=== PATIENT | male | born 1965 | race African-American/Black ===

== ENCOUNTER 2019-09-23 10:24 | Inpatient (IN) | payer OTHER, SELFPAY ==
--- NOTE | ~2019-09-23 | XR_ITS ---
XR chest 2V 09/28/2019 09:52 Indication: Multifocal pneumonia. Diabetes. Procedure: AP and lateral views of the chest Comparison: Comparison to multiple prior studies sequentially, with oldest reviewed study dated 02/24. Findings: There is multifocal airspace disease, consistent with pneumonia. Heart size normal. PICC li ne tip in the SVC. No pneumothorax. No pleural effusion. Impression: 1: Multifocal airspace disease, compatible with pneumonia. Reviewed, dictated and finalized at location A. Impression: 1: Multifocal airspace disease, compatible with pneumonia.
--- NOTE | ~2019-09-23 | US_ITS ---
US renal BI 09/30/2019 13:51 Procedure: Realtime transabdominal ultrasound of the kidneys and bladder. Indication: Acute renal insufficiency Comparison: No prior studies for comparison. Findings: Renal echotexture is normal bilaterally without hydronephrosis, contour deforming mass or r enal calculus. The right kidney measures 12.2 cm and left kidney measures 12.2 cm. There is mild blad mercedes wall thickening measuring 5 mm. Impression: 1: Mild bladder wall thickening which may be due to underdistention or cystitis. Consider correlation with urinalysis. Reviewed, dictated and finalized at location A. Impression: 1: Mild bladder wall thickening which may be due to underdistention or cystitis . Consider correlation with urinalysis.
--- NOTE | ~2019-09-23 | XR_ITS ---
EXAMINATION: XR foot RT min 3V DATE: 09/23/2019 11:08 INDICATION: Right great toe diabetic ulcer. TECHNIQUE: 4 views of right foot were obtained. COMPARISON: Right ankle radiographs 01/20/2006 FINDINGS: There is moderate hallux valgus. No visible fracture. There is periosteal reaction at the n nancy of first proximal phalanx. There is mild osteoarthritis of first metatarsophalangeal joint and so me of the interphalangeal joints. There is an ulcer at plantar and medial aspect of the great toe IMPRESSION: 1. Periosteal reaction at the neck of first proximal phalanx, consistent with osteomyelitis and/or a healing occult fracture. Reviewed, dictated and finalized at location A. IMPRESSION: 1. Periosteal reaction at the neck of first proximal phalanx, consistent with o steomyelitis and/or a healing occult fracture.
--- NOTE | ~2019-09-23 | CT_ITS ---
EXAMINATION: CT abdomen pelvis wo con DATE: 09/27/2019 13:25 INDICATION: Nausea, vomiting and acute renal insufficiency. Loss of appetite. TECHNIQUE: Computed tomography (CT) of the abdomen and pelvis was performed without intravenous contr ast. The dose-length product was 1412.14 mGy-cm. Automated exposure control and iterative reconstruct ion technique were employed. COMPARISON: CT dated 05/28/2019 FINDINGS: There is patchy bibasilar airspace disease, consistent with multifocal pneumonia. Heart siz e normal. No significant pleural or pericardial effusion. There is moderate right perinephric edema. No significant hydronephrosis. Small fat-containing umbilical hernia. Calcified granulomas of the liver and spleen. Gallbladder is present. The pancreas, adrenal glands an d left kidney are unremarkable. Nonobstructive bowel gas pattern. Bladder wall is mildly thickened. N o abnormal pelvic masses or fluid collections. No lymphadenopathy. No significant vascular abnormalit ies. IMPRESSION: 1. Multifocal pneumonia of the lung bases. 2: Moderate right perinephric edema, suspicious for pyelonephritis. Correlate clinically. 3: Mild bladder wall thickening which may be due to underdistention, hypertrophy or cystitis. Correl ate with urinalysis. Reviewed, dictated and finalized at location A. IMPRESSION: 1. Multifocal pneumonia of the lung bases. 2: Moderate right perinephric edema, suspicious for pyelonephritis. Correlate clinically. 3: Mild bladder wall thickening which may be due to underdistention, hypertrop hy or cystitis. Correlate with urinalysis.
--- NOTE | ~2019-09-23 | NM_ITS ---
EXAMINATION: NM renal flow and function DATE: 09/30/2019 13:53 INDICATION: Acute renal insufficiency TECHNIQUE: Following the intravenous administration of 7.61 mCi Tc-99m MAG3, posterior abdominal radi onuclide angiogram and subsequent time course of static images of the kidneys, ureters, and bladder w ere obtained. COMPARISON: CT dated 09/27/2019 FINDINGS: The posterior abdominal radionuclide angiogram obtained demonstrates prompt, symmetrical pe rfusion of the kidneys. Sequential static images show normal renal size, position, morphology and tr acer accumulation in both kidneys. Renogram shows prompt uptake (normal peak 3-5 minutes) but with d elayed excretion bilaterally. The relative early renal uptake is 66% on the right and 34% on the lef t (<40% is abnormal). No abnormalities of the ureters or bladder are seen. T1/2 max for both kidneys is unable to be determined with continually rising renal activity curves ex tending throughout the 30 minutes of imaging. There is however some renal excretion with small amount of activity seen along portions of both the left and right ureters with gradual accumulation in the bladder. No significant central however accumulation of activity at either kidney to suggest hydronep hrosis. IMPRESSION: 1. Bilateral nonspecific nephropathy and likely severe with continually increasing activity at both kidneys throughout the 30 minutes of observation. No evident hydronephrosis. 2. Asymmetric renal function with right kidney contributing 66% and left kidney 34% of early total re nal function. Reviewed, dictated and finalized at location A. IMPRESSION: 1. Bilateral nonspecific nephropathy and likely severe with continually increa sing activity at both kidneys throughout the 30 minutes of observation. No evid ent hydronephrosis. 2. Asymmetric renal function with right kidney contributing 66% and left kidney 34% of early total renal function.
--- NOTE | ~2019-09-23 | XR_ITS ---
EXAMINATION: XR chest 1V portable EXAM DATE: 09/30/2019 17:09 INDICATION: Worsening respiratory status, shortness of breath, new oxygen demand. TECHNIQUE: Portable AP frontal chest x-ray was obtained. Comparison is made to prior examination from 09/28/2019. Correlation was made with abdomen CT 09/27/2019. FINDINGS: There is interval progression in the bilateral acute airspace disease, moderate involvement on the right and mild on the left. Probably acute infectious process. Differential diagnosis does in clude acute lung injury from COVID 19. No pneumothorax or pleural effusion. Cardiomediastinal silhoue tte is normal. IMPRESSION: Worsening multifocal airspace disease. Reviewed, dictated and finalized at location A.
--- NOTE | ~2019-09-23 | XR_ITS ---
EXAMINATION: XR chest PICC line EXAM DATE: 09/23/2019 19:30 INDICATION: PICC line placement. TECHNIQUE: Portable AP frontal chest x-ray was obtained. Comparison is made to prior examination from 05/28/2019. FINDINGS: There is a right-sided PICC line with tip projecting over the mid SVC level, pointing infer iorly. The lungs are clear. There are no pleural effusions. The cardiomediastinal silhouette is wit hin normal limits. There is no pneumothorax suspected. The bones and soft tissues are unremarkable. IMPRESSION: 1. PICC line tip at mid SVC level. 2. No acute cardiopulmonary findings. Reviewed, dictated and finalized at location A.
[2019-09-23 10:27] VITALS: BP 127/91; PULSE 111; RESP 16; TEMP 37.2; O2SAT 98
[2019-09-23 11:58] LABS: Basophils Percent Auto 0.1 % (0.2-1.2); Eosinophils Absolute Auto 0.1 K/mm3 (0-0.3); Hematocrit 30.4 % (42.0-52.0); Immature Granulocyte Absolute 0.09 K/mm3 (0.00-0.031); Lymphocytes Absolute Auto 1.41 K/mm3 (0.9-3.2); Lymphocytes Percent Auto 14.9 % (18.3-44.2); Mean Corpuscular HGB Conc 32.9 g/dl (32-36); Mean Corpuscular Hemoglobin 27.5 pg (26-34); Mean Corpuscular Volume 83.7 fl (80-100); Mean Platelet Volume 8.7 fl (7.4-10.4); Monocytes Absolute Auto 1.1 K/mm3 (0.1-0.6); Monocytes Percent Auto 11.6 % (2.6-8.5); Neutrophils Absolute Auto 6.8 K/mm3 (1.3-6.7); Neutrophils Percent Auto 71.4 % (45.5-73.1); Platelet Count Result 413 k/mm3 (150-375); Red Blood Count 3.63 M/mm3 (4.6-6.20); White Blood Count 9.5 K/mm3 (4.5-10.0)
[2019-09-23 12:06] LABS: Lactic Acid Reflex 0.6 mmol/L (0.7-2.1)
[2019-09-23 12:19] LABS: Blood Urea Nitrogen 11 mg/dL (9-20); Calcium 8.9 mg/dL (8.4-10.2); Carbon Dioxide 26 mmol/L (22-30); Chloride 96 mmol/L (98-107); Estimated CRCL calculation 152 ml/min; Estimated Glomerular Filt Rate > 60; Glucose 239 mg/dL (75-110); Potassium 3.4 mmol/L (3.4-5.0); Sodium 131 mmol/L (137-145)
--- NOTE | 2019-09-23 12:23 | PM.CNGS ---
Assessment and Plan Assessment and plan (1) Type 2 diabetes mellitus with right diabetic foot infection: Code(s): E11.628 - Type 2 diabetes mellitus with other skin complications; L08.9 - Local infection of the skin and subcutaneous tissue, unspecified Status: Acute Assessment and Plan: IV abx, local wound care, xray suggestive of underlying osteo, d/w pt may need toe amputation (2) Diabetes: Code(s): E11.9 - Type 2 diabetes mellitus without complications Status: Acute Assessment and Plan: control as per primary team History of Present Illness Consult details Consult date: 09/23/19 Reason for consult: wound care (right great toe) Narrative: Pt is a 54 y/o M c multiple med issues including poorly controlled DM presenting c infection of R great toe. Pt reports he picked at a callous on his R great toe about a week ago. Pt reports over last week area has become progressively more inflamed and swollen. Pt reports darkening of the overlying skin as well as purulent drainage. Pt denies any f/c, although does reports some mild discomfort in the toe. Pt denies previous episodes. Review of Systems Constitutional: Constitutional: Denies anorexia, Denies chills, Reports fatigue, Denies headache(s), Denies malaise, Denies poor appetite, Reports weakness, Denies weight gain and Denies weight loss Eyes: Eyes: Denies loss of vision ENT: Denies dysphagia, Denies headache(s), Denies hearing loss and Denies sore throat Cardiovascular: Cardiovascular: Denies chest pain, Denies syncope, Denies irregular heart rhythm, Denies leg edema and Denies dyspnea Respiratory: Respiratory: Denies cough and Denies dyspnea Gastrointestinal: Gastrointestinal: Denies abdominal pain, Denies bloating, Denies change in bowel habits, Denies change in stool character, Denies constipation, Denies dysphagia, Denies heartburn, Denies diarrhea, Denies nausea and Denies vomiting Genitourinary: Genitourinary: Denies dysuria, Denies urinary frequency and Denies urinary urgency Musculoskeletal: Musculoskeletal: Denies myalgias, Denies arthralgias and Denies muscle cramps Integumentary/Breasts: Skin/Breast: Denies non-healing lesions, Denies rash and Reports wounds Neurologic: Denies syncope, Denies headache(s) and Denies loss of vision Endocrine: Endocrine: Denies change in body appearance and Denies fatigue Hematologic/Lymphatic: Hematologic/Lymphatic: Denies easy bleeding, Denies easy bruising and Denies lymphadenopathy [facility] Past Medical History Medical History Anemia Diabetes type 2, controlled GI bleed Hyperlipidemia Hypertension Surgical History Surgical History H/O arthroscopy of shoulder Left Hx of appendectomy Social History Social History Smoking status: Current every day smoker Gender identity (if verbalized by the patient): Male Meds Home Medications and Allergies Home Medications Medication Instructions Recorded Confirmed Type metformin 850 mg 09/23/19 History Allergies Allergy/AdvReac Type Severity Reaction Status Date / Time No Known Allergies Allergy Verified 09/23/19 10:34 Vital Signs Vital Signs - 24 hr 09/23/19 10:27 Temperature 37.2 C Pulse Rate 111 H Respiratory Rate 16 Blood Pressure 127/91 H Pulse Oximetry 98 Exam Const: General: cooperative, no acute distress and well developed Orientation/consciousness: patient oriented x3 HENMT: Head: normocephalic and atraumatic Mouth: Yes moist mucous membranes Teeth and gingiva: dentition normal Eyes: Pupils: Equal, round and reactive pupils present EOM: EOMs intact bilaterally Neck: Neck: full ROM, no lymphadenopathy, trachea midline, supple and no JVD Resp: Effort & Inspection: normal respiratory effort Auscultation: clear to auscultation bilatera
[2019-09-23 12:32] LABS: CRP 11.8 mg/dL (<1.0)
--- NOTE | 2019-09-23 12:32 | ED.GENADULT ---
HPI - General Adult General Chief complaint: Wound/Laceration Stated complaint: swollen toe Time Seen by Provider: 09/23/19 10:27 History of Present Illness HPI narrative: Patient is a 54-year-old male who presents the ER with a wound to his right great toe. He has history of diabetes. He had a scab on the plantar aspect of the foot that he has been picking. He then noticed that his foot and great toe began to discolor and swell approximately 2-1/2 weeks ago. Now he has an open sore to the plantar aspect of the affected foot with a swollen toe that is turning black. No erythema or tenderness extending up the foot. Denies fever/chills/sweats. Drainage from the ulcer has decreased recently. Related Data Home Medications Medication Instructions Recorded Confirmed metformin 850 mg PO BID 09/23/19 09/23/19 Allergies Allergy/AdvReac Type Severity Reaction Status Date / Time No Known Allergies Allergy Verified 09/23/19 10:34 Review of Systems Review of Systems: All systems reviewed & are unremarkable except as noted in HPI and below Constitutional: Constitutional: Denies chills, Denies fever(s) and Denies weakness ENT: Denies nasal congestion and Denies sore throat Respiratory: Respiratory: Denies cough, Denies dyspnea and Denies wheezing Gastrointestinal: Gastrointestinal: Denies abdominal pain, Denies nausea and Denies vomiting Musculoskeletal: Comments: Swollen right great toe Integumentary/Breasts: Comments: right plantar foot ulcer. [facility] Past Medical History Medical History (Updated 09/23/19 @ 16:53 by Alexandre Ornelas MD) Anemia Diabetes type 2, controlled GI bleed Hyperlipidemia Patient stated he no longer takes the medication Hypertension Surgical History Surgical History H/O arthroscopy of shoulder Left Hx of appendectomy Family History Family History (Updated 09/23/19 @ 15:48 by Sheridan Williamson NP) Father Medical history unknown Mother Healthy adult Sibling Healthy adult Social History Social History (Updated 09/23/19 @ 15:49 by Sheridan Williamson NP) Social History: Social drinker. Smokes a pack a cigarettes in 3 days. No marijuana or other drugs Years smoked: 1 Smoking status: Current every day smoker Tobacco type: cigarettes Second hand tobacco smoke exposure: Yes Alcohol intake: never Substance use: never Living arrangements: with family Additional living arrangements comments: With mother and brother Gender identity (if verbalized by the patient): Male Spiritual care concerns: No Agree to blood products: Yes Exam Narrative: Exam Narrative: GENERAL: Well-appearing, well-nourished, and in no acute distress. HEAD: Normocephalic, atraumatic. ENT: Mucous membranes moist. CHEST: Clear to auscultation. No respiratory distress. HEART: Tachycardic and regular. Normal peripheral pulses. ABDOMEN: Soft, nontender, nondistended EXTREMITIES: Normal range of motion. Swelling to the right great toe with an open sores plantar aspect without overt cellulitis or fluctuance. No tenderness into the calf or midfoot. Malodorous in nature. SKIN: Warm, dry, no rash. NEURO: Alert and oriented x3. PSYCH: Normal mood and affect. Course Reevaluation(s) Reevaluation #1: Dr. Wang with general surgery has been down to the patient. We will start on vancomycin and Zosyn. Admit to hospitalist service. Date: 09/23/19 Time: 12:35 Vital Signs Vital signs: Vital Signs Temperature 98.9 F 09/23/19 10:27 Pulse Rate 111 H 09/23/19 10:27 Respiratory Rate 16 09/23/19 10:27 Blood Pressure 127/91 H 09/23/19 10:27 Pulse Oximetry 98 09/23/19 10:27 Temperature 97.8 F 09/23/19 14:29 Pulse Rate 101 H 09/23/19 14:29 Respiratory Rate 18 09/23/19 14:29 Blood Pressure 133/71 09/23/19 14:29 Pulse Oximetry 95 09/23/19 14:29 Medical Decision Making Vital Signs Vital Signs: V
[2019-09-23 12:48] LABS: Erythrocyte Sedimentation Rate > 140 mm/hr (0-20)
[2019-09-23 13:57] VITALS: BP 141/91; PULSE 99; RESP 15; O2SAT 99
[2019-09-23 14:29] VITALS: BP 133/71; PULSE 101; RESP 18; TEMP 36.6; O2SAT 95
[2019-09-23 14:47] VITALS: BMI 38.3
--- NOTE | 2019-09-23 14:57 | ADMGEN ---
This patient, Michael Bai, was admitted to Medical Room 246-. Patient/family oriented to hospital policies and general routines including ID bracelet, bed and alarms, visiting hours, pain management, procedures, bathroom and other care routines, personal items, smoking policy, room service/diet, and visiting hours. Valuables list has been completed. Information on how to activate the Rapid Response Team has been discussed. Patient/Family are encouraged to report perceived risks to care and to ask questions if they do not understand what they are told or what they should do.
--- NOTE | 2019-09-23 15:38 | PM.IMHP ---
H&P: HPI History of Present Illness Chief complaint: osteomyelitis/diabetic foot wound Narrative: Michael Bai is a 54 year old male who has a history of diabetes type 2. And hypertension. The patient stated that he had a scale of 1 plantar aspect of her right great toe in he started picking on it. He noticed that his foot and right great toe PN to become discolored about 2 and half weeks ago. He did not seek medical advice at that time. Patient tells me that he has been using peroxide to cleanse it and using triple antibiotic over the counter. Patient is having some drainage from the ulcerated area on the right great toe. Patient's white count is noted to be normal but his H&H is 10.0 and 30.4. Potassium is 3.4. The x-ray of the foot as read as moderate hallux valgus no visible fracture. Periosteal reaction at the neck of the 1st proximal phalanx, consistent with osteomyelitis and are healing occult fracture. Patient was started on vancomycin and Primaxin. His blood sugars are in the 200s. Review of Systems Review of Systems: Narrative: Patient denies any fever but has chills. He denies any foul smell. He stated there is white drainage coming from his foot. He also was nauseated for couple days. His appetite is decreased. All systems reviewed & are unremarkable except as noted in HPI and below Constitutional: Constitutional: Reports as per HPI and Reports no additional constitutional complaints Eyes: Eyes: Reports as per HPI and Reports no additional eye complaints ENT: Reports system reviewed and no additional complaints, except as documented and Reports Normal hearing present Cardiovascular: Cardiovascular: Reports no additional cardiovascular complaints Respiratory: Respiratory: Reports no additional respiratory complaints and Reports no additional respiratory complaints Gastrointestinal: Gastrointestinal: Reports as per HPI and Reports no additional gastrointestinal complaints Musculoskeletal: Musculoskeletal: Reports no additional musculoskeletal complaints Integumentary/Breasts: Skin/Breast: Reports system reviewed and no additional complaints, except as docu and Reports as per HPI Neurologic: Reports system reviewed and no additional complaints, except as documented, Reports as per HPI and Reports Normal hearing present Psychiatric: Psychiatric: Reports no additional psychiatric complaints and Reports as per HPI Endocrine: Endocrine: Reports no additional endocrine complaints Hematologic/Lymphatic: Hematologic/Lymphatic: Reports no additional hematologic/lymphatic complaints Allergic/Immunologic: Allergic/Immunologic: Reports no additional allergic/immunologic complaints [facility] Past Medical History Medical History (Updated 09/23/19 @ 15:56 by Sheridan Williamson NP) Anemia Diabetes type 2, controlled GI bleed Hyperlipidemia Patient stated he no longer takes the medication Hypertension Surgical History Surgical History H/O arthroscopy of shoulder Left Hx of appendectomy Family History Family History (Updated 09/23/19 @ 15:48 by Sheridan Williamson NP) Father Medical history unknown Mother Healthy adult Sibling Healthy adult Social History Social History (Updated 09/23/19 @ 15:49 by Sheridan Williamson NP) Social History: Social drinker. Smokes a pack a cigarettes in 3 days. No marijuana or other drugs Years smoked: 1 Smoking status: Current every day smoker Tobacco type: cigarettes Second hand tobacco smoke exposure: Yes Alcohol intake: never Substance use: never Living arrangements: with family Additional living arrangements comments: With mother and brother Gender identity (if verbalized by the patient): Male Spiritual care concerns: No Agree to blood products: Yes Meds Home Medications and Allergies Home Medications Medication Instructions Recorded Confirmed Type metformin 850 mg 09/23/19
[2019-09-23 16:34] LABS: Glucose Point of Care 207 (65-105)
[2019-09-23] MEDS: ONDANSETRON INJ 4 MG/2 ML VIAL IV PUSH (17:43)
[2019-09-23 22:00] VITALS: BP 97/54; PULSE 87; RESP 20; TEMP 36.5; O2SAT 97
[2019-09-23] MEDS: CENTRAL LINE FLUSH 10 ML IV PUSH (22:00)
[2019-09-23 23:43] LABS: Glucose Point of Care 168 (65-105)
[2019-09-24] VITALS (14 sets, daily range): BP systolic 83–135; BP diastolic 46–86; PULSE 72–94; RESP 12–20; TEMP 36.1–37.3; O2SAT 92–100
[2019-09-24 06:50] LABS: Basophils Percent Auto 0.1 % (0.2-1.2); Eosinophils Absolute Auto 0.1 K/mm3 (0-0.3); Eosinophils Percent Auto 0.8 % (0-4.4); Hematocrit 27.6 % (42.0-52.0); Hemoglobin 8.8 g/dL (14.0-18.0); Immature Granulocyte Absolute 0.07 K/mm3 (0.00-0.031); Lymphocytes Absolute Auto 1.45 K/mm3 (0.9-3.2); Mean Corpuscular HGB Conc 31.9 g/dl (32-36); Mean Corpuscular Hemoglobin 27.2 pg (26-34); Mean Corpuscular Volume 85.2 fl (80-100); Mean Platelet Volume 9.1 fl (7.4-10.4); Monocytes Absolute Auto 0.9 K/mm3 (0.1-0.6); Monocytes Percent Auto 12.8 % (2.6-8.5); Neutrophils Absolute Auto 4.7 K/mm3 (1.3-6.7); Neutrophils Percent Auto 65.3 % (45.5-73.1); Platelet Count Result 364 k/mm3 (150-375); Red Blood Count 3.24 M/mm3 (4.6-6.20); Red Cell Distribution Width 12.3 % (11.5-14.5); White Blood Count 7.3 K/mm3 (4.5-10.0)
[2019-09-24 06:59] LABS: Hemoglobin A1C 10.3 % (<5.7)
[2019-09-24 07:01] LABS: Alanine Aminotransferase 12 U/L (4-50); Albumin Level 3.2 g/dL (3.5-5.1); Alkaline Phosphatase 94 U/L (38-126); Aspartate Amino Transferase 21 U/L (17-59); Bilirubin,Total 1.2 mg/dL (0.2-1.3); Blood Urea Nitrogen 10 mg/dL (9-20); Calcium 8.6 mg/dL (8.4-10.2); Carbon Dioxide 28 mmol/L (22-30); Chloride 96 mmol/L (98-107); Estimated CRCL calculation 118 ml/min; Estimated Glomerular Filt Rate > 60; Glucose 227 mg/dL (75-110); Lactic Acid 0.7 mmol/L (0.7-2.1); Magnesium 1.8 mg/dL (1.6-2.3); Potassium 3.2 mmol/L (3.4-5.0); Sodium 135 mmol/L (137-145)
[2019-09-24] MEDS: CENTRAL LINE FLUSH 10 ML IV PUSH ×3 (08:16→20:43)
[2019-09-24] MEDS: INSULIN ASPART (*BKC) 100 UNITS/ML SUB-Q (08:24)
--- NOTE | 2019-09-24 08:36 | PC.NURSE ---
PICC dressing not changed 09/23 as it was placed 8h prior and does not have gauze present. Dressing dry and intact with antimicrobial ring present.
[2019-09-24] MEDS: MAGNESIUM SULF 1 GM/D5W 100 ML 1 GM/100 ML BAG IVPB (09:22)
--- NOTE | 2019-09-24 09:50 | PM.PNGS ---
Progress Note: A&P Assessment and Plan (1) Type 2 diabetes mellitus with right diabetic foot infection: Code(s): E11.628 - Type 2 diabetes mellitus with other skin complications; L08.9 - Local infection of the skin and subcutaneous tissue, unspecified Status: Acute Assessment and Plan: will ask diabetic it technical specialist to evaluate, pt anxious about amputation, appreciate wound care input (2) Osteomyelitis: Code(s): M86.9 - Osteomyelitis, unspecified Status: Acute Assessment and Plan: cont IV abx (3) Diabetes: Code(s): E11.9 - Type 2 diabetes mellitus without complications Status: Acute Assessment and Plan: mgmt per primary Subjective Subjective Date/Time Seen: 09/24/19 09:50 feels ok, no c/o, anxious about poss amputation Review of Systems Constitutional: Constitutional: Denies body ache(s), Denies fatigue, Denies night sweats and Denies weakness Cardiovascular: Cardiovascular: Denies chest pain and Denies palpitations Respiratory: Respiratory: Denies dyspnea Gastrointestinal: Gastrointestinal: Denies abdominal pain, Denies nausea and Denies vomiting Musculoskeletal: Musculoskeletal: Reports arthralgias and Reports joint swelling Exam Const: General: no acute distress Resp: Auscultation: clear to auscultation bilaterally Cardio: Rate: regular rate Rhythm: regular rhythm GI: Other: SNTND Extrem: Other: great toe cont to drain foul purulent material c pressure Objective Data Vital Signs Vital Signs: Vital Signs - 24 hr 09/23/19 10:27 09/23/19 13:57 09/23/19 14:29 Temperature 37.2 C 36.6 C Pulse Rate 111 H 99 101 H Respiratory Rate 16 15 18 Blood Pressure 127/91 H 141/91 H 133/71 Pulse Oximetry 98 99 95 09/23/19 22:00 09/24/19 05:48 Temperature 36.5 C 37.3 C Pulse Rate 87 90 Respiratory Rate 20 20 Blood Pressure 97/54 L 115/62 Pulse Oximetry 97 96 Intake/Output Intake/Output: Intake & Output 09/21/19 09/22/19 09/23/19 09/24/19 23:59 23:59 23:59 23:59 Intake Total 850 900 Output Total 500 400 Balance 350 500 Meds/Results Medications: Active Medications Generic Name Dose Route Start Last Admin Trade Name Freq PRN Reason Stop Dose Admin Acetaminophen 650 mg 09/23/19 13:18 Tylenol Tablet PO Q4H PRN Mild Pain (1-3) or Fever Hydrocodone Bitart/Acetaminophen 1 tab 09/23/19 13:18 09/23/19 17:43 [place] 5-325 Mg PO 1 tab Q4H PRN Administration Pain Rated 4-6 Dextrose 12.5 gm 09/23/19 15:12 Dextrose 50% Syringe IV PUSH PRN PRN Hypoglycemia Protocol Glucagon 1 mg 09/23/19 15:12 Glucagon For Inj IM PRN PRN Hypoglycemia Protocol Glucose 15 gm 09/23/19 15:12 Glutose 15 PO PRN PRN Hypoglycemia Protocol Hydralazine HCl 10 mg 09/23/19 16:00 Apresoline Hcl Inj IV PUSH Q8H PRN Blood Pressure - High Piperacillin/Tazobactam/Dextrose 3.375 gm in 50 mls @ 100 mls/hr 09/23/19 18:00 09/24/19 07:03 Zosyn 3.375 Gm/D5w 50ml Pm IVPB Infused Q6HR ARRON Infusion Dextrose 1,000 mls @ 100 mls/hr 09/23/19 15:12 Dextrose 5% 1,000 Ml IVPB PRN PRN Hypoglycemia Protocol Vancomycin HCl 2,000 mg in 500 mls @ 250 mls/hr 09/24/19 03:00 09/24/19 05:51 Vancomycin 2,000 Mg/D5w 500 Ml IVPB Infused Q12H ARRON Infusion Magnesium Sulfate/Dextrose 1 gm in 100 mls @ 100 mls/hr 09/24/19 09:00 09/24/19 09:22 Magnesium Sulf 1 Gm/D5w 100 Ml IVPB 09/24/19 09:59 100 mls/hr ONCE ONE Administration Ibuprofen 800 mg in 200 mls @ 400 mls/hr 09/24/19 09:28 Caldolor 800 Mg/200 Ml IVPB 09/24/19 09:57 ONCE ONE Insulin Aspart 2 - 5 units 09/23/19 17:00 09/24/19 08:24 Novolog SUB-Q 2 units TIDWM ARRON Administration Protocol Insulin Glargine 10 units 09/24/19 21:00 Lantus SUB-Q HS ARRON Morphine Sulfate 4 mg 09/23/19 13:18 Morphine Sulfate Inj IV PUSH Q2H
--- NOTE | 2019-09-24 09:57 | PM.CNOR ---
Assessment and Plan Assessment and plan (1) Osteomyelitis: Qualifiers: Laterality: right Osteomyelitis location: foot Osteomyelitis type: other acute Qualified Code(s): M86.171 - Other acute osteomyelitis, right ankle and foot Code(s): M86.9 - Osteomyelitis, unspecified Status: Acute (2) Type 2 diabetes mellitus with right diabetic foot infection: Code(s): E11.628 - Type 2 diabetes mellitus with other skin complications; L08.9 - Local infection of the skin and subcutaneous tissue, unspecified Status: Acute Assessment and Plan: right hallux diabetic foot ulcer with extension to the interphalangeal joint and proximal phalanx with suspected osteomyelitis. [place] purulent drainage. New patient evaluation for chief complaint Right hallux diabetic ulcer. History, physical exam and radiographs reviewed with the patient. Discussed the condition, nature, etiology and course of natural history with the patient. Treatment options including surgical and nonoperative treatment were reviewed. Risks and benefits of each as well as alternatives reviewed. The patient's questions were answered. Conservative treatment ice and elevation. patient started on intravenous antibiotics. Discussed concern with osteomyelitis and possible spread of infection. Chance of treatment success surgery and without surgery reviewed. Patient like to proceed with operative treatment. Discussed likely need for amputation due to bone involvement. Discussed nonoperative and operative treatment options with the patient. Risks and benefits of each as well as alternatives were reviewed. All of the patient's questions were answered. The risks of surgery reviewed including but not limited to: Neurovascular damage, wound complication, infection, blood clot, pulmonary embolus, stroke, myocardial infarction, and anesthetic risks up to and including . Continued pain and possible dysfunction were explained. Specific risks of the procedure including later recurrence of deformity. No guarantees were offered. If hardware used, discussed risk of failure/ breakage and possible need for removal. If complications occur, the patient understands the need for further treatment, possible further surgery. Patient verbalizes understanding and wishes to proceed. PLAN: Right hallux amputation (3) Diabetes mellitus with diabetic neuropathy: Qualifiers: Diabetes mellitus intermediate insulin use: without intermediate use Diabetes mellitus type: type 2 Qualified Code(s): E11.40 - Type 2 diabetes mellitus with diabetic neuropathy, unspecified Code(s): E11.40 - Type 2 diabetes mellitus with diabetic neuropathy, unspecified Status: Acute (4) Neuropathy due to type 2 diabetes mellitus: Code(s): E11.40 - Type 2 diabetes mellitus with diabetic neuropathy, unspecified Status: Acute History of Present Illness HPI Consult date: 09/24/19 Requesting physician: Meghann Wang MD Chief complaint: osteomyelitis/diabetic foot wound Narrative: 54-year-old pleasant gentleman noticed a callus on the right plantar hallux month ago. Was picking at it to remove it and developed swelling 2 to 3 weeks ago. Now has open ulceration with purulent drainage which increased over the past several days. Presented to the emergency room yesterday. Complains of pain on the plantar aspect of the hallux. Denies pain at the foot ankle or leg. Denies fever or chills. Has had decreased appetite but no nausea or vomiting. No respiratory problems. No prior history of foot ulceration. He does have diabetes and decreased sensation in both feet. He has had diabetes for the past 15 years, treated with oral medication. Current symptoms: Reports drainage, ulceration, odor and numbness Location: toe ( right hallux) Duration: 3-4 weeks Trigger: other ( callus) Review of Systems Constitutional: Constitutional: Reports poor appetite Eyes: Eyes: Ayo
--- NOTE | 2019-09-24 10:13 | PM.IMPN ---
Progress Note: A&P Assessment and Plan (1) Osteomyelitis: Qualifiers: Laterality: right Osteomyelitis location: foot Osteomyelitis type: other acute Qualified Code(s): M86.171 - Other acute osteomyelitis, right ankle and foot Code(s): M86.9 - Osteomyelitis, unspecified Status: Acute Assessment and Plan: Patient on vancomycin and Primaxin due to his diabetes. Surgery, Dr. Wang, was consulted and evaluated the patient and felt that consult needed to be placed to Dr. Mejia orthopedic who does most of the diabetic foot wounds and amputations. Dr. Mejia evaluated the patient this morning and is taking him to surgery for a right hallux amputation 09/24/2019. Patient denies much pain at this time. Wound culture Gram stain show moderate white blood cells and many mixed bacterial corinne, pending official culture. Blood cultures pending. Continue monitoring patient's symptoms, and appreciate orthopedic consultation and recommendation. (2) Diabetes: Code(s): E11.9 - Type 2 diabetes mellitus without complications Status: Acute Assessment and Plan: Patient's hemoglobin A1c was 10.3%. He has been on metformin for years and states was recently increased to 850 twice a day. I explained to the patient the importance of checking his sugars, monitoring his diet, weight loss and exercise. Patient states he has been eating better and losing weight recently. I will start him on Lantus 10 U tonight for better glucose control Also placed a consult to the religious educator and dietitian. Accu-Cheks AC and HS. Hypoglycemia protocol initiated. (3) Anemia: Code(s): D64.9 - Anemia, unspecified Status: Chronic Assessment and Plan: Patient has some anemia since arrival. He denies any history of anemia. H&H 10.0 and 30.4. Continue to monitor. He does report having some dark stools recently Will order anemia panel, vitamin B12, folic acid, stool Hemoccult Continue monitoring H&H. Transfuse as needed. (4) History of elevated blood pressure while in hospital: Code(s): Z86.79 - Personal history of other diseases of the circulatory system Status: Acute Assessment and Plan: Patient denies any history of high blood pressure and is not on any medications at this time. Blood pressure this morning was 115/62. Stable. Continue P.r.n. hydralazine. Continue monitoring. (5) Nausea: Code(s): R11.0 - Nausea Status: Acute Assessment and Plan: Could be secondary to acute infection verses possible ulcer. Patient states he has been losing weight, eating less, having nausea prior to arrival. Will start IV Protonix twice daily and p.r.n. Zofran and for breakthrough p.r.n. Phenergan. Monitor his symptoms after his surgery today and if continuing to have GI issues may consult GI specialist. Time Spent With Patient Time with patient: 25 - 35 minutes Subjective Date/time seen: 09/24/19 10:13 Interval history: Date of service 09/24/2019: Patient reports feeling nauseous and not being able to eat too much over the last few days since his foot has become worse. He states the episode of vomiting after receiving Zofran. He denies any abdominal pain, heartburn, chest pain, shortness of breath, cough, fever or chills. Does report being slightly constipated but he has been able to pass gas. Denies any leg swelling, calf pain or any other symptoms at this time. Review of Systems Review of Systems: All systems reviewed & are unremarkable except as noted in HPI and below Exam Narrative: Exam Narrative: General: 54-year-old man laying flat in bed watching TV and talking on his phone. Appears comfortable. In no acute distress. Ski
--- NOTE | 2019-09-24 10:45 | PC.NURSE ---
Patient to OR at 1045.
[2019-09-24 11:22] LABS: Glucose Point of Care 205 (65-105)
[2019-09-24] MEDS: IBUPROFEN IV 800 MG/200 ML 800 MG/200 ML BAG 400 MG IVPB (11:35)
[2019-09-24] MEDS: LACTATED RINGERS 1,000 ML 30 ML IV CONT (11:35)
--- NOTE | 2019-09-24 11:56 | WPDANESEPPF ---
Anes - Initial Pre Proc Eval Procedure: Operation Date: 09/24/19 12:30 Proposed Procedures p Right Hallux Amputation - Khalif Mejia MD Date/Time: 09/24/19 11:56 Surgeon: Ann Rodney PA-C Pre Op Diagnosis: osteomyelitis/diabetic foot wound Patient Data Age: 54 Gender: M Height: 5 ft 9 in Weight: 117.8 kg Last Vital Signs Temp 36.9 C 09/24/19 11:15 Pulse 94 09/24/19 11:15 Resp 14 09/24/19 11:15 BP 120/67 09/24/19 11:15 Pulse Ox 97 09/24/19 11:15 Allergies Allergy/AdvReac Type Severity Reaction Status Date / Time No Known Allergies Allergy Verified 09/23/19 10:34 Home Medications Medication Instructions Recorded Confirmed Type metformin 850 mg PO BID 09/23/19 09/23/19 History Laboratory Tests 09/23/19 09/23/19 09/23/19 11:45 11:45 11:45 WBC 9.5 K/mm3 K/mm3 (4.5-10.0) RBC 3.63 M/mm3 L M/mm3 (4.6-6.20) Hgb 10.0 g/dL L D g/dL (14.0-18.0) Hct 30.4 % L % (42.0-52.0) MCV 83.7 fl fl (80-100) MCH 27.5 pg pg (26-34) MCHC 32.9 g/dl g/dl (32-36) RDW 12.0 % % (11.5-14.5) Plt Count 413 k/mm3 H k/mm3 (150-375) MPV 8.7 fl fl (7.4-10.4) Immature Gran % (Auto) 1.0 % H % (0-0.5) Neut % (Auto) 71.4 % % (45.5-73.1) Lymph % (Auto) 14.9 % L % (18.3-44.2) Hancock % (Auto) 11.6 % H % (2.6-8.5) Eos % (Auto) 1.0 % % (0-4.4) Baso % (Auto) 0.1 % L % (0.2-1.2) Lymph # (Auto) 1.41 K/mm3 K/mm3 (0.9-3.2) [place] # (Auto) 1.1 K/mm3 H K/mm3 (0.1-0.6) Eos # (Auto) 0.1 K/mm3 K/mm3 (0-0.3) Baso # (Auto) 0.0 K/mm3 K/mm3 (0.0-0.1) Abs Immat Gran (auto) 0.09 K/mm3 H K/mm3 (0.00-0.031) Absolute Neuts (auto) 6.8 K/mm3 H K/mm3 (1.3-6.7) Absolute Nucleated RBC 0.0 K/mm3 K/mm3 (0.0-0.012) Nucleated RBC % 0.0 % % (0.0-0.2) ESR > 140 mm/hr H mm/hr (0-20) Sodium 131 mmol/L L mmol/L (137-145) Potassium 3.4 mmol/L mmol/L (3.4-5.0) Chloride 96 mmol/L L mmol/L (98-107) Carbon Dioxide 26 mmol/L mmol/L (22-30) BUN 11 mg/dL mg/dL (9-20) Creatinine 0.60 mg/dL L mg/dL (0.7-1.3) Estim Creat Clear Calc 152 ml/min ml/min Estimated GFR > 60 (59 - ) Glucose 239 mg/dL H mg/dL (75-110) POC Capillary Glucose Hemoglobin A1c Lactic Acid 0.6 mmol/L L mmol/L (0.7-2.1) Calcium 8.9 mg/dL mg/dL (8.4-10.2) Magnesium Total Bilirubin AST ALT Alkaline Phosphatase C-Reactive Protein 11.8 mg/dL H mg/dL (<1.0) Total Protein Albumin TSH (Reflex) 09/23/19 09/23/19 09/24/19 16:25 23:32 06:43 WBC 7.3 K/mm3 K/mm3 (4.5-10.0) RBC 3.24 M/mm3 L M/mm3 (4.6-6.20) Hgb 8.8 g/dL L g/dL (14.0-18.0) Hct 27.6 % L % (42.0-52.0) MCV 85.2 fl fl (80-100) MCH 27.2 pg pg (26-34) MCHC 31.9 g/dl L g/dl (32-36) RDW 12.3 % % (11.5-14.5) Plt Count 364 k/mm3 k/mm3 (150-375) MPV 9.1 fl fl (7.4-10.4) Immature Gran % (Auto) 1.0 % H % (0-0.5) Neut % (Auto) 65.3 % % (45.5-73.1) Lymph % (Auto) 20.0 % % (18.3-44.2) Hancock % (Auto) 12.8 % H % (2.6-8.5) Eos % (Auto) 0.8 % % (0-4.4) Baso % (Auto) 0.1 % L % (0.2-1.2) Lymph # (Auto) 1.45 K/mm3 K/mm3 (0.9-3.2) Hancock # (Auto) 0.9 K/mm3 H K/mm3 (0.1-0.6) Eos # (Auto) 0.1 K/mm3 K/mm3 (0-0.3) Baso # (Auto) 0.0 K/mm3 K/mm3 (0.0-0.1) Abs Immat Gran (auto) 0.07 K/mm3 H K/mm3 (0.00-0.031) Absolute Neuts (auto) 4.7 K/mm3 K/mm3 (1.3-
--- NOTE | 2019-09-24 14:03 | SUR.OPER ---
ebl:[id number]
[2019-09-24 14:11] LABS: Glucose Point of Care 166 (65-105)
[2019-09-24 14:16] LABS: Glucose Point of Care 203 (65-105)
--- NOTE | 2019-09-24 14:38 | PM.PROC ---
Procedure Note - Detailed Date of procedure: 09/24/19 Pre-op diagnosis: osteomyelitis/diabetic foot wound Post-op diagnosis: same Procedure performed: right foot 1st ray amputation Description of procedure: indications: 54-year-old gentleman with uncontrolled diabetes and peripheral neuropathy with several week history of right hallux infection. Radiographs now show involvement of the bone as well as involvement of the majority of the hallux and purulence drainage. Patient desires operative treatment. Description of procedure: Patient identified in the preoperative holding. Informed consent given. Operative extremity marked. Patient received intravenous antibiotics. Patient brought to the operating room where underwent general anesthetic by anesthesia team. Positioned supine on operating room table. Time-out performed confirming the patient, site of the surgery and the plan. Right foot prepped and draped in usual sterile surgical fashion using Betadine prep solution. There was an ulcer over the plantar medial aspect of the hallux which revealed full-thickness necrosis with exposed bone of the proximal phalanx. No ability to heal the wound and no soft tissue coverage of the bone, amputation of the hallux was indicated. Fifteen blade knife used to make fishmouth shaped incision at the base of the hallux. Hemostasis controlled with electrocautery. Joint incised circumferentially with a 15 blade knife and hallux removed and passed off the table. Thorough irrigation done. Articular surface of the metatarsal head removed with a rongeur. Sagittal saw used to perform osteotomy through the midportion of the 1st metatarsal. Distal aspect removed. Sesamoid bones removed. Exposed tendon sharply removed. Good viable wound margins noted with surgical wound proximal to the extent of infection. Wound thoroughly irrigated again. 500 cc of vancomycin powder placed into the soft tissue. Local anesthetic with 0.5% Marcaine plain. Wound closed with 2 0 prolene interrupted suture for the skin. Sterile dressings applied. Patient awoke from anesthesia, extubated and taken to the recovery room in stable condition. All sponge needle and instrument counts correct at the end the case. Implants: None Anesthesia: GLMA Surgeon: Khalif Mejia MD Skidder Driver: 1st dental ceramist assistant Estimated blood loss (mL): 5 Tourniquet time (min): 45 Drains: No Packing: No Pathology: yes ( 1st ray gross specimen) Complications: None Condition: stable Disposition: PACU
--- NOTE | 2019-09-24 15:29 | SUR.PHASEI ---
1415 sbar faxed floor notified
--- NOTE | 2019-09-24 15:48 | PC.NURSE ---
Return from OR per bed.
[2019-09-24] MEDS: PANTOPRAZOLE SODIUM IV 40 MG VIAL IV PUSH (15:51)
[2019-09-24] MEDS: POTASSIUM CHLORIDE 20 MEQ TABLET 40 MEQ PO (15:52)
--- NOTE | 2019-09-24 16:03 | ECG_ITS ---
Measurements Intervals [place] Rate: 86 P: 60 DC: 159 QRS: -12 QRSD: 90 T: 57 QT: 358 QTc: 430 Interpretive Statements SINUS RHYTHM VOLTAGE CRITERIA FOR LVH POOR R WAVE PROGRESSION, ANTERIOR LEADS BORDERLINE ECG Electronically Signed On 09-24-2019 17:40:18 CDT by Allan Gale D.O.
[2019-09-24 16:04] LABS: Glucose Point of Care 184 (65-105)
[2019-09-24] MEDS: INSULIN GLARGINE (*BKC) 100 UNITS/ML 10 UNITS SUB-Q (20:42)
[2019-09-24 20:51] LABS: Glucose Point of Care 233 (65-105)
[2019-09-25] VITALS: BP 110/64; PULSE 91; RESP 16; TEMP 36.2; O2SAT 96
[2019-09-25] MEDS: MORPHINE SULFATE 4 MG/ML INJ IV PUSH (00:51)
[2019-09-25 02:24] LABS: Basophils Percent Auto 0.1 % (0.2-1.2); Eosinophils Percent Auto 0.3 % (0-4.4); Immature Granulocyte Absolute 0.05 K/mm3 (0.00-0.031); Immature Granulocyte Percent A 0.7 % (0-0.5); Lymphocytes Absolute Auto 1.14 K/mm3 (0.9-3.2); Lymphocytes Percent Auto 15.9 % (18.3-44.2); Mean Corpuscular HGB Conc 32.1 g/dl (32-36); Mean Corpuscular Hemoglobin 27.5 pg (26-34); Mean Corpuscular Volume 85.6 fl (80-100); Mean Platelet Volume 9.2 fl (7.4-10.4); Monocytes Absolute Auto 0.7 K/mm3 (0.1-0.6); Neutrophils Absolute Auto 5.3 K/mm3 (1.3-6.7); Platelet Count Result 364 k/mm3 (150-375); Red Blood Count 3.27 M/mm3 (4.6-6.20); Red Cell Distribution Width 12.1 % (11.5-14.5); White Blood Count 7.2 K/mm3 (4.5-10.0)
[2019-09-25 02:38] LABS: Blood Urea Nitrogen 10 mg/dL (9-20); Calcium 8.4 mg/dL (8.4-10.2); Carbon Dioxide 27 mmol/L (22-30); Chloride 100 mmol/L (98-107); Estimated CRCL calculation 106 ml/min; Estimated Glomerular Filt Rate > 60; Glucose 211 mg/dL (75-110); Magnesium 2.1 mg/dL (1.6-2.3); Potassium 3.8 mmol/L (3.4-5.0); Sodium 134 mmol/L (137-145)
[2019-09-25 02:45] LABS: Transferrin 179 mg/dL (206-381)
[2019-09-25 03:35] LABS: Iron 31 ug/dL (49-181)
[2019-09-25 03:40] LABS: Vancomycin Trough 12.9 ug/mL (10.0-20.0)
[2019-09-25 03:44] LABS: Percent Iron Saturation 12 % (20-50)
[2019-09-25 03:59] LABS: Vitamin B12 > 1000.0 pg/mL (239-931)
[2019-09-25 04:00] VITALS: BP 118/71; PULSE 89; RESP 16; TEMP 36.3; O2SAT 94
[2019-09-25] MEDS: CENTRAL LINE FLUSH 10 ML IV PUSH ×3 (06:09→21:01)
[2019-09-25 08:46] LABS: Glucose Point of Care 212 (65-105)
[2019-09-25] MEDS: PANTOPRAZOLE SODIUM IV 40 MG VIAL IV PUSH ×2 (08:48→21:01)
[2019-09-25 10:00] VITALS: BP 115/72; PULSE 99; RESP 17; TEMP 36.9; O2SAT 96
--- NOTE | 2019-09-25 10:46 | PCDIET ---
Dietitian Consult for uncontrolled DM with food wounds and amputation. Spoke with patient over the telephone today due to COVID 19 precautions. Patient states he does not have an home office claims examiner but does have a primary MD. He has not been eating much for the past 4 days prior to admit. He states he has been trying to eat fruit ,drink Gaterade and low Sodium based foods at home. He is eating limited amounts of pasta, rice or potatoes. HbA1c 10.3%. He had not diet questions regarding Diabetic diet. Post opt Right great toe 09/23. He is currently on a diabetic diet, eating 1/2 of his goldman for breakfast in which he ordered mixed fruit, eggs, peaches, goldman and milk. MD orders to Shital Rao BID for additional 220 kcals and 10 gms protein which will heat and frost insulator helper with wound healing. Patient instruction is attached. Thank you for the consult.
--- NOTE | 2019-09-25 10:56 | PM.IMPN ---
Progress Note: A&P Assessment and Plan (1) Osteomyelitis: Qualifiers: Laterality: right Osteomyelitis location: foot Osteomyelitis type: other acute Qualified Code(s): M86.171 - Other acute osteomyelitis, right ankle and foot Code(s): M86.9 - Osteomyelitis, unspecified Status: Acute Assessment and Plan: Patient on vancomycin and Primaxin due to his diabetes. Surgery, Dr. Wang, was consulted and evaluated the patient and felt that consult needed to be placed to Dr. Mejia orthopedic who does most of the diabetic foot wounds and amputations. Dr. Mejia evaluated the patient and took him to surgery on 09/24/2019 for 1st ray amputation. Postop day #1. Patient reports pain rated 5/10 at this time. Wound culture shows growth of Staph aureus, still pending official results and sensitivities. Blood cultures shows no growth at this time. Continue monitoring patient's symptoms, and appreciate orthopedic consultation and recommendation. (2) Diabetes: Code(s): E11.9 - Type 2 diabetes mellitus without complications Status: Acute Assessment and Plan: Patient's hemoglobin A1c was 10.3%. He has been on metformin for years and states was recently increased to 850 twice a day. I explained to the patient the importance of checking his sugars, monitoring his diet, weight loss and exercise. Patient states he has been eating better and losing weight recently. I will start him on Lantus 10 U for better glucose control. Also placed a consult to the diabetic educator and dietitian. Accu-Cheks ACHS. Hypoglycemia protocol initiated. (3) Anemia: Code(s): D64.9 - Anemia, unspecified Status: Chronic Assessment and Plan: Patient has some anemia since arrival. He denies any history of anemia. H&H /28% Continue to monitor. He does report having some dark stools recently. Still pending hemoccult stool. Anemia panel shows signs of anemia of chronic disease. Normal folic acid and vitamin B12. Continue monitoring H&H. Transfuse as needed. No acute signs of bleeding. (4) History of elevated blood pressure while in hospital: Code(s): Z86.79 - Personal history of other diseases of the circulatory system Status: Acute Assessment and Plan: Patient denies any history of high blood pressure and is not on any medications at this time. Blood pressure this morning was 118/71. Stable. Continue P.r.n. hydralazine. Continue monitoring. (5) Nausea: Code(s): R11.0 - Nausea Status: Acute Assessment and Plan: Could be secondary to acute infection verses possible ulcer. Patient states he has been losing weight, eating less, having nausea prior to arrival. He is feeling much better today after his surgery eating and drinking without any issues. Continue IV Protonix twice daily and p.r.n. Zofran and for breakthrough p.r.n. Phenergan. Monitor his symptoms after his surgery today and if continuing to have GI issues may consult GI specialist. Time Spent With Patient Time with patient: 25 - 35 minutes Subjective Date/time seen: 09/25/19 10:56 Interval history: Date of service 09/25/2019: The patient reports feeling much better today after his surgery yesterday. He is only complaining of pain to his foot rated a 5/10 at this time. He has otherwise been eating and drinking without any issues. Denies any more nausea, abdominal pain, vomiting since surgery. He denies any chest pain, shortness of breath, cough, fever or chills. Does report being slightly constipated but he has been able to pass gas. Denies any leg swelling, calf pain or any other symptoms at this time. Review of Systems Review of Systems: All systems reviewe
--- NOTE | 2019-09-25 11:21 | PM.PNORT ---
Progress Note: A&P Assessment and Plan (1) Osteomyelitis: Qualifiers: Laterality: right Osteomyelitis location: foot Osteomyelitis type: other acute Qualified Code(s): M86.171 - Other acute osteomyelitis, right ankle and foot Code(s): M86.9 - Osteomyelitis, unspecified Status: Acute Assessment and Plan: Postoperative day 1. Right 1st ray amputation. Dressing changed today. Orders for daily dressings. Postoperative shoe with protective weight-bearing. PT/ OT today. Continue with IV antibiotics As planned. Reviewed pain control. May use ibuprofen as ordered with [place] for breakthrough. Plan suture removal in 3 weeks. Subjective Subjective Date/Time Seen: 09/25/19 11:21 Patient awake complains of pain right foot 5/10. No problems eating. Exam Const: General: healthy appearing; No in distress or confusion Orientation/consciousness: patient oriented x3 and No confusion HENMT: Head: normal to inspection, normocephalic and atraumatic Eyes: Conjunctivae: conjunctivae normal Sclera: sclerae normal Resp: Effort & Inspection: normal respiratory effort and no audible wheezes Neuro: General: patient oriented x3 and No confusion Extrem: Other: Dressing changed right foot. Incision clean and intact. Mild sanguinous drainage. Minimal swelling. No proximal redness or streaking. New sterile dressing applied. Psych: Affect: normal affect Objective Data Vital Signs Vital Signs: Vital Signs - 24 hr 09/24/19 14:00 09/24/19 14:10 09/24/19 14:25 Temperature 97.8 F Pulse Rate 72 75 87 Respiratory Rate 14 14 16 Blood Pressure 83/46 L 110/57 L 105/64 Pulse Oximetry 99 93 98 09/24/19 14:40 09/24/19 14:55 09/24/19 15:10 Temperature Pulse Rate 86 86 87 Respiratory Rate 12 14 14 Blood Pressure 98/61 L 106/58 L 106/63 Pulse Oximetry 92 98 92 09/24/19 15:25 09/24/19 16:00 09/24/19 16:15 Temperature 97 F L 96.9 F L Pulse Rate 86 91 93 Respiratory Rate 12 18 20 Blood Pressure 107/71 104/70 116/86 Pulse Oximetry 93 95 98 09/24/19 17:00 09/24/19 18:03 09/24/19 20:00 Temperature 96.9 F L 97.6 F 97.8 F Pulse Rate 89 90 79 Respiratory Rate 19 19 16 Blood Pressure 135/81 124/66 113/59 L Pulse Oximetry 97 100 97 09/25/19 00:00 09/25/19 04:00 Temperature 97.2 F L 97.3 F L Pulse Rate 91 89 Respiratory Rate 16 16 Blood Pressure 110/64 118/71 Pulse Oximetry 96 94 Intake/Output Intake/Output: Intake & Output 09/22/19 09/23/19 09/24/19 09/25/19 23:59 23:59 23:59 23:59 Intake Total 850 2600 550 Output Total 500 1700 400 Balance 350 900 150 Meds/Results Medications: Active Medications Generic Name Dose Route Start Last Admin Trade Name Freq PRN Reason Stop Dose Admin Acetaminophen 650 mg 09/23/19 13:18 Tylenol Tablet PO Q4H PRN Mild Pain (1-3) or Fever Hydrocodone Bitart/Acetaminophen 1 tab 09/23/19 13:18 09/25/19 08:46 [place] 5-325 Mg PO 1 tab Q4H PRN Administration Pain Rated 4-6 Dextrose 12.5 gm 09/23/19 15:12 Dextrose 50% Syringe IV PUSH PRN PRN Hypoglycemia Protocol Glucagon 1 mg 09/23/19 15:12 Glucagon For Inj IM PRN PRN Hypoglycemia Protocol Glucose 15 gm 09/23/19 15:12 Glutose 15 PO PRN PRN Hypoglycemia Protocol Hydralazine HCl 10 mg 09/23/19 16:00 Apresoline Hcl Inj IV PUSH Q8H PRN Blood Pressure - High Piperacillin/Tazobactam/Dextrose 3.375 gm in 50 mls @ 100 mls/hr 09/23/19 18:00 09/25/19 06:39 Zosyn 3.375 Gm/D5w 50ml Pm IVPB Infused Q6HR ARRON Infusion Dextrose 1,000 mls @ 100 mls/hr 09/23/19 15:12 Dextrose 5% 1,000 Ml IVPB PRN PRN Hypoglycemia Protocol Vancomycin HCl 1,500 mg in 500 mls @ 333.333 mls/hr 09/25/19 14:00 Vancomycin 1,500 Mg/D5w 500 Ml IVPB Q8H [facility] Insulin Aspart 2 - 5 units 09/23/19 17:00 09/25/19 08:48 Novolog SUB-Q Not [facility]
[2019-09-25] MEDS: IBUPROFEN IV 400 MG in SODIUM CHLORIDE 0.9% IV 100 ML 200 MG IVPB ×2 (12:58→22:21)
[2019-09-25] MEDS: INSULIN ASPART (*BKC) 100 UNITS/ML SUB-Q ×2 (13:05→17:30)
[2019-09-25 13:06] LABS: Glucose Point of Care 260 (65-105)
--- NOTE | 2019-09-25 13:40 | PCCDE ---
Consult received 09/24/19; attempted to see but pt was irritated and c/o you people keep coming in at the wrong times . Offered to come back another time and pt agreed. Left Diabetes Management book at bedside with educator contact info. Report given to RN.
--- NOTE | 2019-09-25 13:54 | PCPTNOTE ---
Attempted therapy session. Pt declined treatment. He stats I know I should get up and work with you . But I am so tired and I just got my pain pill. I haven't slept in a while and just need some rest. I will work with you either later on or tomorrow but right now I just want to sleep. Therapist acknowledged Pt's concerns and reassured Pt we are here to help him heal and recover. Will attempt therapy again.
[2019-09-25 14:00] VITALS: BP 105/58; PULSE 90; RESP 18; TEMP 36.9; O2SAT 96
[2019-09-25 16:31] LABS: Glucose Point of Care 253 (65-105)
--- NOTE | 2019-09-25 16:59 | WPDANESPN ---
Anes - Prog Note Post-Op Date/Time: 09/25/19 16:59 Cardiovascular status: normal Respiratory status: normal Airway patency: baseline Mental status: baseline Post-Op hydration status: normal Vital Signs: Last Vital Signs Temp 98.4 F 09/25/19 14:00 Pulse 90 09/25/19 14:00 Resp 18 09/25/19 14:00 BP 105/58 L 09/25/19 14:00 Pulse Ox 96 09/25/19 14:00 I/O: Intake & Output 09/25/19 09/25/19 09/25/19 07:59 15:59 23:59 Intake Total 550 1127 Output Total 400 Balance 150 1127 Laboratory Tests 09/25/19 02:19 09/25/19 02:19 09/24/19 09/25/19 09/25/19 20:40 02:19 02:19 WBC 7.2 RBC 3.27 L Hgb 9.0 L Hct 28.0 L MCV 85.6 MCH 27.5 MCHC 32.1 RDW 12.1 Plt Count 364 MPV 9.2 Immature Gran % (Auto) 0.7 H Neut % (Auto) 73.0 Lymph % (Auto) 15.9 L [place] % (Auto) 10.0 H Eos % (Auto) 0.3 Baso % (Auto) 0.1 L Lymph # (Auto) 1.14 [place] # (Auto) 0.7 H Eos # (Auto) 0.0 Baso # (Auto) 0.0 Abs Immat Gran (auto) 0.05 H Absolute Neuts (auto) 5.3 Absolute Nucleated RBC 0.0 Nucleated RBC % 0.0 Sodium Potassium Chloride Carbon Dioxide BUN Creatinine Estim Creat Clear Calc Estimated GFR Glucose POC Capillary Glucose 233 H Calcium Magnesium Iron TIBC % Saturation Transferrin Ferritin Vitamin B12 Folate Vancomycin Trough 12.9 09/25/19 09/25/19 09/25/19 02:19 02:19 08:42 WBC RBC Hgb Hct MCV MCH MCHC RDW Plt Count MPV Immature Gran % (Auto) Neut % (Auto) Lymph % (Auto) [place] % (Auto) Eos % (Auto) Baso % (Auto) Lymph # (Auto) [place] # (Auto) Eos # (Auto) Baso # (Auto) Abs Immat Gran (auto) Absolute Neuts (auto) Absolute Nucleated RBC Nucleated RBC % Sodium 134 L Potassium 3.8 Chloride 100 Carbon Dioxide 27 BUN 10 Creatinine 0.90 Estim Creat Clear Calc 106 Estimated GFR > 60 Glucose 211 H POC Capillary Glucose 212 H Calcium 8.4 Magnesium 2.1 Iron 31 L TIBC 261 L % Saturation 12 L Transferrin 179 L Ferritin 1190.00 H Vitamin B12 > 1000.0 H Folate 15.0 Vancomycin Trough 09/25/19 09/25/19 13:04 16:27 WBC RBC Hgb Hct MCV MCH MCHC RDW Plt Count MPV Immature Gran % (Auto) Neut % (Auto) Lymph % (Auto) [place] % (Auto) Eos % (Auto) Baso % (Auto) Lymph # (Auto) [place] # (Auto) Eos # (Auto) Baso # (Auto) Abs Immat Gran (auto) Absolute Neuts (auto) Absolute Nucleated RBC Nucleated RBC % Sodium Potassium Chloride Carbon Dioxide BUN Creatinine Estim Creat Clear Calc Estimated GFR Glucose POC Capillary Glucose 260 H 253 H Calcium Magnesium Iron TIBC % Saturation Transferrin Ferritin Vitamin B12 Folate Vancomycin Trough Microbiology 09/23/19 17:06 Foot Right Wound Culture - Preliminary Staphylococcus aureus 09/23/19 17:37 Blood Blood Culture - Preliminary 09/23/19 17:37 Blood Blood Culture - Preliminary Post-procedural complaints: none Patient Feedback: Patient satisfied with anesthetic care.
[2019-09-25 18:00] VITALS: BP 104/58; PULSE 94; RESP 17; TEMP 36.8; O2SAT 89
[2019-09-25 20:00] VITALS: BP 115/66; PULSE 99; RESP 16; TEMP 36.9; O2SAT 95
[2019-09-25] MEDS: INSULIN GLARGINE (*BKC) 100 UNITS/ML 10 UNITS SUB-Q (20:54)
[2019-09-25] MEDS: ONDANSETRON INJ 4 MG/2 ML VIAL IV PUSH (21:14)
[2019-09-25 22:38] LABS: Glucose Point of Care 154 (65-105)
[2019-09-26] MEDS: ONDANSETRON INJ 4 MG/2 ML VIAL IV PUSH ×2 (03:41→13:37)
[2019-09-26 04:00] VITALS: BP 121/61; PULSE 93; RESP 16; TEMP 36.8; O2SAT 93
[2019-09-26] MEDS: IBUPROFEN IV 400 MG in SODIUM CHLORIDE 0.9% IV 100 ML 200 MG IVPB (06:03)
[2019-09-26] MEDS: CENTRAL LINE FLUSH 10 ML IV PUSH ×3 (06:19→20:53)
[2019-09-26] MEDS: PROMETHAZINE HCL 25 MG/ML AMPUL 12.5 MG IV PUSH ×2 (06:36→14:57)
[2019-09-26] MEDS: PANTOPRAZOLE SODIUM IV 40 MG VIAL IV PUSH ×2 (09:08→20:52)
--- NOTE | 2019-09-26 09:16 | PCPTNOTE ---
Attempted to see patient for PT, however unable to see patient. Per RN: Patient had a rough night with nausea and may not want to work with therapy, RN asked patient if he wanted to do therapy at this time and patient declined, RN asked if PT could try back later.
[2019-09-26 09:20] LABS: Glucose Point of Care 215 (65-105)
[2019-09-26] MEDS: INSULIN ASPART (*BKC) 100 UNITS/ML SUB-Q (09:21)
[2019-09-26 09:24] LABS: Mean Corpuscular HGB Conc 31.3 g/dl (32-36); Mean Corpuscular Hemoglobin 27.3 pg (26-34); Mean Platelet Volume 9.6 fl (7.4-10.4); Platelet Count Result 240 k/mm3 (150-375); Red Blood Count 2.31 M/mm3 (4.6-6.20); Red Cell Distribution Width 12.5 % (11.5-14.5)
[2019-09-26 09:32] LABS: Hematocrit 20.1 % (42.0-52.0); Hemoglobin 6.3 g/dL (14.0-18.0)
[2019-09-26 09:38] LABS: Blood Urea Nitrogen 11 mg/dL (9-20); Calcium 7.9 mg/dL (8.4-10.2); Carbon Dioxide 27 mmol/L (22-30); Chloride 99 mmol/L (98-107); Estimated CRCL calculation 52 ml/min; Estimated Glomerular Filt Rate 45; Glucose 216 mg/dL (75-110); Potassium 4.2 mmol/L (3.4-5.0); Sodium 130 mmol/L (137-145)
[2019-09-26] MEDS: SODIUM CHLORIDE 0.9% IV 1,000 ML 100 ML IV CONT (10:07)
[2019-09-26 10:29] LABS: Hematocrit 25.9 % (42.0-52.0); Hemoglobin 8.4 g/dL (14.0-18.0)
--- NOTE | 2019-09-26 10:50 | PM.PNORT ---
Progress Note: A&P Assessment and Plan (1) Osteomyelitis: Qualifiers: Laterality: right Osteomyelitis location: foot Osteomyelitis type: other acute Qualified Code(s): M86.171 - Other acute osteomyelitis, right ankle and foot Code(s): M86.9 - Osteomyelitis, unspecified Status: Acute Assessment and Plan: postoperative day 2. Right 1st ray amputation. Surgical site and foot appears stable. Continue with PT /OT with partial weight-bearing. Discharge when medically stable. (2) Anemia: Code(s): D64.9 - Anemia, unspecified Status: Chronic Assessment and Plan: Postoperative acute blood-loss as well as chronic anemia. Agree with transfusion. Subjective Subjective Date/Time Seen: 09/26/19 10:50 Patient resting comfortably. No new complaints. Exam Const: General: healthy appearing; No in distress or confusion Orientation/consciousness: patient oriented x3 and No confusion HENMT: Head: normal to inspection, normocephalic and atraumatic Eyes: Conjunctivae: conjunctivae normal Sclera: sclerae normal Resp: Effort & Inspection: normal respiratory effort and no audible wheezes Neuro: General: patient oriented x3 and No confusion Extrem: Other: Dressing right foot In place. Incision clean and intact. Mild sanguinous drainage. Minimal swelling. No proximal redness or streaking. Psych: Affect: normal affect Objective Data Vital Signs Vital Signs: Vital Signs - 24 hr 09/25/19 14:00 09/25/19 18:00 09/25/19 20:00 Temperature 98.4 F 98.2 F 98.4 F Pulse Rate 90 94 99 Respiratory Rate 18 17 16 Blood Pressure 105/58 L 104/58 L 115/66 Pulse Oximetry 96 89 L 95 09/26/19 04:00 Temperature 98.2 F Pulse Rate 93 Respiratory Rate 16 Blood Pressure 121/61 Pulse Oximetry 93 Intake/Output Intake/Output: Intake & Output 09/23/19 09/24/19 09/25/19 09/26/19 23:59 23:59 23:59 23:59 Intake Total 850 2600 3451 250 Output Total 500 1700 1025 450 Balance 219 025 2478 -200 Meds/Results Medications: Active Medications Generic Name Dose Route Start Last Admin Trade Name Freq PRN Reason Stop Dose Admin Acetaminophen 650 mg 09/23/19 13:18 Tylenol Tablet PO Q4H PRN Mild Pain (1-3) or Fever Hydrocodone Bitart/Acetaminophen 1 tab 09/23/19 13:18 09/25/19 15:16 [place] 5-325 Mg PO 1 tab Q4H PRN Administration Pain Rated 4-6 Dextrose 12.5 gm 09/23/19 15:12 Dextrose 50% Syringe IV PUSH PRN PRN Hypoglycemia Protocol Glucagon 1 mg 09/23/19 15:12 Glucagon For Inj IM PRN PRN Hypoglycemia Protocol Glucose 15 gm 09/23/19 15:12 Glutose 15 PO PRN PRN Hypoglycemia Protocol Hydralazine HCl 10 mg 09/23/19 16:00 Apresoline Hcl Inj IV PUSH Q8H PRN Blood Pressure - High Piperacillin/Tazobactam/Dextrose 3.375 gm in 50 mls @ 100 mls/hr 09/23/19 18:00 09/26/19 05:03 Zosyn 3.375 Gm/D5w 50ml Pm IVPB 100 mls/hr Q6HR ARRON Administration Dextrose 1,000 mls @ 100 mls/hr 09/23/19 15:12 Dextrose 5% 1,000 Ml IVPB PRN PRN Hypoglycemia Protocol Vancomycin HCl 1,500 mg in 500 mls @ 333.333 mls/hr 09/25/19 14:00 09/26/19 06:13 Vancomycin 1,500 Mg/D5w 500 Ml IVPB 333 mls/hr Q8H ARRON Administration Ibuprofen 400 mg/ Sodium 104 mls @ 200 mls/hr 09/25/19 12:12 09/26/19 06:45 Chloride IVPB 200 mls/hr Q6H PRN Infusion Pain Rated 4-6 Sodium Chloride 1,000 mls @ 100 mls/hr 09/26/19 09:55 09/26/19 10:07 Normal Saline Iv IV CONT 100 mls/hr .Q10H ARRON Administration Insulin Aspart 2 - 5 units 09/23/19 17:00 09/26/19 09:21 Novolog SUB-Q 2 units TIDWM ARRON Administration Protocol Insulin Glargine 10 units 09/24/19 21:00 09/25/19 20:54 Lantus SUB-Q 10 units HS ARRON Administration Morphine Sulfate 4 mg 09/23/19 13:18 09/25/19 00:51 Morphine Sulfate Inj IV PUSH 4 mg Q2H PRN Administrati
[2019-09-26 11:17] VITALS: BP 124/73; PULSE 89; RESP 17; TEMP 36.5; O2SAT 98
[2019-09-26 11:22] LABS: Glucose Point of Care 171 (65-105)
--- NOTE | 2019-09-26 12:08 | PM.IMPN ---
Progress Note: A&P Assessment and Plan (1) Nausea and vomiting: Code(s): R11.2 - Nausea with vomiting, unspecified Status: Acute Assessment and Plan: Patient began having more nausea and vomiting last night. Based on his labs today he appears to be dehydrated with the raise in his creatinine to 1.9, hyponatremia at 130, slight elevation to his potassium and overall appears slightly dehydrated. I started normal saline IV fluids at 100 mLs an hour. He has Zofran IV and Phenergan PRN for breakthrough. Will continue monitoring his symptoms overnight and see how he is feeling in the morning. Continue PPI. (2) Osteomyelitis: Qualifiers: Laterality: right Osteomyelitis location: foot Osteomyelitis type: other acute Qualified Code(s): M86.171 - Other acute osteomyelitis, right ankle and foot Code(s): M86.9 - Osteomyelitis, unspecified Status: Acute Assessment and Plan: Patient on vancomycin and Primaxin due to his diabetes. Surgery, Dr. Wang, was consulted and evaluated the patient and felt that consult needed to be placed to Dr. Mejia orthopedic who does most of the diabetic foot wounds and amputations. Dr. Mejia evaluated the patient and took him to surgery on 09/24/2019 for 1st ray amputation. Postop day #2. Patient reports pain is improved today. Wound culture shows growth of Staph aureus, with sensitivities showing resistance to clindamycin, erythromycin and gentamicin. Blood cultures shows no growth at this time. I placed a consult to Dr. Grider infectious disease for further recommendation on IV antibiotics versus p.o. antibiotics upon discharge. Continue monitoring patient's symptoms, and appreciate orthopedic consultation and recommendation. (3) Diabetes: Code(s): E11.9 - Type 2 diabetes mellitus without complications Status: Acute Assessment and Plan: Patient's hemoglobin A1c was 10.3%. He has been on metformin for years and states was recently increased to 850 mg twice a day. I explained to the patient the importance of checking his sugars, monitoring his diet, weight loss and exercise. Patient states he has been eating better and losing weight recently. I will start him on Lantus 10 U for better glucose control. Also placed a consult to the ict educator and dietitian. Accu-Cheks ACHS. Hypoglycemia protocol initiated. (4) Anemia: Code(s): D64.9 - Anemia, unspecified Status: Chronic Assessment and Plan: Patient has some anemia since arrival. He denies any history of anemia. H&H 8.4/25.9% Continue to monitor. He does report having some dark stools recently. Still pending hemoccult stool. Anemia panel shows signs of anemia of chronic disease. Normal folic acid and vitamin B12. Continue monitoring H&H. Transfuse as needed. No acute signs of bleeding. (5) History of elevated blood pressure while in hospital: Code(s): Z86.79 - Personal history of other diseases of the circulatory system Status: Acute Assessment and Plan: Patient denies any history of high blood pressure and is not on any medications at this time. Blood pressure this morning was 124/73. Stable. Continue P.r.n. hydralazine. Continue monitoring. Time Spent With Patient Time with patient: 25 - 35 minutes Subjective Date/time seen: 09/26/19 12:08 Interval history: Date of service 09/26/2019: The patient states last night he began having some nausea and vomiting again. He states that the same symptoms he has been having for the last 2 weeks while he has been at home and he believed it was associated with his foot infection. He has not had much of an appetite for a few weeks as well and reports weight loss
[2019-09-26] MEDS: polyethylene glycoL 3350 17 GM POWD.PACK PO (13:25)
[2019-09-26 14:00] VITALS: BP 116/78; PULSE 94; RESP 16; TEMP 36.4; O2SAT 97
[2019-09-26 14:38] LABS: Vancomycin Trough 29.6 ug/mL (10.0-20.0)
--- NOTE | 2019-09-26 14:47 | WPDINFPN2 ---
Progress Note: A&P Assessment and Plan (1) Osteomyelitis: Qualifiers: Laterality: right Osteomyelitis location: foot Osteomyelitis type: other acute Qualified Code(s): M86.171 - Other acute osteomyelitis, right ankle and foot Code(s): M86.9 - Osteomyelitis, unspecified Status: Acute Assessment and Plan: 1. Acute OM R 1st toe, POD 2 2. DM, poor control REC Oral cephalexin x 12 days more for presumed soft tissue infection at operative bed. I disc with patient that glycemic control will be mandatory for eradication of this infection and for prevention of future infections. Call if Qs Subjective Date/time seen: 09/26/19 14:47 Objective Data Vital Signs Vital Signs: Vital Signs - 24 hr 09/25/19 18:00 09/25/19 20:00 09/26/19 04:00 Temperature 36.8 C 36.9 C 36.8 C Pulse Rate 94 99 93 Respiratory Rate 17 16 16 Blood Pressure 104/58 L 115/66 121/61 Pulse Oximetry 89 L 95 93 09/26/19 11:17 Temperature 36.5 C Pulse Rate 89 Respiratory Rate 17 Blood Pressure 124/73 Pulse Oximetry 98 Intake/Output Intake/Output: Intake & Output 09/23/19 09/24/19 09/25/19 09/26/19 23:59 23:59 23:59 23:59 Intake Total 850 2600 3451 800 Output Total 500 1700 1025 450 Balance 024 714 8173 350 Meds/Results Medications: Active Medications Generic Name Dose Route Start Last Admin Trade Name Freq PRN Reason Stop Dose Admin Acetaminophen 650 mg 09/23/19 13:18 Tylenol Tablet PO Q4H PRN Mild Pain (1-3) or Fever Hydrocodone Bitart/Acetaminophen 1 tab 09/23/19 13:18 09/25/19 15:16 [place] 5-325 Mg PO 1 tab Q4H PRN Administration Pain Rated 4-6 Cephalexin HCl 500 mg 09/26/19 18:00 Keflex Capsule PO 10/08/19 18:01 Q6HR ARRON Dextrose 12.5 gm 09/23/19 15:12 Dextrose 50% Syringe IV PUSH PRN PRN Hypoglycemia Protocol Docusate Sodium 100 mg 09/26/19 11:49 Colace Capsule PO Q12H PRN Constipation Glucagon 1 mg 09/23/19 15:12 Glucagon For Inj IM PRN PRN Hypoglycemia Protocol Glucose 15 gm 09/23/19 15:12 Glutose 15 PO PRN PRN Hypoglycemia Protocol Hydralazine HCl 10 mg 09/23/19 16:00 Apresoline Hcl Inj IV PUSH Q8H PRN Blood Pressure - High Dextrose 1,000 mls @ 100 mls/hr 09/23/19 15:12 Dextrose 5% 1,000 Ml IVPB PRN PRN Hypoglycemia Protocol Ibuprofen 400 mg/ Sodium 104 mls @ 200 mls/hr 09/25/19 12:12 09/26/19 06:45 Chloride IVPB 200 mls/hr Q6H PRN Infusion Pain Rated 4-6 Sodium Chloride 1,000 mls @ 100 mls/hr 09/26/19 09:55 09/26/19 10:07 Normal Saline Iv IV CONT 100 mls/hr .Q10H ARRON Administration Insulin Aspart 2 - 5 units 09/23/19 17:00 09/26/19 11:19 Novolog SUB-Q Not Given TIDWM ARRON Protocol Insulin Glargine 10 units 09/24/19 21:00 09/25/19 20:54 Lantus SUB-Q 10 units HS ARRON Administration Morphine Sulfate 4 mg 09/23/19 13:18 09/25/19 00:51 Morphine Sulfate Inj IV PUSH 4 mg Q2H PRN Administration Pain Rated 7-10 Ondansetron HCl 4 mg 09/23/19 13:18 09/26/19 13:37 Zofran Inj IV PUSH 4 mg Q4H PRN Administration Nausea Pantoprazole Sodium 40 mg 09/24/19 10:10 09/26/19 09:08 Protonix Iv IV PUSH 40 mg Q12HR ARRON Administration Polyethylene Glycol 17 gm 09/26/19 11:50 09/26/19 13:25 Miralax PO 17 gm QAM ARRON Administration Promethazine HCl 12.5 mg 09/24/19 10:09 09/26/19 06:36 Phenergan Inj IV PUSH 12.5 mg Q4H PRN Administration Nausea And Vomiting Sodium Chloride 10 ml 09/23/19 22:00 09/26/19 14:03 Central Line Flush IV PUSH 10 ml Q8HR ARRON Administration Sodium Chloride 10 ml 09/23/19 19:57 Central Line Flush IV PUSH PRN PRN with TPN bag changes Sodium Chloride 20 ml 09/23/19 19:57 Central Line Flush IV PUSH PRN PRN after blood draws Radiology Results: ITS Impress
--- NOTE | 2019-09-26 15:45 | CONS_ITS ---
DATE OF CONSULTATION: 09/26/2019 REASON FOR CONSULTATION: Acute osteomyelitis, right first toe. HISTORY OF PRESENT ILLNESS: The patient is a 54-year-old male with diabetes mellitus. He was in his usual state of health until about 2 weeks prior to admission when a pre-existing callus plantar aspect of the right first toe opened into an ulcer. There was some drainage, which subsequently developed. This was without any preceding trauma. He has had no previous vascular compromise and no previous operations. He was on no antibiotics prior to admission for this or any purpose. He had applied some [id number] antibiotic ointment. He presented to the emergency room on the and was admitted. He was started on imipenem and vancomycin now just the latter. He was taken to the operating room on hospital day 2 and he underwent amputation of the right first toe as well as the distal most aspect of the metatarsal is now postop. He has no pain and no fever, chills, or sweats. No previous such episodes. ALLERGIES: NONE KNOWN. MEDICATIONS: At home on metformin, no current immunosuppressants. HABITS: He reports to me he has quit smoking. Reports to others, he smokes 3rd of a pack per day. Social drinker. No marijuana. PAST MEDICAL HISTORY: GERD, previous GI hemorrhage, hyperlipidemia, hypertension, peripheral neuropathy, arthroscopic knee surgery and appendectomy. REVIEW OF SYSTEMS: Nausea and vomiting today. Otherwise are constitutional, GI, skin, musculoskeletal, respiratory negative. He does have hyperglycemia at home. SOCIAL HISTORY: Single. Works. Lives locally. FAMILY HISTORY: No pertinent to present illness. PHYSICAL EXAMINATION: GENERAL: This is a middle-aged male who appears actual age. He appears in distress from vomiting. No respiratory distress. VITAL SIGNS: Afebrile since arrival, 124/73, 89, 17, 98% on room air. SKIN: Warm and dry. No generalized rashes. EENT: Pupils equal, round, and reactive to light. Oropharynx, oral mucosa normal. Teeth in excellent repair. NECK: No masses. LUNGS: Clear to auscultation and percussion. CARDIAC: Regular rate and rhythm. No murmur, gallop, or rub. ABDOMEN: Obese, nontender. No mass. No organomegaly. EXTREMITIES: His foot is dressed and I did not remove. He has no proximal erythema, warmth, crepitus. LABORATORY DATA: Histopathology revealed acute osteomyelitis and ulcer at the margin. Wound culture obtained preop and shows DEEP and blood cultures no growth after 3 days incubation. His white blood cell count 6.0, hemoglobin 6.3 this morning, now up to 8.4 and was 10.0 on admission. Platelets are 240. His hyponatremia, creatinine 1.0. Estimated GFR 45. Accu-Cheks variable. His hemoglobin A1c 10.3% and was 9.1%, December 2018. His C-reactive protein 11.8. Preop vancomycin trough supratherapeutic at 30. RADIOLOGY: Foot x-ray, periosteal reaction at the neck of the 1st proximal phalanx. ASSESSMENT: 1. Acute osteomyelitis of the right first toe, now postop day 2 excision with no clinically evident infection proximally nor systemically. Staph aureus isolated. This is likely sole pathogen. 2. Nausea and vomiting, possibly a medication related including vancomycin. 3. Diabetes mellitus, poorly controlled acutely and chronically. 4. History of peripheral neuropathy. 5. Anemia. RECOMMENDATIONS: 1. Cephalexin in place of the vancomycin. Despite his elevated creatinine, and considering his suspected mild renal insufficiency, I will use a dose of 500 mg every 6 hours. 2. Twelve more days of therapy anticipated. 3. I discussed with the patient that glycemic control is mandatory for cure of this current infection as well as prevention of future infections. Thank zuhair
--- NOTE | 2019-09-26 15:50 | PCPTNOTE ---
Patient declined to ambulate with PT this date 09/26/2019 due to nausea and vomiting when doing his exercises with therapy in the afternoon. Therapy went back to check on patient a second time to see if patient wanted to ambulate and patient declined due to still not feeling well.
[2019-09-26] MEDS: ALTEPLASE 2 MG VIAL (CATHFLO) IV PUSH (17:21)
[2019-09-26] MEDS: CEPHALEXIN 500 MG CAPSULE PO ×2 (17:29→23:23)
[2019-09-26 17:47] LABS: Glucose Point of Care 161 (65-105)
[2019-09-26 18:00] VITALS: BP 143/69; PULSE 102; RESP 14; TEMP 37; O2SAT 98
[2019-09-26 20:00] VITALS: PULSE 103; RESP 16; O2SAT 99
[2019-09-26] MEDS: INSULIN GLARGINE (*BKC) 100 UNITS/ML 10 UNITS SUB-Q (20:58)
[2019-09-26 21:01] LABS: Glucose Point of Care 136 (65-105)
[2019-09-26 21:29] VITALS: BP 147/74; PULSE 103; RESP 16; TEMP 36.7; O2SAT 99
[2019-09-27] MEDS: SODIUM CHLORIDE 0.9% IV 1,000 ML 100 ML IV CONT (01:36)
[2019-09-27 01:38] LABS: Glucose Point of Care 122 (65-105)
[2019-09-27 02:00] VITALS: BP 133/66; PULSE 99; RESP 16; TEMP 36.7; O2SAT 97
[2019-09-27] MEDS: CEPHALEXIN 500 MG CAPSULE PO ×3 (05:26→20:47)
[2019-09-27 06:00] VITALS: BP 117/59; PULSE 91; RESP 16; TEMP 36.7; O2SAT 94
[2019-09-27 07:55] LABS: Glucose Point of Care 108 (65-105)
[2019-09-27] MEDS: CENTRAL LINE FLUSH 10 ML IV PUSH ×3 (09:09→20:47)
[2019-09-27] MEDS: PANTOPRAZOLE SODIUM IV 40 MG VIAL IV PUSH (09:09)
[2019-09-27] MEDS: polyethylene glycoL 3350 17 GM POWD.PACK PO (09:22)
--- NOTE | 2019-09-27 09:29 | PM.PNORT ---
Progress Note: A&P Assessment and Plan (1) Osteomyelitis: Qualifiers: Laterality: right Osteomyelitis location: foot Osteomyelitis type: other acute Qualified Code(s): M86.171 - Other acute osteomyelitis, right ankle and foot Code(s): M86.9 - Osteomyelitis, unspecified Status: Acute Assessment and Plan: postoperative day 3. Right 1st ray amputation. Surgical site and foot appears stable. Dressing changed today, foot cleaned with antiseptic soap and new dressing applied. Continue with PT /OT with partial weight-bearing. Discharge when medically stable. Follow-up orthopedic office 2 weeks (2) Anemia: Qualifiers: Other causes of anemia: acute posthemorrhagic Anemia type: other cause Qualified Code(s): D62 - Acute posthemorrhagic anemia Code(s): D64.9 - Anemia, unspecified Status: Chronic Assessment and Plan: Postoperative acute blood-loss as well as chronic anemia. Agree with transfusion. Subjective Subjective Date/Time Seen: 09/27/19 09:29 In bed resting comfortably. No complaints. Exam Const: General: healthy appearing; No in distress or confusion Orientation/consciousness: patient oriented x3 and No confusion HENMT: Head: normal to inspection, normocephalic and atraumatic Eyes: Conjunctivae: conjunctivae normal Sclera: sclerae normal Resp: Effort & Inspection: normal respiratory effort and no audible wheezes Neuro: General: patient oriented x3 and No confusion Extrem: Other: Dressing right foot In place. Incision clean and intact. Minimal sanguinous drainage. Minimal swelling. No proximal redness or streaking. Sterile dressing applied with Adaptic. Psych: Affect: normal affect Objective Data Vital Signs Vital Signs: Vital Signs - 24 hr 09/26/19 11:17 09/26/19 14:00 09/26/19 18:00 Temperature 97.7 F 97.5 F L 98.6 F Pulse Rate 89 94 102 H Respiratory Rate 17 16 14 Blood Pressure 124/73 116/78 143/69 H Pulse Oximetry 98 97 98 09/26/19 20:00 09/26/19 21:29 09/27/19 02:00 Temperature 98.1 F 98.0 F Pulse Rate 103 H 103 H 99 Respiratory Rate 16 16 16 Blood Pressure 147/74 H 133/66 Pulse Oximetry 99 99 97 09/27/19 06:00 Temperature 98.0 F Pulse Rate 91 Respiratory Rate 16 Blood Pressure 117/59 L Pulse Oximetry 94 Intake/Output Intake/Output: Intake & Output 09/24/19 09/25/19 09/26/19 09/27/19 23:59 23:59 23:59 23:59 Intake Total 2600 3451 1950 1999 Output Total 1700 1025 2225 1000 Balance 900 2426 -275 1000 Meds/Results Medications: Active Medications Generic Name Dose Route Start Last Admin Trade Name Freq PRN Reason Stop Dose Admin Acetaminophen 650 mg 09/23/19 13:18 Tylenol Tablet PO Q4H PRN Mild Pain (1-3) or Fever Hydrocodone Bitart/Acetaminophen 1 tab 09/23/19 13:18 09/25/19 15:16 [place] 5-325 Mg PO 1 tab Q4H PRN Administration Pain Rated 4-6 Cephalexin HCl 500 mg 09/26/19 18:00 09/27/19 05:26 Keflex Capsule PO 10/08/19 18:01 500 mg Q6HR ARRON Administration Dextrose 12.5 gm 09/23/19 15:12 Dextrose 50% Syringe IV PUSH PRN PRN Hypoglycemia Protocol Docusate Sodium 100 mg 09/26/19 11:49 Colace Capsule PO Q12H PRN Constipation Glucagon 1 mg 09/23/19 15:12 Glucagon For Inj IM PRN PRN Hypoglycemia Protocol Glucose 15 gm 09/23/19 15:12 Glutose 15 PO PRN PRN Hypoglycemia Protocol Hydralazine HCl 10 mg 09/23/19 16:00 Apresoline Hcl Inj IV PUSH Q8H PRN Blood Pressure - High Dextrose 1,000 mls @ 100 mls/hr 09/23/19 15:12 Dextrose 5% 1,000 Ml IVPB PRN PRN Hypoglycemia Protocol Ibuprofen 400 mg/ Sodium 104 mls @ 200 mls/hr 09/25/19 12:12 09/26/19 06:45 Chloride IVPB 200 mls/hr Q6H PRN Infusion Pain Rated 4-6 Sodium Chloride 1,000 mls @ 100 mls/hr 09/26/19 09:55 09/27/19 01:36 Normal Saline Iv IV CONT 100 mls
[2019-09-27 10:00] VITALS: BP 131/63; PULSE 95; RESP 16; TEMP 36.9; O2SAT 98
[2019-09-27 10:34] LABS: Hematocrit 26.6 % (42.0-52.0); Hemoglobin 8.5 g/dL (14.0-18.0); Mean Corpuscular Hemoglobin 27.6 pg (26-34); Mean Corpuscular Volume 86.4 fl (80-100); Mean Platelet Volume 9.4 fl (7.4-10.4); Platelet Count Result 338 k/mm3 (150-375); Red Blood Count 3.08 M/mm3 (4.6-6.20); Red Cell Distribution Width 12.3 % (11.5-14.5); White Blood Count 7.4 K/mm3 (4.5-10.0)
[2019-09-27 10:48] LABS: Blood Urea Nitrogen 14 mg/dL (9-20); Calcium 8.2 mg/dL (8.4-10.2); Carbon Dioxide 25 mmol/L (22-30); Chloride 102 mmol/L (98-107); Estimated CRCL calculation 37 ml/min; Estimated Glomerular Filt Rate 30; Glucose 122 mg/dL (75-110); Potassium 3.4 mmol/L (3.4-5.0); Sodium 133 mmol/L (137-145)
[2019-09-27 11:15] VITALS: BMI 38.3
--- NOTE | 2019-09-27 12:18 | PM.IMPN ---
Progress Note: A&P Assessment and Plan (1) KAYLA (acute kidney injury): Code(s): N17.9 - Acute kidney failure, unspecified Status: Acute Assessment and Plan: Patient's creatinine on arrival was within normal range. 09/26/2019: Labs showed showed creatinine to 1.9, hyponatremia at 130, slight elevation to his potassium and overall appears slightly dehydrated. He was given IV fluids at 100 cc an hour. 09/27/2019: Labs today show increased creatinine to 2.7, sodium 133, potassium normal at 3.4. Patient continues to have nausea and vomiting and has not been eating much at all. Patient is also been getting p.r.n. IV ibuprofen which could be causing some KAYLA. Will discontinue ibuprofen and other medications that are nephrotoxic. Continue IV fluids and increased to 150 mils an hour. Continue monitoring patient's renal function. (2) Nausea and vomiting: Code(s): R11.2 - Nausea with vomiting, unspecified Status: Acute Assessment and Plan: Patient continues to have nausea and vomiting. He states that is because of his anxiety and then begins to hyperventilate which leads to nausea and vomiting episodes. He states if he was to return home he thinks he would be completely back to normal and eating and drinking without any issues. Continue normal saline IV fluids and increased to 150 mLs an hour. He has Phenergan PRN for nausea. Will continue monitoring his symptoms overnight and see how he is feeling in the morning. Continue PPI. (3) Osteomyelitis: Qualifiers: Laterality: right Osteomyelitis location: foot Osteomyelitis type: other acute Qualified Code(s): M86.171 - Other acute osteomyelitis, right ankle and foot Code(s): M86.9 - Osteomyelitis, unspecified Status: Acute Assessment and Plan: Patient on vancomycin and Primaxin due to his diabetes. Surgery, Dr. Wang, was consulted and evaluated the patient and felt that consult needed to be placed to Dr. Mejia orthopedic who does most of the diabetic foot wounds and amputations. Dr. Mejia evaluated the patient and took him to surgery on 09/24/2019 for 1st ray amputation. Postop day #3. Patient reports pain is improved today. Wound culture shows growth of Staph aureus, with sensitivities showing resistance to clindamycin, erythromycin and gentamicin. Blood cultures shows no growth at this time. Dr. Grider infectious disease recommended oral cephalexin 500 mg q.6 for 12 days. Due to patient's KAYLA decreased cephalexin to Q 8hrs. Continue monitoring patient's symptoms, and appreciate orthopedic consultation and recommendation. (4) Diabetes: Code(s): E11.9 - Type 2 diabetes mellitus without complications Status: Acute Assessment and Plan: Patient's hemoglobin A1c was 10.3%. He has been on metformin for years and states was recently increased to 850 mg twice a day. I explained to the patient the importance of checking his sugars, monitoring his diet, weight loss and exercise. Patient states he has been eating better and losing weight recently. I will start him on Lantus 10 U for better glucose control. Also placed a consult to the community health nurse and dietitian. Accu-Cheks ACHS. Hypoglycemia protocol initiated. (5) Anemia: Qualifiers: Anemia type: other cause Other causes of anemia: acute posthemorrhagic Qualified Code(s): D62 - Acute posthemorrhagic anemia Code(s): D64.9 - Anemia, unspecified Status: Chronic Assessment and Plan: Patient has some anemia since arrival. He denies any history of anemia. H&H 8.5/26.6% Continue to monitor. He does report having some dark stools recently. Still pending hemoccult stool since arrival. Anemia panel shows signs of anemia of chronic dis
[2019-09-27] MEDS: SODIUM CHLORIDE 0.9% IV 1,000 ML 150 ML IV CONT ×2 (13:40→19:47)
[2019-09-27] MEDS: ACETAMINOPHEN 325 MG TABLET 650 MG PO (13:41)
[2019-09-27 14:00] VITALS: BP 112/57; PULSE 88; RESP 12; TEMP 36.5; O2SAT 98
--- NOTE | 2019-09-27 14:27 | PCPTNOTE ---
Patient refused A.M. and P.M. treatment sessions.
--- NOTE | 2019-09-27 15:09 | PCOTNOTE ---
Attempted to see patient this pm, however patient refused physical therapy twice this date. Pt sleeping upon entering at this time, and did not disturb for this reason.
[2019-09-27 16:36] LABS: Glucose Point of Care 100 (65-105)
[2019-09-27 18:00] VITALS: BP 124/68; PULSE 89; RESP 16; TEMP 36.7; O2SAT 100
[2019-09-27 21:15] LABS: Glucose Point of Care 97 (65-105)
[2019-09-27 21:18] LABS: Glucose Point of Care 103 (65-105)
[2019-09-27 21:23] VITALS: BP 102/62; PULSE 70; RESP 18; TEMP 36.5; O2SAT 98
[2019-09-28 02:00] VITALS: BP 106/69; PULSE 74; RESP 16; TEMP 36.3; O2SAT 97
[2019-09-28] MEDS: SODIUM CHLORIDE 0.9% IV 1,000 ML 150 ML IV CONT ×3 (05:33→21:58)
[2019-09-28] MEDS: CEPHALEXIN 500 MG CAPSULE PO (05:33)
[2019-09-28] MEDS: CENTRAL LINE FLUSH 10 ML IV PUSH ×3 (05:34→21:25)
[2019-09-28 05:42] LABS: Hematocrit 23.8 % (42.0-52.0); Hemoglobin 7.5 g/dL (14.0-18.0)
--- NOTE | 2019-09-28 05:43 | PC.NURSE ---
pt requesting a pain pill stating pain is a 5 out of 10. Pulled [place] 5/325, scanned pt and went to administer. Pt is complaining of nausea and states he cannot take pill at this time. Pt refusing nausea medication, states that it makes the nausea worse. Educated pt on the medication and he still declines.
[2019-09-28 05:55] LABS: Albumin Level 2.7 g/dL (3.5-5.1); Blood Urea Nitrogen 17 mg/dL (9-20); Calcium 7.7 mg/dL (8.4-10.2); Carbon Dioxide 24 mmol/L (22-30); Chloride 105 mmol/L (98-107); Estimated CRCL calculation 43 ml/min; Estimated Glomerular Filt Rate 36; Glucose 91 mg/dL (75-110); Phosphorus 3.4 mg/dL (2.5-4.5); Potassium 3.7 mmol/L (3.4-5.0); Sodium 135 mmol/L (137-145)
[2019-09-28 06:00] VITALS: BP 147/74; PULSE 87; RESP 20; TEMP 36.4; O2SAT 97
[2019-09-28 07:41] LABS: Glucose Point of Care 93 (65-105)
[2019-09-28] MEDS: PANTOPRAZOLE SODIUM IV 40 MG VIAL IV PUSH ×2 (09:27→21:25)
[2019-09-28 10:00] VITALS: BP 145/70; PULSE 97; RESP 16; TEMP 36.9; O2SAT 96
--- NOTE | 2019-09-28 10:32 | PM.IMPN ---
Progress Note: A&P Assessment and Plan (1) KAYLA (acute kidney injury): Code(s): N17.9 - Acute kidney failure, unspecified Status: Acute Assessment and Plan: Patient's creatinine on arrival was within normal range. 09/26/2019: Labs showed showed creatinine to 1.9, hyponatremia at 130, slight elevation to his potassium and overall appears slightly dehydrated. He was given IV fluids at 100 cc an hour. 09/27/2019: Labs today show increased creatinine to 2.7, sodium 133, potassium normal at 3.4. Patient continues to have nausea and vomiting and has not been eating much at all. Patient is also been getting p.r.n. IV ibuprofen which could be causing some KAYLA. Will discontinue ibuprofen and other medications that are nephrotoxic. 09/28/2019: Labs today show improved creatinine to 2.3, sodium improved to 135, and potassium is stable at 3.7. Patient is still having intermittent nausea and few episodes of vomiting. He again attributes this to anxiety. Continue IV fluids and increased to 150 mils an hour. Continue monitoring patient's renal function. Avoid nephrotoxic medications. (2) Multifocal pneumonia: Code(s): J18.9 - Pneumonia, unspecified organism Status: Acute Assessment and Plan: Patient had an abdominal CT which showed bilateral multifocal pneumonia. The patient is not having any acute signs or symptoms of pneumonia. He is afebrile, non tachycardic normal respirations, normal oxygenation at 96% on room air, and he had been having a normal leukocytosis. He denies any cough, shortness of breath, chest congestion or any other symptoms at this time. I called Dr. mo infectious disease about the multifocal pneumonia findings and he suggested changing the patient's oral antibiotics from cephalexin to cefdinir 300 mg twice a day until 10/08/2019. Will continue monitoring patient's symptoms and vitals at this time. (3) Abnormal CT of the abdomen: Code(s): R93.5 - Abnormal findings on diagnostic imaging of other abdominal regions, including retroperitoneum Status: Acute Assessment and Plan: Due to patient's nausea and vomiting I ordered CT scan which showed Moderate right perinephric edema, suspicious for pyelonephritis. Correlate clinically. Mild bladder wall thickening which may be due to underdistention, hypertrophy or cystitis. Correlate with urinalysis. Patient denies any abdominal pain, dysuria, frequent urination but did report having dark urine upon arrival. Urinalysis was ordered which was completely normal. I will order a reflux culture due to his CT findings suggesting cystitis and pyelonephritis. Continue monitoring patient's symptoms. (4) Osteomyelitis: Qualifiers: Laterality: right Osteomyelitis location: foot Osteomyelitis type: other acute Qualified Code(s): M86.171 - Other acute osteomyelitis, right ankle and foot Code(s): M86.9 - Osteomyelitis, unspecified Status: Acute Assessment and Plan: Patient on vancomycin and Primaxin due to his diabetes. Surgery, Dr. Wang, was consulted and evaluated the patient and felt that consult needed to be placed to Dr. Mejia orthopedic who does most of the diabetic foot wounds and amputations. Dr. Mejia evaluated the patient and took him to surgery on 09/24/2019 for 1st ray amputation. Postop day #4. Patient reports pain is improved today. Wound culture shows growth of Staph aureus, with sensitivities showing resistance to clindamycin, erythromycin and gentamicin. Blood cultures shows no growth at this time. Dr. Mo infectious disease recommended oral cephalexin 500 mg q.6 for 12 days. 09/28/2019: Due to patient's multifocal pneumonia I talked to Dr. mo and he recommended switching antibiotics to cefdinir 300 mg b.i.d. until 10/08/2019. Continue monitor
[2019-09-28] MEDS: SACCHAROMYCES BOULARDII 250 MG CAPSULE PO (11:38)
[2019-09-28] MEDS: CEFDINIR 300 MG CAPSULE PO ×2 (11:38→21:25)
[2019-09-28 11:43] LABS: Glucose Point of Care 119 (65-105)
[2019-09-28 11:48] LABS: Add Urine Microscopic? NO; Appearance Urine Clear (Clear); Bilirubin Urine Negative (Negative); Blood Urine Negative (Negative); Color Urine Straw (Yellow); Glucose Urine UA Negative (Negative); Ketones Urine Negative (Negative); Leukocyte Esterase Ur Negative LEU/UL (Negative); Nitrate Urine Negative (Negative); Protein Urine Negative (Negative); Specific Grav Ur 1.006 (1.001-1.035); Urobilinogen Urine Negative mg/dL (<2.0)
--- NOTE | 2019-09-28 12:59 | PCPTNOTE ---
Patient refused treatment this AM and PM. This morning reported wasn't feeling good give him time to rest. This afternoon stated arrived to late this afternoon to get out of bed. Stated come again tomorrow morning and I will be willing to try depending on how I feel.
--- NOTE | 2019-09-28 13:47 | PCOTNOTE ---
Patient refused treatment today. He stated I feel like crap and I don't want to do anything today. He stated he would try harder tomorrow.
[2019-09-28 14:00] VITALS: BP 137/81; PULSE 94; RESP 16; TEMP 37.5; O2SAT 98
[2019-09-28 14:45] LABS: Hematocrit 24.3 % (42.0-52.0); Hemoglobin 7.7 g/dL (14.0-18.0)
[2019-09-28] MEDS: LORAZEPAM 0.5 MG TABLET PO ×2 (16:10→21:58)
[2019-09-28 16:52] LABS: Glucose Point of Care 138 (65-105)
[2019-09-28 18:00] VITALS: BP 121/61; PULSE 83; RESP 18; TEMP 37.5; O2SAT 95
[2019-09-28] MEDS: INSULIN GLARGINE (*BKC) 100 UNITS/ML 10 UNITS SUB-Q (21:25)
[2019-09-28 21:34] LABS: Glucose Point of Care 115 (65-105)
[2019-09-28 22:00] VITALS: BP 129/67; PULSE 87; RESP 20; TEMP 37.1; O2SAT 97
[2019-09-29] VITALS (10 sets, daily range): BP systolic 119–139; BP diastolic 54–74; PULSE 83–97; RESP 15–18; TEMP 36.8–37.4; O2SAT 93–98
[2019-09-29 05:52] LABS: Mean Corpuscular HGB Conc 31.7 g/dl (32-36); Mean Corpuscular Hemoglobin 27.1 pg (26-34); Mean Corpuscular Volume 85.6 fl (80-100); Mean Platelet Volume 9.3 fl (7.4-10.4); Platelet Count Result 419 k/mm3 (150-375); Red Blood Count 2.36 M/mm3 (4.6-6.20); Red Cell Distribution Width 12.7 % (11.5-14.5); White Blood Count 7.3 K/mm3 (4.5-10.0)
[2019-09-29 06:16] LABS: Blood Urea Nitrogen 14 mg/dL (9-20); Calcium 7.3 mg/dL (8.4-10.2); Carbon Dioxide 23 mmol/L (22-30); Chloride 109 mmol/L (98-107); Estimated CRCL calculation 45 ml/min; Estimated Glomerular Filt Rate 38; Glucose 92 mg/dL (75-110); Potassium 3.3 mmol/L (3.4-5.0); Sodium 136 mmol/L (137-145)
[2019-09-29] MEDS: CENTRAL LINE FLUSH 10 ML IV PUSH ×2 (06:27→13:01)
[2019-09-29 06:32] LABS: Hematocrit 20.2 % (42.0-52.0); Hemoglobin 6.4 g/dL (14.0-18.0)
[2019-09-29 08:02] LABS: Glucose Point of Care 103 (65-105)
[2019-09-29] MEDS: POTASSIUM CHLORIDE 20 MEQ TABLET 40 MEQ PO (08:03)
[2019-09-29] MEDS: SACCHAROMYCES BOULARDII 250 MG CAPSULE PO ×2 (08:03→18:11)
[2019-09-29] MEDS: CEFDINIR 300 MG CAPSULE PO ×2 (08:03→20:36)
[2019-09-29] MEDS: PANTOPRAZOLE SODIUM IV 40 MG VIAL IV PUSH ×2 (08:04→20:36)
[2019-09-29] MEDS: LORAZEPAM 0.5 MG TABLET PO ×2 (08:04→15:05)
[2019-09-29 08:22] LABS: Hematocrit 21.9 % (42.0-52.0)
--- NOTE | 2019-09-29 08:31 | PCOTNOTE ---
nursing reported very low hemoglobin for pt. and increased vomiting. stated he took 2 showers yesterday and has been getting up to go to the bathroom but to skip today (5-3-20) due to low hemoglobin, and vomiting.
--- NOTE | 2019-09-29 08:56 | PCPTNOTE ---
Treatment held this date per nursing, stated patient hemoglobin is very low and patient unstable to move today.
[2019-09-29 09:08] LABS: Hemoglobin 6.9 g/dL (14.0-18.0)
--- NOTE | 2019-09-29 10:27 | PM.IMPN ---
Progress Note: A&P Assessment and Plan (1) KAYLA (acute kidney injury): Code(s): N17.9 - Acute kidney failure, unspecified Status: Acute Assessment and Plan: Patient's creatinine on arrival was within normal range. KAYLA up most likely secondary to dehydration, IV ibuprofen, IV vancomycin on arrival. 09/26/2019: Labs showed showed creatinine to 1.9, hyponatremia at 130, slight elevation to his potassium and overall appears slightly dehydrated. He was given IV fluids at 100 cc an hour. 09/27/2019: Labs today show increased creatinine to 2.7, sodium 133, potassium normal at 3.4. Patient continues to have nausea and vomiting and has not been eating much at all. Patient is also been getting p.r.n. IV ibuprofen which could be causing some KAYLA. Will discontinue ibuprofen and other medications that are nephrotoxic. 09/28/2019: Labs today show improved creatinine to 2.3, sodium improved to 135, and potassium is stable at 3.7. Patient is still having intermittent nausea and few episodes of vomiting. He again attributes this to anxiety. Continue IV fluids and increased to 150 mils an hour. 09/28/2019: Labs today show improved creatinine to 2.2, sodium improved to 136, and potassium low at 3.3 and was replaced. Patient no longer having vomiting episodes. Continue IV fluids at 150 mils an hour. Continue monitoring patient's renal function. Avoid nephrotoxic medications. (2) Anemia: Qualifiers: Anemia type: other cause Other causes of anemia: acute posthemorrhagic Qualified Code(s): D62 - Acute posthemorrhagic anemia Code(s): D64.9 - Anemia, unspecified Status: Chronic Assessment and Plan: Patient has some anemia since arrival. He denies any history of anemia. H&H 6.9/21.9%. Decreased but this could be delusional. The insurance and benefits clerk ordered 1 unit of PRBCs to be given. Will recheck H&H after blood transfusion. He does report having some dark stools prior to arrival. Still pending hemoccult stool since arrival. Anemia panel shows signs of anemia of chronic disease. Normal folic acid and vitamin B12. Patient's % saturation was slightly low at 12 so I will give IV Venofer 300mg 2/3 to see if it improves his H&H. Continue monitoring H&H. Transfuse as needed. No acute signs of bleeding. (3) Multifocal pneumonia: Code(s): J18.9 - Pneumonia, unspecified organism Status: Acute Assessment and Plan: Patient had an abdominal CT which showed bilateral multifocal pneumonia. The patient is not having any acute signs or symptoms of pneumonia. He is afebrile, non tachycardic normal respirations, normal oxygenation at 96% on room air, and he had been having a normal leukocytosis. He denies any cough, shortness of breath, chest congestion or any other symptoms at this time. I called Dr. Grider infectious disease about the multifocal pneumonia findings and he suggested changing the patient's oral antibiotics from cephalexin to cefdinir 300 mg twice a day until 10/08/2019. Patient still is asymptomatic, normal vital signs, no leukocytosis. Will continue monitoring patient's symptoms and vitals at this time. (4) Abnormal CT of the abdomen: Code(s): R93.5 - Abnormal findings on diagnostic imaging of other abdominal regions, including retroperitoneum Status: Acute Assessment and Plan: Due to patient's nausea and vomiting I ordered CT scan which showed Moderate right perinephric edema, suspicious for pyelonephritis. Correlate clinically. Mild bladder wall thickening which may be due to underdistention, hypertrophy or cystitis. Correlate with urinalysis. Patient denies any abdominal pain, dysuria, frequent urination but did report having dark urine upon arrival. Urinalysis was ordered which was completely normal. I will order a reflux culture
[2019-09-29] MEDS: SODIUM CHLORIDE 0.9% IV 250 ML 30 ML IV CONT (10:34)
[2019-09-29] MEDS: SODIUM CHLORIDE 0.9% IV 1,000 ML 150 ML IV CONT ×2 (10:35→20:36)
[2019-09-29 11:55] LABS: Glucose Point of Care 84 (65-105)
[2019-09-29 15:05] LABS: Hematocrit 25.1 % (42.0-52.0)
[2019-09-29 18:14] LABS: Glucose Point of Care 87 (65-105)
[2019-09-29 19:04] LABS: Add Urine Microscopic? NO; Appearance Urine Clear (Clear); Bilirubin Urine Negative (Negative); Blood Urine Negative (Negative); Color Urine Straw (Yellow); Creatinine Urine 53.1 mg/dL; Glucose Urine UA Negative (Negative); Ketones Urine Negative (Negative); Leukocyte Esterase Ur Negative LEU/UL (Negative); Nitrate Urine Negative (Negative); Protein Urine Negative (Negative); Specific Grav Ur 1.008 (1.001-1.035); Total Protein Urine Random 33 mg/dL; Urobilinogen Urine Negative mg/dL (<2.0)
[2019-09-29 19:06] LABS: Sodium Urine Random 55 meq/L
[2019-09-29 20:44] LABS: Glucose Point of Care 99 (65-105)
[2019-09-30] VITALS (11 sets, daily range): BP systolic 115–164; BP diastolic 59–94; PULSE 84–105; RESP 16–20; TEMP 36.2–38.1; O2SAT 85–99
[2019-09-30] MEDS: LORAZEPAM 0.5 MG TABLET PO ×2 (00:37→09:07)
[2019-09-30] MEDS: CENTRAL LINE FLUSH 10 ML IV PUSH ×4 (05:08→20:46)
[2019-09-30] MEDS: SODIUM CHLORIDE 0.9% IV 1,000 ML 150 ML IV CONT (06:09)
[2019-09-30 06:31] LABS: Blood Urea Nitrogen 14 mg/dL (9-20); Calcium 7.9 mg/dL (8.4-10.2); Carbon Dioxide 25 mmol/L (22-30); Chloride 106 mmol/L (98-107); Estimated CRCL calculation 43 ml/min; Estimated Glomerular Filt Rate 36; Glucose 86 mg/dL (75-110); Potassium 3.7 mmol/L (3.4-5.0); Sodium 134 mmol/L (137-145)
[2019-09-30 07:00] LABS: Hematocrit 22.2 % (42.0-52.0); Mean Corpuscular HGB Conc 31.5 g/dl (32-36); Mean Corpuscular Hemoglobin 26.9 pg (26-34); Mean Corpuscular Volume 85.4 fl (80-100); Mean Platelet Volume 9.9 fl (7.4-10.4); Platelet Count Result 528 k/mm3 (150-375); Red Cell Distribution Width 14.2 % (11.5-14.5); White Blood Count 9.8 K/mm3 (4.5-10.0)
[2019-09-30 08:04] LABS: Glucose Point of Care 96 (65-105)
--- NOTE | 2019-09-30 08:13 | PM.CNNEP ---
Assessment and Plan Assessment and plan (1) KAYLA (acute kidney injury): Code(s): N17.9 - Acute kidney failure, unspecified Status: Acute Assessment and Plan: Michael has acute kidney injury. His kidney function was normal when he got here in the midst of the infection. Three days after admission his creatinine started rising. He has not had contrast, aminoglycosides, vancomycin, nonsteroidal anti-inflammatory agents, or other offending medications. He does have hypertension and his blood pressure was high when he got here. He does not take any medications at home for this. But his blood pressure lately has been better but not so low as to implicate dysautoregulation, I do not think. He does not look dehydrated. His recent chest x-ray Does show pneumonia and he is on antibiotics. He could have acute tubular necrosis due to foot infection followed by pneumonia. Electrolytes do show a non pre renal picture. He could have interstitial nephritis from the antibiotics, however he does not have any rash. I will check urine eosinophils as well as a peripheral smear He has some right perinephric edema. He does not have any flank pain or hematuria. His urinalysis does not show infection nor heme positivity. Considerations would be infection, or some vascular issue. I will check a renal scan. I will also check liver enzymes. Other less common issues include glomerulonephritis or infiltrative diseases. We will check screening test for these but I doubt if this is the issue. (2) Multifocal pneumonia: Code(s): J18.9 - Pneumonia, unspecified organism Status: Acute Assessment and Plan: He does not have a cough. He is getting antibiotics. 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 He is on antibiotics. (4) Neuropathy due to type 2 diabetes mellitus: Code(s): E11.40 - Type 2 diabetes mellitus with diabetic neuropathy, unspecified Status: Acute Assessment and Plan: The patient is on sliding scale insulin. History of Present Illness Reason for Consult Consult date: 09/30/19 Chief Complaint Chief complaint: osteomyelitis/diabetic foot wound History of Present Illness Narrative: Michael is a very pleasant 54-year-old gentleman who has multiple medical problems including hypertension, diabetes, history of a GI bleed, anemia, and now a toe infection. The patient came in because he had a small spot on his toe which he kept picking and turned into an infection. He received IV antibiotics and orthopedics was consulted. Eventually he required a right 1st ray amputation. The patient's creatinine was relatively stable on the and . But on the it jonathan to 1.9 and then 2.7 on the . Then a fell to 2.3 and has been stable there. He has been getting IV fluids. He has been on cefdinir. He has not been on vancomycin or gentamicin. He has not been on antibiotics. He denies any prior history of kidney disease. He has no proteinuria that he has been told of in the past. He has not had any bloody urine, foamy urine, kidney stones, or bladder infections. He has had diabetes for more than 10 years. He does have retinopathy but is not needed laser therapy. His sugars have not been under pretty good control. His A1c on admission was 10.3. He has had hypertension for many years. It has been under better control recently. Had to take blood pressure medicines lately. He has never had a stroke or heart attack her other vascular disease. Review of Systems Constitutional: Constitutional: Reports no additional constitutional complaints Eyes: Eyes: Reports no additional eye complaints ENT:
--- NOTE | 2019-09-30 08:28 | PM.PNORT ---
Progress Note: A&P Assessment and Plan (1) Osteomyelitis: Qualifiers: Laterality: right Osteomyelitis location: foot Osteomyelitis type: other acute Qualified Code(s): M86.171 - Other acute osteomyelitis, right ankle and foot Code(s): M86.9 - Osteomyelitis, unspecified Status: Acute Assessment and Plan: POD #6: Right 1st ray amputation. Dressing removed. Incision well-approximated. Foot appears stable. Incision cleaned with NS and new dressing applied. Continue PT/OT. PWB with post-op shoe RIGHT foot. Discharge when medically stable. Follow up in 2 weeks. (2) Anemia: Qualifiers: Anemia type: other cause Other causes of anemia: acute posthemorrhagic Qualified Code(s): D62 - Acute posthemorrhagic anemia Code(s): D64.9 - Anemia, unspecified Status: Chronic Subjective Subjective Date/Time Seen: 09/30/19 08:28 In bed resting comfortable. Complaints of nausea during dressing change. Reports anxiety with seeing wound. Review of Systems Review of Systems: All systems reviewed & are unremarkable except as noted in HPI and below Cardiovascular: Cardiovascular: Denies chest pain and Denies lightheadedness Respiratory: Respiratory: Denies cough and Denies dyspnea Gastrointestinal: Gastrointestinal: Denies abdominal pain, Denies diarrhea, Reports nausea and Denies vomiting Genitourinary: Genitourinary: Denies dysuria Musculoskeletal: Musculoskeletal: Denies numbness and Denies tingling Exam Const: General: comfortable and no acute distress Resp: Effort & Inspection: normal respiratory effort Skin: Other: Dressing on right foot c/d/i. Dressing removed, incision well-approximated. Scant sanguinous drainage. Surrounding tissue without redness/warmth/swelling. No proximal redness/streaking. New dressing applied. Neuro: Cognition (Neuro): normal cognition Sensory Exam: normal sensation Extrem: Other: See above Psych: Mental Status: mental status grossly normal Affect: normal affect Objective Data Vital Signs Vital Signs: Vital Signs - 24 hr 09/29/19 10:00 09/29/19 10:40 09/29/19 10:55 Temperature 37.0 C 37.0 C 37.1 C Pulse Rate 83 83 85 Respiratory Rate 15 15 18 Blood Pressure 119/58 L 119/58 L 137/62 Pulse Oximetry 95 95 95 09/29/19 11:55 09/29/19 12:55 09/29/19 14:00 Temperature 36.8 C 36.8 C 36.9 C Pulse Rate 88 92 97 Respiratory Rate 17 16 16 Blood Pressure 133/73 139/73 136/74 Pulse Oximetry 96 93 95 09/29/19 20:00 09/29/19 21:43 09/30/19 06:00 Temperature 37.2 C 37.2 C Pulse Rate 97 90 97 Respiratory Rate 16 16 20 Blood Pressure 121/60 151/72 H Pulse Oximetry 95 94 95 Intake/Output Intake/Output: Intake & Output 09/27/19 09/28/19 09/29/19 09/30/19 23:59 23:59 23:59 23:59 Intake Total 4425 4800 3513 2050 Output Total 2375 3800 2350 1850 Balance 2049 1000 1163 200 Meds/Results Medications: Active Medications Generic Name Dose Route Start Last Admin Trade Name Freq PRN Reason Stop Dose Admin Acetaminophen 650 mg 09/23/19 13:18 09/27/19 13:41 Tylenol Tablet PO 650 mg Q4H PRN Administration Mild Pain (1-3) or Fever Hydrocodone Bitart/Acetaminophen 1 tab 09/23/19 13:18 09/29/19 15:05 [place] 5-325 Mg PO 1 tab Q4H PRN Administration Pain Rated 4-6 Cefdinir 300 mg 09/28/19 10:45 09/29/19 20:36 Omnicef PO 300 mg Q12HR ARRON Administration Dextrose 12.5 gm 09/23/19 15:12 Dextrose 50% Syringe IV PUSH PRN PRN Hypoglycemia Protocol Docusate Sodium 100 mg 09/26/19 11:49 Colace Capsule PO Q12H PRN Constipation Glucagon 1 mg 09/23/19 15:12 Glucagon For Inj IM PRN PRN Hypoglycemia Protocol Glucose 15 gm 09/23/19 15:12 Glutose 15 PO PRN PRN Hypoglycemia Protocol Hydralazine HCl 10 mg 09/23/19 16:00 Apresoline Hcl Inj IV PUSH Q8H PRN Blood Pressure - High Dextrose 1,00
[2019-09-30] MEDS: ALTEPLASE 2 MG VIAL (CATHFLO) IV PUSH ×2 (09:44→09:46)
--- NOTE | 2019-09-30 09:50 | PCPTNOTE ---
The PT treatment was unable to be completed this AM due to patient refusal. Will continue per Plan of Care frequency and duration.
[2019-09-30 11:15] LABS: Basophils Percent Auto 0.1 % (0.2-1.2); Eosinophils Absolute Auto 0.1 K/mm3 (0-0.3); Hematocrit 22.3 % (42.0-52.0); Hemoglobin 7.1 g/dL (14.0-18.0); Immature Granulocyte Absolute 0.24 K/mm3 (0.00-0.031); Immature Granulocyte Percent A 2.4 % (0-0.5); Lymphocytes Absolute Auto 1.19 K/mm3 (0.9-3.2); Lymphocytes Percent Auto 11.8 % (18.3-44.2); Mean Corpuscular HGB Conc 31.8 g/dl (32-36); Mean Corpuscular Hemoglobin 26.9 pg (26-34); Mean Corpuscular Volume 84.5 fl (80-100); Monocytes Absolute Auto 0.8 K/mm3 (0.1-0.6); Monocytes Percent Auto 7.9 % (2.6-8.5); Neutrophils Absolute Auto 7.8 K/mm3 (1.3-6.7); Neutrophils Percent Auto 76.8 % (45.5-73.1); Nucleated Red Blood Cells Absolute Auto 0.1 K/mm3 (0.0-0.012); Nucleated Red Blood Cells Perc 0.8 % (0.0-0.2); Platelet Count Result 528 k/mm3 (150-375); Red Blood Count 2.64 M/mm3 (4.6-6.20); Red Cell Distribution Width 14.2 % (11.5-14.5); White Blood Count 10.1 K/mm3 (4.5-10.0)
[2019-09-30 11:32] LABS: Alanine Aminotransferase 14 U/L (4-50); Alkaline Phosphatase 77 U/L (38-126); Aspartate Amino Transferase 44 U/L (17-59)
[2019-09-30 11:33] LABS: Creatine Kinase 45 U/L (55-170)
[2019-09-30 11:39] LABS: Complement C3 126 mg/dL (88-165)
[2019-09-30] MEDS: PANTOPRAZOLE SODIUM IV 40 MG VIAL IV PUSH ×2 (12:27→20:46)
[2019-09-30 12:30] LABS: Glucose Point of Care 85 (65-105)
[2019-09-30 12:39] LABS: Erythrocyte Sedimentation Rate > 140 mm/hr (0-20)
[2019-09-30 12:50] LABS: Hematocrit 21.8 % (42.0-52.0)
[2019-09-30 12:54] LABS: Hemoglobin 6.9 g/dL (14.0-18.0)
--- NOTE | 2019-09-30 13:24 | PM.IMPN ---
Progress Note: A&P Assessment and Plan (1) KAYLA (acute kidney injury): Code(s): N17.9 - Acute kidney failure, unspecified Status: Acute Assessment and Plan: Patient's creatinine on arrival was within normal range. KAYLA up most likely secondary to dehydration, IV ibuprofen, IV vancomycin on arrival. 09/26/2019: Labs showed showed creatinine to 1.9, hyponatremia at 130, slight elevation to his potassium and overall appears slightly dehydrated. He was given IV fluids at 100 cc an hour. 09/27/2019: Labs today show increased creatinine to 2.7, sodium 133, potassium normal at 3.4. Patient continues to have nausea and vomiting and has not been eating much at all. Patient is also been getting p.r.n. IV ibuprofen which could be causing some KAYLA. Will discontinue ibuprofen and other medications that are nephrotoxic. 09/28/2019: Labs today show improved creatinine to 2.3, sodium improved to 135, and potassium is stable at 3.7. Patient is still having intermittent nausea and few episodes of vomiting. He again attributes this to anxiety. Continue IV fluids and increased to 150 mils an hour. 09/29/2019: Labs today show improved creatinine to 2.2, sodium improved to 136, and potassium low at 3.3 and was replaced. Patient no longer having vomiting episodes. 09/30/2019: Labs today show improved creatinine to 2.3, sodium decreased to 134, and potassium improved to 3.7. Patient no longer having vomiting episodes and appears euvolemic. Dr. Ash Nephrology evaluated the patient today and ordered a renal ultrasound, urine eosinophils, hepatic panel and will continue monitoring the patient. Decreased IV fluids to 100 mL an hour. Continue monitoring patient's renal function. Avoid nephrotoxic medications. (2) Anemia: Qualifiers: Anemia type: other cause Other causes of anemia: acute posthemorrhagic Qualified Code(s): D62 - Acute posthemorrhagic anemia Code(s): D64.9 - Anemia, unspecified Status: Chronic Assessment and Plan: Patient has some anemia since arrival. He denies any history of anemia. 09/29/2019: H&H 6.9/21.9%. Decreased but this could be delusional. The operations research engineer ordered 1 unit of PRBCs to be given. Repeat H&H after transfusion was 8.0/25.1% 09/30/2019: H&H 7.0/22.2. Repeat labs at noon showed 6.9/21.8%. I will give 1 unit of PRBCs. He does report having some dark stools prior to arrival. Still pending hemoccult stool since arrival. Anemia panel shows signs of anemia of chronic disease. Normal folic acid and vitamin B12. Patient's % saturation was slightly low at 12 so I will give IV Venofer 300mg 07/29 to see if it improves his H&H. Continue monitoring H&H. Transfuse as needed. No acute signs of bleeding. (3) Multifocal pneumonia: Code(s): J18.9 - Pneumonia, unspecified organism Status: Acute Assessment and Plan: Patient had an abdominal CT which showed bilateral multifocal pneumonia. The patient is not having any acute signs or symptoms of pneumonia. He is afebrile, non tachycardic normal respirations, normal oxygenation at 96% on room air, and he had been having a normal leukocytosis. He denies any cough, shortness of breath, chest congestion or any other symptoms at this time. I called Dr. Grider infectious disease about the multifocal pneumonia findings and he suggested changing the patient's oral antibiotics from cephalexin to cefdinir 300 mg twice a day until 10/08/2019. Patient reports some productive brown sputum after taking a shower, denies any other symptoms. Will continue monitoring patient's symptoms and vitals at this time. (4) Abnormal CT of the abdomen: Code(s): R93.5 - Abnormal findings on diagnostic imaging of other abdominal regions, including retroperitoneum Status: Acute Assessment and Plan: Due
[2019-09-30] MEDS: MORPHINE SULFATE 4 MG/ML INJ IV PUSH (14:14)
[2019-09-30] MEDS: CEFDINIR 300 MG CAPSULE PO (14:15)
[2019-09-30] MEDS: SACCHAROMYCES BOULARDII 250 MG CAPSULE PO ×2 (14:15→18:40)
--- NOTE | 2019-09-30 15:43 | PCPTNOTE ---
Ximenaethel is being discharged from PT at this time. He has refused all attempts with PT since initial evaluation. Dr. Mejia's office was called in regards to this information. He has been observed ambulating with nursing in his room.
[2019-09-30] MEDS: SODIUM CHLORIDE 0.9% IV 250 ML 30 ML IV CONT (16:13)
[2019-09-30 17:10] LABS: Glucose Point of Care 77 (65-105)
[2019-09-30] MEDS: ACETAMINOPHEN 325 MG TABLET 650 MG PO (18:39)
[2019-09-30] MEDS: PROMETHAZINE HCL 25 MG/ML AMPUL 12.5 MG IV PUSH (18:49)
[2019-09-30 20:50] LABS: Glucose Point of Care 113 (65-105)
[2019-10-01] VITALS (8 sets, daily range): BP systolic 142–160; BP diastolic 67–89; PULSE 87–100; RESP 16–22; TEMP 36.5–37.4; O2SAT 90–96; BMI 38.3
[2019-10-01] MEDS: ALTEPLASE 2 MG VIAL (CATHFLO) IV PUSH ×2 (02:11→04:28)
--- NOTE | 2019-10-01 08:39 | PM.IMPN ---
Progress Note: A&P Assessment and Plan (1) KAYLA (acute kidney injury): Code(s): N17.9 - Acute kidney failure, unspecified Status: Acute Assessment and Plan: Patient's creatinine on arrival was within normal range. This elevated to peak 2.70, and down to 2.30 yesterday. No labs have been drawn today as of yet. Possibly due to dehydration from N/V vs medication induced from vanc and/or ibuprofen. He still is on 100 mL/hr IVF for now. Nephrology is following and appreciate recommendations. Continue monitoring patient's renal function. Avoid nephrotoxic medications and renally dose medications if possible IVF 100 mL/hr for now. Await further rec from Nephrology Monitor closely (2) Anemia: Qualifiers: Anemia type: other cause Other causes of anemia: acute posthemorrhagic Qualified Code(s): D62 - Acute posthemorrhagic anemia Code(s): D64.9 - Anemia, unspecified Status: Chronic Assessment and Plan: Patient has some anemia since arrival. He denies any history of anemia. Hgb 6.9 yesterday and 1 u pRBCs given (2u pRBCs total during this stay). Possibly due to Anemia of chronic disease. He denies any dark stools/BRBPR for me today; stool occult yet to be collected. IV venofer given the past several days. Hgb yet to be drawn today. No acute signs of bleeding. Continue monitoring H&H. Venofer to be d/c today Transfuse as needed. Monitor closely (3) Multifocal pneumonia: Code(s): J18.9 - Pneumonia, unspecified organism Status: Acute Assessment and Plan: Patient had an abdominal CT which showed bilateral multifocal pneumonia and CXR yesterday showed worsening findings. Patient is now on 4L O2 NC. He did spike a fever last night as well. COVID a possibility and was tested last night; now on isolation. Patient is asymptomatic at this time. This was discussed with ID and cefdinir 200 mg twice a day was recommended through 10/08/2019. Will continue monitoring patient's symptoms and vitals at this time. Continue with cefdinir 300 mg BID until COVID testing returns Wean O2 as tolerated Will hold on home CPAP due to possibly aerosolizing Ur Antigens pending Will obtain acute phase reactants Trend WBC (4) Abnormal CT of the abdomen: Code(s): R93.5 - Abnormal findings on diagnostic imaging of other abdominal regions, including retroperitoneum Status: Acute Assessment and Plan: Due to patient's nausea and vomiting, CT scan ordered which showed Moderate right perinephric edema, suspicious for pyelonephritis. Correlate clinically. Mild bladder wall thickening which may be due to underdistention, hypertrophy or cystitis. Correlate with urinalysis. Patient denies any abdominal pain, dysuria, frequent urination but did report having dark urine upon arrival. Urinalysis was ordered which was completely normal. Urine Culture showed no growth. Symptoms of N/V seem to be related to blood work per patient. He is feeling well today. Continue monitoring patient's symptoms. (5) Osteomyelitis: Qualifiers: Laterality: right Osteomyelitis location: foot Osteomyelitis type: other acute Qualified Code(s): M86.171 - Other acute osteomyelitis, right ankle and foot Code(s): M86.9 - Osteomyelitis, unspecified Status: Acute Assessment and Plan: Dr. Mejia, orthopedic surgery, following and appreciate recommendations. POD#7 right 1st ray amputation. Patient feeling okay today. Wound culture shows growth of Staph aureus, with sensitivities showing resistance to clindamycin, erythromycin and gentamicin. Blood cultures negative x2. Patient was on cephalexan 500 mg Q6 but was switched to cefdinir 300 mg through 10/08/2019 given his multifocal pneumon
--- NOTE | 2019-10-01 09:34 | PM.PNNEP ---
Progress Note: A&P Assessment and Plan (1) KAYLA (acute kidney injury): Code(s): N17.9 - Acute kidney failure, unspecified Status: Acute Assessment and Plan: Michael has acute kidney injury. His kidney function was normal when he got here in the midst of the infection. Most likely he does have some underlying disease from diabetes and hypertension but not bad enough to make his creatinine high at baseline. He does have some proteinuria which could be either acute or chronic. His creatinine is pending for today. Phlebotomists are having trouble getting his blood. Renal ultrasound was unremarkable. Kidney size is symmetric. CT showed perinephric edema around the right kidney. Urinalysis is negative. He has no pain. Liver enzymes are normal. The significance of the perinephric edema is unknown. His renal scan showed uptake without excretion. This suggests acute tubular necrosis. The function of the right kidney is greater than the function of the left interestingly. C3 and C4 are normal. Sed rate greater than 140 (probably from infection ). Otherwise serology is pending. Peripheral eosinophils are normal. CPK is normal. I suspect that this is ATN from his infection. He did receive vancomycin and Zosyn the 1st couple of days of his admission which may have played a role as well. If this is the case then this should reverse. (2) Multifocal pneumonia: Code(s): J18.9 - Pneumonia, unspecified organism Status: Acute Assessment and Plan: He developed a fever last night and desaturated some. COVID-19 test is pending. Because of the infiltrates and the desaturation, will hold off on IV fluids for now. 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 He is on antibiotics. (4) Neuropathy due to type 2 diabetes mellitus: Code(s): E11.40 - Type 2 diabetes mellitus with diabetic neuropathy, unspecified Status: Acute Assessment and Plan: The patient is on sliding scale insulin. Subjective Date/time seen: 10/01/19 09:34 Interval history: Patient is somewhat down today. He ran a fever last night and so now is getting tested for COVID. He was also a bit short of breath. Chest x-ray did show diffuse infiltrates. Review of Systems Cardiovascular: Cardiovascular: Reports no additional cardiovascular complaints Respiratory: Respiratory: Reports no additional respiratory complaints Gastrointestinal: Gastrointestinal: Reports no additional gastrointestinal complaints Genitourinary: Genitourinary: Reports no additional male genitourinary complaints Exam Narrative: Exam Narrative: WDWN in NAD skin no rash head ncat lungs clear cor reg no rub abd BS+ nontender and soft ext no edema. Objective Data Vital Signs Vital Signs: Vital Signs - 24 hr 09/30/19 14:00 09/30/19 16:30 09/30/19 16:39 Temperature 37.7 C H 37.2 C Pulse Rate 99 105 H 93 Respiratory Rate 19 18 Blood Pressure 127/59 L 154/59 H Pulse Oximetry 93 85 L 09/30/19 16:45 09/30/19 17:45 09/30/19 18:39 Temperature 37.2 C 38.1 C H 38.1 C H Pulse Rate 100 95 Respiratory Rate 18 18 Blood Pressure 160/88 H 164/77 H Pulse Oximetry 93 95 09/30/19 18:45 09/30/19 19:30 09/30/19 19:39 Temperature 37.1 C 37.0 C 36.4 C Pulse Rate 86 85 Respiratory Rate 16 16 Blood Pressure 147/81 H 129/65 Pulse Oximetry 94 99 09/30/19 22:00 10/01/19 06:00 Temperature 36.4 C 36.6 C Pulse Rate 84 93 Respiratory Rate 18 22 H Blood Pressure 115/72 142/67 H Pulse Oximetry 96 91 Intake/Output Intake/Output: Intake & Output 09/28/19 09/29/19 09/30/19 10/01/19 23:59 23:
[2019-10-01 09:40] LABS: Glucose Point of Care 109 (65-105)
[2019-10-01 10:48] LABS: Basophils Percent Auto 0.2 % (0.2-1.2); Eosinophils Absolute Auto 0.2 K/mm3 (0-0.3); Eosinophils Percent Auto 1.3 % (0-4.4); Hematocrit 24.8 % (42.0-52.0); Hemoglobin 7.7 g/dL (14.0-18.0); Immature Granulocyte Absolute 0.24 K/mm3 (0.00-0.031); Immature Granulocyte Percent A 1.9 % (0-0.5); Lymphocytes Percent Auto 9.6 % (18.3-44.2); Mean Corpuscular Hemoglobin 26.6 pg (26-34); Mean Corpuscular Volume 85.5 fl (80-100); Mean Platelet Volume 9.2 fl (7.4-10.4); Monocytes Absolute Auto 1.2 K/mm3 (0.1-0.6); Monocytes Percent Auto 9.2 % (2.6-8.5); Neutrophils Absolute Auto 9.8 K/mm3 (1.3-6.7); Neutrophils Percent Auto 77.8 % (45.5-73.1); Nucleated Red Blood Cells Absolute Auto 0.3 K/mm3 (0.0-0.012); Nucleated Red Blood Cells Perc 2.5 % (0.0-0.2); Platelet Count Result 574 k/mm3 (150-375); Red Cell Distribution Width 14.5 % (11.5-14.5); White Blood Count 12.6 K/mm3 (4.5-10.0)
[2019-10-01 11:08] LABS: Alanine Aminotransferase 15 U/L (4-50); Albumin Level 3.2 g/dL (3.5-5.1); Alkaline Phosphatase 71 U/L (38-126); Aspartate Amino Transferase 53 U/L (17-59); Bilirubin,Total 1.3 mg/dL (0.2-1.3); Blood Urea Nitrogen 16 mg/dL (9-20); Carbon Dioxide 25 mmol/L (22-30); Chloride 106 mmol/L (98-107); Estimated CRCL calculation 45 ml/min; Estimated Glomerular Filt Rate 38; Glucose 92 mg/dL (75-110); Lactate Dehydrogenase 1438 U/L (313-618); Magnesium 1.9 mg/dL (1.6-2.3); Phosphorus 2.7 mg/dL (2.5-4.5); Potassium 5.4 mmol/L (3.4-5.0); Sodium 137 mmol/L (137-145)
[2019-10-01 11:15] LABS: CRP 17.3 mg/dL (<1.0)
[2019-10-01] MEDS: PANTOPRAZOLE 40 MG TABLET PO ×2 (11:55→21:07)
[2019-10-01] MEDS: CEFDINIR 300 MG CAPSULE PO (11:55)
[2019-10-01] MEDS: SACCHAROMYCES BOULARDII 250 MG CAPSULE PO ×2 (11:55→16:16)
[2019-10-01] MEDS: CENTRAL LINE FLUSH 10 ML IV PUSH ×3 (11:56→21:06)
[2019-10-01] MEDS: LORAZEPAM 0.5 MG TABLET PO ×2 (12:07→21:06)
[2019-10-01 12:10] LABS: Glucose Point of Care 86 (65-105)
[2019-10-01 13:11] LABS: Ferritin > 2000.00 ng/mL (11.1-264)
[2019-10-01 14:25] LABS: SARS-CoV-2 RNA PCR Positive
--- NOTE | 2019-10-01 15:52 | PCDIET ---
Nutrition Follow-Up Complete: Goal: Pt current nutrition is . Nutrition recommendation: Last recorded weight is 117.8 kg. Bowel Motility: Labs Reviewed: Meds Noted: Additional Notes:
--- NOTE | 2019-10-01 17:22 | PC.NURSE ---
This patient, Michael Bai, was transferred to [facility] on 10/01/19 at 1722. Personal belongings sent with patient. Belongings list checked and signed with receiving unit. Report given to BRYANT Zepeda. Appropriate documentation and medications sent with patient.
[2019-10-01] MEDS: ALBUTEROL SULFATE (*SP) AEROSOL 1 PUFF 2 PUFF INHALATION ×2 (17:52→21:24)
[2019-10-01] MEDS: ACETAMINOPHEN 325 MG TABLET 650 MG PO (18:16)
[2019-10-01] MEDS: ENOXAPARIN 40 MG/0.4 ML SYRINGE SUB-Q (18:16)
[2019-10-01 19:23] LABS: Glucose Point of Care 141 (65-105)
[2019-10-01] MEDS: CEPHALEXIN 500 MG CAPSULE PO (21:05)
[2019-10-01 22:07] LABS: Glucose Point of Care 113 (65-105)
[2019-10-02] VITALS (11 sets, daily range): BP systolic 120–155; BP diastolic 69–91; PULSE 91–103; RESP 18–92; TEMP 36.8–37.4; O2SAT 92–97
[2019-10-02] MEDS: ALTEPLASE 2 MG VIAL (CATHFLO) IV PUSH (04:16)
[2019-10-02] MEDS: CEPHALEXIN 500 MG CAPSULE PO ×3 (05:22→21:14)
[2019-10-02] MEDS: CENTRAL LINE FLUSH 10 ML IV PUSH ×3 (05:23→21:14)
[2019-10-02 05:51] LABS: Basophils Percent Auto 0.1 % (0.2-1.2); Eosinophils Absolute Auto 0.3 K/mm3 (0-0.3); Eosinophils Percent Auto 1.8 % (0-4.4); Hematocrit 22.7 % (42.0-52.0); Hemoglobin 7.1 g/dL (14.0-18.0); Immature Granulocyte Absolute 0.24 K/mm3 (0.00-0.031); Immature Granulocyte Percent A 1.8 % (0-0.5); Lymphocytes Absolute Auto 1.34 K/mm3 (0.9-3.2); Lymphocytes Percent Auto 9.8 % (18.3-44.2); Mean Corpuscular HGB Conc 31.3 g/dl (32-36); Mean Corpuscular Hemoglobin 26.7 pg (26-34); Mean Corpuscular Volume 85.3 fl (80-100); Mean Platelet Volume 9.3 fl (7.4-10.4); Monocytes Absolute Auto 1.3 K/mm3 (0.1-0.6); Monocytes Percent Auto 9.6 % (2.6-8.5); Neutrophils Absolute Auto 10.5 K/mm3 (1.3-6.7); Neutrophils Percent Auto 76.9 % (45.5-73.1); Nucleated Red Blood Cells Absolute Auto 0.2 K/mm3 (0.0-0.012); Nucleated Red Blood Cells Perc 1.5 % (0.0-0.2); Platelet Count Result 576 k/mm3 (150-375); Red Blood Count 2.66 M/mm3 (4.6-6.20); Red Cell Distribution Width 14.6 % (11.5-14.5); White Blood Count 13.7 K/mm3 (4.5-10.0)
[2019-10-02 05:52] LABS: Potassium 3.7 mmol/L (3.4-5.0)
[2019-10-02 06:06] LABS: Alanine Aminotransferase 15 U/L (4-50); Albumin Level 3.1 g/dL (3.5-5.1); Alkaline Phosphatase 77 U/L (38-126); Aspartate Amino Transferase 33 U/L (17-59); Bilirubin,Total 1.2 mg/dL (0.2-1.3); Blood Urea Nitrogen 15 mg/dL (9-20); CRP 17.6 mg/dL (<1.0); Calcium 8.3 mg/dL (8.4-10.2); Carbon Dioxide 26 mmol/L (22-30); Chloride 104 mmol/L (98-107); Creatine Kinase 42 U/L (55-170); Estimated CRCL calculation 45 ml/min; Estimated Glomerular Filt Rate 38; Glucose 118 mg/dL (75-110); Lactate Dehydrogenase 1064 U/L (313-618); Magnesium 1.9 mg/dL (1.6-2.3); Phosphorus 2.8 mg/dL (2.5-4.5); Sodium 136 mmol/L (137-145)
[2019-10-02 06:10] LABS: INR 1.3; Prothrombin Time 15.6 Seconds (11.1-14.7)
[2019-10-02 06:11] LABS: Partial Thromboplastin Time 33.1 SECONDS (22.3-36.8)
[2019-10-02 08:31] LABS: Glucose Point of Care 133 (65-105)
[2019-10-02] MEDS: SACCHAROMYCES BOULARDII 250 MG CAPSULE PO ×2 (08:37→17:42)
[2019-10-02] MEDS: PANTOPRAZOLE 40 MG TABLET PO ×2 (08:37→21:14)
[2019-10-02 09:04] LABS: Ferritin > 2000.00 ng/mL (11.1-264)
[2019-10-02] MEDS: ALBUTEROL SULFATE (*SP) AEROSOL 1 PUFF 2 PUFF INHALATION ×4 (10:00→20:38)
[2019-10-02] MEDS: ACETAMINOPHEN 325 MG TABLET 650 MG PO (12:26)
[2019-10-02 12:54] LABS: Glucose Point of Care 154 (65-105)
--- NOTE | 2019-10-02 13:04 | PM.IMPN ---
Progress Note: A&P Assessment and Plan (1) KAYLA (acute kidney injury): Code(s): N17.9 - Acute kidney failure, unspecified Status: Acute Assessment and Plan: Patient's creatinine on arrival was within normal range. This elevated to peak 2.70, and down to 2.20 today; stable. Possibly due to dehydration from N/V vs medication induced from vanc and/or ibuprofen. Nephrology is following and appreciate recommendations. Continue monitoring patient's renal function. Avoid nephrotoxic medications and renally dose medications if possible Patient tolerating PO okay; no IVF at this moment Await further rec from Nephrology Monitor closely (2) Anemia: Qualifiers: Anemia type: other cause Other causes of anemia: acute posthemorrhagic Qualified Code(s): D62 - Acute posthemorrhagic anemia Code(s): D64.9 - Anemia, unspecified Status: Chronic Assessment and Plan: Patient has had anemia since arrival. Stable, but still low with Hgb 7.1 today. He denies any history of anemia; denies any signs of blood loss. Stool occult still waiting to be collected; instructed to let nursing know when he has another BM to collect this. Possibly due to Anemia of chronic disease with worsened anemia from surgery. IV venofer during stay as well as 2u pRBCs during stay. Continue monitoring H&H. Transfuse as needed. Monitor closely (3) COVID-19 virus infection: Code(s): U07.1 - COVID-19 Status: Acute Assessment and Plan: COVID testing is positive. Patient is now on 4L O2 NC; stable from yesterday . Last fever on evening of 09/29. Patient reports being asymptomatic at this time. Will continue monitoring patient's symptoms and vitals at this time. Dr. Grider has been consulted for further input and appreciate recommendations Cefdinir 300 mg BID switched back to cephalexin Q8hrs given less likely COVID bacterial coinfection; will await further recommendations from ID Wean O2 as tolerated Continue symptomatic treatment with tylenol as needed for fever, mucinex Q12, IS, albuterol QID, and encouraged out of bed as tolerated Will hold on home CPAP Ur Antigens pending Will trend acute phase reactants and CBC tomorrow (4) Multifocal pneumonia: Code(s): J18.9 - Pneumonia, unspecified organism Status: Acute Assessment and Plan: Likely secondary to above; see above a/p (5) Abnormal CT of the abdomen: Code(s): R93.5 - Abnormal findings on diagnostic imaging of other abdominal regions, including retroperitoneum Status: Acute Assessment and Plan: Due to patient's nausea and vomiting, CT scan ordered which showed Moderate right perinephric edema, suspicious for pyelonephritis. Correlate clinically. Mild bladder wall thickening which may be due to underdistention, hypertrophy or cystitis. Correlate with urinalysis. Patient denies any abdominal pain, dysuria, frequent urination but did report having dark urine upon arrival. Urinalysis was ordered which was completely normal. Urine Culture showed no growth. Symptoms of N/V seem to be related to blood work per patient. He is feeling well today. Continue monitoring patient's symptoms. (6) Osteomyelitis: Qualifiers: Laterality: right Osteomyelitis location: foot Osteomyelitis type: other acute Qualified Code(s): M86.171 - Other acute osteomyelitis, right ankle and foot Code(s): M86.9 - Osteomyelitis, unspecified Status: Acute Assessment and Plan: Dr. Mejia, orthopedic surgery, following and appreciate recommendations. POD#8 right 1st ray amputation. Patient feeling okay today. Wound culture shows growth of Staph aureus, with sensitivities showing resistance to
--- NOTE | 2019-10-02 13:12 | PC.NURSE ---
Pt's wound dressing was completed this shift at 1245. Pt's wound looks well approximated, and stitches are intact. Pt had an adaptic dressing applied to wound, covered by 4x4, kerlix, and coban. Pt verbalized no complaints of pain or discomfort.
--- NOTE | 2019-10-02 14:39 | WPDINFPN2 ---
Progress Note: A&P Assessment and Plan (1) COVID-19 virus infection: Code(s): U07.1 - COVID-19 Status: Acute Assessment and Plan: IMP 1. Leukocytosis due to acute CoVid infection, suspect viral pneumonia 2. Recent OM L toe, excised 3. Renal insufficiency 4. DM REC Continue cephalexin as planned 14 days post op. Supportive care for the viral pneumonia. WBC expected to be elevated for a number of days. Call if Qs Subjective Date/time seen: 10/02/19 14:39 Interval history: asked to see again re leukocytosis. He denies foot pain, cough, sputum. Appetite fair. No foot drainage. I personally reviewed his CXR: new infiltrates bilateral, worse on right, compared to prior CXR Exam Narrative: Exam Narrative: t max evening 09/29 = 38.1. Otherwise afebrile Const: Other: mild resp distress at rest Eyes: General: appearance normal, both eyes and all related structures Neck: Neck: supple Other: no cervical adenopathy Resp: Auscultation: clear to auscultation bilaterally Cardio: Rate: regular rate Rhythm: regular rhythm Heart sounds: no gallops and no murmurs GI: Inspection: non-distended GI Palp: Yes Soft to palpation and No Tenderness to palpation present (GI) Skin: General skin exam: normal color and no rashes or lesions noted Extrem: Other: left foot dressed about 1 1/2 hours ago, disc appearance with staff. Proximally: no erythema tenderness warmth abn contour Objective Data Vital Signs Vital Signs: Vital Signs - 24 hr 10/01/19 16:19 10/01/19 18:00 10/01/19 18:48 Temperature 37.0 C 37.4 C 37.1 C Pulse Rate 93 90 Respiratory Rate 20 20 Blood Pressure 155/85 H 149/78 H Pulse Oximetry 96 94 10/01/19 20:30 10/01/19 22:00 10/02/19 02:00 Temperature 37.1 C 37.3 C Pulse Rate 87 87 91 Respiratory Rate 20 20 Blood Pressure 150/79 H 154/86 H Pulse Oximetry 94 95 94 10/02/19 05:00 10/02/19 06:00 10/02/19 09:47 Temperature 37.3 C Pulse Rate 94 Respiratory Rate 20 92 H Blood Pressure 151/69 H Pulse Oximetry 93 92 10/02/19 09:59 10/02/19 10:00 10/02/19 14:00 Temperature 37.4 C 36.9 C Pulse Rate 103 H 98 Respiratory Rate 18 18 Blood Pressure 143/91 H 120/72 Pulse Oximetry 97 96 97 Intake/Output Intake/Output: Intake & Output 09/29/19 09/30/19 10/01/19 10/02/19 23:59 23:59 23:59 23:59 Intake Total 3513 3740 1195 1250 Output Total 2350 3850 1650 600 Balance 1163 -110 -455 650 Meds/Results Medications: Active Medications Generic Name Dose Route Start Last Admin Trade Name Freq PRN Reason Stop Dose Admin Acetaminophen 650 mg 09/23/19 13:18 10/02/19 12:26 Tylenol Tablet PO 650 mg Q4H PRN Administration Mild Pain (1-3) or Fever Hydrocodone Bitart/Acetaminophen 1 tab 09/23/19 13:18 10/02/19 04:08 [place] 5-325 Mg PO 1 tab Q4H PRN Administration Pain Rated 4-6 Albuterol 2 puff 10/01/19 16:00 10/02/19 12:15 Proventil Hfa INHALATION 2 puff QIDRT ARRON Administration Alteplase, Recombinant 2 mg 10/01/19 01:56 10/02/19 04:16 Cathflo Activase IV PUSH 2 mg ONCE PRN Administration Line Occlusion Cephalexin HCl 500 mg 10/01/19 22:00 10/02/19 14:18 Keflex Capsule PO 500 mg Q8HR ARRON Administration Dextrose 12.5 gm 09/23/19 15:12 Dextrose 50% Syringe IV PUSH PRN PRN Hypoglycemia Protocol Docusate Sodium 100 mg 09/26/19 11:49 Colace Capsule PO Q12H PRN Constipation Enoxaparin Sodium 40 mg 10/01/19 18:00 10/01/19 18:16 Lovenox SUB-Q 40 mg Q24H ARRON Administration Glucagon 1 mg 09/23/19 15:12 Glucagon For Inj IM PRN PRN Hypoglycemia Protocol Glucose 15 gm 09/23/19 15:12 Glutose 15 PO PRN PRN Hypoglycemia Protocol Guaifenesin 1,200 mg 10/01/19 21:00 10/02/19 08:37 Mucinex 12 Hr Tab PO 1,200 mg Q12HR ARRON Administration Hydralazine HCl 10 mg 09/23/19 16:00 Apresoline Hcl Inj IV PUSH
[2019-10-02 17:58] LABS: Glucose Point of Care 139 (65-105)
--- NOTE | 2019-10-02 18:28 | PM.PNNEP ---
Progress Note: A&P Assessment and Plan (1) KAYLA (acute kidney injury): Code(s): N17.9 - Acute kidney failure, unspecified Status: Acute Assessment and Plan: Michael has acute kidney injury. His kidney function was normal when he got here in the midst of the infection. Most likely he does have some underlying disease from diabetes and hypertension but not bad enough to make his creatinine high at baseline. He does have some proteinuria which could be either acute or chronic. Etiology of the acute process is unclear. His creatinine is stable at 2.2. C3 and C4 are normal. Sed rate greater than 140 (probably from infection ). Otherwise serology is still pending. Peripheral eosinophils are normal. CPK is normal. Urinalysis is bland. Urine electrolytes are non pre renal. Renal ultrasound was unremarkable. Kidney size is symmetric. CT showed perinephric edema around the right kidney. Urinalysis is negative. He has no pain. Liver enzymes are normal. The significance of the perinephric edema is unknown. His renal scan showed uptake without excretion. This suggests acute tubular necrosis. The function of the right kidney is greater than the function of the left interestingly. I suspect that this is ATN from his infection. He did receive vancomycin and Zosyn the 1st couple of days of his admission which may have played a role as well. If this is the case then this should reverse. Discussed at length with DAMION Ferris. (2) Multifocal pneumonia: Code(s): J18.9 - Pneumonia, unspecified organism Status: Acute Assessment and Plan: He developed a fever last night and desaturated some. COVID-19 test is positive. Because of the infiltrates and the desaturation, will hold off on IV fluids for now. I do not think IV fluids will help his kidneys. 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 He is on antibiotics. (4) Neuropathy due to type 2 diabetes mellitus: Code(s): E11.40 - Type 2 diabetes mellitus with diabetic neuropathy, unspecified Status: Acute Assessment and Plan: The patient is on sliding scale insulin. Subjective Date/time seen: 10/02/19 18:29 Interval history: Patient is COVID positive. He is still in isolation. Had a fever earlier but this is better now. He denies cough or shortness of breath. Review of Systems Cardiovascular: Cardiovascular: Reports no additional cardiovascular complaints Respiratory: Respiratory: Reports no additional respiratory complaints Gastrointestinal: Gastrointestinal: Reports no additional gastrointestinal complaints Genitourinary: Genitourinary: Reports no additional male genitourinary complaints Exam Narrative: Exam Narrative: WDWN in NAD skin no rash or subcu nodules head ncat lungs clear cor reg no rub abd BS+ nontender and soft ext no edema. Or cyanosis Objective Data Vital Signs Vital Signs: Vital Signs - 24 hr 10/01/19 18:48 10/01/19 20:30 10/01/19 22:00 Temperature 37.1 C 37.1 C Pulse Rate 87 87 Respiratory Rate 20 Blood Pressure 150/79 H Pulse Oximetry 94 95 10/02/19 02:00 10/02/19 05:00 10/02/19 06:00 Temperature 37.3 C 37.3 C Pulse Rate 91 94 Respiratory Rate 20 20 Blood Pressure 154/86 H 151/69 H Pulse Oximetry 94 93 92 10/02/19 09:47 10/02/19 09:59 10/02/19 10:00 Temperature 37.4 C Pulse Rate 103 H Respiratory Rate 92 H 18 Blood Pressure 143/91 H Pulse Oximetry 97 96 10/02/19 14:00 10/02/19 15:47 Temperature 36.9 C Pulse Rate 98 Respiratory Rate 18 Blood Pressure 120/72 Pulse Oximetry 97 93 Intake/Output Intake/O
[2019-10-02 19:31] LABS: Complement Total CH50 >60 U/mL (31-60)
[2019-10-02] MEDS: ENOXAPARIN 40 MG/0.4 ML SYRINGE SUB-Q (21:13)
[2019-10-02] MEDS: LORAZEPAM 0.5 MG TABLET PO (21:13)
[2019-10-02] MEDS: MELATONIN 3 MG TABLET PO (21:14)
[2019-10-02 23:24] LABS: Glucose Point of Care 153 (65-105)
[2019-10-03] VITALS (13 sets, daily range): BP systolic 126–171; BP diastolic 77–90; PULSE 90–95; RESP 16–20; TEMP 36.4–37.7; O2SAT 93–98
[2019-10-03 03:53] LABS: Lambda Light Chain 92.8 mg/L (5.7-26.3)
[2019-10-03] MEDS: CENTRAL LINE FLUSH 10 ML IV PUSH ×3 (05:51→21:59)
[2019-10-03] MEDS: CEPHALEXIN 500 MG CAPSULE PO ×3 (05:51→21:59)
[2019-10-03 05:59] LABS: Basophils Percent Auto 0.2 % (0.2-1.2); Eosinophils Absolute Auto 0.3 K/mm3 (0-0.3); Immature Granulocyte Absolute 0.25 K/mm3 (0.00-0.031); Lymphocytes Absolute Auto 1.26 K/mm3 (0.9-3.2); Mean Corpuscular HGB Conc 30.6 g/dl (32-36); Mean Corpuscular Hemoglobin 26.7 pg (26-34); Mean Corpuscular Volume 87.3 fl (80-100); Mean Platelet Volume 9.3 fl (7.4-10.4); Monocytes Absolute Auto 1.4 K/mm3 (0.1-0.6); Monocytes Percent Auto 10.8 % (2.6-8.5); Neutrophils Absolute Auto 9.4 K/mm3 (1.3-6.7); Nucleated Red Blood Cells Absolute Auto 0.1 K/mm3 (0.0-0.012); Nucleated Red Blood Cells Perc 0.5 % (0.0-0.2); Platelet Count Result 531 k/mm3 (150-375); Red Blood Count 2.36 M/mm3 (4.6-6.20); Red Cell Distribution Width 15.4 % (11.5-14.5); White Blood Count 12.6 K/mm3 (4.5-10.0)
[2019-10-03 06:06] LABS: Hematocrit 20.6 % (42.0-52.0); Hemoglobin 6.3 g/dL (14.0-18.0)
[2019-10-03 06:36] LABS: Alanine Aminotransferase 13 U/L (4-50); Albumin Level 2.9 g/dL (3.5-5.1); Alkaline Phosphatase 71 U/L (38-126); Aspartate Amino Transferase 32 U/L (17-59); Bilirubin,Total 0.9 mg/dL (0.2-1.3); Blood Urea Nitrogen 13 mg/dL (9-20); CRP 19.3 mg/dL (<1.0); Calcium 8.2 mg/dL (8.4-10.2); Carbon Dioxide 28 mmol/L (22-30); Chloride 103 mmol/L (98-107); Estimated CRCL calculation 49 ml/min; Estimated Glomerular Filt Rate 43; Glucose 120 mg/dL (75-110); Lactate Dehydrogenase 918 U/L (313-618); Magnesium 1.8 mg/dL (1.6-2.3); Phosphorus 3.2 mg/dL (2.5-4.5); Potassium 4.2 mmol/L (3.4-5.0); Sodium 135 mmol/L (137-145)
[2019-10-03 07:59] LABS: Immature Reticulocyte Fraction 26.7 % (3.0-15.9); Reticulocyte Percent 3.89 % (0.7-4.3); Reticulocytes Absolute 0.09 B/L (32.2-175.7)
[2019-10-03] MEDS: SACCHAROMYCES BOULARDII 250 MG CAPSULE PO ×2 (08:22→17:15)
[2019-10-03] MEDS: PANTOPRAZOLE 40 MG TABLET PO ×2 (08:22→20:52)
--- NOTE | 2019-10-03 08:29 | PM.PNNEP ---
Progress Note: A&P Assessment and Plan (1) KAYLA (acute kidney injury): Code(s): N17.9 - Acute kidney failure, unspecified Status: Acute Assessment and Plan: Michael has acute kidney injury. His kidney function was normal when he got here in the midst of the infection. Most likely he does have some underlying disease from diabetes and hypertension but not bad enough to make his creatinine high at baseline. He does have some proteinuria which could be either acute or chronic. Etiology of the acute process is unclear. His creatinine is a little better at 2.0. C3 and C4 are normal. Sed rate greater than 140 (probably from infection ). Urine immunofixation is negative. Serum immunofixation still pending. Otherwise serology is still pending. Peripheral eosinophils are normal. CPK is normal. Urinalysis is bland. Urine electrolytes are non pre renal. Renal ultrasound was unremarkable. Kidney size is symmetric. CT showed perinephric edema around the right kidney. Urinalysis is negative. He has no pain. Liver enzymes are normal. The significance of the perinephric edema is unknown. His renal scan showed uptake without excretion. This suggests acute tubular necrosis. The function of the right kidney is greater than the function of the left interestingly. I suspect that this is ATN from his infection. He did receive vancomycin and Zosyn the 1st couple of days of his admission which may have played a role as well. If this is the case then this should reverse. Discussed at length with DAMION Ferris. (2) Multifocal pneumonia: Code(s): J18.9 - Pneumonia, unspecified organism Status: Acute Assessment and Plan: He developed a fever last night and desaturated some. COVID-19 test is positive. Chest x-ray yesterday was a little bit worse. He is still not very symptomatic. 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 He is on antibiotics. (4) Neuropathy due to type 2 diabetes mellitus: Code(s): E11.40 - Type 2 diabetes mellitus with diabetic neuropathy, unspecified Status: Acute Assessment and Plan: The patient is on sliding scale insulin. (5) Anemia: Qualifiers: Anemia type: other cause Other causes of anemia: acute posthemorrhagic Qualified Code(s): D62 - Acute posthemorrhagic anemia Code(s): D64.9 - Anemia, unspecified Status: Chronic Assessment and Plan: He had to receive more blood transfusions today. Etiology is unclear. Reticulocyte count is high. Await stool guaiacs. Nursing about getting these today. Patient does deny any bloody or black stools. Iron saturation is only 12. Ferritin is pending. Check haptoglobin and LDH to rule out hemolysis however total bilirubin is normal. Subjective Date/time seen: 10/03/19 08:29 Interval history: Patient is COVID positive. He is still in isolation. No more fevers He denies cough or shortness of breath. he denies blood in his stool. Review of Systems Cardiovascular: Cardiovascular: Reports no additional cardiovascular complaints Respiratory: Respiratory: Reports no additional respiratory complaints Gastrointestinal: Gastrointestinal: Reports no additional gastrointestinal complaints Genitourinary: Genitourinary: Reports no additional male genitourinary complaints Exam Narrative: Exam Narrative: WDWN in NAD skin no rash or subcu nodules head ncat lungs clearto ausc cor reg no rub abd BS+ nontender and soft ext no edema. Or cyanosis Objective Data Vital Signs Vital Signs: Vital Signs - 24 hr 10/02/19 09:47 10/02/19 09:59
[2019-10-03 08:44] LABS: Glucose Point of Care 114 (65-105)
[2019-10-03] MEDS: ALBUTEROL SULFATE (*SP) AEROSOL 1 PUFF 2 PUFF INHALATION ×4 (08:52→21:13)
[2019-10-03 09:22] LABS: Ferritin > 2000.00 ng/mL (11.1-264)
[2019-10-03] MEDS: SODIUM CHLORIDE 0.9% IV 250 ML 30 ML IV CONT (11:35)
[2019-10-03 12:07] LABS: Lactate Dehydrogenase 872 U/L (313-618)
--- NOTE | 2019-10-03 13:34 | PCNFU ---
Nutrition Follow-Up Complete: Inadequate oral intake R/T n/v and reducec appetite as evidence by meal refusal PO intake of meals and supplements at 50% to help meet increased needs Progressing towards goal. Will continue current goal. Pt current nutrition is [facility]. Nutrition recommendation:Agree Last recorded weight is 117.8 kg.No new weight. Bowel Motility:+BM reported 09/27. Labs Reviewed:Cr 2.0,GFR 43,Na 135,Alb 2.9 Meds Noted:Keflex,Mucinex,Protonix,NS 250 ml at 30 ml/hr,Florastor. Additional Notes: Spoke with nursing today over telephone due to COVID 19 precautions, Patient is COVID positive. Oral intake remains fair about 50% of meals. Today he just drank his Glucerna shake for lunch. We will continue Glucerna shakes BID providing an additional 220 kcals and 9 gms protein. PO intake encouraged. Patient has been educated on diabetic diet, patient instruction is attached. Monitoring: PO intake, wt, labs every 5 days
[2019-10-03 14:01] LABS: Glucose Point of Care 128 (65-105)
--- NOTE | 2019-10-03 15:25 | PM.IMPN ---
Progress Note: A&P Assessment and Plan (1) KAYLA (acute kidney injury): Code(s): N17.9 - Acute kidney failure, unspecified Status: Acute Assessment and Plan: Patient's creatinine on arrival was within normal range. This elevated to peak 2.70, and down to 2.00 today; slightly improved. Possibly due to dehydration from N/V vs medication induced from vanc and/or ibuprofen. Nephrology is following and appreciate recommendations. Continue monitoring patient's renal function. Avoid nephrotoxic medications and renally dose medications if possible Patient tolerating PO okay; no IVF at this moment Await further rec from Nephrology Monitor closely (2) Anemia: Qualifiers: Anemia type: other cause Other causes of anemia: acute posthemorrhagic Qualified Code(s): D62 - Acute posthemorrhagic anemia Code(s): D64.9 - Anemia, unspecified Status: Chronic Assessment and Plan: Patient has had anemia since arrival. Hgb 6.3 this morning; transfused 1 u pRBC today; repeat Hgb 7.3. He denies any history of anemia; denies any signs of blood loss; he is asymptomatic. Stool occult still waiting to be collected; instructed patient to let nursing know when he has another BM to collect this. Possibly due to Anemia of chronic disease with worsened anemia from surgery and infection. IV venofer during stay as well as 3u pRBCs during stay. Absolute retic 0.09, percent retic 3.89, immature retic fraction 26.7. Haptoglobin pending. LDH elevated but possibly due to COVID infection. Bili is WNL. Continue monitoring H&H. Consider Heme-onc consult Transfuse as needed. Monitor closely (3) COVID-19 virus infection: Code(s): U07.1 - COVID-19 Status: Acute Assessment and Plan: COVID testing is positive. Patient is now on 4L O2 NC; stable from yesterday . Mild fever this morning. Patient reports being asymptomatic at this time. Will continue monitoring patient's symptoms and vitals at this time. Dr. Grider has been consulted for further input and appreciate recommendations Wean O2 as tolerated Continue symptomatic treatment with tylenol as needed for fever, mucinex Q12, IS, albuterol QID, and encouraged out of bed as tolerated Will hold on home CPAP Ur Antigens pending Will trend acute phase reactants and CBC tomorrow (4) Multifocal pneumonia: Code(s): J18.9 - Pneumonia, unspecified organism Status: Acute Assessment and Plan: Likely secondary to above; see above a/p (5) Osteomyelitis: Qualifiers: Laterality: right Osteomyelitis location: foot Osteomyelitis type: other acute Qualified Code(s): M86.171 - Other acute osteomyelitis, right ankle and foot Code(s): M86.9 - Osteomyelitis, unspecified Status: Acute Assessment and Plan: Dr. Mejia, orthopedic surgery, following and appreciate recommendations. POD#9 right 1st ray amputation. Patient feeling okay today. Wound culture shows growth of Staph aureus, with sensitivities showing resistance to clindamycin, erythromycin and gentamicin. Blood cultures negative x2. Patient currently on cephalexin Q8hr. Ortho states wound is healing well. Continue cephalexin 500 mg Q8hr through 10/07 (decreased freq given KAYLA) Continue monitoring patient's symptoms Appreciate orthopedic consultation and recommendations (6) Nausea and vomiting: Code(s): R11.2 - Nausea with vomiting, unspecified Status: Acute Assessment and Plan: Patient continues to have some occasional spitting up associated with his anxiety. No n/v. Otherwise tolerating diet okay Continue p.r.n. Ativan He has Phenergan PRN for nausea. Will continue monitoring his symptoms Continue PP
[2019-10-03] MEDS: ENOXAPARIN 40 MG/0.4 ML SYRINGE SUB-Q (17:15)
[2019-10-03 17:42] LABS: Hematocrit 23.4 % (42.0-52.0); Hemoglobin 7.3 g/dL (14.0-18.0)
[2019-10-03 18:13] LABS: Glucose Point of Care 153 (65-105)
[2019-10-03 20:31] LABS: Kappa\\Lambda Light Chains 1.41 (0.26-1.65); Lambda Light Chain 96.5 mg/L (5.7-26.3)
[2019-10-03 20:47] LABS: Glucose Point of Care 158 (65-105)
--- NOTE | 2019-10-03 20:48 | PC.NURSE ---
This nurse upon first assessment of the patient discussed this patient having a shower at some point during the day. This nurse replied with, Yes of course, that will not be a problem. At 1145 this nurse walked into the patients room to answer a call light. With this nurse was a unit of blood and lab tubes to be drawn and filled. The patient requested to take a shower during this time. This nurse explained to the patient that due to low hemoglobin it is best to receive the unit of blood first. The risks of walking and showering with low hemoglobin was explained to the patient. The patient put his hand up while this nurse was explaining the reason of not taking a shower during that time and stopped this nurse from continuing saying, Do what you think is best man. Whatever you want. with a agitated tone. From that moment on the patient did not make eye contact with staff, responded to yes or no questions by shaking his head yes or no, and had a very flat affect.
[2019-10-03] MEDS: MELATONIN 3 MG TABLET PO (20:52)
[2019-10-03] MEDS: ACETAMINOPHEN 325 MG TABLET 650 MG PO (22:41)
[2019-10-04] VITALS (13 sets, daily range): BP systolic 121–167; BP diastolic 69–103; PULSE 77–96; RESP 18–24; TEMP 36.3–37; O2SAT 94–99
[2019-10-04] MEDS: CEPHALEXIN 500 MG CAPSULE PO ×3 (06:22→21:22)
[2019-10-04] MEDS: CENTRAL LINE FLUSH 10 ML IV PUSH ×3 (06:22→21:20)
[2019-10-04 06:38] LABS: Basophils Percent Auto 0.2 % (0.2-1.2); Eosinophils Absolute Auto 0.3 K/mm3 (0-0.3); Eosinophils Percent Auto 2.5 % (0-4.4); Hematocrit 22.7 % (42.0-52.0); Immature Granulocyte Percent A 1.7 % (0-0.5); Lymphocytes Absolute Auto 1.45 K/mm3 (0.9-3.2); Lymphocytes Percent Auto 12.4 % (18.3-44.2); Mean Corpuscular HGB Conc 30.8 g/dl (32-36); Mean Corpuscular Hemoglobin 26.6 pg (26-34); Mean Corpuscular Volume 86.3 fl (80-100); Mean Platelet Volume 9.2 fl (7.4-10.4); Monocytes Absolute Auto 1.4 K/mm3 (0.1-0.6); Monocytes Percent Auto 12.2 % (2.6-8.5); Neutrophils Absolute Auto 8.3 K/mm3 (1.3-6.7); Nucleated Red Blood Cells Perc 0.2 % (0.0-0.2); Platelet Count Result 544 k/mm3 (150-375); Red Blood Count 2.63 M/mm3 (4.6-6.20); Red Cell Distribution Width 15.9 % (11.5-14.5); White Blood Count 11.7 K/mm3 (4.5-10.0)
[2019-10-04 06:54] LABS: Blood Urea Nitrogen 13 mg/dL (9-20); Calcium 8.2 mg/dL (8.4-10.2); Carbon Dioxide 29 mmol/L (22-30); Chloride 102 mmol/L (98-107); Estimated CRCL calculation 43 ml/min; Estimated Glomerular Filt Rate 36; Glucose 126 mg/dL (75-110); Lactate Dehydrogenase 779 U/L (313-618); Magnesium 1.9 mg/dL (1.6-2.3); Phosphorus 3.2 mg/dL (2.5-4.5); Potassium 3.7 mmol/L (3.4-5.0); Sodium 135 mmol/L (137-145)
[2019-10-04 07:04] LABS: CRP 19.1 mg/dL (<1.0)
[2019-10-04 08:12] LABS: Glucose Point of Care 131 (65-105)
[2019-10-04] MEDS: ALBUTEROL SULFATE (*SP) AEROSOL 1 PUFF 2 PUFF INHALATION ×4 (09:16→19:36)
--- NOTE | 2019-10-04 09:34 | PC.NURSE ---
PT IS FULL WT BEARING ON HIS FOOT, DOESN'T USE THE CRUTCHES CORRECTLY WILL INSTRUCT.
--- NOTE | 2019-10-04 11:27 | PM.IMPN ---
Progress Note: A&P Assessment and Plan (1) KAYLA (acute kidney injury): Code(s): N17.9 - Acute kidney failure, unspecified Status: Acute Assessment and Plan: Patient's creatinine on arrival was within normal range. This elevated to peak 2.70; showed improvement to 2.00 yesterday, now up to 2.30 today; slightly improved. Possibly due to dehydration from N/V vs medication induced from vanc and/or ibuprofen. Nephrology is following and appreciate recommendations. Continue monitoring patient's renal function. Avoid nephrotoxic medications and renally dose medications if possible Patient tolerating PO okay; no IVF at this moment, although patient will be getting another unit of blood today Await further rec from Nephrology Monitor closely (2) Anemia: Qualifiers: Anemia type: other cause Other causes of anemia: acute posthemorrhagic Qualified Code(s): D62 - Acute posthemorrhagic anemia Code(s): D64.9 - Anemia, unspecified Status: Chronic Assessment and Plan: Patient has had anemia since arrival. Hgb 7.0 this morning; transfusion of 1 u pRBC ordered by machine operator slitter technician after contacted for a critical result. He denies any history of anemia; denies any signs of blood loss; he is asymptomatic. Stool occult still waiting to be collected; instructed patient to let nursing know when he has another BM to collect this. Possibly due to Anemia of chronic disease with worsened anemia from surgery and infection. IV venofer during stay as well as 3u pRBCs during stay; one unit pRBC infusion ordered. Absolute retic 0.09, percent retic 3.89, immature retic fraction 26.7. Haptoglobin pending. LDH elevated but possibly due to COVID infection. Bili is WNL. Continue monitoring H&H this afternoon Consider Heme-onc consult, although it is felt hemolysis less likely given normal bili. Transfuse as needed. Monitor closely (3) COVID-19 virus infection: Code(s): U07.1 - COVID-19 Status: Acute Assessment and Plan: COVID testing is positive. Patient is now on 4L O2 NC; stable from yesterday . Mild fever this morning. Patient reports being asymptomatic at this time. Will continue monitoring patient's symptoms and vitals at this time. Dr. Grider has been consulted for further input and appreciate recommendations Wean O2 as tolerated Continue symptomatic treatment with tylenol as needed for fever, mucinex Q12, IS, albuterol QID, and encouraged out of bed as tolerated Will hold on home CPAP Ur Antigens pending Will trend acute phase reactants and CBC tomorrow (4) Multifocal pneumonia: Code(s): J18.9 - Pneumonia, unspecified organism Status: Acute Assessment and Plan: Likely secondary to above; see above a/p (5) Osteomyelitis: Qualifiers: Laterality: right Osteomyelitis location: foot Osteomyelitis type: other acute Qualified Code(s): M86.171 - Other acute osteomyelitis, right ankle and foot Code(s): M86.9 - Osteomyelitis, unspecified Status: Acute Assessment and Plan: Dr. Mejia, orthopedic surgery, following and appreciate recommendations. POD#10 right 1st ray amputation. Patient feeling okay today. Wound culture shows growth of Staph aureus, with sensitivities showing resistance to clindamycin, erythromycin and gentamicin. Blood cultures negative x2. Patient currently on cephalexin Q8hr. Ortho states wound is healing well. Continue cephalexin 500 mg Q8hr through 10/07 (decreased freq given KAYLA) Continue monitoring patient's symptoms Appreciate orthopedic consultation and recommendations (6) Nausea and vomiting: Code(s): R11.2 - Nausea with vomiting, unspecified Status: Acute Assessment and
[2019-10-04] MEDS: SODIUM CHLORIDE 0.9% IV 250 ML 150 ML (11:54)
[2019-10-04 12:43] LABS: Glucose Point of Care 153 (65-105)
[2019-10-04] MEDS: TUBING, BLOOD PLUM PUMP TUBING 1 EACH XX (13:34)
[2019-10-04] MEDS: PANTOPRAZOLE 40 MG TABLET PO ×2 (13:34→21:22)
[2019-10-04] MEDS: SACCHAROMYCES BOULARDII 250 MG CAPSULE PO ×2 (13:34→17:30)
[2019-10-04] MEDS: ACETAMINOPHEN 325 MG TABLET 650 MG PO ×2 (13:46→14:46)
[2019-10-04 15:51] LABS: Hematocrit 25.5 % (42.0-52.0)
--- NOTE | 2019-10-04 16:10 | PM.PNNEP ---
Progress Note: A&P Assessment and Plan (1) KAYLA (acute kidney injury): Code(s): N17.9 - Acute kidney failure, unspecified Status: Acute Assessment and Plan: Michael has acute kidney injury. His kidney function was normal when he got here in the midst of the infection. C3 and C4 are normal. Sed rate greater than 140 (probably from infection ). Urine immunofixation is negative. Serum immunofixation still pending. Otherwise serology is still pending. Peripheral eosinophils are normal. CPK is normal. Urinalysis is bland. Urine electrolytes are non pre renal. Renal ultrasound was unremarkable. Kidney size is symmetric. CT showed perinephric edema around the right kidney. Urinalysis is negative. He has no pain. Liver enzymes are normal. The significance of the perinephric edema is unknown. His renal scan showed uptake without excretion. This suggests acute tubular necrosis. The function of the right kidney is greater than the function of the left interestingly. I suspect that this is ATN from his infection. He did receive vancomycin and Zosyn the 1st couple of days of his admission which may have played a role as well. If this is the case then this should reverse. His creatinine is stable. At this point will continue observation. (2) Multifocal pneumonia: Code(s): J18.9 - Pneumonia, unspecified organism Status: Acute Assessment and Plan: COVID-19 test is positive. He is still not very symptomatic. 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 He is on antibiotics. (4) Neuropathy due to type 2 diabetes mellitus: Code(s): E11.40 - Type 2 diabetes mellitus with diabetic neuropathy, unspecified Status: Acute Assessment and Plan: The patient is on sliding scale insulin. (5) Anemia: Qualifiers: Anemia type: other cause Other causes of anemia: acute posthemorrhagic Qualified Code(s): D62 - Acute posthemorrhagic anemia Code(s): D64.9 - Anemia, unspecified Status: Chronic Assessment and Plan: Reticulocyte count is high. Await stool guaiacs. He has not had a bowel movement lately. Iron saturation is only 12. Ferritin is pending. haptoglobin is pending and LDH is only slightly high. Nature of the anemia is unclear. Subjective Date/time seen: 10/04/19 16:10 Interval history: Patient is COVID positive. He is still in isolation. No more fevers He has pain in his foot. Nurses calling hospitalist. Review of Systems Cardiovascular: Cardiovascular: Reports no additional cardiovascular complaints Respiratory: Respiratory: Reports no additional respiratory complaints Gastrointestinal: Gastrointestinal: Reports no additional gastrointestinal complaints Genitourinary: Genitourinary: Reports no additional male genitourinary complaints Exam Narrative: Exam Narrative: WDWN in NAD skin no rash or subcu nodules head ncat lungs clear bilaterally cor reg no rub or gallop abd BS+ nontender and soft ext no edema. Or cyanosis Objective Data Vital Signs Vital Signs: Vital Signs - 24 hr 10/03/19 17:36 10/03/19 18:00 10/03/19 20:00 Temperature 37.0 C 37.0 C Pulse Rate 94 94 Respiratory Rate 18 18 Blood Pressure 126/83 126/83 Pulse Oximetry 96 96 95 10/03/19 21:14 10/03/19 22:00 10/04/19 02:00 Temperature 37.3 C 37.0 C Pulse Rate 90 93 81 Respiratory Rate 16 20 20 Blood Pressure 132/77 128/69 Pulse Oximetry 95 94 97 10/04/19 06:00 10/04/19 08:00 10/04/19 09:17 Temperature 36.9 C Pulse Rate 77 77 Respiratory Rate 20 20 Blood Pressure 121/70 Pulse Oximetry 96 99 99
[2019-10-04 17:08] LABS: Pneumococcal Antigen Urine Not Detected (Not Detected)
[2019-10-04] MEDS: INSULIN ASPART (*BKC) 100 UNITS/ML SUB-Q (17:28)
[2019-10-04] MEDS: ENOXAPARIN 40 MG/0.4 ML SYRINGE SUB-Q (17:29)
[2019-10-04 17:55] LABS: Glucose Point of Care 207 (65-105)
[2019-10-04 20:10] LABS: Chloride Rand Ur 59 mmol/L (32-290); Chloride/Creatinine Rand Ur 105 (23-275); Creatinine Random Urine 56 mg/dL (20-320)
[2019-10-04 20:27] LABS: Glucose Point of Care 170 (65-105)
[2019-10-04] MEDS: MELATONIN 3 MG TABLET PO (21:22)
[2019-10-05] VITALS (7 sets, daily range): BP systolic 127–159; BP diastolic 77–98; PULSE 72–102; RESP 20; TEMP 36.6–36.8; O2SAT 84–97
[2019-10-05 05:34] LABS: Basophils Percent Auto 0.3 % (0.2-1.2); Eosinophils Absolute Auto 0.3 K/mm3 (0-0.3); Eosinophils Percent Auto 2.9 % (0-4.4); Hematocrit 24.6 % (42.0-52.0); Hemoglobin 7.6 g/dL (14.0-18.0); Immature Granulocyte Absolute 0.18 K/mm3 (0.00-0.031); Immature Granulocyte Percent A 1.7 % (0-0.5); Lymphocytes Absolute Auto 1.66 K/mm3 (0.9-3.2); Lymphocytes Percent Auto 15.3 % (18.3-44.2); Mean Corpuscular HGB Conc 30.9 g/dl (32-36); Mean Corpuscular Volume 87.2 fl (80-100); Mean Platelet Volume 9.2 fl (7.4-10.4); Monocytes Absolute Auto 1.2 K/mm3 (0.1-0.6); Monocytes Percent Auto 10.9 % (2.6-8.5); Neutrophils Absolute Auto 7.5 K/mm3 (1.3-6.7); Neutrophils Percent Auto 68.9 % (45.5-73.1); Platelet Count Result 545 k/mm3 (150-375); Red Blood Count 2.82 M/mm3 (4.6-6.20); Red Cell Distribution Width 15.6 % (11.5-14.5); White Blood Count 10.9 K/mm3 (4.5-10.0)
[2019-10-05 05:36] LABS: D Dimer 2.07 ug/mL (<0.48)
[2019-10-05 05:39] LABS: Alanine Aminotransferase 22 U/L (4-50); Alkaline Phosphatase 91 U/L (38-126); Aspartate Amino Transferase 32 U/L (17-59); Bilirubin,Total 0.4 mg/dL (0.2-1.3); Blood Urea Nitrogen 12 mg/dL (9-20); CRP 8.8 mg/dL (<1.0); Calcium 8.2 mg/dL (8.4-10.2); Carbon Dioxide 27 mmol/L (22-30); Chloride 103 mmol/L (98-107); Estimated CRCL calculation 45 ml/min; Estimated Glomerular Filt Rate 38; Glucose 132 mg/dL (75-110); Lactate Dehydrogenase 685 U/L (313-618); Magnesium 1.8 mg/dL (1.6-2.3); Phosphorus 3.4 mg/dL (2.5-4.5); Potassium 3.5 mmol/L (3.4-5.0); Sodium 135 mmol/L (137-145)
[2019-10-05] MEDS: CENTRAL LINE FLUSH 10 ML IV PUSH (05:46)
[2019-10-05] MEDS: CEPHALEXIN 500 MG CAPSULE PO ×2 (05:47→14:15)
[2019-10-05] MEDS: PANTOPRAZOLE 40 MG TABLET PO (08:34)
[2019-10-05] MEDS: SACCHAROMYCES BOULARDII 250 MG CAPSULE PO (08:34)
[2019-10-05] MEDS: POTASSIUM CHLORIDE 20 MEQ TABLET PO (08:34)
[2019-10-05] MEDS: ALBUTEROL SULFATE (*SP) AEROSOL 1 PUFF 2 PUFF INHALATION ×2 (08:58→12:02)
--- NOTE | 2019-10-05 09:42 | PM.DS ---
DS: Diagnosis Admitting Diagnosis Admitting Diagnosis: Type 2 diabetes mellitus with other skin complications Discharge Diagnosis (1) KAYLA (acute kidney injury): Code(s): N17.9 - Acute kidney failure, unspecified Status: Acute Assessment and Plan: Patient's creatinine on arrival was within normal range. This elevated to peak 2.70; showed improvement to 2.00 during stay, now stable at 2.20 today; slightly improved from yesterday. Discussed with Dr. Ash who was okay with discharge today with follow up RFP on 10/08 and a telemedicine visit shortly thereafter. He will have to call is office to set up the appointment. He did recommend getting established with Dr. Ruvalcaba for Epogen injections; I discussed with Dr. Ruvalcaba who stated he will see him in the office and instructed to give him one 20,000 unit epoetin kwaku injection subcutaneous prior to leaving. KAYLA possibly due to dehydration from N/V vs medication induced from vanc and/or ibuprofen. Nephrology is following and appreciate recommendations. Continue monitoring patient's renal function on 10/08; HH will be set up for lab draws or he will have to get this drawn at a lab who accepts COVID patients Avoid nephrotoxic medications and renally dose medications if possible Patient tolerating PO okay (2) Anemia: Qualifiers: Anemia type: other cause Other causes of anemia: acute posthemorrhagic Qualified Code(s): D62 - Acute posthemorrhagic anemia Code(s): D64.9 - Anemia, unspecified Status: Chronic Assessment and Plan: Patient has had anemia since arrival. Hgb 7.6 this morning; transfusion of 1 u pRBC yesterday; relatively stable Hgb. He denies any history of anemia; denies any signs of blood loss; he is asymptomatic again today. Stool occult uncollected as he did not have any further BMs. Likely due to anemia of chronic disease with worsened anemia from surgery and/or infection. IV venofer during stay as well as 4u pRBCs during stay. Absolute retic 0.09, percent retic 3.89, immature retic fraction 26.7. Haptoglobin pending. LDH elevated, downtrending, but possibly due to COVID infection. Bili is WNL. Per Nephrology recommendations, discussed case with Dr. Ruvalcaba, Heme-Onc, who recommended one time subq injection of 20,000 of epoetin now and then he will follow up with him as an outpatient in 1-2 weeks; he is to call his office for an appointment Continue monitoring H&H with CBC on 10/08 One time 20,000 unit epoetin subq injection prior to discharge ordered Monitor closely as outpatient (3) COVID-19 virus infection: Code(s): U07.1 - COVID-19 Status: Acute Assessment and Plan: COVID testing is positive. Patient is now on RA at resting; improved. No fevers since 10/02; asymptomatic at this time. Discussed in length of quarantine and to discuss with his PCP on when to come off quarantine. CDC recommendation packet given to him at discharge as well. Dr. Grider has been consulted for further input and appreciate recommendations Will do Home O2 Continue symptomatic treatment with tylenol as needed for fever, mucinex Q12, IS, and encouraged out of bed as tolerated Pneumococcal ur antigen negative; legionella antigen pending (4) Multifocal pneumonia: Code(s): J18.9 - Pneumonia, unspecified organism Status: Acute Assessment and Plan: Likely secondary to above; see above a/p (5) Osteomyelitis: Qualifiers: Laterality: right Osteomyelitis location: foot Osteomyelitis type: other acute Qualified Code(s): M86.171 - Other acute osteomyelitis, right ankle and foot Code(s): M86.9 - Osteomyelitis, unspecified Status: Acute Assessment and Plan: Dr. Mejia, orthopedic surgery, following and appreciate recommen
[2019-10-05 09:45] LABS: Glucose Point of Care 128 (65-105)
[2019-10-05] MEDS: EPOETIN ALFA 20,000 UNITS/ML VIAL 20000 UNITS SUB-Q (11:13)
--- NOTE | 2019-10-05 11:22 | PCRCNOTE ---
Home O2 evaluation completed. Patient does not require O2 at rest. SpO2 on RA at rest was 91%. Patient desaturated to 84% with ambulation on RA, but recovered on 2L and was able to maintain a sat of 92% on 2L with ambulation. Patient requires 2L of O2 with ambulation. Patient reported no dyspnea.
[2019-10-05] MEDS: NEOMYCIN/POLYMYXIN/BACITRACIN OINTMENT PACKET 1 PACKET (11:32)
[2019-10-05 11:33] LABS: Glucose Point of Care 135 (65-105)
[2019-10-05 18:22] LABS: Legionella pneumophila Ag Ur Not Detected (Not Detected)
[2019-10-06 21:39] LABS: Haptoglobin 379 mg/dL (43-212)
== END 2019-10-05 16:00 | disposition home or self-care (01) | DRG 616 ==
LOC: ANHED 14:12 → ANH2MED 14:21 → ANH3MEDSUR 10-05 09:44 → ANH2MED 10-07 14:12 → ANH3MEDSUR 10-07 14:12
PROVIDERS: Family Medicine; Internal Medicine Nephrology; Nurse Practitioner; Orthopaedic Surgery; Physician Assistant; Admitting Provider Internal Medicine; Emergency Provider Emergency Medicine; Visit Provider Internal Medicine
PROC: 0Y6M0Z9 Detachment at Right Foot, Partial 1st Ray, Open Approach (ICD-10-PCS; principal; 2019-09-24 12:30)
DX: E11.69 Type 2 diabetes mellitus with other specified complication (principal); J96.01 Acute respiratory failure with hypoxia; U07.1 COVID-19; J12.89 Other viral pneumonia; M86.171 Other acute osteomyelitis, right ankle and foot; D62 Acute posthemorrhagic anemia; E87.1 Hypo-osmolality and hyponatremia; L97.518 Non-pressure chronic ulcer of other part of right foot with other specified severity; E11.621 Type 2 diabetes mellitus with foot ulcer; N17.0 Acute kidney failure with tubular necrosis; A49.01 Methicillin susceptible Staphylococcus aureus infection, unspecified site; D64.9 Anemia, unspecified; I10 Essential (primary) hypertension; E78.5 Hyperlipidemia, unspecified; E11.42 Type 2 diabetes mellitus with diabetic polyneuropathy; K21.9 Gastro-esophageal reflux disease without esophagitis; R11.2 Nausea with vomiting, unspecified; F41.9 Anxiety disorder, unspecified; D72.829 Elevated white blood cell count, unspecified; R93.5 Abnormal findings on diagnostic imaging of other abdominal regions, including retroperitoneum; T36.8X5A Adverse effect of other systemic antibiotics, initial encounter; F17.210 Nicotine dependence, cigarettes, uncomplicated; E66.9 Obesity, unspecified; Z68.38 Body mass index [BMI] 38.0-38.9, adult; D63.8 Anemia in other chronic diseases classified elsewhere; E86.0 Dehydration
CPT/HCPCS: 36415; 36430; 36569; 71045; 71046; 73630; 74176; 76775; 78707; 80048; 80053; 80069; 80076; 80202; 81003; 81050; 82436; 82550; 82570; 82607; 82728; 82746; 83010; 83036; 83540; 83550; 83605; 83615; 83735; 83883; 84100; 84156; 84300; 84443; 84466; 85014; 85018; 85025; 85027; 85046; 85380; 85610; 85652; 85730; 85999; 86038; 86140; 86160; 86162; 86334; 86335; 86850; 86900; 86901; 86920; 86923; 87040; 87070; 87086; 87147; 87186; 87205; 87449; 87635; 87899; 88305; 88311; 93005; 94618; 94640; 96365; 96366; 96367; 96375; 97110; 97161; 97165; 99285; A9270; A9562; C1751; C9113; G0378; J0330; J0456; J0696; J1100; J1650; J1741; J1756; J1815; J2250; J2270; J2370; J2405; J2543; J2550; J2704; J2997; J3010; J3370; J3475; J7030; J7050; J7120; P9016; Q4081; U0003

== ENCOUNTER 2019-11-10 11:12 | Emergency (ER) | payer OTHER, SELFPAY ==
--- NOTE | ~2019-11-10 | XR_ITS ---
EXAMINATION: XR chest 2V DATE: 11/10/2019 15:52 INDICATION: Abdominal pain. Malaise. TECHNIQUE: Frontal and lateral views of the chest were obtained. COMPARISON: CT abdomen and pelvis 11/10/2019, 09/27/2019 FINDINGS: There is mild atelectasis in the lower lung zones. No pleural effusion or pneumothorax. The heart size is normal. IMPRESSION: 1. Mild atelectasis in the lower lung zones. Reviewed, dictated and finalized at location A.
--- NOTE | ~2019-11-10 | CT_ITS ---
EXAMINATION: CT abdomen pelvis w con INDICATION: Upper abdominal pain TECHNIQUE: Computed tomographic images of the abdomen and pelvis were obtained after the administrati on of 100 cc of Omnipaque 350 intravenous contrast. The dose-length product (DLP) was 1490.01 mGy-cm. Automated exposure control and iterative reconstruction technique were employed. COMPARISON: 09/27/2019 FINDINGS: Patchy airspace opacities of the visualized lung bases persist but have decreased. The hear t size is normal. Punctate calcifications in otherwise normal appearing liver and spleen likely repre sent healed granulomatous disease. The pancreas, gallbladder, and adrenal glands are normal. There is persistent, subtle asymmetric fat stranding surrounding the right kidney compared to the left. No pa thologically enlarged abdominal or pelvic lymph nodes are identified. There is no free intraperitonea l gas or evidence of bowel obstruction. There is severe lumbar spondylosis at L5-S1. A fat-containing umbilical hernia is noted. IMPRESSION: 1. Persistent subtle asymmetric fat stranding surrounding the right kidney which could reflect pyelon ephritis. 2. Persistent but improved multifocal pneumonia of the visualized lung bases. Reviewed, dictated and finalized at location A. IMPRESSION: 1. Persistent subtle asymmetric fat stranding surrounding the right kidney whic h could reflect pyelonephritis. 2. Persistent but improved multifocal pneumonia of the visualized lung bases.
[2019-11-10 11:20] VITALS: BP 178/100; PULSE 107; RESP 18; TEMP 36.8; O2SAT 100
[2019-11-10 11:54] LABS: Basophils Absolute Auto 0.1 K/mm3 (0.0-0.1); Basophils Percent Auto 0.4 % (0.2-1.2); Eosinophils Absolute Auto 0.1 K/mm3 (0-0.3); Hematocrit 42.2 % (42.0-52.0); Immature Granulocyte Absolute 0.06 K/mm3 (0.00-0.031); Immature Granulocyte Percent A 0.5 % (0-0.5); Lymphocytes Absolute Auto 2.14 K/mm3 (0.9-3.2); Lymphocytes Percent Auto 16.4 % (18.3-44.2); Mean Corpuscular HGB Conc 33.2 g/dl (32-36); Mean Corpuscular Hemoglobin 27.3 pg (26-34); Mean Corpuscular Volume 82.4 fl (80-100); Mean Platelet Volume 10.9 fl (7.4-10.4); Monocytes Absolute Auto 0.9 K/mm3 (0.1-0.6); Neutrophils Absolute Auto 9.7 K/mm3 (1.3-6.7); Neutrophils Percent Auto 74.7 % (45.5-73.1); Platelet Count Result 222 k/mm3 (150-375); Red Blood Count 5.12 M/mm3 (4.6-6.20); Red Cell Distribution Width 14.6 % (11.5-14.5)
[2019-11-10 11:59] LABS: Add Urine Microscopic? YES; Appearance Urine Clear (Clear); Bilirubin Urine Negative (Negative); Blood Urine Negative (Negative); Color Urine Straw (Yellow); Glucose Urine UA 3+ mg/dL (Negative); Ketones Urine Negative (Negative); Leukocyte Esterase Ur Negative LEU/UL (Negative); Nitrate Urine Negative (Negative); Protein Urine 1+ mg/dL (Negative); RBC Urine 0-2 /hpf (0-2); Specific Grav Ur 1.024 (1.001-1.035); Squamous Epithelial Cell Urine Rare /hpf (Few); Urobilinogen Urine Negative mg/dL (<2.0); WBC Urine 0-3 /hpf
[2019-11-10 12:04] LABS: Alanine Aminotransferase 30 U/L (4-50); Albumin Level 4.4 g/dL (3.5-5.1); Alkaline Phosphatase 150 U/L (38-126); Aspartate Amino Transferase 21 U/L (17-59); Bilirubin,Total 0.6 mg/dL (0.2-1.3); Blood Urea Nitrogen 12 mg/dL (9-20); Calcium 9.5 mg/dL (8.4-10.2); Carbon Dioxide 31 mmol/L (22-30); Chloride 92 mmol/L (98-107); Estimated CRCL calculation 104 ml/min; Estimated Glomerular Filt Rate > 60; Glucose 340 mg/dL (75-110); Lipase 102 U/L (23-300); Potassium 3.3 mmol/L (3.4-5.0); Sodium 129 mmol/L (137-145)
[2019-11-10] MEDS: SODIUM CHLORIDE 0.9% IV 1,000 ML 999 ML IV CONT (12:43)
[2019-11-10 12:45] VITALS: BP 163/106; PULSE 94; RESP 19; O2SAT 99
--- NOTE | 2019-11-10 13:16 | ED.GENADULT ---
HPI - General Adult General Chief complaint: Unspecified Stated complaint: doesn't feel right Time Seen by Provider: 11/10/19 12:12 History of Present Illness HPI narrative: Patient is a 54 y/o male complaining of epigastric abdominal pain and vomiting starting 3 days ago. He states that he drank some liquor 3 days ago before his symptoms started, but he still feels not right. He describes his pain as sharp and rates it 5/10. There is no pain radiation. He has no fever, cough, chest pain or SOB. His vomiting has stopped already, but he still has some abdominal pain. Related Data Home Medications Medication Instructions Recorded Confirmed metformin 850 mg PO BID 09/23/19 09/23/19 Allergies Allergy/AdvReac Type Severity Reaction Status Date / Time No Known Allergies Allergy Verified 11/10/19 11:45 Review of Systems Constitutional: Constitutional: Denies chills, Denies fever(s), Denies headache(s) and Reports weakness Eyes: Eyes: Denies blurry vision ENT: Denies headache(s) and Denies neck pain Cardiovascular: Cardiovascular: Denies chest pain and Denies dyspnea Respiratory: Respiratory: Denies cough and Denies dyspnea Gastrointestinal: Gastrointestinal: Reports abdominal pain, Denies diarrhea, Reports nausea and Reports vomiting (resolved) Genitourinary: Genitourinary: Denies hematuria and Denies dysuria Musculoskeletal: Musculoskeletal: Denies back pain and Denies neck pain Neurologic: Denies headache(s) and Denies weakness PMFSH Past Medical History Medical History Anemia Diabetes mellitus with diabetic neuropathy Diabetes type 2, controlled GI bleed Hyperlipidemia Patient stated he no longer takes the medication Hypertension Neuropathy due to type 2 diabetes mellitus Surgical History Surgical History H/O arthroscopy of shoulder Left Hx of appendectomy Family History Family History Father Medical history unknown Mother Healthy adult Sibling Healthy adult Social History Social History Social History: Social drinker. Smokes a pack a cigarettes in 3 days. No marijuana or other drugs Years smoked: 1 Smoking status: Unknown if ever smoked Tobacco type: cigarettes Second hand tobacco smoke exposure: Yes Alcohol intake: never Substance use: never Additional living arrangements comments: With mother and brother Gender identity (if verbalized by the patient): Male Spiritual care concerns: No Agree to blood products: Yes Exam Const: General: no acute distress and well developed Orientation/consciousness: oriented to person, oriented to place, oriented to time and patient oriented x3 HENMT: Head: normocephalic Ears: external ears normal General nose exam: Normal external nose present Eyes: General: appearance normal, both eyes and all related structures Conjunctivae: conjunctivae normal Neck: Neck: normal visual inspection and full ROM Chest: Chest palpation & inspection: normal inspection of the chest and no tenderness Resp: Effort & Inspection: normal respiratory effort Auscultation: clear to auscultation bilaterally Cardio: Rate: regular rate Rhythm: regular rhythm GI: GI Palp: No abdominal tenderness and Yes Soft to palpation Skin: General skin exam: normal color and turgor normal Neuro: General: oriented to person, oriented to place, oriented to time and patient oriented x3 Cognition (Neuro): normal cognition Extrem: General: normal to inspection, full ROM and no pedal edema Psych: Appearance: grossly normal Mental Status: mental status grossly normal Affect: normal affect Course Reevaluation(s) Reevaluation #1: Rechecked. Patient feels better. He has no abdominal pain at this time. Date: 11/10/19 Time: 16:01 Vital Signs Vital si
[2019-11-10] MEDS: INSULIN ASPART (*BKC) 100 UNITS/ML 8 UNITS SUB-Q (13:21)
[2019-11-10] MEDS: POTASSIUM CHLORIDE 20 MEQ TABLET PO (13:21)
[2019-11-10 14:59] VITALS: BP 140/92; PULSE 99; RESP 18; O2SAT 100
[2019-11-10 16:18] VITALS: BP 148/96; PULSE 98; RESP 18; O2SAT 100
[2019-11-10 16:19] LABS: Glucose Point of Care 186 (65-105)
== END 2019-11-10 16:20 | disposition home or self-care (01) ==
PROVIDERS: Emergency Medicine Emergency Medical Services; Emergency Provider Emergency Medicine; PCP Nurse Practitioner Family
DX: R10.13 Epigastric pain (principal); E11.65 Type 2 diabetes mellitus with hyperglycemia; R53.81 Other malaise; E11.40 Type 2 diabetes mellitus with diabetic neuropathy, unspecified; I10 Essential (primary) hypertension; F17.210 Nicotine dependence, cigarettes, uncomplicated; Z86.2 Personal history of diseases of the blood and blood-forming organs and certain disorders involving the immune mechanism; Z79.84 Long term (current) use of oral hypoglycemic drugs
CPT/HCPCS: 36415; 71046; 74177; 80053; 81001; 82948; 83690; 85025; 96360; 99284; A9270; J1815; J7030; Q9967

== ENCOUNTER 2019-11-15 13:40 | Emergency (ER) | payer OTHER, SELFPAY ==
--- NOTE | ~2019-11-15 | XR_ITS ---
EXAMINATION: XR chest 1V portable DATE: 11/15/2019 16:50 INDICATION: Dyspnea, nausea and vomiting TECHNIQUE: frontal view of the chest was obtained. COMPARISON: Chest radiograph dated 11/10/2019 FINDINGS: The lungs are clear with no focal airspace opacities, pulmonary edema, pleural effusion or pneumothor ax. The cardiomediastinal silhouette is normal. IMPRESSION: 1. No acute cardiopulmonary disease. Reviewed, dictated and finalized at location A.
--- NOTE | ~2019-11-15 | CT_ITS ---
EXAMINATION: CT abdomen pelvis w con INDICATION: Abdominal pain TECHNIQUE: Computed tomographic images of the abdomen and pelvis were obtained after the administrati on of 100 cc of Omnipaque 350 intravenous contrast. The dose-length product (DLP) was 1451.57 mGy-cm. Automated exposure control and iterative reconstruction technique were employed. COMPARISON: 11/10/2019 FINDINGS: Bibasilar airspace opacities persist but continue to improve. The heart size is normal. Pun ctate calcifications in otherwise normal appearing liver and spleen likely represent healed granuloma tous disease. The pancreas, gallbladder, and adrenal glands are normal. The previously described asym metric fat stranding surrounding the right kidney is not as evident as on the prior examination. Ther e is mild wall thickening of the urinary bladder. No pathologically enlarged abdominal or pelvic lymp h nodes are identified. There is no free intraperitoneal gas or evidence of bowel obstruction. Severe lumbar spondylosis is noted at L5-S1. There is a fat-containing umbilical hernia. IMPRESSION: 1. Bladder wall thickening which could reflect urinary tract infection. 2. Persistent but improving multifocal pneumonia of the visualized lung bases. Reviewed, dictated and finalized at location A.
[2019-11-15 13:44] VITALS: BP 169/114; PULSE 118; RESP 28; TEMP 36.8; O2SAT 100
--- NOTE | 2019-11-15 13:49 | ECG_ITS ---
Measurements Intervals [place] Rate: 112 P: 67 [place]: 167 QRS: -21 QRSD: 78 T: 87 QT: 382 QTc: 524 Interpretive Statements SINUS TACHYCARDIA BORDERLINE R WAVE PROGRESSION, ANTERIOR LEADS ANTEROSEPTAL ST ELEVATION- CONSIDER ACUTE INJURY BASELINE WANDER- I, V1, V4-V6 ABNORMAL ECG Electronically Signed On 11-15-2019 15:27:41 CDT by Allan Gale D.O.
--- NOTE | 2019-11-15 14:07 | ED.NAVMDI ---
HPI - Nausea/Vomiting/Diarrhea General Chief complaint: Nausea/Vomiting/Diarrhea Stated complaint: VOMITING/DIFFICULTY BREATHING/CHEST TIGHTNESS Time Seen by Provider: 11/15/19 13:54 Source: RN notes reviewed History of Present Illness HPI Narrative: Patient presents emergency department from home for nausea and vomiting. Patient states symptoms began 2 days ago states he is had numerous episodes of nausea and vomiting. Patient denies any fevers or chills chest pain shortness of breath abdominal pain, diarrhea or any other symptoms. States he did take his metformin this morning. He states that when he does vomit he does have some pain in his midsternal chest and feeling of shortness of breath but states this only occurs when he vomits and has none of this at rest Related Data Home Medications Medication Instructions Recorded Confirmed metformin 850 mg PO BID 09/23/19 09/23/19 Allergies Allergy/AdvReac Type Severity Reaction Status Date / Time No Known Allergies Allergy Verified 11/15/19 13:49 Review of Systems Review of Systems: Narrative: Gen.: Denies fevers or chills ENT: Denies congestion Respiratory: Denies shortness of breath or cough CV: Denies chest pain or palpitations GI: See HPI denies burning, urgency, frequency or hematuria Musculoskeletal: Denies back pain or muscle pain Neuro: Denies numbness, tingling, weakness or focal weakness Skin: Denies rash Except as documented, all other systems reviewed and negative [facility] Past Medical History Medical History Anemia Diabetes mellitus with diabetic neuropathy Diabetes type 2, controlled GI bleed Hyperlipidemia Patient stated he no longer takes the medication Hypertension Neuropathy due to type 2 diabetes mellitus Social History Social History Social History: Social drinker. Smokes a pack a cigarettes in 3 days. No marijuana or other drugs Years smoked: 1 Smoking status: Unknown if ever smoked Tobacco type: cigarettes Second hand tobacco smoke exposure: Yes Alcohol intake: never Substance use: never Additional living arrangements comments: With mother and brother Gender identity (if verbalized by the patient): Male Spiritual care concerns: No Agree to blood products: Yes Exam Narrative: Exam Narrative: APPEARANCE: No acute distress, nontoxic, resting in bed HEENT: Normocephalic, atraumatic, OMM RESPIRATORY: No respiratory distress, clear to auscultation bilaterally with no rhonchi wheezing or rales CARDIOVASCULAR: RRR s murmur ABDOMINAL: Soft, nondistended nontender to palpation no rebound or guarding MUSCULOSKELETAl: Moves all extremities. No clubbing, cyanosis or edema. NEURO: Awake and alert. Following commands, speech normal, no focal deficits SKIN:: Warm, dry. Normal Color PSYCHIATRIC: Normal affect/mood Course Course Emergency Course: Reviewed old records. Patient is been seen numerous times for similar complaints the past. Patient did have COVID-19 in the beginning of September chest x-ray is improving from this. Patient states he is feeling much better at this time. Able to eat and drink in the emergency department with no emesis Patient states that they are feeling much better at this time. States abdominal pain has resolved. Repeat abdominal exam shows the patient's abdomen to be soft and nontender. Discussed with patient results of workup and diagnosis. Discussed need for follow-up with primary care physician, reasons to return to the emergency department in proper use of medication. Patient understands and agrees to current treatment plan Vital Signs Vital signs: Vital Signs Temperature 98.3 F 11/15/19 13:44 Pulse Rate 118 H 11/15/19 13:44 Respiratory Rate 28 H 11/15/19 13:44 Blood Pressure 169/114 H 11/15/19 13:44 Pulse Oximetry 100 11/15/19 13:44 Temperature 98.3 F 11/15/19
[2019-11-15] MEDS: SODIUM CHLORIDE 0.9% IV 1,000 ML 999 ML IV CONT ×2 (14:36→15:59)
[2019-11-15] MEDS: ONDANSETRON INJ 4 MG/2 ML VIAL IV PUSH (14:36)
[2019-11-15 14:46] LABS: Basophils Percent Auto 0.3 % (0.2-1.2); Eosinophils Absolute Auto 0.2 K/mm3 (0-0.3); Eosinophils Percent Auto 1.6 % (0-4.4); Hematocrit 44.7 % (42.0-52.0); Hemoglobin 15.3 g/dL (14.0-18.0); Immature Granulocyte Absolute 0.06 K/mm3 (0.00-0.031); Immature Granulocyte Percent A 0.4 % (0-0.5); Lymphocytes Percent Auto 18.6 % (18.3-44.2); Mean Corpuscular HGB Conc 34.2 g/dl (32-36); Mean Corpuscular Hemoglobin 27.2 pg (26-34); Mean Corpuscular Volume 79.5 fl (80-100); Mean Platelet Volume 10.8 fl (7.4-10.4); Monocytes Absolute Auto 1.2 K/mm3 (0.1-0.6); Monocytes Percent Auto 8.6 % (2.6-8.5); Neutrophils Absolute Auto 9.5 K/mm3 (1.3-6.7); Neutrophils Percent Auto 70.5 % (45.5-73.1); Platelet Count Result 280 k/mm3 (150-375); Red Blood Count 5.62 M/mm3 (4.6-6.20); Red Cell Distribution Width 14.2 % (11.5-14.5); White Blood Count 13.5 K/mm3 (4.5-10.0)
[2019-11-15 15:00] LABS: Alanine Aminotransferase 17 U/L (4-50); Albumin Level 4.9 g/dL (3.5-5.1); Alkaline Phosphatase 155 U/L (38-126); Aspartate Amino Transferase 20 U/L (17-59); Bilirubin,Total 0.7 mg/dL (0.2-1.3); Blood Urea Nitrogen 12 mg/dL (9-20); Calcium 10.8 mg/dL (8.4-10.2); Carbon Dioxide 26 mmol/L (22-30); Chloride 97 mmol/L (98-107); Estimated CRCL calculation 92 ml/min; Estimated Glomerular Filt Rate > 60; Glucose 208 mg/dL (75-110); Lipase 60 U/L (23-300); Potassium 3.2 mmol/L (3.4-5.0); Sodium 134 mmol/L (137-145)
[2019-11-15 15:12] VITALS: BP 158/105; PULSE 101
[2019-11-15 15:13] VITALS: BP 145/92; BP 152/87; PULSE 103
[2019-11-15 15:59] VITALS: BP 188/120; PULSE 105; RESP 18; O2SAT 99
[2019-11-15] MEDS: hydrALAZINE HCL 20 MG/ML VIAL 10 MG IV PUSH (16:21)
[2019-11-15 16:56] LABS: Add Urine Microscopic? YES; Appearance Urine Clear (Clear); Bilirubin Urine Negative (Negative); Blood Urine Negative (Negative); Color Urine Straw (Yellow); Glucose Urine UA 1+ mg/dL (Negative); Ketones Urine Trace mg/dL (Negative); Leukocyte Esterase Ur Negative LEU/UL (Negative); Mucus Urine Rare /lpf; Nitrate Urine Negative (Negative); Protein Urine Negative (Negative); RBC Urine 0-2 /hpf (0-2); Squamous Epithelial Cell Urine Rare /hpf (Few); Urobilinogen Urine Negative mg/dL (<2.0); WBC Urine 0-3 /hpf
[2019-11-15 16:59] LABS: Specific Grav Ur 1.039 (1.001-1.035)
[2019-11-15 17:30] VITALS: BP 180/90; PULSE 101; RESP 20; O2SAT 100
[2019-11-15 18:13] LABS: Troponin I < 0.012 ng/mL (0.000-0.034)
[2019-11-15] MEDS: POTASSIUM CHLORIDE 20 MEQ TABLET PO (18:28)
[2019-11-15 18:57] VITALS: BP 150/70; PULSE 80; RESP 18; O2SAT 99
== END 2019-11-15 18:15 | disposition home or self-care (01) ==
PROVIDERS: Emergency Provider Emergency Medicine; PCP Nurse Practitioner Family
DX: R11.2 Nausea with vomiting, unspecified (principal); Z86.19 Personal history of other infectious and parasitic diseases; E11.40 Type 2 diabetes mellitus with diabetic neuropathy, unspecified; Z79.84 Long term (current) use of oral hypoglycemic drugs; I10 Essential (primary) hypertension; F17.210 Nicotine dependence, cigarettes, uncomplicated; R00.0 Tachycardia, unspecified; R94.31 Abnormal electrocardiogram [ECG] [EKG]; R93.41 Abnormal radiologic findings on diagnostic imaging of renal pelvis, ureter, or bladder
CPT/HCPCS: 36415; 71045; 74177; 80053; 81001; 83690; 84484; 85025; 93005; 96361; 96374; 96375; 99284; A9270; J0360; J2405; J7030; Q9967

== ENCOUNTER 2020-05-08 07:45 | Emergency (ER) | payer OTHER, SELFPAY ==
[2020-05-08] VITALS (12 sets, daily range): BP systolic 114–147; BP diastolic 72–89; PULSE 88–102; RESP 12–19; TEMP 36.3; O2SAT 96–100
--- NOTE | ~2020-05-08 | XR_ITS ---
EXAMINATION: XR chest 1V portable DATE: 05/08/2020 09:05 INDICATION: Dizziness TECHNIQUE: frontal view of the chest was obtained. COMPARISON: Chest radiograph dated 11/15/2019 FINDINGS: Chronic mild linear discoid atelectasis/scarring at the lingula. No other airspace opacities, pulmona ry edema, pleural effusion or pneumothorax. The cardiomediastinal silhouette is normal. Visualized keith latoya and soft tissues are unremarkable. IMPRESSION: 1. No acute cardiopulmonary disease. Reviewed, dictated and finalized at location A. [employer]
--- NOTE | ~2020-05-08 | CT_ITS ---
EXAMINATION: CT brain wo con DATE: 05/08/2020 08:43 INDICATION: Dizziness. Recent falls. TECHNIQUE: Computed tomography (CT) of the head was performed without intravenous contrast. The mA wa s adjusted according to patient size. Iterative reconstruction technique was employed. Exam dose: 60 5.33 mGy-cm total exam DLP. COMPARISON: None FINDINGS: No intracranial mass lesion or hemorrhage or cerebrovascular accident. No midline shift or mass effect. Normal ventricular size. No subdural or epidural hematoma. No fracture or bone destruction of the cranial vault. The mastoid air cells and included paranasal sinuses are normally developed and aerated. IMPRESSION: Normal examination Reviewed, dictated and finalized at Location A. Reviewed, dictated and finalized at location A. OF ICT IMPRESSION: Normal examination
--- NOTE | 2020-05-08 07:56 | ECG_ITS ---
Measurements Intervals [place] Rate: 100 P: 57 [place]: 146 QRS: -23 QRSD: 85 T: 93 QT: 342 QTc: 441 Interpretive Statements SINUS TACHYCARDIA VOLTAGE CRITERIA FOR LVH BORDERLINE R WAVE PROGRESSION, ANTERIOR LEADS NONSPECIFIC ST ELEVATION IN ANTERIOR LEADS BORDERLINE ST-T WAVE ABNORMALITY- HIGH LATERAL LEADS BORDERLINE ECG Electronically Signed On 05-08-2020 11:20:56 [employer] by Allan Gale D.O.
--- NOTE | 2020-05-08 08:16 | ED.GENADULT ---
HPI - General Adult General Chief complaint: Shortness of Breath/Dyspnea Stated complaint: sob, weakness, no appetite x4 days Time Seen by Provider: 05/08/20 07:50 Source: RN notes reviewed History of Present Illness HPI narrative: Patient presents to emergency department from home for weakness. Patient states that for the past 3 days he has had minimal appetite and states that with that he has had generalized weakness he states that today he was feeling dizzy when he was getting out of shower and fell denies any dizziness with laying down flat but notes dizziness with standing up denies any fevers or chills chest pain shortness of breath abdominal pain nausea vomiting diarrhea or any other symptoms. The patient did have COVID-19 earlier in the year in September and has recovered Related Data Home Medications Medication Instructions Recorded Confirmed metformin 850 mg PO BID 09/23/19 09/23/19 atorvastatin 20 mg PO 05/08/20 Allergies Allergy/AdvReac Type Severity Reaction Status Date / Time No Known Allergies Allergy Verified 05/08/20 07:56 Review of Systems Review of Systems: Narrative: Gen.: Denies fevers or chills Eyes: Denies eye pain or visual change ENT: Denies congestion Respiratory: Denies shortness of breath or cough CV: Denies chest pain or palpitations GI: Denies abdominal pain nausea, emesis or diarrhea reports decreased appetite denies burning, urgency, frequency or hematuria Musculoskeletal: Denies back pain or muscle pain Neuro: Denies numbness, tingling, reports weakness and dizziness Skin: Denies rash Except as documented, all other systems reviewed and negative [facility] Past Medical History Medical History (Updated 05/08/20 @ 11:57 by Bo Gregorio DO) Anemia Diabetes mellitus with diabetic neuropathy Diabetes type 2, controlled GI bleed Hyperlipidemia Patient stated he no longer takes the medication Hypertension Neuropathy due to type 2 diabetes mellitus Surgical History Surgical History H/O arthroscopy of shoulder Left Hx of appendectomy Family History Family History Father Medical history unknown Mother Healthy adult Sibling Healthy adult Social History Social History Social History: Social drinker. Smokes a pack a cigarettes in 3 days. No marijuana or other drugs Years smoked: 1 Smoking status: Unknown if ever smoked Tobacco type: cigarettes Second hand tobacco smoke exposure: Yes Alcohol intake: never Substance use: never Additional living arrangements comments: With mother and brother Gender identity (if verbalized by the patient): Male Spiritual care concerns: No Agree to blood products: Yes Exam Narrative: Exam Narrative: APPEARANCE: No acute distress, nontoxic, resting in bed EYES: EOMI HEENT: Normocephalic, atraumatic, OMM RESPIRATORY: No respiratory distress Clear to auscultation bilaterally with no rhonchi wheezing or rales. CARDIOVASCULAR: Regular rate and rhythm without murmurs rubs or gallops. ABDOMINAL: Soft, nontender, nondistended, no rebound or guarding MUSCULOSKELETAl: Moves all extremities. No clubbing, cyanosis or edema. NEURO: Awake and alert x 3. Following commands, speech normal, no focal deficits SKIN:: Warm, dry. No rashes lesions or abrasions PSYCHIATRIC: Normal affect/mood, Course Course Emergency Course: Patient states he is feeling better this time able to get up and ambulate in ED with no difficulty Discussed with patient results of workup and diagnosis. Discussed need for follow-up with primary care, proper use of medication, and reasons to return to the emergency department. Patient understands and agrees to current treatment plan patient was Covid positive over 6 months ago I will recheck Covid swab at this time Vital Signs Vital signs: Vital Signs
[2020-05-08 08:24] LABS: Basophils Percent Auto 0.3 % (0.2-1.2); Eosinophils Absolute Auto 0.1 K/mm3 (0-0.3); Eosinophils Percent Auto 0.9 % (0-4.4); Hemoglobin 14.9 g/dL (14.0-18.0); Immature Granulocyte Absolute 0.05 K/mm3 (0.00-0.031); Immature Granulocyte Percent A 0.5 % (0-0.5); Lymphocytes Absolute Auto 2.29 K/mm3 (0.9-3.2); Mean Corpuscular HGB Conc 33.1 g/dl (32-36); Mean Corpuscular Hemoglobin 29.9 pg (26-34); Mean Corpuscular Volume 90.2 fl (80-100); Mean Platelet Volume 10.5 fl (7.4-10.4); Monocytes Percent Auto 9.6 % (2.6-8.5); Neutrophils Absolute Auto 6.9 K/mm3 (1.3-6.7); Neutrophils Percent Auto 66.7 % (45.5-73.1); Platelet Count Result 267 k/mm3 (150-375); Red Blood Count 4.99 M/mm3 (4.6-6.20); Red Cell Distribution Width 12.7 % (11.5-14.5); White Blood Count 10.4 K/mm3 (4.5-10.0)
[2020-05-08 08:42] LABS: Alanine Aminotransferase 21 U/L (4-50); Albumin Level 4.6 g/dL (3.5-5.1); Alkaline Phosphatase 123 U/L (38-126); Anion Gap 12 mmol/L (8-16); Aspartate Amino Transferase 21 U/L (17-59); Bilirubin,Total 1.4 mg/dL (0.2-1.3); Blood Urea Nitrogen 16 mg/dL (9-20); Calcium 9.8 mg/dL (8.4-10.2); Carbon Dioxide 26 mmol/L (22-30); Chloride 99 mmol/L (98-107); Estimated CRCL calculation 73 ml/min; Estimated Glomerular Filt Rate > 60; Glucose 253 mg/dL (75-110); Lipase 53 U/L (23-300); Potassium 3.4 mmol/L (3.4-5.0); Sodium 137 mmol/L (137-145)
[2020-05-08] MEDS: SODIUM CHLORIDE 0.9% IV 1,000 ML 999 ML IV CONT (08:51)
[2020-05-08 08:53] LABS: Troponin I < 0.012 ng/mL (0.000-0.034)
--- NOTE | 2020-05-08 09:55 | PC.NURSE ---
Pt attempting to provide urine sample at this time.
[2020-05-08 10:16] LABS: Add Urine Microscopic? YES; Appearance Urine Clear (Clear); Bacteria Urine Trace /hpf; Bilirubin Urine Negative (Negative); Blood Urine Negative (Negative); Color Urine Yellow (Yellow); Glucose Urine UA 3+ mg/dL (Negative); Hyaline Casts Urine 20-29 /lpf; Ketones Urine 1+ mg/dL (Negative); Leukocyte Esterase Ur Negative LEU/UL (Negative); Mucus Urine Rare /lpf; Nitrate Urine Negative (Negative); Protein Urine 2+ mg/dL (Negative); RBC Urine 0-2 /hpf (0-2); Specific Grav Ur 1.028 (1.001-1.035)
[2020-05-08 23:21] LABS: SARS-CoV-2 RNA PCR Negative
--- NOTE | 2020-05-22 17:07 | PC.NURSE ---
LATE ENTRY This note is being entered to document information to the patient's record. The following information was omitted on [May 22, 2020], by [Caridad IVAN stopped at 0951 on May 08 2020].
== END 2020-05-08 12:18 | disposition home or self-care (01) ==
PROVIDERS: Emergency Provider Emergency Medicine; PCP Nurse Practitioner Family
DX: R53.1 Weakness (principal); R42 Dizziness and giddiness; E11.40 Type 2 diabetes mellitus with diabetic neuropathy, unspecified; Z86.19 Personal history of other infectious and parasitic diseases; Z86.2 Personal history of diseases of the blood and blood-forming organs and certain disorders involving the immune mechanism; Z79.84 Long term (current) use of oral hypoglycemic drugs; I10 Essential (primary) hypertension; F17.210 Nicotine dependence, cigarettes, uncomplicated
CPT/HCPCS: 36415; 70450; 71045; 80053; 81001; 83690; 84484; 85025; 87635; 87804; 93005; 96360; 99284; C9803; J7030; U0003

== ENCOUNTER 2021-02-11 09:37 | Inpatient (IN) | payer MEDICAID, SELFPAY ==
[2021-02-11] VITALS (8 sets, daily range): BP systolic 122–148; BP diastolic 74–96; PULSE 90–98; RESP 14–20; TEMP 35.8–36.9; O2SAT 97–100; BMI 38.5
--- NOTE | ~2021-02-11 | US_ITS ---
US renal BI 02/17/2021 11:22 Procedure: Realtime transabdominal ultrasound of the kidneys and bladder. Indication: Acute renal insufficiency Comparison: Ultrasound dated 09/30/2019 Findings: Renal echotexture is normal bilaterally without hydronephrosis, contour deforming mass or r enal calculus. The right kidney measures 12.1 cm and left kidney measures 12.6 cm. There is mild blad mercedes wall thickening. Prostate gland is mildly enlarged.. Impression: 1: Mild bladder wall thickening which may be due to outlet obstruction from enlarged prostate gland o r chronic cystitis. Reviewed, dictated and finalized at location A. Impression: 1: Mild bladder wall thickening which may be due to outlet obstruction from enl arged prostate gland or chronic cystitis.
--- NOTE | ~2021-02-11 | XR_ITS ---
EXAMINATION: XR foot RT min 3V DATE: 02/11/2021 10:29 INDICATION: Right foot swelling TECHNIQUE: Dorsoplantar, lateral, and 2 oblique views of the right foot were obtained. COMPARISON: 09/23/2019 FINDINGS: There has been interval amputation of the first toe. There is a healing fracture at the bas e of the fourth proximal phalanx. There is osteopenia, cortical irregularity, and subluxation at the second proximal interphalangeal joint. There is swelling of the second toe. Osteoarthritis is noted i n the ankle and midfoot. Posterior and plantar calcaneal enthesophytes are noted. IMPRESSION: 1. Subluxation joint space obstruction at the second interphalangeal joint which could reflect osteom yelitis. 2. Healing fracture at the base of the fourth proximal phalanx. 3. Interval amputation of the first toe. Reviewed, dictated and finalized at location A. IMPRESSION: 1. Subluxation joint space obstruction at the second interphalangeal joint whic h could reflect osteomyelitis. 2. Healing fracture at the base of the fourth proximal phalanx. 3. Interval amputation of the first toe.
--- NOTE | ~2021-02-11 | XR_ITS ---
EXAMINATION: XR foot LT min 3V DATE: 02/11/2021 10:29 INDICATION: Foot pain and left second toe swelling TECHNIQUE: Dorsoplantar, lateral, and 2 oblique views of the left foot were obtained. COMPARISON: None. FINDINGS: There is osteopenia, cortical irregularity, and subluxation at the second proximal interpha langeal joint. There also appears to be a plantar subluxation of the second distal phalanx with respe ct to the middle phalanx. There is swelling of the second toe. Osteoarthritis is noted in the ankle a nd midfoot. There is moderate osteoarthritis at the first metatarsophalangeal joint. No fracture is i dentified. IMPRESSION: 1. Subluxation and joint space destruction at the second proximal interphalangeal joint which could r eflect osteomyelitis. 2. Apparent plantar subluxation of the second distal phalanx. Reviewed, dictated and finalized at location A. IMPRESSION: 1. Subluxation and joint space destruction at the second proximal interphalange al joint which could reflect osteomyelitis. 2. Apparent plantar subluxation of the second distal phalanx.
[2021-02-11 11:13] LABS: Basophils Percent Auto 0.3 % (0.2-1.2); Eosinophils Absolute Auto 0.4 K/mm3 (0-0.3); Hematocrit 39.3 % (42.0-52.0); Hemoglobin 12.7 g/dL (14.0-18.0); Immature Granulocyte Absolute 0.05 K/mm3 (0.00-0.031); Immature Granulocyte Percent A 0.4 % (0-0.5); Lymphocytes Absolute Auto 1.94 K/mm3 (0.9-3.2); Lymphocytes Percent Auto 16.8 % (18.3-44.2); Mean Corpuscular HGB Conc 32.3 g/dl (32-36); Mean Corpuscular Hemoglobin 28.2 pg (26-34); Mean Corpuscular Volume 87.3 fl (80-100); Mean Platelet Volume 10.4 fl (7.4-10.4); Monocytes Absolute Auto 0.9 K/mm3 (0.1-0.6); Monocytes Percent Auto 8.1 % (2.6-8.5); Neutrophils Absolute Auto 8.3 K/mm3 (1.3-6.7); Neutrophils Percent Auto 71.4 % (45.5-73.1); Platelet Count Result 300 k/mm3 (150-375); Red Cell Distribution Width 12.2 % (11.5-14.5); White Blood Count 11.6 K/mm3 (4.5-10.0)
--- NOTE | 2021-02-11 11:13 | ED.GENADULT ---
HPI - General Adult General Chief complaint: Extremity Injury, Lower Stated complaint: toes swollen, turning colors Time Seen by Provider: 02/11/21 11:03 Source: RN notes reviewed History of Present Illness HPI narrative: Patient presents emergency department from home for bilateral second toe swelling. Patient states that over the past week he has had progressive swelling of the bilateral second toes he states that they become diffusely swollen with open wounds over the dorsal aspect of the toe and drainage she believes that this was secondary to wearing certain pair shoes he states he is a diabetic and has had the first toe of the right foot amputated by Dr. Mejia before in the past he denies any fever chills chest pain shortness of breath or any other symptoms Related Data Home Medications Medication Instructions Recorded Confirmed metformin 850 mg PO BID 09/23/19 09/23/19 atorvastatin 20 mg PO 05/08/20 Allergies Allergy/AdvReac Type Severity Reaction Status Date / Time No Known Allergies Allergy Verified 05/08/20 07:56 Review of Systems Review of Systems: Gen.: Denies fevers or chills ENT: Denies congestion Respiratory: Denies shortness of breath or cough CV: Denies chest pain or palpitations GI: Denies abdominal pain nausea, emesis Musculoskeletal: Reports bilateral second toe swelling Neuro: Denies numbness, tingling, weakness or focal weakness Skin: See HPI Except as documented, all other systems reviewed and negative PMF Past Medical History Medical History (Updated 02/11/21 @ 14:43 by Bo Gregorio DO) Anemia Diabetes mellitus with diabetic neuropathy Diabetes type 2, controlled GI bleed Hyperlipidemia Patient stated he no longer takes the medication Hypertension Neuropathy due to type 2 diabetes mellitus Surgical History Surgical History H/O arthroscopy of shoulder Left Hx of appendectomy Family History Family History Father Medical history unknown Mother Healthy adult Sibling Healthy adult Social History Social History Social History: Social drinker. Smokes a pack a cigarettes in 3 days. No marijuana or other drugs Years smoked: 1 Smoking status: Unknown if ever smoked Tobacco type: cigarettes Second hand tobacco smoke exposure: Yes Alcohol intake: never Substance use: never Additional living arrangements comments: With mother and brother Gender identity (if verbalized by the patient): Male Spiritual care concerns: No Agree to blood products: Yes Exam Narrative: APPEARANCE: No acute distress, nontoxic, resting in bed EYES: EOMI HEENT: Normocephalic, atraumatic, OMM RESPIRATORY: No respiratory distress Clear to auscultation bilaterally with no rhonchi wheezing or rales. CARDIOVASCULAR: Regular rate and rhythm without murmurs rubs or gallops. ABDOMINAL: Soft, nontender, nondistended, no rebound or guarding MUSCULOSKELETAl: Moves all extremities. No clubbing, cyanosis the bilateral second toes are blackened discoloration and diffusely swollen with open wounds over the bilateral dorsal toes with some mild serous drainage remainder of the toes on the bilateral feet are normal in appearance patient has an amputation of the right first toe bilateral dorsalis pedis pulse 2+ NEURO: Awake and alert. Following commands, speech normal, no focal deficits SKIN:: Warm, dry. No rashes lesions or abrasions PSYCHIATRIC: Normal affect/mood, Course Course Emergency Course: Reviewed old records patient's been seen by Dr. Mejia performed past Called and discussed Dr. Mejia presentation and work-up agrees with consult at this time Discussed with KORIN Zaidi for Dr. Germain presentation work-up agrees with admission at this time Discussed with patient and family results of workup and diagnosis. Jj
[2021-02-11 12:09] LABS: Erythrocyte Sedimentation Rate 35 mm/hr (0-20)
[2021-02-11 13:39] LABS: Lactic Acid Reflex 1.1 mmol/L (0.7-2.1)
[2021-02-11 13:45] LABS: Alanine Aminotransferase 12 U/L (4-50); Albumin Level 3.7 g/dL (3.5-5.1); Alkaline Phosphatase 131 U/L (38-126); Anion Gap 9 mmol/L (8-16); Aspartate Amino Transferase 15 U/L (17-59); Bilirubin,Total 0.8 mg/dL (0.2-1.3); Blood Urea Nitrogen 14 mg/dL (9-20); Calcium 9.2 mg/dL (8.4-10.2); Carbon Dioxide 27 mmol/L (22-30); Chloride 102 mmol/L (98-107); Estimated CRCL calculation 115 ml/min; Estimated Glomerular Filt Rate > 60; Glucose 240 mg/dL (65-110); Potassium 3.7 mmol/L (3.4-5.0); Sodium 138 mmol/L (137-145)
[2021-02-11 13:52] LABS: CRP 4.1 mg/dL (<1.0)
--- NOTE | 2021-02-11 15:35 | PM.IMHP ---
H&P: HPI History of Present Illness Date/Time: 02/11/21 14:00 Chief Complaint: Swollen and discolored toes. Narrative: This is a 55-year-old male with diabetes who presented to the emergency department earlier today via private vehicle from home for evaluation of swollen and discolored 2nd toes. He first noticed the swelling about 1 week ago, affecting the 2nd toes bilaterally but he has noticed small calluses on the distal PIP joint. Since that time they have began to drain a small amount of serous fluid and he has noticed areas of discoloration. The patient does have neuropathy in his feet from diabetes and does not really have any significant discomfort at this site. He has otherwise been feeling okay and denies fever, chills, sweats, nausea, and vomiting. X-rays showed findings of possible osteomyelitis and he is being admitted in this setting. Dr. Mejia has agreed to consult on the patient as he has seen the patient before, performing a 1st ray amputation in September 2019. Review of Systems Review of Systems: Twelve systems were reviewed with pertinent positives and negatives as per HPI. No fever, chills, or sweats. No recent cold or flu symptoms. He admits that he does not check his glucose as often as he should though when he does check it is typically in the 200s. No blurry vision, polydipsia, or polyuria. No known history of multidrug resistant organisms. Patient has difficulties wearing his CPAP at nighttime as it does not have humidity and makes him feel dry. Except as documented all other systems were reviewed and are negative. [facility] Past Medical History Medical History Anemia COVID-19 virus infection (09/2019) Diabetes mellitus with diabetic neuropathy Hemoglobin A1c was 10.3% in August 2019. GI bleed (12/2018) Secondary to gastric erosions. 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 Family History Family History Father Medical history unknown Mother Healthy adult Sibling Healthy adult Social History Social History (Updated 02/11/21 @ 21:38 by Dyan Laura PA-C) Social History: The patient lives in [place]. His mother lives at home with him. Social drinker. Smokes 1/3 pack of cigarettes a day. No illicit substance use. Surrogate decision maker: Taylor Cooper, niece. Code status: Full code. Meds Home Medications and Allergies Home Medications Medication Instructions Recorded Confirmed Type metformin 850 mg PO BID 09/23/19 02/11/21 History atorvastatin [Lipitor] 20 mg PO DAILY 05/08/20 02/11/21 History Allergies Allergy/AdvReac Type Severity Reaction Status Date / Time No Known Allergies Allergy Verified 02/11/21 18:31 Vital Signs Vital Signs - 24 hr 02/11/21 09:50 Temperature 98.2 F Pulse Rate 98 Respiratory Rate 20 Pulse Oximetry 98 Exam Narrative: General: Well-developed male supine in bed no distress. Weight: 118.18 kg. BMI: 38.5. HEENT: PERRL, EOMI. Sclerae anicteric. Oral mucosa moist. Neck: Supple. No JVD or lymphadenopathy. Respiratory: Lungs are clear to auscultation bilaterally. Cardiovascular: Regular rate and rhythm with S1-S2. Gastrointestinal: Abdomen is soft, nontender, and nondistended with positive bowel sounds. Skin: Warm and dry. Extremities: No cyanosis, clubbing, or significant edema aside from the 2nd toes, which are edematous and hyper pigmented with small calluses noted on the PIP joints draining a small amount of serous fluid. Status post right 1st toe amputation. Radial and pedal pulses intact. Neurological: Alert. Cranial nerves 2-12 are grossly intact.
[2021-02-11 17:16] LABS: Glucose Point of Care 223 mg/dl (65-105)
--- NOTE | 2021-02-11 18:08 | ADMGEN ---
This patient, Michael Bai, was admitted to Medical Room 349-01. Patient/family oriented to hospital policies and general routines including ID bracelet, bed and alarms, visiting hours, pain management, procedures, bathroom and other care routines, personal items, smoking policy, room service/diet, and visiting hours. Information on how to activate the Rapid Response Team has been discussed. Patient/Family are encouraged to report perceived risks to care and to ask questions if they do not understand what they are told or what they should do.
[2021-02-11] MEDS: INSULIN ASPART (*BKC) 100 UNITS/ML SUB-Q (18:44)
[2021-02-11 18:50] LABS: Hemoglobin A1C 11.1 % (<5.7)
[2021-02-11 21:10] LABS: Glucose Point of Care 265 mg/dl (65-105)
[2021-02-12 04:15] VITALS: BP 126/81; PULSE 93; RESP 16; TEMP 37; O2SAT 99
[2021-02-12 06:14] LABS: Basophils Percent Auto 0.2 % (0.2-1.2); Eosinophils Absolute Auto 0.3 K/mm3 (0-0.3); Hematocrit 38.7 % (42.0-52.0); Hemoglobin 12.2 g/dL (14.0-18.0); Immature Granulocyte Absolute 0.06 K/mm3 (0.00-0.031); Immature Granulocyte Percent A 0.7 % (0-0.5); Lymphocytes Absolute Auto 1.67 K/mm3 (0.9-3.2); Lymphocytes Percent Auto 19.5 % (18.3-44.2); Mean Corpuscular HGB Conc 31.5 g/dl (32-36); Mean Corpuscular Hemoglobin 28.2 pg (26-34); Mean Corpuscular Volume 89.6 fl (80-100); Mean Platelet Volume 10.4 fl (7.4-10.4); Monocytes Absolute Auto 0.9 K/mm3 (0.1-0.6); Monocytes Percent Auto 9.9 % (2.6-8.5); Neutrophils Absolute Auto 5.6 K/mm3 (1.3-6.7); Neutrophils Percent Auto 65.7 % (45.5-73.1); Platelet Count Result 302 k/mm3 (150-375); Red Blood Count 4.32 M/mm3 (4.6-6.20); Red Cell Distribution Width 12.4 % (11.5-14.5); White Blood Count 8.6 K/mm3 (4.5-10.0)
[2021-02-12 06:55] LABS: Alanine Aminotransferase 11 U/L (4-50); Albumin Level 3.3 g/dL (3.5-5.1); Alkaline Phosphatase 120 U/L (38-126); Anion Gap 7 mmol/L (8-16); Aspartate Amino Transferase 14 U/L (17-59); Bilirubin,Total 0.5 mg/dL (0.2-1.3); Blood Urea Nitrogen 13 mg/dL (9-20); Calcium 9.1 mg/dL (8.4-10.2); Carbon Dioxide 25 mmol/L (22-30); Chloride 102 mmol/L (98-107); Estimated CRCL calculation 132 ml/min; Estimated Glomerular Filt Rate > 60; Glucose 266 mg/dL (65-110); Magnesium 1.9 mg/dL (1.6-2.3); Potassium 3.8 mmol/L (3.4-5.0); Sodium 134 mmol/L (137-145)
[2021-02-12 08:30] LABS: Glucose Point of Care 235 mg/dl (65-105)
--- NOTE | 2021-02-12 09:10 | PM.CNOR ---
Assessment and Plan Assessment and plan (1) Osteomyelitis of second toe of right foot: Code(s): M86.9 - Osteomyelitis, unspecified Status: Acute Assessment and Plan: Radiographs of bilateral 2nd rays reveal subluxation and joint space destruction at the second proximal interphalangeal joint consistent with osteomyelitis. on exam, patient has wounds on the dorsal aspect of the 2nd ray which probed to the PIP joint. Moderate swelling of the 2nd ray bilaterally and dry cracked skin. patient also has a large callus on the plantar aspect of the 3rd metatarsal head of the right foot. He has a large callus on the plantar aspect of the base of the 5th metatarsal of the left foot. No purulence drainage however mild malodor noted. Discussed condition, nature, etiology course of natural history. Conservative and operative treatment options reviewed as well as risks and benefits of each. Patient would benefit from surgical debridement of the 2nd ray of bilateral feet with potential 2nd ray amputation. Debridement of callus on the plantar aspect of the right foot and plantar aspect of the left foot planned as well. Discussed diabetic foot ulcer debridement and toe amputation Risks of surgery including but not limited to neurovascular damage, wound complications, blood clot, pulmonary embolus, stroke, myocardial infarction, anesthetic risks up to and including were reviewed. Continued pain and possible dysfunction were explained. No guarantees were offered. The patient understands and wishes to proceed. Plan: Debridement of bilateral diabetic foot ulcers and possible 2nd ray amputation of both the right and left foot by Dr. Mejia. Continue IV antibiotics in the interim. Close glycemic control. Smoking cessation education and diabetic nurse educator consult. Begin dressing changes with covering dry of the 2nd ray of bilateral feet. NPO at midnight on 02/15. (2) Osteomyelitis of second toe of left foot: Code(s): M86.9 - Osteomyelitis, unspecified Status: Acute Assessment and Plan: See above. Plan for debridement of diabetic foot ulcer of the left foot and possible 2nd ray amputation. Callus debridement of the base of the 5th metatarsal. (3) Diabetes mellitus: Code(s): E11.9 - Type 2 diabetes mellitus without complications Status: Acute Assessment and Plan: Most recent hemoglobin A1c is 11.1 from 02/11. Patient needs close glycemic control for optimal healing. Patient would benefit from diabetic nurse educator. Patient needs proper follow-up with primary care physician and/or digital watch assembler arranged prior to discharge for optimal postoperative progress. (4) Tobacco use: Code(s): Z72.0 - Tobacco use Status: Acute Assessment and Plan: Smoking cessation vital for optimal healing of wounds. Patient would benefit from smoking cessation education and handouts. History of Present Illness HPI Consult date: 02/12/21 Requesting physician: Dyan Laura PA-C Consult reason: other (Bilateral 2nd ray osteomyelitis) Chief complaint: OSTEOMYELITIS SECOND TOE RIGHT FOOT,OSTEOMYELITIS Narrative: 55-year-old male admitted for bilateral 2nd ray diabetic foot ulcers. Patient reports a 1-2 week onset of swelling of the 2nd rays bilaterally. He reports initially noticing a callus on the dorsal aspect of the 2nd ray which then opened and caused swelling and dry appearing skin. He presented the emergency room for evaluation. He is well known to the Orthopedic Service for a 1st ray amputation of the right foot in 2019. He was last seen in September of 2019 and scheduled for follow-up in 2 months however he failed to follow-up. Patient has not been seen by a bridge contractor or orthopedic order processing specialist since that time. He is not wearing custom orthotics for depth shoes. His 1st ray amputation of the right foot remains well healed. Radiographs of the left foot from the emergency room reveal
[2021-02-12] MEDS: ATORVASTATIN 20 MG TABLET PO (09:24)
[2021-02-12] MEDS: INSULIN ASPART (*BKC) 100 UNITS/ML SUB-Q ×2 (09:24→17:24)
[2021-02-12] MEDS: ENOXAPARIN 40 MG/0.4 ML SYRINGE SUB-Q (09:24)
--- NOTE | 2021-02-12 09:38 | PC.NURSE ---
This nurse spoke to the wound nurse Sasha about patient lata foot diabetic ulcer. No dressing ordered. Photos taken.
[2021-02-12] MEDS: INSULIN GLARGINE (*BKC) 100 UNITS/ML 10 UNITS SUB-Q (10:27)
[2021-02-12 12:36] LABS: Glucose Point of Care 189 mg/dl (65-105)
--- NOTE | 2021-02-12 12:48 | PM.IMPN ---
Progress Note: A&P Assessment and Plan (1) Diabetic foot infection: Code(s): E11.628 - Type 2 diabetes mellitus with other skin complications; L08.9 - Local infection of the skin and subcutaneous tissue, unspecified Status: Acute Assessment and Plan: Symptoms and imaging concerning for osteomyelitis bilaterally -plan for surgery early next week by Dr. Mejia -continue imipenem and vancomycin until surgery, no indication of obvious systemic infection at this time. blood cultures negative to date - continue with Ortho recommendations - will work on glucose control (2) Osteomyelitis of second toe of right foot: Code(s): M86.9 - Osteomyelitis, unspecified Status: Acute Assessment and Plan: as above (3) Osteomyelitis of second toe of left foot: Code(s): M86.9 - Osteomyelitis, unspecified Status: Acute Assessment and Plan: as above (4) Diabetes mellitus with diabetic neuropathy: Qualifiers: Diabetes mellitus type: type 2 Diabetes mellitus shelter insulin use: without shelter use Qualified Code(s): E11.40 - Type 2 diabetes mellitus with diabetic neuropathy, unspecified Code(s): E11.40 - Type 2 diabetes mellitus with diabetic neuropathy, unspecified Status: Acute Assessment and Plan: last glucose 189 - A1c 11.1 - patient takes metformin at home - will start low dose of Lantus for optimal control (5) Elevated blood pressure reading: Code(s): R03.0 - Elevated blood-pressure reading, without diagnosis of hypertension Status: Acute Assessment and Plan: last blood pressure 126/81 - will monitor trends and if he continues to be elevated, consider starting oral therapy (6) Tobacco use: Code(s): Z72.0 - Tobacco use Status: Acute Assessment and Plan: patient understands that he needs to quit smoking (7) Obstructive sleep apnea: Code(s): G47.33 - Obstructive sleep apnea (adult) (pediatric) Status: Acute Assessment and Plan: continue CPAP at night, CPAP at bedside Time Spent With Patient Time with patient: 25 - 35 minutes Subjective Date/time seen: 02/12/21 12:48 Interval history: Pt is a 55-year-old male here for diabetic foot wound. Patient was seen today and states he is doing okay. He is in absolutely no pain. Pt denies nausea, vomiting, fevers, chills, constipation, diarrhea, chest pain, sob, or abdominal pain. He says he does not like this food here. Review of Systems Review of Systems: All systems reviewed & are unremarkable except as noted in HPI and below Exam Narrative: General: Well developed well nourished patient in NAD HEENT: normocephalic Neck: supple Neuro: Alert and oriented x4 CV:RRR Resp:CTA Abd: Soft, non distended. No pain to palpation. Positive bowel sounds Extremities: 2nd toes bilaterally dusky and swollen with bilateral wound openings. Pulses intact. Slight swelling to the feet. Objective Data Vital Signs Vital Signs: Vital Signs - 24 hr 02/11/21 14:20 02/11/21 15:00 02/11/21 16:26 Temperature Pulse Rate 95 90 91 Respiratory Rate 14 14 Blood Pressure 139/82 139/92 H 148/96 H Pulse Oximetry 99 99 02/11/21 17:30 02/11/21 18:21 02/11/21 20:00 Temperature 96.5 F L 96.5 F L Pulse Rate 96 96 93 Respiratory Rate 18 18 20 Blood Pressure 145/90 H 145/90 H Pulse Oximetry 100 100 97 02/11/21 20:52 02/12/21 04:15 Temperature 98.4 F 98.6 F Pulse Rate 93 93 Respiratory Rate 20 16 Blood Pressure 122/74 126/81 Pulse Oximetry 97 99 Intake/Output Intake/Output: Intake & Output 02/09/21 02/10/21 02/11/21 02/12/21 23:59 23:59 23:59 23:59 Intake Total 700 1340 Balance 700 1340 Meds/Results Medications: Active Medications Generic Name Dose Route Start Last Admin Trade Name Freq PRN Reason Stop Dose Admin Atorvastatin Calcium 20 mg 02/12/21 09:00 0
[2021-02-12 13:44] VITALS: O2SAT 96
[2021-02-12 14:00] VITALS: BP 128/74; PULSE 88; RESP 16; TEMP 36.7; O2SAT 99
[2021-02-12 17:23] LABS: Glucose Point of Care 232 mg/dl (65-105)
[2021-02-12 20:00] VITALS: BP 135/80; PULSE 85; RESP 17; TEMP 37; O2SAT 98
[2021-02-12 20:42] LABS: Glucose Point of Care 187 mg/dl (65-105)
[2021-02-13] MEDS: ONDANSETRON INJ 4 MG/2 ML VIAL IV PUSH (00:07)
[2021-02-13 02:38] LABS: Vancomycin Trough 10.3 ug/mL (10.0-20.0)
[2021-02-13 04:27] VITALS: BP 150/73; PULSE 87; RESP 18; TEMP 36.6; O2SAT 99
[2021-02-13 08:45] LABS: Glucose Point of Care 231 mg/dl (65-105)
[2021-02-13] MEDS: ENOXAPARIN 40 MG/0.4 ML SYRINGE SUB-Q (09:58)
[2021-02-13] MEDS: ATORVASTATIN 20 MG TABLET PO (09:58)
[2021-02-13] MEDS: PANTOPRAZOLE 40 MG TABLET PO ×2 (09:58→21:00)
[2021-02-13] MEDS: INSULIN ASPART (*BKC) 100 UNITS/ML SUB-Q ×2 (09:59→13:05)
[2021-02-13] MEDS: INSULIN GLARGINE (*BKC) 100 UNITS/ML 8 UNITS SUB-Q (09:59)
--- NOTE | 2021-02-13 11:37 | PM.IMPN ---
Progress Note: A&P Assessment and Plan (1) Diabetic foot infection: Code(s): E11.628 - Type 2 diabetes mellitus with other skin complications; L08.9 - Local infection of the skin and subcutaneous tissue, unspecified Status: Acute Assessment and Plan: Symptoms and imaging concerning for osteomyelitis bilaterally -plan for surgery early next week by Dr. Mejia -continue imipenem and vancomycin (#2) until surgery, no indication of obvious systemic infection at this time. blood cultures negative to date - continue with Ortho recommendations - will work on glucose control (2) Osteomyelitis of second toe of right foot: Code(s): M86.9 - Osteomyelitis, unspecified Status: Acute Assessment and Plan: as above (3) Osteomyelitis of second toe of left foot: Code(s): M86.9 - Osteomyelitis, unspecified Status: Acute Assessment and Plan: as above (4) Diabetes mellitus with diabetic neuropathy: Qualifiers: Diabetes mellitus retirement insulin use: without oil heaterman use Diabetes mellitus type: type 2 Qualified Code(s): E11.40 - Type 2 diabetes mellitus with diabetic neuropathy, unspecified Code(s): E11.40 - Type 2 diabetes mellitus with diabetic neuropathy, unspecified Status: Acute Assessment and Plan: last glucose 211 - A1c 11.1 - patient takes metformin at home - will start low dose of Lantus for optimal control (5) Elevated blood pressure reading: Code(s): R03.0 - Elevated blood-pressure reading, without diagnosis of hypertension Status: Acute Assessment and Plan: last blood pressure 150/73 - will monitor trends and if he continues to be elevated, consider starting oral therapy (6) Tobacco use: Code(s): Z72.0 - Tobacco use Status: Acute Assessment and Plan: patient understands that he needs to quit smoking (7) Obstructive sleep apnea: Code(s): G47.33 - Obstructive sleep apnea (adult) (pediatric) Status: Acute Assessment and Plan: continue CPAP at night, CPAP at bedside Time Spent With Patient Time with patient: 25 - 35 minutes Subjective Date/time seen: 02/13/21 11:37 Interval history: Pt is a 55-year-old male here for diabetic foot wound. Date of service 02/13/2021: Patient has multiple questions today which were all answered by myself an with Lenny the nurse court supervisor in the room. The patient himself says he is feeling well at this time. He is concerned that the IV antibiotics he is receiving causes him to vomit after eating. He does not have any nausea at this time, but states after eating he often vomits. He denies any chest pain, shortness of breath, cough, fever, chills, diarrhea, leg swelling, calf pain, pain to his toes, or any other symptoms at this time. Review of Systems Review of Systems: All systems reviewed & are unremarkable except as noted in HPI and below Exam Narrative: General: 55-year-old man laying flat in bed covered up with blankets. Appears comfortable. In no acute distress. Skin: No jaundice or cyanosis. Good skin turgor. Neck: Full range of motion. Supple. Respiratory: Lungs are clear to auscultation bilaterally. No wheezing, rales or rhonchi. No bony chest wall tenderness. Back: No midline spinal tenderness. Left reproducible tenderness to palpation of paraspinal area. No signs of trauma. Able to go from laying on his back to his abdomen without any issues. Cardiovascular: The heart has a regular rate and rhythm without murmur. Lower extremities: Bilateral 2nd toes, black in color with open wound to plantar aspect of 2nd joint. some lower extremity edema, nonpitting, right greater than left. Distal pulses are easily palpated. No calf tenderness to palpation. Gastrointestinal: The abdomen is soft, nontender and nondistended with active bowel sounds. Psychiatric: Lucid and oriented. Me
[2021-02-13 11:43] LABS: Basophils Percent Auto 0.3 % (0.2-1.2); Eosinophils Absolute Auto 0.1 K/mm3 (0-0.3); Eosinophils Percent Auto 0.8 % (0-4.4); Hematocrit 39.4 % (42.0-52.0); Hemoglobin 12.9 g/dL (14.0-18.0); Lymphocytes Absolute Auto 1.34 K/mm3 (0.9-3.2); Mean Corpuscular HGB Conc 32.7 g/dl (32-36); Mean Corpuscular Hemoglobin 27.7 pg (26-34); Mean Corpuscular Volume 84.7 fl (80-100); Mean Platelet Volume 10.2 fl (7.4-10.4); Monocytes Absolute Auto 0.6 K/mm3 (0.1-0.6); Monocytes Percent Auto 5.6 % (2.6-8.5); Neutrophils Absolute Auto 8.2 K/mm3 (1.3-6.7); Neutrophils Percent Auto 79.3 % (45.5-73.1); Platelet Count Result 361 k/mm3 (150-375); Red Blood Count 4.65 M/mm3 (4.6-6.20); White Blood Count 10.3 K/mm3 (4.5-10.0)
[2021-02-13 12:17] LABS: Anion Gap 11 mmol/L (8-16); Blood Urea Nitrogen 10 mg/dL (9-20); CRP 2.5 mg/dL (<1.0); Calcium 9.6 mg/dL (8.4-10.2); Carbon Dioxide 28 mmol/L (22-30); Chloride 94 mmol/L (98-107); Estimated CRCL calculation 132 ml/min; Estimated Glomerular Filt Rate > 60; Glucose 241 mg/dL (65-110); Potassium 3.8 mmol/L (3.4-5.0); Sodium 133 mmol/L (137-145)
[2021-02-13 12:48] LABS: Glucose Point of Care 211 mg/dl (65-105)
[2021-02-13 14:00] VITALS: BP 117/60; PULSE 84; TEMP 35.7; O2SAT 94
[2021-02-13 18:28] LABS: Glucose Point of Care 190 mg/dl (65-105)
[2021-02-13 20:40] VITALS: BP 115/61; PULSE 82; RESP 14; TEMP 36.8; O2SAT 97
[2021-02-13 21:20] LABS: Glucose Point of Care 241 mg/dl (65-105)
[2021-02-14 06:00] VITALS: BP 138/74; PULSE 89; RESP 16; TEMP 37.1; O2SAT 98
[2021-02-14] MEDS: ATORVASTATIN 20 MG TABLET PO (09:56)
[2021-02-14] MEDS: ENOXAPARIN 40 MG/0.4 ML SYRINGE SUB-Q (09:57)
[2021-02-14] MEDS: INSULIN GLARGINE (*BKC) 100 UNITS/ML 10 UNITS SUB-Q (09:58)
[2021-02-14] MEDS: INSULIN ASPART (*BKC) 100 UNITS/ML SUB-Q ×3 (10:03→18:29)
[2021-02-14 10:12] LABS: Glucose Point of Care 265 mg/dl (65-105)
[2021-02-14] MEDS: PANTOPRAZOLE 40 MG TABLET PO ×2 (10:18→20:02)
--- NOTE | 2021-02-14 10:40 | PM.IMPN ---
Progress Note: A&P Assessment and Plan (1) Diabetic foot infection: Code(s): E11.628 - Type 2 diabetes mellitus with other skin complications; L08.9 - Local infection of the skin and subcutaneous tissue, unspecified Status: Acute Assessment and Plan: Symptoms and imaging concerning for osteomyelitis bilaterally -plan for surgery early next week by Dr. Mejia -continue imipenem and vancomycin (#3) until surgery, no indication of obvious systemic infection at this time. blood cultures negative to date - continue with Ortho recommendations - will work on glucose control (2) Osteomyelitis of second toe of right foot: Code(s): M86.9 - Osteomyelitis, unspecified Status: Acute Assessment and Plan: as above (3) Osteomyelitis of second toe of left foot: Code(s): M86.9 - Osteomyelitis, unspecified Status: Acute Assessment and Plan: as above (4) Diabetes mellitus with diabetic neuropathy: Qualifiers: Diabetes mellitus type: type 2 Diabetes mellitus penitentiary insulin use: without penitentiary use Qualified Code(s): E11.40 - Type 2 diabetes mellitus with diabetic neuropathy, unspecified Code(s): E11.40 - Type 2 diabetes mellitus with diabetic neuropathy, unspecified Status: Acute Assessment and Plan: last glucose 241 - A1c 11.1% - patient takes metformin at home - Will increase SQ Lantus from 8 U to 10 Units for optimal control Glucose checks ACHS. Hypoglycemic protocol in place. SSI. (5) Elevated blood pressure reading: Code(s): R03.0 - Elevated blood-pressure reading, without diagnosis of hypertension Status: Acute Assessment and Plan: last blood pressure 138/74. Stable. - will monitor trends and if he continues to be elevated, consider starting oral therapy (6) Tobacco use: Code(s): Z72.0 - Tobacco use Status: Acute Assessment and Plan: patient understands that he needs to quit smoking (7) Obstructive sleep apnea: Code(s): G47.33 - Obstructive sleep apnea (adult) (pediatric) Status: Acute Assessment and Plan: continue CPAP at night, CPAP at bedside (8) Sleep trouble: Code(s): G47.9 - Sleep disorder, unspecified Status: Acute Assessment and Plan: Will start Melatonin 3 mg which he states he takes at home. Will give Ativan 0.5mg now. Continue monitoring. CPAP at bedside. (9) Nausea: Code(s): R11.0 - Nausea Status: Acute Assessment and Plan: PRN anitemetics. Believe secondary to anxiety, stress, hospitalization. Pain control. Anxiety control. Time Spent With Patient Time with patient: 25 - 35 minutes Subjective Date/time seen: 02/14/21 10:40 Interval history: Pt is a 55-year-old male here for diabetic foot wound. Date of service 02/14/2021: The patient states he slept yesterday afternoon, but not at all overnight. He is exhausted right now and cannot get any sleep. He still has the pain/discomfort in his left paraspinal back with associated nausea and vomiting currently. He denies any chest pain, shortness of breath, cough, fever, chills, diarrhea, leg swelling, calf pain, pain to his toes, or any other symptoms at this time. Review of Systems Review of Systems: All systems reviewed & are unremarkable except as noted in HPI and below Exam Narrative: General: 55-year-old man laying on his abdomen in bed spitting sputum in a green vomit bag. Appears uncomfortable. In no acute distress. Skin: No jaundice or cyanosis. Good skin turgor. Neck: Full range of motion. Supple. Respiratory: Lungs are clear to auscultation bilaterally. No wheezing, rales or rhonchi. No bony chest wall tenderness. Back: Left reproducible tenderness (T8 area) to palpation of paraspinal area. No midline spinal tenderness. No signs of trauma. Able to go from laying on his back to his abdomen withou
--- NOTE | 2021-02-14 11:44 | PM.IMHP ---
H&P: HPI History of Present Illness Date/Time: 02/14/21 11:44 Chief Complaint: Bilateral diabetic toe ulceration with infection Narrative: patient without pain secondary to neuropathy. He is unsure of exactly when ulcerations started. He has noted the toes have been curled for some time. Review of Systems Constitutional: Constitutional: Reports no additional constitutional complaints, Denies excessive sweating, Denies fever(s) and Denies weight gain Eyes: Eyes: Reports no additional eye complaints and Denies change in vision ENT: Reports system reviewed and no additional complaints, except as documented and Reports Normal hearing present Cardiovascular: Cardiovascular: Denies chest pain, Denies diaphoresis, Denies leg ulcers and Denies dyspnea on exertion Respiratory: Respiratory: Reports no additional respiratory complaints, Denies cough and Denies dyspnea on exertion Gastrointestinal: Gastrointestinal: Reports no additional gastrointestinal complaints, Denies abdominal pain, Denies constipation, Denies nausea and Denies vomiting Genitourinary: Genitourinary: Reports no additional male genitourinary complaints, Denies hematuria and Denies urinary frequency Musculoskeletal: Musculoskeletal: Reports as per HPI Integumentary/Breasts: Skin/Breast: Reports as per HPI Neurologic: Reports Normal hearing present Endocrine: Endocrine: Reports no additional endocrine complaints, Denies change in body appearance, Denies excessive sweating, Denies polyphagia, Denies polydipsia and Denies polyuria [facility] Past Medical History Medical History Anemia COVID-19 virus infection (09/2019) Diabetes mellitus with diabetic neuropathy Hemoglobin A1c was 10.3% in August 2019. GI bleed (12/2018) Secondary to gastric erosions. 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 Family History Family History Father Medical history unknown Mother Healthy adult Sibling Healthy adult Social History Social History Social History: The patient lives in [place]. His mother lives at home with him. Social drinker. Smokes 1/3 pack of cigarettes a day. No illicit substance use. Surrogate decision maker: Taylor Cooper, niece. Code status: Full code. Meds Home Medications and Allergies Home Medications Medication Instructions Recorded Confirmed Type metformin 850 mg PO BID 09/23/19 02/11/21 History atorvastatin [Lipitor] 20 mg PO DAILY 05/08/20 02/11/21 History Allergies Allergy/AdvReac Type Severity Reaction Status Date / Time No Known Allergies Allergy Verified 02/11/21 18:31 Vital Signs Vital Signs - 24 hr 02/13/21 14:00 02/13/21 20:40 02/14/21 06:00 Temperature 96.3 F L 98.3 F 98.8 F Pulse Rate 84 82 89 Respiratory Rate 14 16 Blood Pressure 117/60 115/61 138/74 Pulse Oximetry 94 97 98 Exam Const: General: cooperative Nutritional Appearance: overweight Orientation/consciousness: patient oriented x3 Limitations: no limitations HENMT: Head: normal to inspection Ears: hearing grossly normal bilaterally General nose exam: Normal external nose present Face and sinus: normal facial exam Mouth: Yes moist mucous membranes Teeth and gingiva: dentition normal Eyes: General: appearance normal, both eyes and all related structures Pupils: Equal, round and reactive pupils present EOM: EOMs intact bilaterally Neck: Neck: normal visual inspection Chest: Chest palpation & inspection: normal inspection of the chest Resp: Effort & Inspection: normal respiratory effort and able to speak in co
[2021-02-14 13:17] LABS: Glucose Point of Care 207 mg/dl (65-105)
[2021-02-14] MEDS: LORazepam (*CRX) 0.5 MG TABLET PO (13:22)
--- NOTE | 2021-02-14 13:44 | PC.NURSE ---
pt refusing lab draws. said he is a hard stick. Sarabjit jerome was called by lab to use ultrasound to get a blood draw. Need blood draw for Vanc trough. Will update pharmacy when blood is drawn.
[2021-02-14 14:00] VITALS: BP 132/81; PULSE 62; TEMP 35.5; O2SAT 96
[2021-02-14 15:30] LABS: Vancomycin Trough 16.3 ug/mL (10.0-20.0)
[2021-02-14 17:23] LABS: Glucose Point of Care 231 mg/dl (65-105)
[2021-02-14] MEDS: MELATONIN 3 MG TABLET PO (20:04)
[2021-02-14 20:38] VITALS: BP 126/67; PULSE 82; RESP 16; TEMP 36.6; O2SAT 97
[2021-02-14 21:59] LABS: Glucose Point of Care 190 mg/dl (65-105)
[2021-02-15] VITALS (12 sets, daily range): BP systolic 101–157; BP diastolic 70–99; PULSE 85–96; RESP 12–20; TEMP 36.2–36.8; O2SAT 93–100
[2021-02-15] MEDS: ONDANSETRON INJ 4 MG/2 ML VIAL IV PUSH (03:18)
[2021-02-15 06:16] LABS: Basophils Percent Auto 0.3 % (0.2-1.2); Eosinophils Absolute Auto 0.4 K/mm3 (0-0.3); Eosinophils Percent Auto 3.3 % (0-4.4); Hematocrit 39.1 % (42.0-52.0); Hemoglobin 12.8 g/dL (14.0-18.0); Immature Granulocyte Absolute 0.06 K/mm3 (0.00-0.031); Immature Granulocyte Percent A 0.6 % (0-0.5); Lymphocytes Absolute Auto 1.68 K/mm3 (0.9-3.2); Lymphocytes Percent Auto 15.8 % (18.3-44.2); Mean Corpuscular HGB Conc 32.7 g/dl (32-36); Mean Corpuscular Hemoglobin 28.1 pg (26-34); Mean Corpuscular Volume 85.7 fl (80-100); Mean Platelet Volume 9.3 fl (7.4-10.4); Monocytes Percent Auto 9.4 % (2.6-8.5); Neutrophils Absolute Auto 7.5 K/mm3 (1.3-6.7); Neutrophils Percent Auto 70.6 % (45.5-73.1); Platelet Count Result 343 k/mm3 (150-375); Red Blood Count 4.56 M/mm3 (4.6-6.20); Red Cell Distribution Width 12.1 % (11.5-14.5); White Blood Count 10.6 K/mm3 (4.5-10.0)
[2021-02-15 06:33] LABS: Anion Gap 9 mmol/L (8-16); Blood Urea Nitrogen 12 mg/dL (9-20); CRP 0.9 mg/dL (<1.0); Calcium 9.1 mg/dL (8.4-10.2); Carbon Dioxide 27 mmol/L (22-30); Chloride 98 mmol/L (98-107); Estimated CRCL calculation 87 ml/min; Estimated Glomerular Filt Rate > 60; Glucose 216 mg/dL (65-110); Potassium 3.3 mmol/L (3.4-5.0); Sodium 134 mmol/L (137-145)
[2021-02-15] MEDS: INSULIN GLARGINE (*BKC) 100 UNITS/ML 10 UNITS SUB-Q (07:31)
[2021-02-15 08:28] LABS: Glucose Point of Care 182 mg/dl (65-105)
--- NOTE | 2021-02-15 09:37 | WPDHPUPDATE1 ---
History and Physical Update Update Date/Time: 02/15/21 09:37 History and Physical has been reviewed, including an updated exam of the patient. There are NO changes in the patient's condition. Risks, benefits, and alternatives have been discussed and questions answered. Patient agrees to proceed with procedure.
[2021-02-15 10:01] LABS: Magnesium 1.7 mg/dL (1.6-2.3)
[2021-02-15 12:29] LABS: Glucose Point of Care 146 mg/dl (65-105)
--- NOTE | 2021-02-15 12:32 | PM.IMPN ---
Progress Note: A&P Assessment and Plan (1) Diabetic foot infection: Code(s): E11.628 - Type 2 diabetes mellitus with other skin complications; L08.9 - Local infection of the skin and subcutaneous tissue, unspecified Status: Acute Assessment and Plan: Symptoms and imaging concerning for osteomyelitis bilaterally -plan for surgery today by Dr. Mejia -continue imipenem and vancomycin (#4) until surgery, no indication of obvious systemic infection at this time. blood cultures negative to date - continue with Ortho recommendations - will work on glucose control (2) Osteomyelitis of second toe of right foot: Code(s): M86.9 - Osteomyelitis, unspecified Status: Acute Assessment and Plan: as above (3) Osteomyelitis of second toe of left foot: Code(s): M86.9 - Osteomyelitis, unspecified Status: Acute Assessment and Plan: as above (4) Diabetes mellitus with diabetic neuropathy: Qualifiers: Diabetes mellitus long term care administrator insulin use: without half-way use Diabetes mellitus type: type 2 Qualified Code(s): E11.40 - Type 2 diabetes mellitus with diabetic neuropathy, unspecified Code(s): E11.40 - Type 2 diabetes mellitus with diabetic neuropathy, unspecified Status: Acute Assessment and Plan: last glucose 216 - A1c 11.1% - patient takes metformin at home - Continue SQ Lantus 10 Units for optimal control Glucose checks ACHS. Hypoglycemic protocol in place. SSI. (5) Elevated blood pressure reading: Code(s): R03.0 - Elevated blood-pressure reading, without diagnosis of hypertension Status: Acute Assessment and Plan: last blood pressure 153/88. Stable. - will monitor trends and if he continues to be elevated, consider starting oral therapy (6) Tobacco use: Code(s): Z72.0 - Tobacco use Status: Acute Assessment and Plan: patient understands that he needs to quit smoking (7) Obstructive sleep apnea: Code(s): G47.33 - Obstructive sleep apnea (adult) (pediatric) Status: Acute Assessment and Plan: continue CPAP at night, CPAP at bedside (8) Sleep trouble: Code(s): G47.9 - Sleep disorder, unspecified Status: Acute Assessment and Plan: Continue Melatonin 3 mg which he states he takes at home. Continue monitoring. CPAP at bedside. (9) Nausea: Code(s): R11.0 - Nausea Status: Acute Assessment and Plan: PRN anitemetics. Believe secondary to anxiety, stress, hospitalization. Pain control. Anxiety control. Additional Plan Time Spent With Patient Time with patient: 25 - 35 minutes Subjective Date/time seen: 02/15/21 12:32 Interval history: Pt is a 55-year-old male here for diabetic foot wound. Date of service 02/15/2021: Patient reports feeling better today. Denies any back pain or nausea. He is waiting for his surgery. He states he was getting his IV vancomycin when his IV went bad and he started getting some pain, swelling itching to his arm. The nurse stop the IV and he still has some discomfort. He is otherwise feeling well. Denies any chest pain, shortness of breath, cough, vomiting, abdominal pain, leg swelling, calf pain, or any other symptoms at this time. Review of Systems Review of Systems: All systems reviewed & are unremarkable except as noted in HPI and below Exam Narrative: General: 55-year-old man laying on his abdomen in bed on his phone. Appears comfortable. In no acute distress. Skin: No jaundice or cyanosis. Good skin turgor. Neck: Full range of motion. Supple. Respiratory: Lungs are clear to auscultation bilaterally. No wheezing, rales or rhonchi. No bony chest wall tenderness. Cardiovascular: The heart has a regular rate and rhythm without murmur. Lower extremities: Bilateral 2nd toes, black in color with open wound to plantar aspect of 2nd joint. so
--- NOTE | 2021-02-15 12:42 | PC.NURSE ---
pt to surgery via bed
[2021-02-15] MEDS: LACTATED RINGERS 1,000 ML 30 ML IV CONT (12:50)
--- NOTE | 2021-02-15 12:55 | WPDANESEPPF ---
Anes - Initial Pre Proc Eval Procedure: Operation Date: 02/15/21 15:30 Proposed Procedures p Bilateral 2nd Toe Amputation - Khalif Mejia MD Date/Time: 02/15/21 12:55 Surgeon: Ann Pak PA-C Pre Op Diagnosis: OSTEOMYELITIS SECOND TOE RIGHT FOOT,OSTEOMYELITIS Patient Data Age: 55 Gender: M Height: 1.75 m Weight: 118.18 kg Last Vital Signs Temp 36.2 C L 02/15/21 03:49 Pulse 85 02/15/21 03:49 Resp 16 02/15/21 03:49 BP 148/75 H 02/15/21 03:49 Pulse Ox 97 02/15/21 03:49 Allergies Allergy/AdvReac Type Severity Reaction Status Date / Time No Known Allergies Allergy Verified 02/11/21 18:31 Home Medications Medication Instructions Recorded Confirmed Type metformin 850 mg PO BID 09/23/19 02/11/21 History atorvastatin [Lipitor] 20 mg PO DAILY 05/08/20 02/11/21 History Laboratory Tests 02/14/21 02/14/21 02/14/21 12:58 14:45 17:20 WBC RBC Hgb Hct MCV MCH MCHC RDW Plt Count MPV Immature Gran % (Auto) Neut % (Auto) Lymph % (Auto) [place] % (Auto) Eos % (Auto) Baso % (Auto) Lymph # (Auto) [place] # (Auto) Eos # (Auto) Baso # (Auto) Abs Immat Gran (auto) Absolute Neuts (auto) Absolute Nucleated RBC Nucleated RBC % Sodium Potassium Chloride Carbon Dioxide Anion Gap BUN Creatinine Estim Creat Clear Calc Estimated GFR Glucose POC Capillary Glucose 207 mg/dl H mg/dl 231 mg/dl H mg/dl (65-105) (65-105) Calcium Magnesium C-Reactive Protein Vancomycin Trough 16.3 ug/mL ug/mL (10.0-20.0) 02/14/21 02/15/21 02/15/21 20:06 06:03 06:06 WBC 10.6 K/mm3 H K/mm3 (4.5-10.0) RBC 4.56 M/mm3 L M/mm3 (4.6-6.20) Hgb 12.8 g/dL L g/dL (14.0-18.0) Hct 39.1 % L % (42.0-52.0) MCV 85.7 fl fl (80-100) MCH 28.1 pg pg (26-34) MCHC 32.7 g/dl g/dl (32-36) RDW 12.1 % % (11.5-14.5) Plt Count 343 k/mm3 k/mm3 (150-375) MPV 9.3 fl fl (7.4-10.4) Immature Gran % (Auto) 0.6 % H % (0-0.5) Neut % (Auto) 70.6 % % (45.5-73.1) Lymph % (Auto) 15.8 % L % (18.3-44.2) [place] % (Auto) 9.4 % H % (2.6-8.5) Eos % (Auto) 3.3 % % (0-4.4) Baso % (Auto) 0.3 % % (0.2-1.2) Lymph # (Auto) 1.68 K/mm3 K/mm3 (0.9-3.2) [place] # (Auto) 1.0 K/mm3 H K/mm3 (0.1-0.6) Eos # (Auto) 0.4 K/mm3 H K/mm3 (0-0.3) Baso # (Auto) 0.0 K/mm3 K/mm3 (0.0-0.1) Abs Immat Gran (auto) 0.06 K/mm3 H K/mm3 (0.00-0.031) Absolute Neuts (auto) 7.5 K/mm3 H K/mm3 (1.3-6.7) Absolute Nucleated RBC 0.0 K/mm3 K/mm3 (0.0-0.012) Nucleated RBC % 0.0 % % (0.0-0.2) Sodium Potassium Chloride Carbon Dioxide Anion Gap BUN Creatinine Estim Creat Clear Calc Estimated GFR Glucose POC Capillary Glucose 190 mg/dl H mg/dl (65-105) Calcium Magnesium 1.7 mg/dL mg/dL (1.6-2.3) C-Reactive Protein Vancomycin Trough 02/15/21 02/15/21 02/15/21 06:06 07:33 12:18 WBC RBC Hgb Hct MCV MCH MCHC RDW Plt Count MPV Immature Gran % (Auto) Neut % (Auto) Lymph % (Auto) [place] % (Auto) Eos % (Auto)
[2021-02-15] MEDS: BUPIVACAINE HCL 0.5% PF 30 ML VIAL INFILTRATE (13:59)
--- NOTE | 2021-02-15 14:19 | W.PM.PROC2 ---
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 Deformity of the toe and instability with osteomyelitis, indicated for amputation bilaterally. Findings Gross instability of the proximal interphalangeal joint of the 2nd toe bilaterally with exposed bone. Instability of the 2nd metatarsophalangeal joint right foot unable to be reconstructed. Description of Procedure Indications: Patient is a 55-year-old gentleman with diabetes and peripheral neuropathy with bilateral 2nd toe osteomyelitis. Presents for operative treatment. What was done: Patient identified in the preoperative holding. Informed consent given. Operative extremity marked. Patient received intravenous antibiotics. Patient brought to the operating room where underwent general anesthetic by anesthesia team. Positioned supine on operating room table. Time-out performed confirming the patient, site of the surgery and the plan. Both feet to then prepped and draped usual sterile surgical fashion using a ChloraPrep skin solution. We dressed the right foot 1st. Id Esmarch was used to exsanguinate the foot and wrapped at the ankle as a tourniquet. Fifteen blade knife used to make an elliptical skin incision at the base of the 2nd toe. Bleeding controlled with coagulation. Metatarsophalangeal joint identified and released circumferentially. Toe then removed as 1 and passed off. Cartilage debrided with a rongeur. Wound thoroughly irrigated. Deep tissue closed with 2 0 Vicryl interrupted suture. Subcutaneous tissue repaired with 2 Vicryl and 3-0 Monocryl interrupted suture. Skin repaired with 4-0 nylon interrupted suture. Tourniquet released. The left foot was then addressed. Esmarch used to exsanguinate the foot and wrapped at the ankle as a tourniquet. Fifteen blade knife used to make an elliptical skin incision at the base of the 2nd toe. Bleeding controlled with coagulation. Metatarsophalangeal joint identified and released circumferentially. Toe then removed as 1 and passed off. Cartilage debrided with a rongeur. Wound thoroughly irrigated. Deep tissue closed with 2 0 Vicryl interrupted suture. Subcutaneous tissue repaired with 2 Vicryl and 3-0 Monocryl interrupted suture. Skin repaired with 4-0 nylon interrupted suture Sterile dressing applied. The patient was then woken from anesthesia, extubated and taken to the recovery room in stable condition. All sponge, needle, instrument counts were correct at the end of the case. Estimated Blood Loss 5 Urine Output 200 Drains No Packing No Pathology yes (Second toe right and left) Complications None Condition stable Disposition PACU
[2021-02-15 14:24] LABS: Glucose Point of Care 165 mg/dl (65-105)
--- NOTE | 2021-02-15 15:19 | PC.NURSE ---
pt returned from surgery via bed
[2021-02-15] MEDS: HYDROcodone/acetaminophen (*CRX) 5-325 MG TABLET 1 TAB PO ×2 (15:26→20:10)
[2021-02-15] MEDS: POTASSIUM CHLORIDE 20 MEQ TABLET 40 MEQ PO (15:29)
[2021-02-15 16:56] LABS: Glucose Point of Care 165 mg/dl (65-105)
[2021-02-15] MEDS: PANTOPRAZOLE 40 MG TABLET PO (20:10)
[2021-02-15 22:26] LABS: Glucose Point of Care 161 mg/dl (65-105)
[2021-02-15] MEDS: HYDROcodone/acetaminophen (*CRX) 7.5-325 MG TABLET 1 TAB PO (23:03)
[2021-02-16 00:28] VITALS: BP 111/64; PULSE 88; RESP 18; TEMP 36.1; O2SAT 95
[2021-02-16] MEDS: MELATONIN 3 MG TABLET PO (00:35)
[2021-02-16 04:22] VITALS: BP 102/49; PULSE 85; RESP 17; TEMP 36.6; O2SAT 98
[2021-02-16 06:13] LABS: Basophils Percent Auto 0.4 % (0.2-1.2); Eosinophils Absolute Auto 0.3 K/mm3 (0-0.3); Hematocrit 37.3 % (42.0-52.0); Hemoglobin 12.2 g/dL (14.0-18.0); Immature Granulocyte Absolute 0.05 K/mm3 (0.00-0.031); Immature Granulocyte Percent A 0.5 % (0-0.5); Lymphocytes Absolute Auto 1.76 K/mm3 (0.9-3.2); Lymphocytes Percent Auto 17.2 % (18.3-44.2); Mean Corpuscular HGB Conc 32.7 g/dl (32-36); Mean Corpuscular Volume 85.6 fl (80-100); Mean Platelet Volume 9.3 fl (7.4-10.4); Monocytes Absolute Auto 1.3 K/mm3 (0.1-0.6); Monocytes Percent Auto 12.3 % (2.6-8.5); Neutrophils Absolute Auto 6.8 K/mm3 (1.3-6.7); Neutrophils Percent Auto 66.6 % (45.5-73.1); Platelet Count Result 350 k/mm3 (150-375); Red Blood Count 4.36 M/mm3 (4.6-6.20); Red Cell Distribution Width 12.1 % (11.5-14.5); White Blood Count 10.3 K/mm3 (4.5-10.0)
[2021-02-16 06:26] LABS: Magnesium 1.6 mg/dL (1.6-2.3)
[2021-02-16 06:33] LABS: Anion Gap 8 mmol/L (8-16); Blood Urea Nitrogen 15 mg/dL (9-20); Calcium 9.1 mg/dL (8.4-10.2); Carbon Dioxide 30 mmol/L (22-30); Chloride 99 mmol/L (98-107); Estimated CRCL calculation 57 ml/min; Estimated Glomerular Filt Rate 51; Glucose 135 mg/dL (65-110); Potassium 3.6 mmol/L (3.4-5.0); Sodium 137 mmol/L (137-145)
--- NOTE | 2021-02-16 07:38 | PC.NURSE ---
pt does not have IV access. multiple attempts were made overnight. pt refused after the 4th try. phone message was left for CHASTITY Hurtado RN, overnight.
[2021-02-16] MEDS: HYDROcodone/acetaminophen (*CRX) 5-325 MG TABLET 1 TAB PO (08:46)
[2021-02-16] MEDS: DOCUSATE SODIUM 100 MG CAPSULE PO (08:49)
[2021-02-16] MEDS: ENOXAPARIN 40 MG/0.4 ML SYRINGE SUB-Q (08:49)
[2021-02-16] MEDS: ATORVASTATIN 20 MG TABLET PO (08:50)
[2021-02-16] MEDS: PANTOPRAZOLE 40 MG TABLET PO (08:50)
[2021-02-16 08:51] VITALS: BP 125/80; PULSE 90; RESP 18; TEMP 36.8; O2SAT 96
[2021-02-16] MEDS: LACTATED RINGERS 1,000 ML 100 ML IV CONT (08:56)
[2021-02-16] MEDS: INSULIN GLARGINE (*BKC) 100 UNITS/ML 10 UNITS SUB-Q (09:32)
[2021-02-16 10:09] LABS: Glucose Point of Care 131 mg/dl (65-105)
--- NOTE | 2021-02-16 10:46 | PM.IMPN ---
Progress Note: A&P Assessment and Plan (1) Diabetic foot infection: Code(s): E11.628 - Type 2 diabetes mellitus with other skin complications; L08.9 - Local infection of the skin and subcutaneous tissue, unspecified Status: Acute Assessment and Plan: Status post bilateral 2nd toe amputation postop day 1 -patient is doing well although he does have pain. Will reassess pain medications - Dr. Mejia on board and will be following. -continue imipenem and vancomycin (#5) for now. I have a call out to Dr. mo. no indication of obvious systemic infection at this time. blood cultures negative to date. Suspect these will be discontinued and possibly transition to orals. -cultures growing prevotella and group C strep - continue with Ortho recommendations -glucose improved (2) Osteomyelitis of second toe of right foot: Code(s): M86.9 - Osteomyelitis, unspecified Status: Acute Assessment and Plan: as above (3) Osteomyelitis of second toe of left foot: Code(s): M86.9 - Osteomyelitis, unspecified Status: Acute Assessment and Plan: as above (4) Diabetes mellitus with diabetic neuropathy: Qualifiers: Diabetes mellitus type: type 2 Diabetes mellitus group home insulin use: without group home use Qualified Code(s): E11.40 - Type 2 diabetes mellitus with diabetic neuropathy, unspecified Code(s): E11.40 - Type 2 diabetes mellitus with diabetic neuropathy, unspecified Status: Acute Assessment and Plan: last glucose 131 - A1c 11.1% - patient takes metformin at home - Continue SQ Lantus 10 Units for optimal control -Glucose checks ACHS. Hypoglycemic protocol in place. SSI. (5) Elevated blood pressure reading: Code(s): R03.0 - Elevated blood-pressure reading, without diagnosis of hypertension Status: Acute Assessment and Plan: last blood pressure 125/80 Stable. - will monitor trends and if he continues to be elevated, consider starting oral therapy (6) Tobacco use: Code(s): Z72.0 - Tobacco use Status: Acute Assessment and Plan: patient understands that he needs to quit smoking (7) Obstructive sleep apnea: Code(s): G47.33 - Obstructive sleep apnea (adult) (pediatric) Status: Acute Assessment and Plan: continue CPAP at night, CPAP at bedside (8) Sleep trouble: Code(s): G47.9 - Sleep disorder, unspecified Status: Acute Assessment and Plan: Continue Melatonin 3 mg which he states he takes at home. Continue monitoring. CPAP at bedside. (9) Nausea: Code(s): R11.0 - Nausea Status: Acute Assessment and Plan: resolved today Additional Plan Time Spent With Patient Time with patient: 25 - 35 minutes Subjective Date/time seen: 02/16/21 10:46 Interval history: Pt is a 55-year-old male here for diabetic foot wound. Patient was seen today and states his pain is an 8/10 bilaterally. He has no numbness or tingling to the area. He denies chest pain, shortness of breath, fevers, chills, nausea, vomiting or abdominal pain. He does not like the food here and it makes him nauseous when he thinks about it. Review of Systems Review of Systems: All systems reviewed & are unremarkable except as noted in HPI and below Exam Narrative: General: Well developed well nourished patient in NAD HEENT: normocephalic Neck: supple Neuro: Alert and oriented x4 CV:RRR Resp:CTA Abd: Soft, non distended. No pain to palpation. Positive bowel sounds Extremities: Bilateral dressings to the feet. Sensation and pulses intact. These were not addressed to maintain hemo stability after surgery. Please refer to surgery note Objective Data Vital Signs Vital Signs: Vital Signs - 24 hr 02/15/21 12:49 02/15/21 14:10 02/15/21 14:25 Temperature 97.6 F 97.7 F Pulse Rate 92 88 93 Respiratory Rate 20 12 13 Blood Pr
[2021-02-16 12:08] LABS: Glucose Point of Care 109 mg/dl (65-105)
[2021-02-16 12:51] VITALS: BP 107/59; PULSE 90; RESP 18; TEMP 37; O2SAT 98
--- NOTE | 2021-02-16 15:48 | PM.PNORT ---
Progress Note: A&P Assessment and Plan (1) Status post amputation of toe: Code(s): Z89.429 - Acquired absence of other toe(s), unspecified side Status: Acute Assessment and Plan: POD #1: bilateral 2nd ray amputations Continue pain control. Elevate b/l feet on pillows. Close glycemic control. Pathology pending. ID consulted. Change dressings daily. Post op shoe for b/l feet. Okay to d/c pending antibiotic decisions by ID and when medically cleared. (2) Osteomyelitis of second toe of right foot: Code(s): M86.9 - Osteomyelitis, unspecified Status: Acute (3) Osteomyelitis of second toe of left foot: Code(s): M86.9 - Osteomyelitis, unspecified Status: Acute Subjective Subjective Date/Time Seen: 02/16/21 15:48 Post Op day: 1 Principal diagnosis: Bilateral 2nd ray amp Interval history: POD #1: Bilateral 2nd Ray Amputation No new complaints. Pain well controlled. Review of Systems Review of Systems: All systems reviewed & are unremarkable except as noted in HPI and below Exam Const: General: comfortable and no acute distress Resp: Effort & Inspection: normal respiratory effort Cardio: Rate: regular rate Rhythm: regular rhythm GI: Inspection: non-distended GI Palp: Yes Soft to palpation and No Tenderness to palpation present (GI) Skin: Wounds: wounds noted (see below ) Neuro: Cognition (Neuro): normal cognition Extrem: Other: Incisions at site of 2nd ray amputations of bilateral feel well approximated. No surrounding redness, warmth or swelling. Scant serosanguineous drainage. No purulence. No malodor. Psych: Mental Status: mental status grossly normal Objective Data Vital Signs Vital Signs: Vital Signs - 24 hr 02/15/21 15:51 02/15/21 16:10 02/15/21 17:10 Temperature 36.8 C 36.7 C Pulse Rate 91 86 Respiratory Rate 18 18 Blood Pressure 130/70 146/96 H Pulse Oximetry 97 98 96 02/15/21 20:12 02/16/21 00:28 02/16/21 04:22 Temperature 36.6 C 36.1 C L 36.6 C Pulse Rate 96 88 85 Respiratory Rate 18 18 17 Blood Pressure 157/99 H 111/64 102/49 L Pulse Oximetry 98 95 98 02/16/21 08:51 02/16/21 12:51 Temperature 36.8 C 37.0 C Pulse Rate 90 90 Respiratory Rate 18 18 Blood Pressure 125/80 107/59 L Pulse Oximetry 96 98 Intake/Output Intake/Output: Intake & Output 02/13/21 02/14/21 02/15/21 02/16/21 23:59 23:59 23:59 23:59 Intake Total 2420 1250 2225 590 Output Total 700 1850 Balance 1720 1250 375 590 Meds/Results Medications: Active Medications Generic Name Dose Route Start Last Admin Trade Name Freq PRN Reason Stop Dose Admin Acetaminophen 650 mg 02/15/21 12:32 Acetaminophen 325 Mg Tablet PO Q4H PRN Mild Pain (1-3) or Fever Hydrocodone Bitart/Acetaminophen 1 tab 02/15/21 15:06 02/16/21 08:46 Hydrocodone/Acetaminophen (*Crx) 5-325 Mg Tablet PO 1 tab Q3H PRN Administration Pain Rated 4-6 Hydrocodone Bitart/Acetaminophen 1 tab 02/16/21 10:58 Hydrocodone/Acetaminophen (*Crx) 10-325 Mg Tablet PO Q4H PRN Pain Rated 7-10 Atorvastatin Calcium 20 mg 02/12/21 09:00 02/16/21 08:50 Atorvastatin 20 Mg Tablet PO 20 mg DAILY ARRON Administration Dextrose 12.5 gm 02/11/21 15:53 Dextrose 50% 25 Gm/50 Ml Syringe IV PUSH PRN PRN Hypoglycemia Protocol Docusate Sodium 100 mg 02/15/21 17:00 02/16/21 08:49 Docusate Sodium 100 Mg Capsule PO 100 mg BID ARRON Administration Enoxaparin Sodium 40 mg 02/12/21 09:00 02/16/21 08:49 Enoxaparin 40 Mg/0.4 Ml Syringe SUB-Q 40 mg DAILY ARRON Administration Glucagon 1 mg 02/11/21 15:53 Glucagon For Inj 1 Mg Vial IM PRN PRN Hypoglycemia Protocol Glucose 15 gm 02/11/21 15:53 Glucose Oral Gel 15 Gm Of Glucse In 37.5 Gm Tube PO PRN PRN Hypoglycemia Protocol Imipenem/Cilastatin Sodium 500 mg in 100 mls @ 300 mls/hr 02/12/21 00:00 02/16/21 13:24 Primaxin 500 Mg/
[2021-02-16] MEDS: HYDROcodone/acetaminophen (*CRX) 10-325 MG TABLET 1 TAB PO (16:43)
[2021-02-16 16:51] VITALS: BP 94/64; PULSE 94; RESP 16; TEMP 37.1; O2SAT 95
[2021-02-16 18:08] LABS: Glucose Point of Care 171 mg/dl (65-105)
[2021-02-16 21:19] LABS: Glucose Point of Care 141 mg/dl (65-105)
[2021-02-16 21:32] VITALS: BP 101/57; PULSE 82; RESP 18; TEMP 36.1; O2SAT 97
[2021-02-17] MEDS: PANTOPRAZOLE 40 MG TABLET PO ×2 (00:13→09:47)
[2021-02-17 04:30] VITALS: BP 129/52; PULSE 87; RESP 18; TEMP 36.6; O2SAT 97
[2021-02-17 05:43] LABS: Hematocrit 34.7 % (42.0-52.0); Hemoglobin 11.4 g/dL (14.0-18.0); Mean Corpuscular HGB Conc 32.9 g/dl (32-36); Mean Corpuscular Hemoglobin 28.1 pg (26-34); Mean Corpuscular Volume 85.5 fl (80-100); Mean Platelet Volume 9.1 fl (7.4-10.4); Platelet Count Result 337 k/mm3 (150-375); Red Blood Count 4.06 M/mm3 (4.6-6.20); Red Cell Distribution Width 12.1 % (11.5-14.5); White Blood Count 10.8 K/mm3 (4.5-10.0)
[2021-02-17 06:01] LABS: Anion Gap 8 mmol/L (8-16); Blood Urea Nitrogen 19 mg/dL (9-20); Calcium 8.8 mg/dL (8.4-10.2); Carbon Dioxide 27 mmol/L (22-30); Chloride 99 mmol/L (98-107); Estimated CRCL calculation 49 ml/min; Estimated Glomerular Filt Rate 42; Glucose 125 mg/dL (65-110); Potassium 3.5 mmol/L (3.4-5.0); Sodium 134 mmol/L (137-145)
[2021-02-17] MEDS: LACTATED RINGERS 1,000 ML 100 ML IV CONT ×2 (07:13→18:06)
[2021-02-17 08:39] LABS: Add Urine Microscopic? YES; Appearance Urine Clear (Clear); Bilirubin Urine Negative (Negative); Blood Urine Negative (Negative); Color Urine Yellow (Yellow); Glucose Urine UA 1+ mg/dL (Negative); Ketones Urine Trace mg/dL (Negative); Leukocyte Esterase Ur Negative LEU/UL (Negative); Mucus Urine Rare /lpf; Nitrate Urine Negative (Negative); Protein Urine Negative (Negative); RBC Urine 0-2 /hpf (0-2); Specific Grav Ur 1.016 (1.001-1.035); WBC Urine 0-3 /hpf
[2021-02-17] MEDS: HYDROcodone/acetaminophen (*CRX) 10-325 MG TABLET 1 TAB PO ×3 (09:45→23:06)
[2021-02-17] MEDS: ENOXAPARIN 40 MG/0.4 ML SYRINGE SUB-Q (09:46)
[2021-02-17] MEDS: DOCUSATE SODIUM 100 MG CAPSULE PO (09:47)
[2021-02-17] MEDS: INSULIN GLARGINE (*BKC) 100 UNITS/ML 10 UNITS SUB-Q (09:47)
[2021-02-17] MEDS: ATORVASTATIN 20 MG TABLET PO (09:48)
[2021-02-17 10:01] LABS: Glucose Point of Care 149 mg/dl (65-105)
--- NOTE | 2021-02-17 11:02 | PM.IMPN ---
Progress Note: A&P Assessment and Plan (1) KAYLA (acute kidney injury): Code(s): N17.9 - Acute kidney failure, unspecified Status: Acute Assessment and Plan: Creatinine increased to 1.7 yesterday after surgery and IV fluids were started. His creatinine is now 2.0 today -renal ultrasound has been ordered and is pending. UA negative for infection -no urological symptoms -could be due to medications such as vancomycin or metformin. Vancomycin has been discontinued and metformin has been held. -will repeat tomorrow morning. If it worsens, may need nephrology consult (2) Diabetic foot infection: Code(s): E11.628 - Type 2 diabetes mellitus with other skin complications; L08.9 - Local infection of the skin and subcutaneous tissue, unspecified Status: Acute Assessment and Plan: Status post bilateral 2nd toe amputation postop day 2 -patient's pain is more well controlled with some pain medications -continue Lovenox for DVT prophylaxis - Dr. Mejia on board and will be following. -Spoke with Dr. mo, will transition to ceftdinir for a couple of weeks -cultures growing prevotella and group C strep - continue with Ortho recommendations -glucose improved (3) Osteomyelitis of second toe of right foot: Code(s): M86.9 - Osteomyelitis, unspecified Status: Acute Assessment and Plan: as above (4) Osteomyelitis of second toe of left foot: Code(s): M86.9 - Osteomyelitis, unspecified Status: Acute Assessment and Plan: as above (5) Diabetes mellitus with diabetic neuropathy: Qualifiers: Diabetes mellitus type: type 2 Diabetes mellitus extermination inspector insulin use: without extermination inspector use Qualified Code(s): E11.40 - Type 2 diabetes mellitus with diabetic neuropathy, unspecified Code(s): E11.40 - Type 2 diabetes mellitus with diabetic neuropathy, unspecified Status: Acute Assessment and Plan: last glucose 149 - A1c 11.1% - patient takes metformin at home but this will be held at this time due to kayla - Continue SQ Lantus 10 Units for optimal control -Glucose checks ACHS. Hypoglycemic protocol in place. SSI. (6) Elevated blood pressure reading: Code(s): R03.0 - Elevated blood-pressure reading, without diagnosis of hypertension Status: Acute Assessment and Plan: last blood pressure 129/52 Stable. (7) Tobacco use: Code(s): Z72.0 - Tobacco use Status: Acute Assessment and Plan: patient understands that he needs to quit smoking (8) Obstructive sleep apnea: Code(s): G47.33 - Obstructive sleep apnea (adult) (pediatric) Status: Acute Assessment and Plan: continue CPAP at night (9) Sleep trouble: Code(s): G47.9 - Sleep disorder, unspecified Status: Acute Assessment and Plan: Continue Melatonin 3 mg which he states he takes at home. (10) Nausea: Code(s): R11.0 - Nausea Status: Acute Assessment and Plan: resolved today Additional Plan Subjective Date/time seen: 02/17/21 11:02 Interval history: Pt is a 55-year-old male here for diabetic foot wound. Patient was seen today and states his pain is better today than it was yesterday. He said he still does not like the food here and is not eating much. His last bowel movement was today and has no evidence of diarrhea. We thus talk about the plan of care and he would like to go home. Explained to him that his kidney function is going up and we need to monitor that. He has agreed to stay. No chest pain or shortness of breath. Exam Narrative: General: Well developed well nourished patient in NAD HEENT: normocephalic Neck: supple Neuro: Alert and oriented x4 CV:RRR Resp:CTA Abd: Soft, non distended. No pain to palpation. Positive bowel sounds Extremities: Bilateral dressings to the feet. Sensation and pulses intact. Please refe
[2021-02-17 12:38] LABS: Glucose Point of Care 138 mg/dl (65-105)
[2021-02-17] MEDS: CEFDINIR 300 MG CAPSULE PO ×2 (12:54→20:32)
--- NOTE | 2021-02-17 13:10 | WPDINFPN2 ---
Progress Note: A&P Assessment and Plan (1) Osteomyelitis of second toe of right foot: Code(s): M86.9 - Osteomyelitis, unspecified Status: Acute Assessment and Plan: Acute OM of bilateral 2nd toes, excised REC Due to poorly controlled DM, antibiotics indicated for potential soft tissue infection, use cefdinir. Correction of acute renal failure, then ok home. Once daily antibiotic if/when creatinine clearance drops below 30. Call if Qs Subjective Date/time seen: 02/17/21 13:10 Objective Data Vital Signs Vital Signs: Vital Signs - 24 hr 02/16/21 16:51 02/16/21 21:32 02/17/21 04:30 Temperature 37.1 C 36.1 C L 36.6 C Pulse Rate 94 82 87 Respiratory Rate 16 18 18 Blood Pressure 94/64 L 101/57 L 129/52 L Pulse Oximetry 95 97 97 Intake/Output Intake/Output: Intake & Output 02/14/21 02/15/21 02/16/21 02/17/21 23:59 23:59 23:59 23:59 Intake Total 1250 2225 2610 590 Output Total 1850 450 900 Balance 2608 498 0259 -310 Meds/Results Medications: Active Medications Generic Name Dose Route Start Last Admin Trade Name Freq PRN Reason Stop Dose Admin Acetaminophen 650 mg 02/15/21 12:32 Acetaminophen 325 Mg Tablet PO Q4H PRN Mild Pain (1-3) or Fever Hydrocodone Bitart/Acetaminophen 1 tab 02/15/21 15:06 02/16/21 08:46 Hydrocodone/Acetaminophen (*Crx) 5-325 Mg Tablet PO 1 tab Q3H PRN Administration Pain Rated 4-6 Hydrocodone Bitart/Acetaminophen 1 tab 02/16/21 10:58 02/17/21 09:45 Hydrocodone/Acetaminophen (*Crx) 10-325 Mg Tablet PO 1 tab Q4H PRN Administration Pain Rated 7-10 Atorvastatin Calcium 20 mg 02/12/21 09:00 02/17/21 09:48 Atorvastatin 20 Mg Tablet PO 20 mg DAILY ARRON Administration Cefdinir 300 mg 02/17/21 11:10 02/17/21 12:54 Cefdinir 300 Mg Capsule PO 03/02/21 21:01 300 mg Q12HR ARRON Administration Dextrose 12.5 gm 02/11/21 15:53 Dextrose 50% 25 Gm/50 Ml Syringe IV PUSH PRN PRN Hypoglycemia Protocol Docusate Sodium 100 mg 02/15/21 17:00 02/17/21 09:47 Docusate Sodium 100 Mg Capsule PO 100 mg BID ARRON Administration Enoxaparin Sodium 40 mg 02/12/21 09:00 02/17/21 09:46 Enoxaparin 40 Mg/0.4 Ml Syringe SUB-Q 40 mg DAILY ARRON Administration Glucagon 1 mg 02/11/21 15:53 Glucagon For Inj 1 Mg Vial IM PRN PRN Hypoglycemia Protocol Glucose 15 gm 02/11/21 15:53 Glucose Oral Gel 15 Gm Of Glucse In 37.5 Gm Tube PO PRN PRN Hypoglycemia Protocol Dextrose 1,000 mls @ 100 mls/hr 02/11/21 15:53 Dextrose 5% 1,000 Ml IVPB PRN PRN Hypoglycemia Protocol Lactated Ringer's 1,000 mls @ 100 mls/hr 02/16/21 07:25 02/17/21 07:13 Lr - Lactated Ringers Iv IV CONT 100 mls/hr .Q10H ARRON Administration Insulin Aspart 3 - 6 units 02/11/21 17:00 02/17/21 12:52 Insulin Aspart (*Bkc) 100 Units/Ml SUB-Q Not Given TIDWM ARRON Protocol Insulin Glargine 10 units 02/14/21 09:00 02/17/21 09:47 Insulin Glargine (*Bkc) 100 Units/Ml SUB-Q 10 units DAILY ARRON Administration Magnesium Hydroxide 30 ml 02/15/21 15:06 Magnesium Hydroxide Susp 30 Ml Udc PO BID PRN Constipation Melatonin 3 mg 02/14/21 11:47 02/16/21 00:35 Melatonin 3 Mg Tablet PO 3 mg PRN PRN Administration Insomnia Metformin HCl 850 mg 02/12/21 09:00 02/16/21 18:01 Metformin Hcl 850 Mg Tablet PO 850 mg BID ARRON Administration Ondansetron HCl 4 mg 02/12/21 23:38 02/15/21 03:18 Ondansetron Inj 4 Mg/2 Ml Vial IV PUSH 4 mg Q6H PRN Administration Nausea And Vomiting Pantoprazole Sodium 40 mg 02/13/21 21:00 02/17/21 09:47 Pantoprazole 40 Mg Tablet PO 40 mg Q12HR ARRON Administration Radiology Results: ITS Impressions Foot X-Ray 02/11/21 10:48 IMPRESSION: 1. Subluxation and joint space destruction at the second proximal interphalangeal joint which could reflect osteomyelitis. 2. Geo
--- NOTE | 2021-02-17 14:24 | PM.PNORT ---
Progress Note: A&P Assessment and Plan (1) Status post amputation of toe: Code(s): Z89.429 - Acquired absence of other toe(s), unspecified side Status: Acute Assessment and Plan: POD #2: bilateral 2nd ray amputations Continue pain control. Elevate b/l feet on pillows. Close glycemic control. Pathology pending. ID consulted. Change dressings daily. Post op shoe for b/l feet. Discharge held due to elevated creatinine, renal function. Okay to d/c pending antibiotic decisions by ID and when medically cleared. (2) Osteomyelitis of second toe of right foot: Code(s): M86.9 - Osteomyelitis, unspecified Status: Acute (3) Osteomyelitis of second toe of left foot: Code(s): M86.9 - Osteomyelitis, unspecified Status: Acute Subjective Subjective Date/Time Seen: 02/17/21 14:24 Post Op day: 2 Principal diagnosis: Bilateral 2nd toe osteomyelitis Interval history: Patient awake and alert. Denies pain bilateral feet. States wants to go home. Understands kidney function laboratory tests elevated today. Exam Const: General: comfortable and no acute distress Resp: Effort & Inspection: normal respiratory effort Cardio: Rate: regular rate Rhythm: regular rhythm GI: Inspection: non-distended GI Palp: Yes Soft to palpation and No Tenderness to palpation present (GI) Skin: Wounds: wounds noted (see below ) Neuro: Cognition (Neuro): normal cognition Extrem: Other: Incisions at site of 2nd ray amputations of bilateral feel well approximated. No surrounding redness, warmth or swelling. Scant serosanguineous drainage. No purulence. No malodor. Psych: Mental Status: mental status grossly normal Objective Data Vital Signs Vital Signs: Vital Signs - 24 hr 02/16/21 16:51 02/16/21 21:32 02/17/21 04:30 Temperature 98.8 F 97 F L 97.9 F Pulse Rate 94 82 87 Respiratory Rate 16 18 18 Blood Pressure 94/64 L 101/57 L 129/52 L Pulse Oximetry 95 97 97 Intake/Output Intake/Output: Intake & Output 02/14/21 02/15/21 02/16/21 02/17/21 23:59 23:59 23:59 23:59 Intake Total 1250 2225 2610 590 Output Total 1850 450 900 Balance 4751 510 0062 -310 Meds/Results Medications: Active Medications Generic Name Dose Route Start Last Admin Trade Name Rosalva PRN Reason Stop Dose Admin Acetaminophen 650 mg 02/15/21 12:32 Acetaminophen 325 Mg Tablet PO Q4H PRN Mild Pain (1-3) or Fever Hydrocodone Bitart/Acetaminophen 1 tab 02/15/21 15:06 02/16/21 08:46 Hydrocodone/Acetaminophen (*Crx) 5-325 Mg Tablet PO 1 tab Q3H PRN Administration Pain Rated 4-6 Hydrocodone Bitart/Acetaminophen 1 tab 02/16/21 10:58 02/17/21 09:45 Hydrocodone/Acetaminophen (*Crx) 10-325 Mg Tablet PO 1 tab Q4H PRN Administration Pain Rated 7-10 Atorvastatin Calcium 20 mg 02/12/21 09:00 02/17/21 09:48 Atorvastatin 20 Mg Tablet PO 20 mg DAILY ARRON Administration Cefdinir 300 mg 02/17/21 11:10 02/17/21 12:54 Cefdinir 300 Mg Capsule PO 03/02/21 21:01 300 mg Q12HR ARRON Administration Dextrose 12.5 gm 02/11/21 15:53 Dextrose 50% 25 Gm/50 Ml Syringe IV PUSH PRN PRN Hypoglycemia Protocol Docusate Sodium 100 mg 02/15/21 17:00 02/17/21 09:47 Docusate Sodium 100 Mg Capsule PO 100 mg BID ARRON Administration Enoxaparin Sodium 40 mg 02/12/21 09:00 02/17/21 09:46 Enoxaparin 40 Mg/0.4 Ml Syringe SUB-Q 40 mg DAILY ARRON Administration Glucagon 1 mg 02/11/21 15:53 Glucagon For Inj 1 Mg Vial IM PRN PRN Hypoglycemia Protocol Glucose 15 gm 02/11/21 15:53 Glucose Oral Gel 15 Gm Of Glucse In 37.5 Gm Tube PO PRN PRN Hypoglycemia Protocol Dextrose 1,000 mls @ 100 mls/hr 02/11/21 15:53 Dextrose 5% 1,000 Ml IVPB PRN PRN Hypoglycemia Protocol Lactated Ringer's 1,000 mls @ 100 mls/hr 02/16/21 07:25 02/17/21 07:13 Lr - Lactated Ringers Iv IV CONT 100 mls/hr .Q10H S
[2021-02-17 14:47] VITALS: BP 145/84; PULSE 92; RESP 12; TEMP 37.1; O2SAT 98
--- NOTE | 2021-02-17 17:22 | CONS_ITS ---
DATE OF CONSULTATION: 02/17/2021 REASON FOR CONSULTATION: Osteomyelitis. HISTORY OF PRESENT ILLNESS: A 55-year-old male who has undergone previous first toe amputation and I saw him at the time. He presented to the hospital here 6 days ago with one week of discoloration in both second toes without any preceding trauma, fever, chills, or sweats. He has been on no recent antibiotics. While here, the patient has been receiving imipenem and vancomycin. The patient was taken to the operating room on February 15 and underwent bilateral second toe amputations with resection at the MTP joint. No proximal infection was noted at the time of operation. The patient has no pain, though does have peripheral neuropathy. ALLERGIES: NONE KNOWN. HABITS: 1/3 pack of cigarettes per day. Social alcohol. PRESENT MEDICATIONS: As above. PAST MEDICAL HISTORY: Poorly controlled diabetes mellitus, coronavirus infection September 2019, GI hemorrhage, hyperlipidemia, hypertension, ART, appendectomy, left shoulder arthroscopic surgery. REVIEW OF SYSTEMS: Endocrine, constitutional, musculoskeletal, skin, GI, respiratory otherwise negative. FAMILY HISTORY: Not pertinent to his present illness. SOCIAL HISTORY: He lives locally with his mother. Has a niece who is his surrogate decision maker. PHYSICAL EXAMINATION: GENERAL: Middle-aged male who appears his actual age. No respiratory distress. VITAL SIGNS: Afebrile since arrival, 129/52, 87, 18, 97% on room air. SKIN: Warm and dry. No rashes. EENT: The conjunctivae are normal. NECK: No masses or meningismus. LUNGS: Clear to auscultation. CARDIAC: Regular rate and rhythm. No murmur or gallop. ABDOMEN: Nontender, soft. No masses. No organomegaly. EXTREMITIES: Feet are dressed. He has no proximal erythema, tenderness, warmth, or crepitus. LAB: A superficial swab obtained on admission prevotella and group C strep. Blood cultures final, no growth. White blood cell count 10.8, hemoglobin 11.4, platelets are 337. Urinalysis, 1+ glucose, 2 urobilinogen, no evidence of infection. His creatinine normal on admission, now up to 2.0, BUN is 19. RADIOLOGY: Foot x-rays showed similar findings with evidence of septic arthritis at the PIP joints bilaterally, second toes. ASSESSMENT: 1. Acute osteomyelitis of the toes postop day 2, full excision of infected bone and stable. 2. Acute renal failure, perhaps from his vancomycin versus other possibilities. 3. Diabetes mellitus, very poorly controlled with an A1c over 10%. RECOMMENDATIONS: 1. Glycemic control underway. 2. Hold vancomycin given the above. 3. Oral antibiotics appropriate 14 days. Use cefdinir b.i.d. dosing. If his creatinine clearance drops below 30, I would change to once daily. 4. Local wound care. 5. Thank you for asking me to see him. Call if questions. ADY OSMAN M.D. DEPUTY EDITOR IN CHIEF DEPUTY EDITOR IN CHIEF D I MT: [place]
[2021-02-17 17:53] LABS: Glucose Point of Care 91 mg/dl (65-105)
[2021-02-17 19:31] VITALS: BP 155/89; PULSE 96; RESP 18; TEMP 36.2; O2SAT 98
[2021-02-17 21:07] LABS: Glucose Point of Care 94 mg/dl (65-105)
[2021-02-18 04:31] VITALS: BP 118/56; PULSE 86; RESP 18; TEMP 36.3; O2SAT 99
[2021-02-18] MEDS: LACTATED RINGERS 1,000 ML 100 ML IV CONT ×2 (04:39→09:06)
[2021-02-18 06:46] LABS: Hematocrit 32.4 % (42.0-52.0); Hemoglobin 10.6 g/dL (14.0-18.0); Mean Corpuscular HGB Conc 32.7 g/dl (32-36); Mean Corpuscular Hemoglobin 28.9 pg (26-34); Mean Corpuscular Volume 88.3 fl (80-100); Mean Platelet Volume 9.4 fl (7.4-10.4); Platelet Count Result 335 k/mm3 (150-375); Red Blood Count 3.67 M/mm3 (4.6-6.20); Red Cell Distribution Width 12.3 % (11.5-14.5); White Blood Count 9.1 K/mm3 (4.5-10.0)
[2021-02-18 06:57] LABS: Alanine Aminotransferase 9 U/L (4-50); Albumin Level 3.3 g/dL (3.5-5.1); Alkaline Phosphatase 87 U/L (38-126); Anion Gap 6 mmol/L (8-16); Aspartate Amino Transferase 23 U/L (17-59); Bilirubin,Total 1.5 mg/dL (0.2-1.3); Blood Urea Nitrogen 21 mg/dL (9-20); Calcium 8.8 mg/dL (8.4-10.2); Carbon Dioxide 31 mmol/L (22-30); Chloride 100 mmol/L (98-107); Estimated CRCL calculation 49 ml/min; Estimated Glomerular Filt Rate 42; Glucose 158 mg/dL (65-110); Phosphorus 4.3 mg/dL (2.5-4.5); Potassium 3.4 mmol/L (3.4-5.0); Sodium 137 mmol/L (137-145)
[2021-02-18] MEDS: ATORVASTATIN 20 MG TABLET PO (09:06)
[2021-02-18] MEDS: CEFDINIR 300 MG CAPSULE PO ×2 (09:06→20:18)
[2021-02-18] MEDS: ENOXAPARIN 40 MG/0.4 ML SYRINGE SUB-Q (09:06)
[2021-02-18] MEDS: DOCUSATE SODIUM 100 MG CAPSULE PO (09:06)
[2021-02-18] MEDS: PANTOPRAZOLE 40 MG TABLET PO ×2 (09:06→20:18)
[2021-02-18] MEDS: INSULIN GLARGINE (*BKC) 100 UNITS/ML 10 UNITS SUB-Q (09:07)
[2021-02-18] MEDS: HYDROcodone/acetaminophen (*CRX) 10-325 MG TABLET 1 TAB PO (10:59)
[2021-02-18 12:01] LABS: Glucose Point of Care 140 mg/dl (65-105)
--- NOTE | 2021-02-18 13:51 | PM.IMPN ---
Progress Note: A&P Assessment and Plan (1) KAYLA (acute kidney injury): Code(s): N17.9 - Acute kidney failure, unspecified Status: Acute Assessment and Plan: Creatinine seems to have plateaued at 2.0 today. Hopefully this will continue to improve -renal ultrasound shows mild bladder wall thickening but no signs of infection on UA. will need to follow up with his PCP or urologist about his enlarged prostate -no urological symptoms -could be due to medications such as vancomycin or metformin. both of which have been discontinued -will repeat tomorrow morning. If it worsens, will need nephrology consult. If it has improved tomorrow, may consider discharge depending on the results (2) Diabetic foot infection: Code(s): E11.628 - Type 2 diabetes mellitus with other skin complications; L08.9 - Local infection of the skin and subcutaneous tissue, unspecified Status: Acute Assessment and Plan: Status post bilateral 2nd toe amputation postop day 3 -patient's pain is more well controlled with some pain medications -continue Lovenox for DVT prophylaxis - Dr. Mejia on board and will be following. -Spoke with Dr. mo, will transition to cefdinir for a couple of weeks -cultures growing prevotella and group C strep - continue with Ortho recommendations -glucose improved (3) Osteomyelitis of second toe of right foot: Code(s): M86.9 - Osteomyelitis, unspecified Status: Acute Assessment and Plan: as above (4) Osteomyelitis of second toe of left foot: Code(s): M86.9 - Osteomyelitis, unspecified Status: Acute Assessment and Plan: as above (5) Diabetes mellitus with diabetic neuropathy: Qualifiers: Diabetes mellitus type: type 2 Diabetes mellitus jail insulin use: without terminal press operator use Qualified Code(s): E11.40 - Type 2 diabetes mellitus with diabetic neuropathy, unspecified Code(s): E11.40 - Type 2 diabetes mellitus with diabetic neuropathy, unspecified Status: Acute Assessment and Plan: last glucose 140 - A1c 11.1% - patient takes metformin at home but this will be held at this time due to kayla - Continue SQ Lantus 10 Units for optimal control -Glucose checks ACHS. Hypoglycemic protocol in place. SSI. (6) Elevated blood pressure reading: Code(s): R03.0 - Elevated blood-pressure reading, without diagnosis of hypertension Status: Acute Assessment and Plan: last blood pressure 118/56 Stable. (7) Tobacco use: Code(s): Z72.0 - Tobacco use Status: Acute Assessment and Plan: patient understands that he needs to quit smoking (8) Obstructive sleep apnea: Code(s): G47.33 - Obstructive sleep apnea (adult) (pediatric) Status: Acute Assessment and Plan: continue CPAP at night (9) Sleep trouble: Code(s): G47.9 - Sleep disorder, unspecified Status: Acute Assessment and Plan: Continue Melatonin 3 mg which he states he takes at home. (10) Nausea: Code(s): R11.0 - Nausea Status: Acute Assessment and Plan: resolved today Additional Plan Subjective Date/time seen: 02/18/21 13:51 Interval history: Pt is a 55-year-old male here for diabetic foot wound. patient was seen today and is upset he is not leaving. He says he feels fine and wants to go. He has been having soft stool but not diarrhea. Pt denies nausea, vomiting, fevers, chills, chest pain, sob, or abdominal pain. The pain in his feet have improved Exam Narrative: General: Well developed well nourished patient in NAD HEENT: normocephalic Neck: supple Neuro: Alert and oriented x4 CV:RRR Resp:CTA Abd: Soft, non distended. No pain to palpation. Positive bowel sounds Extremities: Bilateral dressings to the feet. Sensation and pulses intact. Please refer to surgery/wound note for specifics Objective Data
[2021-02-18 15:07] VITALS: BP 157/94; PULSE 83; RESP 16; TEMP 36.7; O2SAT 95
--- NOTE | 2021-02-18 15:51 | PM.PNORT ---
Progress Note: A&P Assessment and Plan (1) Status post amputation of toe: Code(s): Z89.429 - Acquired absence of other toe(s), unspecified side Status: Acute Assessment and Plan: POD #3: bilateral 2nd ray amputations Continue pain control. Elevate b/l feet on pillows. Close glycemic control. Change dressings daily. Post op shoe for b/l feet. Culture of right toe with Group C Streptococcus. Pathology reveals bilateral benign acute ulcers at PIP joints, each with associated underlying acute and chronic osteomyelitis. Antibiotics per ID. Discharge delayed due to kidney function. Okay to d/c from an ortho standpoint when medically stable. (2) Osteomyelitis of second toe of right foot: Code(s): M86.9 - Osteomyelitis, unspecified Status: Acute (3) Osteomyelitis of second toe of left foot: Code(s): M86.9 - Osteomyelitis, unspecified Status: Acute Subjective Subjective Date/Time Seen: 02/18/21 15:51 Post Op day: 3 Interval history: POD #3: Bilateral 2nd Ray Amputation Awake, alert. No c/o pain today. Hopeful for discharge home soon. Review of Systems Review of Systems: All systems reviewed & are unremarkable except as noted in HPI and below Exam Const: General: comfortable and no acute distress Resp: Effort & Inspection: normal respiratory effort Cardio: Rate: regular rate Rhythm: regular rhythm GI: Inspection: non-distended GI Palp: Yes Soft to palpation and No Tenderness to palpation present (GI) Skin: Wounds: wounds noted (see below ) Neuro: Cognition (Neuro): normal cognition Extrem: Other: Incisions at site of 2nd ray amputations of bilateral feel well approximated. No surrounding redness, warmth or swelling. Scant serosanguineous drainage. No purulence. No malodor. Psych: Mental Status: mental status grossly normal Objective Data Vital Signs Vital Signs: Vital Signs - 24 hr 02/17/21 19:31 02/18/21 04:31 02/18/21 15:07 Temperature 36.2 C L 36.3 C L 36.7 C Pulse Rate 96 86 83 Respiratory Rate 18 18 16 Blood Pressure 155/89 H 118/56 L 157/94 H Pulse Oximetry 98 99 95 Intake/Output Intake/Output: Intake & Output 02/15/21 02/16/21 02/17/21 02/18/21 23:59 23:59 23:59 23:59 Intake Total 2225 2610 1590 2440 Output Total 9657 574 6117 1450 Balance 375 2160 240 990 Meds/Results Medications: Active Medications Generic Name Dose Route Start Last Admin Trade Name Freq PRN Reason Stop Dose Admin Acetaminophen 650 mg 02/15/21 12:32 Acetaminophen 325 Mg Tablet PO Q4H PRN Mild Pain (1-3) or Fever Hydrocodone Bitart/Acetaminophen 1 tab 02/15/21 15:06 02/16/21 08:46 Hydrocodone/Acetaminophen (*Crx) 5-325 Mg Tablet PO 1 tab Q3H PRN Administration Pain Rated 4-6 Hydrocodone Bitart/Acetaminophen 1 tab 02/16/21 10:58 02/18/21 10:59 Hydrocodone/Acetaminophen (*Crx) 10-325 Mg Tablet PO 1 tab Q4H PRN Administration Pain Rated 7-10 Atorvastatin Calcium 20 mg 02/12/21 09:00 02/18/21 09:06 Atorvastatin 20 Mg Tablet PO 20 mg DAILY ARRON Administration Cefdinir 300 mg 02/17/21 11:10 02/18/21 09:06 Cefdinir 300 Mg Capsule PO 03/02/21 21:01 300 mg Q12HR ARRON Administration Dextrose 12.5 gm 02/11/21 15:53 Dextrose 50% 25 Gm/50 Ml Syringe IV PUSH PRN PRN Hypoglycemia Protocol Docusate Sodium 100 mg 02/15/21 17:00 02/18/21 09:06 Docusate Sodium 100 Mg Capsule PO 100 mg BID ARRON Administration Enoxaparin Sodium 40 mg 02/12/21 09:00 02/18/21 09:06 Enoxaparin 40 Mg/0.4 Ml Syringe SUB-Q 40 mg DAILY ARRON Administration Glucagon 1 mg 02/11/21 15:53 Glucagon For Inj 1 Mg Vial IM PRN PRN Hypoglycemia Protocol Glucose 15 gm 02/11/21 15:53 Glucose Oral Gel 15 Gm Of Glucse In 37.5 Gm Tube PO PRN PRN Hypoglycemia Protocol Dextrose 1,000 mls @ 100 mls/hr 02/11/21 15:53 Dextrose 5% 1,000 Ml IVPB PRN PRN
[2021-02-18 17:23] LABS: Glucose Point of Care 114 mg/dl (65-105)
[2021-02-18 19:55] VITALS: BP 161/77; PULSE 95; RESP 18; TEMP 36.4; O2SAT 100
[2021-02-18 21:08] LABS: Creatinine Urine 103.7 mg/dL; Total Protein Urine Random 14 mg/dL
[2021-02-18 21:53] LABS: Glucose Point of Care 105 mg/dl (65-105)
[2021-02-19] MEDS: LACTATED RINGERS 1,000 ML 100 ML IV CONT ×2 (04:09→22:22)
[2021-02-19 04:23] LABS: Eosinophil Urine None Seen % (None Seen)
[2021-02-19 06:17] LABS: Anion Gap 5 mmol/L (8-16); Blood Urea Nitrogen 18 mg/dL (9-20); Calcium 9.2 mg/dL (8.4-10.2); Carbon Dioxide 28 mmol/L (22-30); Chloride 100 mmol/L (98-107); Estimated CRCL calculation 54 ml/min; Estimated Glomerular Filt Rate 48; Glucose 107 mg/dL (65-110); Potassium 3.5 mmol/L (3.4-5.0); Sodium 133 mmol/L (137-145)
[2021-02-19 06:30] VITALS: BP 188/90; PULSE 97; RESP 18; TEMP 37; O2SAT 98
[2021-02-19 07:43] VITALS: BP 153/61
[2021-02-19 07:50] LABS: Glucose Point of Care 90 mg/dl (65-105)
[2021-02-19] MEDS: INSULIN GLARGINE (*BKC) 100 UNITS/ML 10 UNITS SUB-Q (09:24)
[2021-02-19] MEDS: PANTOPRAZOLE 40 MG TABLET PO ×2 (09:31→20:56)
[2021-02-19] MEDS: CEFDINIR 300 MG CAPSULE PO ×2 (09:31→20:56)
[2021-02-19] MEDS: ATORVASTATIN 20 MG TABLET PO (09:31)
[2021-02-19] MEDS: ENOXAPARIN 40 MG/0.4 ML SYRINGE SUB-Q (09:31)
--- NOTE | 2021-02-19 09:46 | PM.PNORT ---
Progress Note: A&P Assessment and Plan (1) Status post amputation of toe: Code(s): Z89.429 - Acquired absence of other toe(s), unspecified side Status: Acute Assessment and Plan: POD #4: Bilateral 2nd ray amputations Continue pain control. Elevate b/l feet on pillows. Close glycemic control. Change dressings daily. Patient educated on home dressing changes. Post op shoe for b/l feet. WBAT. Culture of right toe with Group C Streptococcus. Pathology reveals bilateral benign acute ulcers at PIP joints, each with associated underlying acute and chronic osteomyelitis. Antibiotics per ID. Discharge delayed due to kidney function. Improvement in creatinine today. Okay to d/c from an ortho standpoint when medically stable. Follow up arrnaged. (2) Osteomyelitis of second toe of right foot: Code(s): M86.9 - Osteomyelitis, unspecified Status: Acute (3) Osteomyelitis of second toe of left foot: Code(s): M86.9 - Osteomyelitis, unspecified Status: Acute Subjective Subjective Date/Time Seen: 02/19/21 09:46 POD #4: Bilateral 2nd Ray Amputation Awake, alert. No c/o pain. Hopeful for discharge home soon. Review of Systems Review of Systems: All systems reviewed & are unremarkable except as noted in HPI and below Exam Const: General: comfortable and no acute distress Resp: Effort & Inspection: normal respiratory effort Cardio: Rate: regular rate Rhythm: regular rhythm GI: Inspection: non-distended GI Palp: Yes Soft to palpation and No Tenderness to palpation present (GI) Skin: Wounds: wounds noted (see below ) Neuro: Cognition (Neuro): normal cognition Extrem: Other: Incisions at site of 2nd ray amputations of bilateral feel well approximated. No surrounding redness, warmth or swelling. Scant serosanguineous drainage. No purulence. No malodor. Psych: Mental Status: mental status grossly normal Objective Data Vital Signs Vital Signs: Vital Signs - 24 hr 02/18/21 15:07 02/18/21 19:55 02/19/21 06:30 Temperature 36.7 C 36.4 C 37.0 C Pulse Rate 83 95 97 Respiratory Rate 16 18 18 Blood Pressure 157/94 H 161/77 H 188/90 H Pulse Oximetry 95 100 98 02/19/21 07:43 Temperature Pulse Rate Respiratory Rate Blood Pressure 153/61 H Pulse Oximetry Intake/Output Intake/Output: Intake & Output 02/16/21 02/17/21 02/18/21 02/19/21 23:59 23:59 23:59 23:59 Intake Total 2610 1590 2560 1650 Output Total 450 1350 1450 650 Balance 2160 240 1110 1000 Meds/Results Medications: Active Medications Generic Name Dose Route Start Last Admin Trade Name Freq PRN Reason Stop Dose Admin Acetaminophen 650 mg 02/15/21 12:32 Acetaminophen 325 Mg Tablet PO Q4H PRN Mild Pain (1-3) or Fever Hydrocodone Bitart/Acetaminophen 1 tab 02/15/21 15:06 02/16/21 08:46 Hydrocodone/Acetaminophen (*Crx) 5-325 Mg Tablet PO 1 tab Q3H PRN Administration Pain Rated 4-6 Hydrocodone Bitart/Acetaminophen 1 tab 02/16/21 10:58 02/18/21 10:59 Hydrocodone/Acetaminophen (*Crx) 10-325 Mg Tablet PO 1 tab Q4H PRN Administration Pain Rated 7-10 Atorvastatin Calcium 20 mg 02/12/21 09:00 02/19/21 09:31 Atorvastatin 20 Mg Tablet PO 20 mg DAILY ARRON Administration Cefdinir 300 mg 02/17/21 11:10 02/19/21 09:31 Cefdinir 300 Mg Capsule PO 03/02/21 21:01 300 mg Q12HR ARRON Administration Dextrose 12.5 gm 02/11/21 15:53 Dextrose 50% 25 Gm/50 Ml Syringe IV PUSH PRN PRN Hypoglycemia Protocol Docusate Sodium 100 mg 02/15/21 17:00 02/19/21 09:31 Docusate Sodium 100 Mg Capsule PO Not Given BID ARRON Enoxaparin Sodium 40 mg 02/12/21 09:00 02/19/21 09:31 Enoxaparin 40 Mg/0.4 Ml Syringe SUB-Q 40 mg DAILY ARRON Administration Glucagon 1 mg 02/11/21 15:53 Glucagon For Inj 1 Mg Vial IM PRN PRN Hypoglycemia Protocol Glucose 15 gm 02/11/21 15:53 Glucose Oral Gel 15 Gm Of Glucse In
--- NOTE | 2021-02-19 09:54 | PM.IMPN ---
Progress Note: A&P Assessment and Plan (1) KAYLA (acute kidney injury): Code(s): N17.9 - Acute kidney failure, unspecified Status: Acute Assessment and Plan: Creatinine seems to have plateaued at 2.0 today. Hopefully this will continue to improve -renal ultrasound shows mild bladder wall thickening but no signs of infection on UA. will need to follow up with his PCP or urologist about his enlarged prostate -no urological symptoms -could be due to medications such as vancomycin or metformin. both of which have been discontinued -will repeat tomorrow morning. If it worsens, will need nephrology consult. If it has improved tomorrow, may consider discharge depending on the results (2) Diabetic foot infection: Code(s): E11.628 - Type 2 diabetes mellitus with other skin complications; L08.9 - Local infection of the skin and subcutaneous tissue, unspecified Status: Acute Assessment and Plan: Status post bilateral 2nd toe amputation postop day 3 -patient's pain is more well controlled with some pain medications -continue Lovenox for DVT prophylaxis - Dr. Mejia on board and will be following. -Spoke with Dr. mo, will transition to cefdinir for a couple of weeks -cultures growing prevotella and group C strep - continue with Ortho recommendations -glucose improved (3) Osteomyelitis of second toe of right foot: Code(s): M86.9 - Osteomyelitis, unspecified Status: Acute Assessment and Plan: as above (4) Osteomyelitis of second toe of left foot: Code(s): M86.9 - Osteomyelitis, unspecified Status: Acute Assessment and Plan: as above (5) Diabetes mellitus with diabetic neuropathy: Qualifiers: Diabetes mellitus [facility] insulin use: without [facility] use Diabetes mellitus type: type 2 Qualified Code(s): E11.40 - Type 2 diabetes mellitus with diabetic neuropathy, unspecified Code(s): E11.40 - Type 2 diabetes mellitus with diabetic neuropathy, unspecified Status: Acute Assessment and Plan: last glucose 140 - A1c 11.1% - patient takes metformin at home but this will be held at this time due to kayla - Continue SQ Lantus 10 Units for optimal control -Glucose checks ACHS. Hypoglycemic protocol in place. SSI. (6) Elevated blood pressure reading: Code(s): R03.0 - Elevated blood-pressure reading, without diagnosis of hypertension Status: Acute Assessment and Plan: last blood pressure 118/56 Stable. (7) Tobacco use: Code(s): Z72.0 - Tobacco use Status: Acute Assessment and Plan: patient understands that he needs to quit smoking (8) Obstructive sleep apnea: Code(s): G47.33 - Obstructive sleep apnea (adult) (pediatric) Status: Acute Assessment and Plan: continue CPAP at night (9) Sleep trouble: Code(s): G47.9 - Sleep disorder, unspecified Status: Acute Assessment and Plan: Continue Melatonin 3 mg which he states he takes at home. (10) Nausea: Code(s): R11.0 - Nausea Status: Acute Assessment and Plan: resolved today Additional Plan POD4 from bilateral 2nd ray amputation with ortho, recommending elevate feet, daily dressing changes, group c strep growing in culture, pt started on cefdinir to complete 03/02. Cleared for d/c from ortho perspective. Noted pt KAYLA 1.7-2-1.8. renal ultrasound showing chronic cystitis and prostatomegaly. Will have patient follow up with urology for these findings. However, expect prerenal kayla likely explanation for cr, as those are acute changes. As such, pt is on 100 ml/hr LR. Will trend cr again this pm. If not resolving, will get urine lytes & consider renal consultation. Otherwise expect fulfillment associate discharge. Started on tamsulosin for suspected BPH, however pt should follow with urology outpatient to discuss PSA and determine need for workup of
--- NOTE | 2021-02-19 10:05 | PC.NURSE ---
call to vascular rn access to replace IV with ultrasound
--- NOTE | 2021-02-19 10:44 | PCNWS ---
Weekly nutritional screen. Patient is tolerating current diet of DBCC. Patient requested handout on diabetic diet, info attached to patient instructions. No weight loss reported. No further nutritional needs at this time.
[2021-02-19 11:57] LABS: Glucose Point of Care 94 mg/dl (65-105)
[2021-02-19] MEDS: TAMSULOSIN HCL 0.4 MG CAPSULE PO (12:11)
[2021-02-19] MEDS: HYDROcodone/acetaminophen (*CRX) 5-325 MG TABLET 1 TAB PO (14:24)
[2021-02-19 14:40] VITALS: BP 155/79; PULSE 89; RESP 16; TEMP 36.8; O2SAT 96
[2021-02-19 16:28] LABS: Alanine Aminotransferase 11 U/L (4-50); Albumin Level 3.7 g/dL (3.5-5.1); Alkaline Phosphatase 87 U/L (38-126); Anion Gap 10 mmol/L (8-16); Aspartate Amino Transferase 19 U/L (17-59); Bilirubin,Total 1.5 mg/dL (0.2-1.3); Blood Urea Nitrogen 17 mg/dL (9-20); Carbon Dioxide 27 mmol/L (22-30); Chloride 98 mmol/L (98-107); Estimated CRCL calculation 60 ml/min; Estimated Glomerular Filt Rate 55; Glucose 147 mg/dL (65-110); Potassium 3.4 mmol/L (3.4-5.0); Sodium 135 mmol/L (137-145)
[2021-02-19 19:21] LABS: Glucose Point of Care 141 mg/dl (65-105)
[2021-02-19] MEDS: MELATONIN 3 MG TABLET PO (20:58)
[2021-02-19 21:00] LABS: Glucose Point of Care 112 mg/dl (65-105)
[2021-02-19 21:30] VITALS: BP 172/88; PULSE 93; RESP 16; TEMP 36.4; O2SAT 97
[2021-02-20 05:25] VITALS: BP 148/80; PULSE 81; RESP 16; TEMP 36.9; O2SAT 96
[2021-02-20 05:57] LABS: Basophils Absolute Auto 0.1 K/mm3 (0.0-0.1); Basophils Percent Auto 0.6 % (0.2-1.2); Eosinophils Absolute Auto 0.3 K/mm3 (0-0.3); Eosinophils Percent Auto 3.1 % (0-4.4); Hematocrit 28.6 % (42.0-52.0); Hemoglobin 9.3 g/dL (14.0-18.0); Immature Granulocyte Absolute 0.03 K/mm3 (0.00-0.031); Immature Granulocyte Percent A 0.3 % (0-0.5); Lymphocytes Absolute Auto 1.84 K/mm3 (0.9-3.2); Lymphocytes Percent Auto 20.8 % (18.3-44.2); Mean Corpuscular HGB Conc 32.5 g/dl (32-36); Mean Corpuscular Hemoglobin 28.8 pg (26-34); Mean Corpuscular Volume 88.5 fl (80-100); Mean Platelet Volume 9.7 fl (7.4-10.4); Monocytes Absolute Auto 0.9 K/mm3 (0.1-0.6); Monocytes Percent Auto 10.6 % (2.6-8.5); Neutrophils Absolute Auto 5.7 K/mm3 (1.3-6.7); Neutrophils Percent Auto 64.6 % (45.5-73.1); Platelet Count Result 361 k/mm3 (150-375); Red Blood Count 3.23 M/mm3 (4.6-6.20); Red Cell Distribution Width 12.2 % (11.5-14.5); White Blood Count 8.8 K/mm3 (4.5-10.0)
[2021-02-20 06:10] LABS: Alanine Aminotransferase 10 U/L (4-50); Albumin Level 3.3 g/dL (3.5-5.1); Alkaline Phosphatase 79 U/L (38-126); Anion Gap 4 mmol/L (8-16); Aspartate Amino Transferase 19 U/L (17-59); Bilirubin,Total 1.5 mg/dL (0.2-1.3); Blood Urea Nitrogen 16 mg/dL (9-20); Calcium 8.8 mg/dL (8.4-10.2); Carbon Dioxide 31 mmol/L (22-30); Chloride 101 mmol/L (98-107); Estimated CRCL calculation 54 ml/min; Estimated Glomerular Filt Rate 48; Glucose 119 mg/dL (65-110); Magnesium 1.6 mg/dL (1.6-2.3); Phosphorus 3.1 mg/dL (2.5-4.5); Potassium 3.4 mmol/L (3.4-5.0); Sodium 136 mmol/L (137-145)
[2021-02-20 07:38] LABS: Glucose Point of Care 123 mg/dl (65-105)
[2021-02-20 08:00] VITALS: BP 184/98; PULSE 87; TEMP 37.2; O2SAT 98
[2021-02-20] MEDS: ENOXAPARIN 40 MG/0.4 ML SYRINGE SUB-Q (08:41)
[2021-02-20] MEDS: DOCUSATE SODIUM 100 MG CAPSULE PO ×2 (08:41→17:14)
[2021-02-20] MEDS: TAMSULOSIN HCL 0.4 MG CAPSULE PO (08:41)
[2021-02-20] MEDS: PANTOPRAZOLE 40 MG TABLET PO ×2 (08:41→20:18)
[2021-02-20] MEDS: ATORVASTATIN 20 MG TABLET PO (08:41)
[2021-02-20] MEDS: CEFDINIR 300 MG CAPSULE PO ×2 (08:41→20:18)
[2021-02-20] MEDS: INSULIN GLARGINE (*BKC) 100 UNITS/ML 10 UNITS SUB-Q (08:44)
[2021-02-20] MEDS: LACTATED RINGERS 1,000 ML 100 ML IV CONT (08:51)
--- NOTE | 2021-02-20 09:27 | PM.IMPN ---
Progress Note: A&P Assessment and Plan (1) KAYLA (acute kidney injury): Code(s): N17.9 - Acute kidney failure, unspecified Status: Acute Assessment and Plan: Creatinine seems to have plateaued at 2.0 today. Hopefully this will continue to improve -renal ultrasound shows mild bladder wall thickening but no signs of infection on UA. will need to follow up with his PCP or urologist about his enlarged prostate -no urological symptoms -could be due to medications such as vancomycin or metformin. both of which have been discontinued -will repeat tomorrow morning. If it worsens, will need nephrology consult. If it has improved tomorrow, may consider discharge depending on the results (2) Diabetic foot infection: Code(s): E11.628 - Type 2 diabetes mellitus with other skin complications; L08.9 - Local infection of the skin and subcutaneous tissue, unspecified Status: Acute Assessment and Plan: Status post bilateral 2nd toe amputation postop day 3 -patient's pain is more well controlled with some pain medications -continue Lovenox for DVT prophylaxis - Dr. Mejia on board and will be following. -Spoke with Dr. mo, will transition to cefdinir for a couple of weeks -cultures growing prevotella and group C strep - continue with Ortho recommendations -glucose improved (3) Osteomyelitis of second toe of right foot: Code(s): M86.9 - Osteomyelitis, unspecified Status: Acute Assessment and Plan: as above (4) Osteomyelitis of second toe of left foot: Code(s): M86.9 - Osteomyelitis, unspecified Status: Acute Assessment and Plan: as above (5) Diabetes mellitus with diabetic neuropathy: Qualifiers: Diabetes mellitus halfway insulin use: without halfway use Diabetes mellitus type: type 2 Qualified Code(s): E11.40 - Type 2 diabetes mellitus with diabetic neuropathy, unspecified Code(s): E11.40 - Type 2 diabetes mellitus with diabetic neuropathy, unspecified Status: Acute Assessment and Plan: last glucose 140 - A1c 11.1% - patient takes metformin at home but this will be held at this time due to kayla - Continue SQ Lantus 10 Units for optimal control -Glucose checks ACHS. Hypoglycemic protocol in place. SSI. (6) Elevated blood pressure reading: Code(s): R03.0 - Elevated blood-pressure reading, without diagnosis of hypertension Status: Acute Assessment and Plan: last blood pressure 118/56 Stable. (7) Tobacco use: Code(s): Z72.0 - Tobacco use Status: Acute Assessment and Plan: patient understands that he needs to quit smoking (8) Obstructive sleep apnea: Code(s): G47.33 - Obstructive sleep apnea (adult) (pediatric) Status: Acute Assessment and Plan: continue CPAP at night (9) Sleep trouble: Code(s): G47.9 - Sleep disorder, unspecified Status: Acute Assessment and Plan: Continue Melatonin 3 mg which he states he takes at home. (10) Nausea: Code(s): R11.0 - Nausea Status: Acute Assessment and Plan: resolved today Additional Plan POD5 from bilateral 2nd ray amputation with ortho, recommending elevate feet, daily dressing changes, group c strep growing in culture, pt started on cefdinir to complete 03/02. Cleared for d/c from ortho perspective. Noted pt KAYLA 1.7-2-1.8. renal ultrasound showing chronic cystitis and prostatomegaly. Will have patient follow up with urology for these findings. Possibly prerenal kayla. As such, pt is on 150 ml/hr LR, however not improving over two days. May need urine lytes and nephro consult for persistent KAYLA despite rehydration. Started on tamsulosin for suspected BPH, however pt should follow with urology outpatient to discuss PSA and determine need for workup of prostatomegaly. Also hemoglobin downtrending from 12.7 on admission to 9.3 now. Po
[2021-02-20 12:28] LABS: Glucose Point of Care 127 mg/dl (65-105)
[2021-02-20 12:57] LABS: Immature Reticulocyte Fraction 11.7 % (3.0-15.9); Reticulocyte Hemoglobin Conten 32.6 pg (28.2-35.7); Reticulocyte Percent 2.17 % (0.7-4.3); Reticulocytes Absolute 0.08 B/L (32.2-175.7)
[2021-02-20 13:05] LABS: Lactate Dehydrogenase 377 U/L (313-618)
[2021-02-20 13:22] LABS: Iron 104 ug/dL (49-181)
[2021-02-20 13:31] LABS: Percent Iron Saturation 39 % (20-50)
[2021-02-20 14:13] LABS: Folic Acid 15.6 ng/mL (2.76->20)
--- NOTE | 2021-02-20 15:16 | PM.CNNEP ---
Assessment and Plan Assessment and plan (1) KAYLA (acute kidney injury): Code(s): N17.9 - Acute kidney failure, unspecified Status: Acute Assessment and Plan: the patient has acute kidney injury. His ultrasound is negative. His urine creatinine is a little elevated but they did not do a urine sodium. Urine eosinophils are negative and he does not have peripheral eosinophilia. he is on no suspicious medications (other than antibiotics) he says that his urine was brown a couple of days ago but now has lightened up. I suspect that the patient has ATN from his infection. The fact that his creatinine is on the mend suggests that because he is on antibiotics and the infection is getting better now his kidneys are getting better. Allergic interstitial nephritis is always possible in somebody on antibiotics however it would continue to get worse unless his antibiotics were changed. Usually this comes with a rash and fever as well but he has neither. Rhabdomyolysis is a possibility. Will get a CPK. Renal ultrasound ruled out obstruction. Glomerulonephritis is unusual in this clinical scenario. Will check a CK, urine electrolytes, and repeat his renal panel tomorrow. He is eager for discharge but we do need to trend in the correct direction to be ready from the renal standpoint for discharge. His creatinine does not have to be normal before discharge. (2) Diabetic foot infection: Code(s): E11.628 - Type 2 diabetes mellitus with other skin complications; L08.9 - Local infection of the skin and subcutaneous tissue, unspecified Status: Acute Assessment and Plan: His feet are wrapped. He is on antibiotics. Fevers okay and his white count is normal (3) Anemia: Qualifiers: Anemia type: other cause Other causes of anemia: acute posthemorrhagic Qualified Code(s): D62 - Acute posthemorrhagic anemia Code(s): D64.9 - Anemia, unspecified Status: Chronic Assessment and Plan: hemoglobin is 9.3. This is most likely due to anemia of chronic disease. (4) Hyperlipidemia: Code(s): E78.5 - Hyperlipidemia, unspecified Status: Acute Assessment and Plan: The patient is on atorvastatin (5) Diabetes: Code(s): E11.9 - Type 2 diabetes mellitus without complications Status: Acute Additional Plan the patient is on Accu-Cheks and sliding-scale insulin History of Present Illness Reason for Consult Consult date: 09/25/21 Chief Complaint Chief complaint: OSTEOMYELITIS SECOND TOE RIGHT FOOT,OSTEOMYELITIS History of Present Illness Narrative: Michael is a very pleasant 55-year-old gentleman who has multiple medical problems including diabetes, neuropathy, foot ulcers, hyperlipidemia, anemia, GI bleed. The patient came in the hospital because of sores on his toes. Apparently his neuropathy caused his toes to curl and rub on the top of issues. So he has sores there. This happened a couple of weeks ago. And then over the last week his toes and feet swelled more. He never did run a fever but he was concerned about the foot wound so came to the emergency room. There they evaluated him and found to have foot ulcers. He was admitted and placed on antibiotics. He has seen Dr. Mejia in the past for toe issues. He had 1st toe of the right foot amputated a few years ago. After admission the patient's creatinine started rising. It was normal in 0.8 on admission. It peaked at 2.0 on the and 18 of February. It went to 1.6 yesterday and now is at 1.8. Renal consultation was requested. The patient denies any past history of kidney problems. He has a good urinary flow. He does not get up at night to urinate. He has not been taking any nonsteroidal anti-inflammatory agents. He has not received any nephrotoxic medications or contrast. He has received antibiotics and so could have some idiosyncratic reaction to them. He
[2021-02-20 16:37] LABS: Creatine Kinase 49 U/L (55-170)
[2021-02-20 16:57] LABS: Creatinine Urine 64.1 mg/dL
[2021-02-20 16:58] LABS: Sodium Urine Random 109 meq/L
[2021-02-20] MEDS: LACTATED RINGERS 1,000 ML 150 ML IV CONT (17:13)
[2021-02-20 17:18] LABS: Glucose Point of Care 94 mg/dl (65-105)
[2021-02-20 17:52] LABS: Creatinine Urine 63.2 mg/dL; Total Protein Urine Random 13 mg/dL; Ur Ttl Prot Creatinine Ratio 0.21 mg/mg (0-0.20)
[2021-02-20 21:04] VITALS: BP 135/70; PULSE 87; RESP 18; TEMP 37.2; O2SAT 97
[2021-02-20 22:14] LABS: Glucose Point of Care 107 mg/dl (65-105)
[2021-02-21] MEDS: HYDROcodone/acetaminophen (*CRX) 5-325 MG TABLET 1 TAB PO (04:52)
[2021-02-21 05:59] LABS: Basophils Percent Auto 0.4 % (0.2-1.2); Eosinophils Absolute Auto 0.3 K/mm3 (0-0.3); Eosinophils Percent Auto 2.6 % (0-4.4); Hematocrit 29.3 % (42.0-52.0); Hemoglobin 9.5 g/dL (14.0-18.0); Immature Granulocyte Absolute 0.08 K/mm3 (0.00-0.031); Immature Granulocyte Percent A 0.8 % (0-0.5); Lymphocytes Absolute Auto 1.87 K/mm3 (0.9-3.2); Lymphocytes Percent Auto 19.3 % (18.3-44.2); Mean Corpuscular HGB Conc 32.4 g/dl (32-36); Mean Corpuscular Hemoglobin 28.3 pg (26-34); Mean Corpuscular Volume 87.2 fl (80-100); Mean Platelet Volume 9.6 fl (7.4-10.4); Monocytes Percent Auto 10.6 % (2.6-8.5); Neutrophils Absolute Auto 6.4 K/mm3 (1.3-6.7); Neutrophils Percent Auto 66.3 % (45.5-73.1); Platelet Count Result 393 k/mm3 (150-375); Red Blood Count 3.36 M/mm3 (4.6-6.20); Red Cell Distribution Width 12.1 % (11.5-14.5); White Blood Count 9.7 K/mm3 (4.5-10.0)
[2021-02-21 06:13] LABS: Alanine Aminotransferase 14 U/L (4-50); Albumin Level 3.5 g/dL (3.5-5.1); Alkaline Phosphatase 89 U/L (38-126); Anion Gap 9 mmol/L (8-16); Aspartate Amino Transferase 23 U/L (17-59); Bilirubin,Total 1.7 mg/dL (0.2-1.3); Blood Urea Nitrogen 14 mg/dL (9-20); Carbon Dioxide 30 mmol/L (22-30); Chloride 99 mmol/L (98-107); Estimated CRCL calculation 57 ml/min; Estimated Glomerular Filt Rate 51; Glucose 109 mg/dL (65-110); Magnesium 1.4 mg/dL (1.6-2.3); Phosphorus 3.3 mg/dL (2.5-4.5); Potassium 3.4 mmol/L (3.4-5.0); Sodium 138 mmol/L (137-145)
[2021-02-21] MEDS: LACTATED RINGERS 1,000 ML 150 ML IV CONT (06:13)
[2021-02-21 06:26] VITALS: BP 178/94; PULSE 94; RESP 18; TEMP 36.9; O2SAT 97
[2021-02-21] MEDS: DOCUSATE SODIUM 100 MG CAPSULE PO (09:16)
[2021-02-21] MEDS: TAMSULOSIN HCL 0.4 MG CAPSULE PO (09:17)
[2021-02-21] MEDS: ENOXAPARIN 40 MG/0.4 ML SYRINGE SUB-Q (09:17)
[2021-02-21] MEDS: PANTOPRAZOLE 40 MG TABLET PO (09:17)
[2021-02-21] MEDS: CEFDINIR 300 MG CAPSULE PO (09:17)
[2021-02-21] MEDS: ATORVASTATIN 20 MG TABLET PO (09:17)
[2021-02-21] MEDS: LIDOCAINE 5% PATCH 1 PATCH TRANSDERM (09:18)
[2021-02-21] MEDS: INSULIN GLARGINE (*BKC) 100 UNITS/ML 10 UNITS SUB-Q (09:20)
[2021-02-21 09:22] LABS: Glucose Point of Care 107 mg/dl (65-105)
--- NOTE | 2021-02-21 09:40 | PM.PNNEP ---
Progress Note: A&P Assessment and Plan (1) KAYLA (acute kidney injury): Code(s): N17.9 - Acute kidney failure, unspecified Status: Acute Assessment and Plan: the patient has acute kidney injury. His ultrasound is negative. His urine creatinine is a little elevated but they did not do a urine sodium. Urine eosinophils are negative and he does not have peripheral eosinophilia. he is on no suspicious medications (other than antibiotics) CPK is normal most likely this is recovering ATN. It is slowly wondering down. He is eating well, drinking well. Will follow while he is here. He can get some blood work done next week and make an appointment in the office if he ends up being discharged. (2) Diabetic foot infection: Code(s): E11.628 - Type 2 diabetes mellitus with other skin complications; L08.9 - Local infection of the skin and subcutaneous tissue, unspecified Status: Acute Assessment and Plan: wounds look okay. (3) Anemia: Qualifiers: Anemia type: other cause Other causes of anemia: acute posthemorrhagic Qualified Code(s): D62 - Acute posthemorrhagic anemia Code(s): D64.9 - Anemia, unspecified Status: Chronic Assessment and Plan: hemoglobin is 9.5. This is most likely due to anemia of chronic disease. (4) Hyperlipidemia: Code(s): E78.5 - Hyperlipidemia, unspecified Status: Acute Assessment and Plan: The patient is on atorvastatin (5) Diabetes: Code(s): E11.9 - Type 2 diabetes mellitus without complications Status: Acute Additional Plan the patient is on Accu-Cheks and sliding-scale insulin Subjective Date/time seen: 02/21/21 09:40 Interval history: patient is alert. He feels good. No chest pain or shortness of breath. Urine is arabella and clear Eager to get into a shower. He is also eager to get home. Review of Systems Cardiovascular: Cardiovascular: Reports no additional cardiovascular complaints Respiratory: Respiratory: Reports no additional respiratory complaints Gastrointestinal: Gastrointestinal: Reports no additional gastrointestinal complaints Genitourinary: Genitourinary: Reports no additional male genitourinary complaints Exam Narrative: WDWN in NAD skin no rash head ncat lungs clear bilaterally cor reg no rub abd BS+ nontender and soft ext no edema. wounds on toes well apposed Objective Data Vital Signs Vital Signs: Vital Signs - 24 hr 02/20/21 21:04 02/21/21 06:26 Temperature 37.2 C 36.9 C Pulse Rate 87 94 Respiratory Rate 18 18 Blood Pressure 135/70 178/94 H Pulse Oximetry 97 97 Intake/Output Intake/Output: Intake & Output 02/18/21 02/19/21 02/20/21 02/21/21 23:59 23:59 23:59 23:59 Intake Total 2560 3200 4455 740 Output Total 4834 640 6570 1650 Balance 1110 2550 1555 -910 Meds/Results Medications: Active Medications Generic Name Dose Route Start Last Admin Trade Name Freq PRN Reason Stop Dose Admin Acetaminophen 650 mg 02/15/21 12:32 Acetaminophen 325 Mg Tablet PO Q4H PRN Mild Pain (1-3) or Fever Hydrocodone Bitart/Acetaminophen 1 tab 02/15/21 15:06 02/21/21 04:52 Hydrocodone/Acetaminophen (*Crx) 5-325 Mg Tablet PO 1 tab Q3H PRN Administration Pain Rated 4-6 Hydrocodone Bitart/Acetaminophen 1 tab 02/16/21 10:58 02/18/21 10:59 Hydrocodone/Acetaminophen (*Crx) 10-325 Mg Tablet PO 1 tab Q4H PRN Administration Pain Rated 7-10 Atorvastatin Calcium 20 mg 02/12/21 09:00 02/21/21 09:17 Atorvastatin 20 Mg Tablet PO 20 mg DAILY ARRON Administration Cefdinir 300 mg 02/17/21 11:10 02/21/21 09:17 Cefdinir 300 Mg Capsule PO 03/02/21 21:01 300 mg Q12HR ARRON Administration Dextrose 12.5 gm 02/11/21 15:53 Dextrose 50% 25 Gm/50 Ml Syringe IV PUSH PRN PRN Hypoglycemia Protocol Docusate Sodium 100 mg 02/15/21 17:00 02/21/21 09:16 Docusate
--- NOTE | 2021-02-21 10:16 | PM.IMPN ---
Progress Note: A&P Assessment and Plan (1) KAYLA (acute kidney injury): Code(s): N17.9 - Acute kidney failure, unspecified Status: Acute Assessment and Plan: Creatinine seems to have plateaued at 2.0 today. Hopefully this will continue to improve -renal ultrasound shows mild bladder wall thickening but no signs of infection on UA. will need to follow up with his PCP or urologist about his enlarged prostate -no urological symptoms -could be due to medications such as vancomycin or metformin. both of which have been discontinued -will repeat tomorrow morning. If it worsens, will need nephrology consult. If it has improved tomorrow, may consider discharge depending on the results (2) Diabetic foot infection: Code(s): E11.628 - Type 2 diabetes mellitus with other skin complications; L08.9 - Local infection of the skin and subcutaneous tissue, unspecified Status: Acute Assessment and Plan: Status post bilateral 2nd toe amputation postop day 3 -patient's pain is more well controlled with some pain medications -continue Lovenox for DVT prophylaxis - Dr. Mejia on board and will be following. -Spoke with Dr. mo, will transition to cefdinir for a couple of weeks -cultures growing prevotella and group C strep - continue with Ortho recommendations -glucose improved (3) Osteomyelitis of second toe of right foot: Code(s): M86.9 - Osteomyelitis, unspecified Status: Acute Assessment and Plan: as above (4) Osteomyelitis of second toe of left foot: Code(s): M86.9 - Osteomyelitis, unspecified Status: Acute Assessment and Plan: as above (5) Diabetes mellitus with diabetic neuropathy: Qualifiers: Diabetes mellitus [facility] insulin use: without prison use Diabetes mellitus type: type 2 Qualified Code(s): E11.40 - Type 2 diabetes mellitus with diabetic neuropathy, unspecified Code(s): E11.40 - Type 2 diabetes mellitus with diabetic neuropathy, unspecified Status: Acute Assessment and Plan: last glucose 140 - A1c 11.1% - patient takes metformin at home but this will be held at this time due to kayla - Continue SQ Lantus 10 Units for optimal control -Glucose checks ACHS. Hypoglycemic protocol in place. SSI. (6) Elevated blood pressure reading: Code(s): R03.0 - Elevated blood-pressure reading, without diagnosis of hypertension Status: Acute Assessment and Plan: last blood pressure 118/56 Stable. (7) Tobacco use: Code(s): Z72.0 - Tobacco use Status: Acute Assessment and Plan: patient understands that he needs to quit smoking (8) Obstructive sleep apnea: Code(s): G47.33 - Obstructive sleep apnea (adult) (pediatric) Status: Acute Assessment and Plan: continue CPAP at night (9) Sleep trouble: Code(s): G47.9 - Sleep disorder, unspecified Status: Acute Assessment and Plan: Continue Melatonin 3 mg which he states he takes at home. (10) Nausea: Code(s): R11.0 - Nausea Status: Acute Assessment and Plan: resolved today Additional Plan Normocytic Anemia. Hemoglobin downtrending from 12.7 on admission to 9.3 now. Reticulocyte count noted to be low. May warrant Heme/onc consultation for bone marrow failure? B12 Folate, Iron level normal. Denies melena, hemathochezia, hematemesis. No blood in urine. KAYLA. likely ATN. Renal ultrasound showing chronic cystitis and prostatomegaly. Will have patient follow up with urology for these findings. Possibly prerenal kayla. Improving very slowly even with IVF. Per nephro probably related to recovering ATN. FeNa 2.1% supports this. POD6 from bilateral 2nd ray amputation with ortho, recommending elevate feet, daily dressing changes, group c strep growing in culture, pt started on cefdinir to complete 03/02. Cleared for d/c from ortho perspective.
[2021-02-21 12:04] LABS: Glucose Point of Care 118 mg/dl (65-105)
[2021-02-21] MEDS: MAGNESIUM SULF 2 GM/WATER 50ML 2 GM/50 ML BAG IVPB (12:22)
--- NOTE | 2021-02-21 16:35 | PM.DS ---
DS: Admitting Diagnosis Discharge Date February 21, 2021 Admitting Diagnosis swollen and discolored 2nd toe bilaterally. DS: Discharge Diagnosis Discharge Diagnosis (1) Status post amputation of toe: Code(s): Z89.429 - Acquired absence of other toe(s), unspecified side Status: Acute (2) KAYLA (acute kidney injury): Code(s): N17.9 - Acute kidney failure, unspecified Status: Acute (3) Anemia: Qualifiers: Anemia type: other cause Other causes of anemia: acute posthemorrhagic Qualified Code(s): D62 - Acute posthemorrhagic anemia Code(s): D64.9 - Anemia, unspecified Status: Chronic DS: Summary Hospital Course Reason for hospitalization: amputation of bilateral 2nd toes Hospital Course: patient is a 55-year-old male with diabetes who presented to [facility] on February 11 from home for evaluation swollen and discolored 2nd toes on both feet. Has been ongoing for about 1 week, and had been draining a small amount of serous fluid. Of note he has very poorly controlled diabetes with a 1st ray amputation in September 2019. Radiographs demonstrating bilateral 2nd ray subluxation in joint space destruction consistent with osteomyelitis. Patient was started on IV antibiotics. Orthopedic Service consulted. Taken to OR, and amputated both 2nd digits on feet. in addition to surgical debridement. Patient also seen by infectious disease service, recommended converting antibiotics to p.o. cefdinir, to be continued until 14 days, which we will continue upon discharge. Seen by Orthopedic Service, and deemed safe for discharge. Discharge up held initially by acute kidney injury, despite several L of intravenous fluids, creatinine not improving from around 1.6-2. Seen by Nephrology Service, obtain urine lytes, based on fractional excretion of sodium, most likely patient has acute tubular necrosis which is slowly improving. Will have patient obtain renal function tests 2 days after discharge, and follow-up as an outpatient with order desk clerk. Hopefully within 1 week. Patient also has down trending hemoglobin, it was 12.7 on admission, and has been about 9.5 while he has been here over the last few days. It is possible this is related to dilution or frequent blood draws, however when we obtained reticulocyte count it was low. Attempted to convince patient to stay for formal evaluation by drapery worker, and further workup, however he adamantly states he does not want to stay in the hospital. I told him it is my professional opinion that he should stay, leaving could precipitate a worsening bleed, if he is bleeding internally, we would have no way of knowing if we are not trending his hemoglobin. He says he is aware of the risk of a life-threatening bleed, but would prefer to go home. I told him that I count forcibly keep him here and therefore I will discharge him, and recommended strongly that he obtain a CBC within 2 days of discharge, followed by close follow-up with primary care, and drapery worker. Of note, he also was found to have prostatomegaly, not emergent, but should be followed with the urologist for further workup. Sent him to urologist as an outpatient. Continue management of chronic medical conditions unchanged, including diabetes medications. Time spent discussing smoking cessation with patient: 3 to 10 minutes Status at Discharge Functional status at discharge: uses cane/walker Time Spent with Patient Time attestation: Total time spent providing and/or coordinating discharge services: Time spent: Less than 30 minutes Exam Const: General: no acute distress Eyes: General: appearance normal, both eyes and all related structures Neck: Neck: no JVD Resp: Effort & Inspection: normal respiratory effort Auscultation: clear to auscultation bilaterally Cardio: Rate: regular rate Rhythm: regular rhythm GI: GI Palp: Yes Soft to palpation and No Tenderness to palpation pre
[2021-02-24 19:45] LABS: Haptoglobin 320 mg/dL (43-212)
== END 2021-02-21 17:15 | disposition home or self-care (01) | DRG 314 ==
LOC: ANHED 14:43 → ANH3MED 15:13
PROVIDERS: Emergency Medicine; Internal Medicine; Internal Medicine Nephrology; Orthopaedic Surgery; Physician Assistant; Admitting Provider Family Medicine; Emergency Provider Emergency Medicine; Visit Provider Physician Assistant
PROC: 0Y6S0Z0 Detachment at Left 2nd Toe, Complete, Open Approach (ICD-10-PCS; principal; 2021-02-15 15:30)
DX: E11.69 Type 2 diabetes mellitus with other specified complication (principal); M86.171 Other acute osteomyelitis, right ankle and foot; M86.172 Other acute osteomyelitis, left ankle and foot; B95.4 Other streptococcus as the cause of diseases classified elsewhere; M86.672 Other chronic osteomyelitis, left ankle and foot; M86.671 Other chronic osteomyelitis, right ankle and foot; N17.0 Acute kidney failure with tubular necrosis; D62 Acute posthemorrhagic anemia; E78.5 Hyperlipidemia, unspecified; D64.9 Anemia, unspecified; E11.42 Type 2 diabetes mellitus with diabetic polyneuropathy; R03.0 Elevated blood-pressure reading, without diagnosis of hypertension; N40.0 Benign prostatic hyperplasia without lower urinary tract symptoms; F41.9 Anxiety disorder, unspecified; G47.33 Obstructive sleep apnea (adult) (pediatric); F17.210 Nicotine dependence, cigarettes, uncomplicated; E11.621 Type 2 diabetes mellitus with foot ulcer; L97.529 Non-pressure chronic ulcer of other part of left foot with unspecified severity; L97.519 Non-pressure chronic ulcer of other part of right foot with unspecified severity; Z86.16 Personal history of COVID-19; Z90.49 Acquired absence of other specified parts of digestive tract; E66.9 Obesity, unspecified; Z68.38 Body mass index [BMI] 38.0-38.9, adult; E86.0 Dehydration
CPT/HCPCS: 36415; 73630; 76775; 80048; 80053; 80069; 80076; 80202; 81001; 81050; 82550; 82570; 82607; 82728; 82746; 82948; 83010; 83036; 83540; 83550; 83605; 83615; 83735; 84100; 84156; 84300; 85025; 85027; 85046; 85652; 85999; 86140; 87040; 87070; 87075; 87076; 87147; 87185; 87205; 88305; 88311; 96365; 96366; 96367; 96368; 96372; 96376; 99285; A9270; G0378; J0743; J1650; J1815; J2250; J2405; J3370; J3475; J7120

== ENCOUNTER 2021-04-05 10:06 | Inpatient (IN) | payer OTHER, SELFPAY ==
[2021-04-05] VITALS (52 sets, daily range): BP systolic 132–182; BP diastolic 68–114; PULSE 77–104; RESP 16–20; TEMP 36.4–37.9; O2SAT 90–100; BMI 41.6
--- NOTE | ~2021-04-05 | CT_ITS ---
EXAMINATION: CTA chest PE abdomen pel DATE: 04/05/2021 12:22 INDICATION: Chest pain, nausea and vomiting TECHNIQUE: Computed tomography angiography (CTA) of the chest was performed with 100 mL Omnipaque-350 intravenous contrast timed to evaluate the pulmonary arteries. Subsequent postcontrast images of the abdomen and pelvis are obtained. Coronal maximum intensity projection 3D-reconstructions were create d by the technologist. The dose-length product (DLP) was 2539.60 mGy-cm. Automated exposure control a nd iterative reconstruction technique were employed. COMPARISON: 11/15/2019 FINDINGS: CTA CHEST: Respiratory motion artifact limits the examination. The pulmonary arteries are well-opacif ied. No pulmonary embolism is identified. There are patchy groundglass opacities throughout the lungs . No pleural effusion or pneumothorax is identified. There is atelectasis of the lingula and right mi ddle lobe. The heart size is normal. There is mild thoracic spondylosis. ABDOMEN/PELVIS CT: Punctate calcifications in otherwise normal appearing liver and spleen likely repr esent healed granulomatous disease. The pancreas, gallbladder, and adrenal glands are normal. The kid neys are unremarkable. No pathologically enlarged abdominal or pelvic lymph nodes are identified. The re is no free intraperitoneal gas or evidence of bowel obstruction. There is severe lumbar spondylosi s at L5-S1. A fat-containing umbilical hernia is noted. IMPRESSION: 1. No pulmonary embolus identified, sensitivity limited by respiratory motion. 2. Patchy groundglass opacities throughout the lungs which may be infectious/inflammatory versus pulm onary edema. 3. No acute findings of the abdomen or pelvis. Reviewed, dictated and finalized at location B. ING INTERVENTIONIST IMPRESSION: 1. No pulmonary embolus identified, sensitivity limited by respiratory motion. 2. Patchy groundglass opacities throughout the lungs which may be infectious/in flammatory versus pulmonary edema. 3. No acute findings of the abdomen or pelvis.
--- NOTE | ~2021-04-05 | XR_ITS ---
EXAMINATION: XR chest 1V portable INDICATION: Left-sided chest pain and vomiting TECHNIQUE: Portable AP chest at 1042 hours COMPARISON: 05/08/2020 FINDINGS: The lungs are free of acute opacities. There is no pleural effusion or pneumothorax. The ca rdiomediastinal silhouette is normal. IMPRESSION: 1. No acute cardiopulmonary abnormality. Reviewed, dictated and finalized at location B. CHIEF
--- NOTE | 2021-04-05 10:13 | ECG_ITS ---
Measurements Intervals [place] Rate: 84 P: 68 WY: 186 QRS: -41 QRSD: 118 T: 101 QT: 363 QTc: 429 Interpretive Statements SINUS RHYTHM WITH SINUS ARRHYTHMIA LEFT AXIS DEVIATION INTRAVENTRICULAR CONDUCTION DELAY DELAYED PRECORDIAL R/S TRANSITION LEFT VENTRICULAR HYPERTROPHY AND ST-T CHANGE BORDERLINE ECG Electronically Signed On 04-05-2021 10:46:59 MANAGER PORTABLE by Allan Gale D.O.
[2021-04-05 10:20] LABS: Glucose Point of Care 297 mg/dl (65-105)
--- NOTE | 2021-04-05 10:39 | PC.NURSE ---
Xray at bedside.
[2021-04-05 10:42] LABS: Basophils Percent Auto 0.2 % (0.2-1.2); Eosinophils Absolute Auto 0.1 K/mm3 (0-0.3); Eosinophils Percent Auto 1.6 % (0-4.4); Hematocrit 39.7 % (42.0-52.0); Hemoglobin 12.9 g/dL (14.0-18.0); Immature Granulocyte Absolute 0.03 K/mm3 (0.00-0.031); Immature Granulocyte Percent A 0.3 % (0-0.5); Lymphocytes Absolute Auto 1.45 K/mm3 (0.9-3.2); Lymphocytes Percent Auto 16.2 % (18.3-44.2); Mean Corpuscular HGB Conc 32.5 g/dl (32-36); Mean Corpuscular Hemoglobin 28.2 pg (26-34); Mean Corpuscular Volume 86.7 fl (80-100); Mean Platelet Volume 10.5 fl (7.4-10.4); Monocytes Absolute Auto 0.7 K/mm3 (0.1-0.6); Monocytes Percent Auto 7.9 % (2.6-8.5); Neutrophils Absolute Auto 6.6 K/mm3 (1.3-6.7); Neutrophils Percent Auto 73.8 % (45.5-73.1); Platelet Count Result 253 k/mm3 (150-375); Red Blood Count 4.58 M/mm3 (4.6-6.20); Red Cell Distribution Width 12.9 % (11.5-14.5)
[2021-04-05] MEDS: LACTATED RINGERS 1,000 ML 999 ML IV CONT (10:43)
[2021-04-05] MEDS: METOCLOPRAMIDE HCL INJ 10 MG/2 ML VIAL IV PUSH (10:43)
[2021-04-05] MEDS: PANTOPRAZOLE SODIUM IV 40 MG VIAL IV PUSH (10:43)
[2021-04-05] MEDS: diphenhydrAMINE HCl INJ 50 MG/ML VIAL 25 MG IV PUSH (10:44)
--- NOTE | 2021-04-05 11:00 | ED.NAVMDI ---
HPI - Nausea/Vomiting/Diarrhea General Chief complaint: Nausea/Vomiting/Diarrhea Stated complaint: HIGH BP,BLOOD SUGAR,N/V X3D Time Seen by Provider: 04/05/21 10:16 Source: patient and other (friend) Mode of arrival: ambulatory Limitations: clinical condition History of Present Illness HPI Narrative: This is a 55 year old male with history of diabetes mellitus, hypertension, and hyperlipidemia who presents for evaluation of nausea and vomiting. He states he has been sick and vomiting for 2-3 days. He denies diarrhea, abdominal pain or fever. He is unable to keep anything down because he is vomiting when he attempts to eat or drink. Patient also reports left anterior chest and left shoulder pain starting 1 hour ago. He has had similar symptoms to this in past but he is unsure of the cause. He has diabetes for which he takes metformin. His friend states patient does not take his medication and patient states he took it yesterday. On review of past chart, patient previously took different diabetes medication and antihypertensives as well. He states he does not remember taking these medications. Related Data Home Medications Medication Instructions Recorded Confirmed metformin 850 mg PO BID 09/23/19 03/17/21 atorvastatin [Lipitor] 20 mg PO DAILY 05/08/20 03/17/21 Allergies Allergy/AdvReac Type Severity Reaction Status Date / Time No Known Allergies Allergy Verified 03/17/21 10:29 [facility] Past Medical History Medical History Amputation of one or more toes Anemia COVID-19 virus infection (09/2019) Diabetes mellitus with diabetic neuropathy Hemoglobin A1c was 10.3% in August 2019. GI bleed (12/2018) Secondary to gastric erosions. Hyperlipidemia Hyperlipidemia Hypertension Obstructive sleep apnea Tobacco use Surgical History Surgical History History of appendectomy History of arthroscopy of left shoulder History of complete ray amputation of first toe of right foot (08/2019) History of esophagogastroduodenoscopy (12/2018) Gastric erosions. History of foot surgery , Dr. Mejia Family History Family History Father Medical history unknown Mother Healthy adult Sibling Healthy adult Social History Social History Social History: The patient lives in [place]. His mother lives at home with him. Social drinker. Smokes 1/3 pack of cigarettes a day. No illicit substance use. Surrogate decision maker: Taylor Cooper, niece. Code status: Full code. Smoking packs per day: 0.3 Smoking cigarettes per day: 6.0 Tobacco type: cigarettes Course Vital Signs Vital signs: Vital Signs Temperature 97.6 F 04/05/21 10:14 Pulse Rate 85 04/05/21 10:14 Respiratory Rate 20 04/05/21 10:14 Blood Pressure 175/92 H 04/05/21 10:14 Pulse Oximetry 100 04/05/21 10:14 Temperature 97.6 F 04/05/21 10:14 Pulse Rate 88 04/05/21 11:48 Respiratory Rate 20 04/05/21 10:14 Blood Pressure 153/68 H 04/05/21 11:31 Pulse Oximetry 99 04/05/21 12:01 MDM - Nausea/Vomiting/Diarrhea Lab Data Result diagrams: 04/05/21 10:31 04/05/21 10:32 Labs: Lab Results 04/05/21 04/05/21 04/05/21 Range/Units 10:16 10:31 10:32 WBC 9.0 (4.5-10.0) K/mm3 RBC 4.58 L (4.6-6.20) M/mm3 Hgb 12.9 L D (14.0-18.0) g/dL Hct 39.7 L (42.0-52.0) % MCV 86.7 (80-100) fl MCH 28.2 (26-34) pg MCHC 32.5 (32-36) g/dl RDW 12.9 (11.5-14.5) % Plt Count 253 (150-375) k/mm3 MPV 10.5 H (7.4-10.4) fl Immature Gran % (Auto) 0.3 (0-0.5) % Neut % (Auto) 73.8 H (45.5-73.1) % Lymph % (Auto) 16.2 L (18.3-44.2) % Crawford % (Auto) 7.9 (2.6-8.5) % Eos % (Auto) 1.6 (0-4.4) % Baso % (Auto) 0.2 (0.2-1.2) % Lymph # (Auto) 1.45 (0.9-3.2) K/mm3 M
[2021-04-05 11:05] LABS: INR 0.9; Prothrombin Time 12.5 Seconds (11.1-14.7)
[2021-04-05 11:08] LABS: D Dimer 0.59 ug/mL (<0.48)
[2021-04-05] MEDS: NITROGLYCERIN SL 0.4 MG TABLET SUBLINGUAL (11:08)
[2021-04-05 11:11] LABS: Lactic Acid Reflex 1.8 mmol/L (0.7-2.1)
[2021-04-05 11:15] LABS: Alanine Aminotransferase 13 U/L (4-50); Albumin Level 4.6 g/dL (3.5-5.1); Alkaline Phosphatase 134 U/L (38-126); Anion Gap 10 mmol/L (8-16); Aspartate Amino Transferase 18 U/L (17-59); Bilirubin,Total 0.6 mg/dL (0.2-1.3); Blood Urea Nitrogen 17 mg/dL (9-20); CRP 0.6 mg/dL (<1.0); Calcium 10.7 mg/dL (8.4-10.2); Carbon Dioxide 28 mmol/L (22-30); Chloride 98 mmol/L (98-107); Estimated CRCL calculation 88 ml/min; Estimated Glomerular Filt Rate > 60; Glucose 337 mg/dL (65-110); Lipase 52 U/L (23-300); Magnesium 1.8 mg/dL (1.6-2.3); Potassium 4.2 mmol/L (3.4-5.0); Sodium 136 mmol/L (137-145)
[2021-04-05 11:23] LABS: Troponin I < 0.012 ng/mL (0.000-0.034)
--- NOTE | 2021-04-05 11:27 | PC.NURSE ---
Pt asked multiple times to provide urine sample. Pt reports he is still unable to void at this time.
[2021-04-05 11:54] LABS: Add Urine Microscopic? YES; Appearance Urine Clear (Clear); Bilirubin Urine Negative (Negative); Blood Urine Negative (Negative); Color Urine Yellow (Yellow); Glucose Urine UA 3+ mg/dL (Negative); Ketones Urine Trace mg/dL (Negative); Leukocyte Esterase Ur Negative LEU/UL (Negative); Nitrate Urine Negative (Negative); Protein Urine Negative (Negative); RBC Urine 0-2 /hpf (0-2); Specific Grav Ur 1.024 (1.001-1.035); Urobilinogen Urine Negative mg/dL (<2.0); WBC Urine 0-3 /hpf
--- NOTE | 2021-04-05 12:13 | PC.NURSE ---
Pt in CT.
[2021-04-05] MEDS: ONDANSETRON INJ 4 MG/2 ML VIAL IV PUSH (12:26)
[2021-04-05] MEDS: hydrALAZINE HCL 20 MG/ML VIAL IV PUSH (13:21)
[2021-04-05 13:47] LABS: Amphetamine Screen Urine Negative (Negative); Barbiturate Screen Urine Negative (Negative); Benzodiazepines Screen Urine Negative (Negative); Cannabinoid Screen Urine Negative (Negative); Cocaine Screen Urine Positive (Negative); Methadone Screen Urine Negative (Negative); Opiate Screen Urine Negative (Negative); Phencyclidine Screen Urine Negative (Negative)
[2021-04-05 13:54] LABS: NT Pro B Type Natriuretic Pept 110 pg/mL (5-100)
[2021-04-05] MEDS: AZITHROMYCIN 250 MG TABLET 500 MG PO (14:13)
--- NOTE | 2021-04-05 14:35 | PM.IMHP ---
H&P: HPI History of Present Illness Date/Time: 04/05/21 14:35 this is a 55-year-old male patient who has a history of diabetes, hypertension and hyperlipidemia. The patient presented to the emergency room to be evaluated for nausea vomiting. The patient stated he has been having nausea vomiting for at least 2-3 days. He stated that he has been vaccinated fully for the COVID-19. He denies any diarrhea fever or abdominal pain. The patient is unable to keep any pills down. The patient stated that he was supposed to take blood pressure medicine but he does not. The patient has not been able to keep any of his medication down. His H&H is 12.9 and 39.7 which is improved from his last records however this could be related to dehydration. Sodium is 136. D-dimer is 0.59. His blood sugar initially was 337 and then an Accu-Chek was performed and it was 297. Calcium 10.7. Urine is positive for glucose and trace of ketones. The patient was positive for cocaine. Patient's COVID swab is pending. Chest abdominal pelvis CTA was read as no pulmonary embolus identified, since stated limited by respiratory motion. Patchy ground glass opacities throughout the lungs which may be infectious/inflammatory versus pulmonary edema. No acute findings of the abdominal Arb pelvis. Chest x-ray read as no acute cardiopulmonary abnormality. The patient was started on lactated Ringer's, Reglan, Benadryl, Protonix, nitroglycerin, Zofran, hydralazine, Rocephin and azithromycin. The patient was admitted to observation status on the date of service of 04/05/2021. Chief Complaint: Nausea vomiting chest pain Review of Systems Review of Systems: All systems reviewed & are unremarkable except as noted in HPI and below Constitutional: Constitutional: Reports as per HPI and Reports no additional constitutional complaints Eyes: Eyes: Reports as per HPI and Reports no additional eye complaints ENT: Reports system reviewed and no additional complaints, except as documented and Reports Normal hearing present Cardiovascular: Cardiovascular: Reports no additional cardiovascular complaints Respiratory: Respiratory: Reports no additional respiratory complaints and Reports no additional respiratory complaints Gastrointestinal: Gastrointestinal: Reports as per HPI and Reports no additional gastrointestinal complaints Musculoskeletal: Musculoskeletal: Reports no additional musculoskeletal complaints Integumentary/Breasts: Skin/Breast: Reports system reviewed and no additional complaints, except as docu and Reports as per HPI Neurologic: Reports system reviewed and no additional complaints, except as documented, Reports as per HPI and Reports Normal hearing present Psychiatric: Psychiatric: Reports no additional psychiatric complaints and Reports as per HPI Endocrine: Endocrine: Reports no additional endocrine complaints Hematologic/Lymphatic: Hematologic/Lymphatic: Reports no additional hematologic/lymphatic complaints Allergic/Immunologic: Allergic/Immunologic: Reports no additional allergic/immunologic complaints PMFSH Past Medical History Medical History KAYLA (acute kidney injury) Amputation of one or more toes Anemia COVID-19 virus infection (09/2019) Diabetes Diabetes mellitus with diabetic neuropathy Hemoglobin A1c was 11.1 on 02/11/2021 Diabetic foot infection GI bleed (12/2018) Secondary to gastric erosions. 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 History of foot surgery , Dr. Mejia Status post amputation of to
[2021-04-05 15:07] LABS: Troponin I < 0.012 ng/mL (0.000-0.034)
--- NOTE | 2021-04-05 16:08 | ED.NAVMDI ---
HPI - Nausea/Vomiting/Diarrhea General Chief complaint: Nausea/Vomiting/Diarrhea Stated complaint: HIGH BP,BLOOD SUGAR,N/V X3D Time Seen by Provider: 04/05/21 10:16 Source: patient, RN notes reviewed and old records reviewed Mode of arrival: ambulatory Limitations: no limitations History of Present Illness HPI Narrative: This is a 55 year old male with history of diabetes mellitus, hypertension, and hyperlipidemia who presents for evaluation of nausea and vomiting. He states he has been sick and vomiting for 2-3 days. He denies diarrhea, abdominal pain or fever. He has been unable to keep anything down because he is vomiting when he attempts to eat or drink. Patient also reports left anterior chest and left shoulder pain starting 1 hour ago. He has had similar symptoms to this in past but he is unsure of the cause. He has diabetes for which he takes metformin. His friend states patient does not take his medication and patient states he took it yesterday. On review of past chart, patient was taking other medications for hypertension and diabetes but patient is not aware of these other meds. Related Data Home Medications Medication Instructions Recorded Confirmed metformin 850 mg PO BID 09/23/19 04/05/21 atorvastatin [Lipitor] 20 mg PO DAILY 05/08/20 04/05/21 Allergies Allergy/AdvReac Type Severity Reaction Status Date / Time No Known Allergies Allergy Verified 03/17/21 10:29 Review of Systems Review of Systems: All systems reviewed & are unremarkable except as noted in HPI and below PMFSH Past Medical History Medical History KAYLA (acute kidney injury) Amputation of one or more toes Anemia COVID-19 virus infection (09/2019) Diabetes Diabetes mellitus with diabetic neuropathy Hemoglobin A1c was 11.1 on 02/11/2021 Diabetic foot infection GI bleed (12/2018) Secondary to gastric erosions. 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 History of foot surgery , Dr. Mejia Status post amputation of toe Family History Family History Father Medical history unknown Mother Healthy adult Sibling Healthy adult Social History Social History (Updated 04/05/21 @ 14:53 by Sheridan Williamson NP) Social History: The patient lives in [place]. His mother lives at home with him. Social drinker. Smokes 1/3 pack of cigarettes a day. No illicit substance use. Surrogate decision maker: Taylor Cooper, niece. The patient is currently unemployed and is applying for disability. The patient denied using any drugs but stated he smoked marijuana over last couple days. Patient's drug screen was positive for cocaine. Code status: Full code. Smoking packs per day: 0.33 Smoking cigarettes per day: 6.6 Years smoked: 30 Smoking pack-years: 9.90 Smoking status: Current some day smoker Tobacco type: cigarettes Second hand tobacco smoke exposure: No Alcohol intake: never Substance use: never Substance use type: does not use Spiritual care concerns: No Exam Const: General: alert and ill appearing; No diaphoretic Orientation/consciousness: patient oriented x3 Other: actively vomiting HENMT: Head: normocephalic and atraumatic Face and sinus: sinuses nontender and face symmetric Eyes: Pupils: Equal, round and reactive pupils present EOM: EOMs intact bilaterally Chest: Chest palpation & inspection: normal inspection of the chest Resp: Effort & Inspection: normal respiratory effor
--- NOTE | 2021-04-05 16:14 | ADMGEN ---
This patient, Michael Bai, was admitted to Virtual [facility] ICU-2. Patient/family oriented to hospital policies and general routines including ID bracelet, bed and alarms, visiting hours, pain management, procedures, bathroom and other care routines, personal items, smoking policy, room service/diet, and visiting hours. Admission done in the ED. Information on how to activate the Rapid Response Team has been discussed. Patient/Family are encouraged to report perceived risks to care and to ask questions if they do not understand what they are told or what they should do.
--- NOTE | 2021-04-05 17:19 | PC.NURSE ---
Blood sugar 220.
[2021-04-05 17:20] LABS: Glucose Point of Care 220 mg/dl (65-105)
[2021-04-05 17:25] LABS: Phosphorus 3.7 mg/dL (2.5-4.5)
[2021-04-05] MEDS: INSULIN ASPART (*BKC) 100 UNITS/ML SUB-Q (17:29)
[2021-04-05 17:37] LABS: Parathyroid Intact 47.3 pg/mL (7.5-53.5)
[2021-04-05 17:38] LABS: Troponin I < 0.012 ng/mL (0.000-0.034)
[2021-04-05 17:59] LABS: Vitamin D 25 Hydroxy 21.3 ng/mL
[2021-04-05 18:24] LABS: Creatinine Urine 69.1 mg/dL
--- NOTE | 2021-04-05 20:41 | ADMGEN ---
This patient, Michael Bai, was admitted to [facility] Surg Room 310-01. Patient/family oriented to hospital policies and general routines including ID bracelet, bed and alarms, visiting hours, pain management, procedures, bathroom and other care routines, personal items, smoking policy, room service/diet, and visiting hours. Information on how to activate the Rapid Response Team has been discussed. Patient/Family are encouraged to report perceived risks to care and to ask questions if they do not understand what they are told or what they should do.
[2021-04-06] VITALS (12 sets, daily range): BP systolic 151–172; BP diastolic 76–107; PULSE 83–96; RESP 17–20; TEMP 36.6–37.3; O2SAT 94–99
[2021-04-06 02:05] LABS: Glucose Point of Care 184 mg/dl (65-105)
--- NOTE | 2021-04-06 02:10 | PCRCNOTE ---
Respiratory therapist went in and asked pt if they wear a CPAP at home which they stated yes. When asked if they wanted to wear one tonight they stated they wanted to take a shower first and wasnt ready to go to sleep. Therapist told them to let the nurse know when they were ready and the nurse will call respiratory. I talked to the nurse and pt cant shower and they would let me know. It 2 am and i had not heard anything so i checked and pt stated they were not going back to sleep so they did not want to wear it tonight. maybe tomorrow.
[2021-04-06 06:50] LABS: Basophils Percent Auto 0.3 % (0.2-1.2); Eosinophils Absolute Auto 0.1 K/mm3 (0-0.3); Eosinophils Percent Auto 1.3 % (0-4.4); Hematocrit 37.4 % (42.0-52.0); Hemoglobin 12.2 g/dL (14.0-18.0); Immature Granulocyte Absolute 0.04 K/mm3 (0.00-0.031); Immature Granulocyte Percent A 0.4 % (0-0.5); Lymphocytes Absolute Auto 1.81 K/mm3 (0.9-3.2); Lymphocytes Percent Auto 17.2 % (18.3-44.2); Mean Corpuscular HGB Conc 32.6 g/dl (32-36); Mean Corpuscular Hemoglobin 28.6 pg (26-34); Mean Corpuscular Volume 87.6 fl (80-100); Mean Platelet Volume 11.2 fl (7.4-10.4); Monocytes Absolute Auto 0.8 K/mm3 (0.1-0.6); Monocytes Percent Auto 7.1 % (2.6-8.5); Neutrophils Absolute Auto 7.8 K/mm3 (1.3-6.7); Neutrophils Percent Auto 73.7 % (45.5-73.1); Platelet Count Result 236 k/mm3 (150-375); Red Blood Count 4.27 M/mm3 (4.6-6.20); Red Cell Distribution Width 12.9 % (11.5-14.5); White Blood Count 10.5 K/mm3 (4.5-10.0)
[2021-04-06 07:07] LABS: Alanine Aminotransferase 11 U/L (4-50); Alkaline Phosphatase 104 U/L (38-126); Anion Gap 11 mmol/L (8-16); Aspartate Amino Transferase 17 U/L (17-59); Bilirubin,Total 0.6 mg/dL (0.2-1.3); Blood Urea Nitrogen 15 mg/dL (9-20); Calcium 9.7 mg/dL (8.4-10.2); Carbon Dioxide 22 mmol/L (22-30); Chloride 100 mmol/L (98-107); Estimated CRCL calculation 109 ml/min; Estimated Glomerular Filt Rate > 60; Glucose 205 mg/dL (65-110); Lactate Dehydrogenase 300 U/L (313-618); Lipase 80 U/L (23-300); Magnesium 1.5 mg/dL (1.6-2.3); Potassium 3.7 mmol/L (3.4-5.0); Sodium 133 mmol/L (137-145)
[2021-04-06 07:57] LABS: Glucose Point of Care 190 mg/dl (65-105)
[2021-04-06] MEDS: ENOXAPARIN 40 MG/0.4 ML SYRINGE SUB-Q (08:26)
[2021-04-06] MEDS: ATORVASTATIN 20 MG TABLET PO (08:26)
[2021-04-06] MEDS: PANTOPRAZOLE SODIUM IV 40 MG VIAL IV PUSH (08:27)
[2021-04-06] MEDS: HYDROcodone/acetaminophen (*CRX) 7.5-325 MG TABLET 1 TAB PO (08:27)
[2021-04-06] MEDS: MAGNESIUM SULF 1 GM/D5W 100 ML 1 GM/100 ML BAG IVPB (11:08)
[2021-04-06 11:54] LABS: Glucose Point of Care 214 mg/dl (65-105)
[2021-04-06] MEDS: INSULIN ASPART (*BKC) 100 UNITS/ML SUB-Q ×2 (12:16→16:53)
--- NOTE | 2021-04-06 12:22 | PM.CNCAR ---
Assessment and Plan Assessment and plan (1) Chest pain: Code(s): R07.9 - Chest pain, unspecified Status: Acute Assessment and Plan: Pt admits to left scapular pain asso w/ N&V, no anginal-type pain. EKG w/o ischemia Troponins negative. Does not appear to be in CHF. Doubt cardiac etiology. No further evaluation needed. Pt has multiple risk factors for the development of CAD. Advised to FU if any recurrent/ increased discomfort and reviewed anginal sx. (2) Nausea: Code(s): R11.0 - Nausea Status: Acute Assessment and Plan: N&V, improved, prob gastroenteritis. (3) Hypertension: Code(s): I10 - Essential (primary) hypertension Status: Acute Assessment and Plan: Suspect longstanding HTN as he does have LVH on EKG. Reviwed long-term deleterious effects of HTN w/ pt. Start antihypertensive. Consider using an ARB in view of DM. (4) Type 2 diabetes mellitus: Code(s): E11.9 - Type 2 diabetes mellitus without complications Status: Acute Assessment and Plan: Appears poorly controlled. REviewed increased risk of CAD/heart disease w/ pt. (5) Person under investigation for COVID-19: Code(s): Z20.822 - Contact with and (suspected) exposure to COVID-19 Status: Acute Assessment and Plan: COVID screen pending. (6) Cocaine abuse: Code(s): F14.10 - Cocaine abuse, uncomplicated Status: Acute Assessment and Plan: Drug screen was positive for cocaine on admission. History of Present Illness History of Present Illness Consult date/time: 04/06/21 12:22 Requesting physician: Fiona Salvador MD Consult reason: chest pain Reason For Visit: hyperglycemia/left chest pain/hypertension Narrative: Michael Bai is a 55-year-old male whom I was asked to see at the request of the ER physician Dr. Salvador for my advice and opinion regarding his chest discomfort, in consultation. The patient has a history of poorly controlled diabetes, hyperlipidemia, tobacco use and sleep apnea. The patient presented to the emergency room yesterday with nausea and vomiting, unable to keep anything down, for 2-3 days. He was reporting some chest discomfort and left shoulder discomfort which started hour prior to admission to Dr. Salvador. On my interview w/ the pt, he denies any chest discomfort/pain/pressure/tightness, but says he was having some left scapular pain when he had N&V. . His blood sugars were greater than 300, his drug screen was positive for cocaine, and he was hypertensive. Sounds like the patient in general has been noncompliant with his medications. CT scan showed patchy opacities and COVID screen is pending. Pt says his BP was a little high a few years ago but no medications have been prescribed for hypertension. No h/o exertional CP or PINEDA. Has a PMD in [place], not sure of name, Dr. Caraballo? Review of Systems Constitutional: Constitutional: Denies fatigue and Denies weakness Eyes: Eyes: Reports no additional eye complaints ENT: Reports Normal hearing present Cardiovascular: Cardiovascular: Denies chest pain, Denies diaphoresis, Denies pedal edema, Denies leg edema, Denies lightheadedness and Denies palpitations Respiratory: Respiratory: Denies chest congestion, Denies cough, Denies dyspnea and Denies dyspnea on exertion Gastrointestinal: Gastrointestinal: Denies abdominal pain, Denies diarrhea, Reports nausea, Reports vomiting and Denies hematemesis Genitourinary: Genitourinary: Denies dysuria Musculoskeletal: Musculoskeletal: Reports no additional musculoskeletal complaints Integumentary/Breasts: Skin/Breast: Denies rash Neurologic: Denies Abnormal speech present and Denies confusion Psychiatric: Psychiatric: Denies anxiety and Denies confusion PMFSH Past Medical History Medical History KAYLA (acut
--- NOTE | 2021-04-06 13:21 | P.PNIM_ITS ---
Progress Note: A&P Assessment and Plan (1) Multifocal pneumonia: Code(s): J18.9 - Pneumonia, unspecified organism Status: Acute Assessment and Plan: CTA showed patchy ground-glass opacities throughout the lungs. He is febrile. * Continue azithromycin and Rocephin * Supportive care to include bronchodilators, expectorants, antipyretics, incentive spirometry * Sputum culture ordered, awaiting specimen for collection * Blood cultures pending * He is maintaining adequate oxygen saturations on room air. Continue to monitor. Supplemental O2 as needed (2) Chest pain: Code(s): R07.9 - Chest pain, unspecified Status: Acute Assessment and Plan: Presented with left sided chest pain. Resolved today. * Appreciate cardiology consultation * Troponins negative x3 * EKG reviewed with no ischemic changes * CTA negative for PE * Of note, he did test positive for cocaine on urine drug screen, though denies drug use. This may have contributed to his chest pain. (3) Suspected COVID-19 virus infection: Code(s): Z20.822 - Contact with and (suspected) exposure to COVID-19 Status: Acute Assessment and Plan: Given pulmonary opacities and fever, he was tested for COVID-19. * Continue isolation precautions while awaiting results * He did complete [employer] vaccine in August 2020 * He is not a candidate for COVID-19 specific therapy at this time including dexamethasone or remdesivir as he has no oxygen requirements * If COVID-19 test is positive, would discontinue antibiotics (4) Nausea and vomiting: Code(s): R11.2 - Nausea with vomiting, unspecified Status: Acute Assessment and Plan: Resolved. May have been related to hyperglycemia vs PNA, possibly COVID * Continue antiemetics as needed * Advance diet. (5) Type 2 diabetes mellitus: Code(s): E11.9 - Type 2 diabetes mellitus without complications Status: Acute Assessment and Plan: Last A1c in January 2021 was 11.1. Blood sugar was 330 on presentation. No signs of DKA, no elevated anion gap. Improved today though still elevated ranging 180-220. Seems he is poorly compliant with his medication and reports recently missing several doses of his metformin. * Continue Accu-Cheks, sliding scale insulin, hypoglycemic protocol * Continue metformin * Will add Lantus 15 units qHS. He will likely need to be on home insulin given his elevated A1c. * May benefit from outpatient Diabetes Education (6) Hypertension: Code(s): I10 - Essential (primary) hypertension Status: Acute Assessment and Plan: Blood pressures are elevated above target in the 170 systolic. Reports he has been off of his antihypertensives for over 1 year * Initiate amlodipine 5 mg daily * Monitor blood pressure trends. Adjust medication regimen as needed based on results * Avoid beta-blockers given cocaine use (7) Hypomagnesemia: Code(s): E83.42 - Hypomagnesemia Status: Acute Assessment and Plan: Magnesium low at 1.5 today, likely secondary to vomiting. * Administer IV magnesium sulfate * Repeat BMP and Mag tomorrow (8) Obstructive sleep apnea: Code(s): G47.33 - Obstructive sleep apnea (adult) (pediatric) Status: Acute Assessment and Plan: Resume CPAP if COVID-19 test is negative (9) Tobacco use: Code(s): Z72.0 - Tobacco use Status: Acute Assessment and Plan: He smokes 1/3 pack
--- NOTE | 2021-04-06 13:21 | PM.IMPN ---
Progress Note: A&P Assessment and Plan (1) Multifocal pneumonia: Code(s): J18.9 - Pneumonia, unspecified organism Status: Acute Assessment and Plan: CTA showed patchy ground-glass opacities throughout the lungs. He is febrile. Continue azithromycin and Rocephin Supportive care to include bronchodilators, expectorants, antipyretics, incentive spirometry Sputum culture ordered, awaiting specimen for collection Blood cultures pending He is maintaining adequate oxygen saturations on room air. Continue to monitor. Supplemental O2 as needed (2) Chest pain: Code(s): R07.9 - Chest pain, unspecified Status: Acute Assessment and Plan: Presented with left sided chest pain. Resolved today. Appreciate cardiology consultation Troponins negative x3 EKG reviewed with no ischemic changes CTA negative for PE Of note, he did test positive for cocaine on urine drug screen, though denies drug use. This may have contributed to his chest pain. (3) Suspected COVID-19 virus infection: Code(s): Z20.822 - Contact with and (suspected) exposure to COVID-19 Status: Acute Assessment and Plan: Given pulmonary opacities and fever, he was tested for COVID-19. Continue isolation precautions while awaiting results He did complete [employer]ly[employer] vaccine in August 2020 He is not a candidate for COVID-19 specific therapy at this time including dexamethasone or remdesivir as he has no oxygen requirements If COVID-19 test is positive, would discontinue antibiotics (4) Nausea and vomiting: Code(s): R11.2 - Nausea with vomiting, unspecified Status: Acute Assessment and Plan: Resolved. May have been related to hyperglycemia vs PNA, possibly COVID Continue antiemetics as needed Advance diet. (5) Type 2 diabetes mellitus: Code(s): E11.9 - Type 2 diabetes mellitus without complications Status: Acute Assessment and Plan: Last A1c in January 2021 was 11.1. Blood sugar was 330 on presentation. No signs of DKA, no elevated anion gap. Improved today though still elevated ranging 180-220. Seems he is poorly compliant with his medication and reports recently missing several doses of his metformin. Continue Accu-Cheks, sliding scale insulin, hypoglycemic protocol Continue metformin Will add Lantus 15 units qHS. He will likely need to be on home insulin given his elevated A1c. May benefit from outpatient Diabetes Education (6) Hypertension: Code(s): I10 - Essential (primary) hypertension Status: Acute Assessment and Plan: Blood pressures are elevated above target in the 170 systolic. Reports he has been off of his antihypertensives for over 1 year Initiate amlodipine 5 mg daily Monitor blood pressure trends. Adjust medication regimen as needed based on results Avoid beta-blockers given cocaine use (7) Hypomagnesemia: Code(s): E83.42 - Hypomagnesemia Status: Acute Assessment and Plan: Magnesium low at 1.5 today, likely secondary to vomiting. Administer IV magnesium sulfate Repeat BMP and Mag tomorrow (8) Obstructive sleep apnea: Code(s): G47.33 - Obstructive sleep apnea (adult) (pediatric) Status: Acute Assessment and Plan: Resume CPAP if COVID-19 test is negative (9) Tobacco use: Code(s): Z72.0 - Tobacco use Status: Acute Assessment and Plan: He smokes 1/3 pack per day. Reports he has been trying to cut down on cigarette use Declines need for nicotine patch Continue to reinforce smoking cessation Subjective Date/time seen: 04/06/21 13:21 Interval history: Date of service: 04/06/2021 Michael Bai is a 55-year-old male with a history of type 2 diabetes mellitus, osteomyelitis and diabetic foot ulcers s/p amputation of several toes, hypertension, hyperlipidemia who is seen in follow-up for nausea and vomiting. He
[2021-04-06] MEDS: amLODIPine BESYLATE 5 MG TABLET PO (14:12)
[2021-04-06 16:22] LABS: Glucose Point of Care 231 mg/dl (65-105)
[2021-04-06 16:54] LABS: SARS-CoV-2 RNA PCR Negative
[2021-04-06] MEDS: INSULIN GLARGINE (*BKC) 100 UNITS/ML 15 UNITS SUB-Q (20:29)
[2021-04-07] VITALS (11 sets, daily range): BP systolic 106–175; BP diastolic 61–96; PULSE 84–103; RESP 18; TEMP 36.8–37; O2SAT 99–100
[2021-04-07 03:47] LABS: Glucose Point of Care 202 mg/dl (65-105)
[2021-04-07 07:11] LABS: Anion Gap 13 mmol/L (8-16); Blood Urea Nitrogen 15 mg/dL (9-20); CRP < 0.5 mg/dL (<1.0); Calcium 9.6 mg/dL (8.4-10.2); Carbon Dioxide 20 mmol/L (22-30); Chloride 100 mmol/L (98-107); Estimated CRCL calculation 97 ml/min; Estimated Glomerular Filt Rate > 60; Glucose 187 mg/dL (65-110); Potassium 3.7 mmol/L (3.4-5.0); Sodium 133 mmol/L (137-145)
[2021-04-07 08:13] LABS: Hematocrit 38.1 % (42.0-52.0); Hemoglobin 12.9 g/dL (14.0-18.0); Mean Corpuscular HGB Conc 33.9 g/dl (32-36); Mean Corpuscular Hemoglobin 28.3 pg (26-34); Mean Corpuscular Volume 83.6 fl (80-100); Mean Platelet Volume 10.6 fl (7.4-10.4); Platelet Count Result 256 k/mm3 (150-375); Red Blood Count 4.56 M/mm3 (4.6-6.20); Red Cell Distribution Width 12.6 % (11.5-14.5); White Blood Count 9.6 K/mm3 (4.5-10.0)
[2021-04-07 08:22] LABS: Glucose Point of Care 160 mg/dl (65-105)
[2021-04-07] MEDS: ATORVASTATIN 20 MG TABLET PO (08:52)
[2021-04-07] MEDS: ENOXAPARIN 40 MG/0.4 ML SYRINGE SUB-Q (08:52)
[2021-04-07] MEDS: amLODIPine BESYLATE 5 MG TABLET PO (08:52)
[2021-04-07] MEDS: PANTOPRAZOLE SODIUM IV 40 MG VIAL IV PUSH (08:53)
[2021-04-07 11:55] LABS: Glucose Point of Care 144 mg/dl (65-105)
--- NOTE | 2021-04-07 13:05 | PM.IMPN ---
Progress Note: A&P Assessment and Plan (1) Positive blood culture: Code(s): R78.81 - Bacteremia Status: Acute Assessment and Plan: 2/2 blood cultures with growth of coag-negative Staphylococcus. Possibly cutaneous source of infection Continue IV vancomycin. This was initiated yesterday, though the patient refused. I was not informed of refusal. We had a long discussion and he is now agreeable to vancomycin Repeat blood cultures collected today. Await results Fever resolved. No leukocytosis. No significant elevation of inflammatory markers. History of osteomyelitis of bilateral 2nd toes noted in January 2021. He completed appropriate antibiotic therapy for this. Unlikely to be source of infection as exam is benign and he is asymptomatic. (2) Chest pain: Code(s): R07.9 - Chest pain, unspecified Status: Acute Assessment and Plan: Resolved. Presented with left sided chest pain, not felt to be consistent with cardiac etiology Appreciate cardiology consultation Troponins negative x3 EKG reviewed with no ischemic changes CTA negative for PE Of note, he did test positive for cocaine on urine drug screen, though denies drug use. This may have contributed to his chest pain. (3) Nausea and vomiting: Code(s): R11.2 - Nausea with vomiting, unspecified Status: Acute Assessment and Plan: Resolved. May have been related to hyperglycemia vs infectious etiology, possibly viral illness He reports the antiemetics made him nauseous. Symptoms have resolved, therefore no further treatment is necessary (4) Type 2 diabetes mellitus: Code(s): E11.9 - Type 2 diabetes mellitus without complications Status: Acute Assessment and Plan: Last A1c in January 2021 was 11.1. Blood sugar was 330 on presentation. No signs of DKA, no elevated anion gap. Improved today ranging from 140-180. Seems he is poorly compliant with his medication and reports recently missing several doses of his metformin. Continue Accu-Cheks, sliding scale insulin, hypoglycemic protocol Hold metformin Continue Lantus 15 units qHS. He will likely need to be on home insulin given his elevated A1c. May benefit from outpatient Diabetes Education (5) Hypertension: Code(s): I10 - Essential (primary) hypertension Status: Acute Assessment and Plan: Blood pressures are elevated above target in the 170 systolic. Reports he has been off of his antihypertensives for over 1 year. BP improved with antihypertensive, last BP 129/94. Started on amlodipine 5 mg daily Monitor blood pressure trends. Adjust medication regimen as needed based on results Avoid beta-blockers given cocaine use (6) Tobacco use: Code(s): Z72.0 - Tobacco use Status: Acute Assessment and Plan: He smokes 1/3 pack per day. Reports he has been trying to cut down on cigarette use Declines need for nicotine patch Continue to reinforce smoking cessation (7) COVID-19 ruled out by laboratory testing: Code(s): Z20.822 - Contact with and (suspected) exposure to COVID-19 Status: Acute Assessment and Plan: COVID-19 test negative. He completed vaccination in August 2020. Imaging suggestive bilateral opacities, though he is asymptomatic. No further intervention required. (8) Hypomagnesemia: Code(s): E83.42 - Hypomagnesemia Status: Acute Assessment and Plan: Magnesium slightly low secondary to vomiting and was supplemented. Mag 2.0 today (9) Obstructive sleep apnea: Code(s): G47.33 - Obstructive sleep apnea (adult) (pediatric) Status: Acute Assessment and Plan: Continue CPAP Subjective Date/time seen: 04/07/21 13:05 Interval history: Date of service: 04/07/2021 Michael Bai is a 55-year-old male with a history of type 2 diabetes mellitus, osteomyelitis and diabetic foot ulcers s/p amputat
--- NOTE | 2021-04-07 15:11 | PC.NURSE ---
On 04/07/21, the student, Josselin Guerrier, provided care and completed [facility] documentation on this patient. I have reviewed the student's documentation and agree with the findings.
[2021-04-07 17:49] LABS: Glucose Point of Care 151 mg/dl (65-105)
[2021-04-07] MEDS: INSULIN GLARGINE (*BKC) 100 UNITS/ML 15 UNITS SUB-Q (20:42)
[2021-04-07 21:38] LABS: Glucose Point of Care 138 mg/dl (65-105)
[2021-04-08] VITALS (10 sets, daily range): BP systolic 118–139; BP diastolic 72–91; PULSE 81–95; RESP 18–20; TEMP 36.1–36.5; O2SAT 95–99
[2021-04-08 04:45] LABS: Hematocrit 39.8 % (42.0-52.0); Hemoglobin 13.2 g/dL (14.0-18.0); Mean Corpuscular HGB Conc 33.2 g/dl (32-36); Mean Corpuscular Volume 84.5 fl (80-100); Mean Platelet Volume 10.6 fl (7.4-10.4); Platelet Count Result 248 k/mm3 (150-375); Red Blood Count 4.71 M/mm3 (4.6-6.20); Red Cell Distribution Width 12.5 % (11.5-14.5); White Blood Count 8.8 K/mm3 (4.5-10.0)
[2021-04-08 05:08] LABS: Ionized Calcium 5.7 mg/dL (4.8-5.6)
[2021-04-08 05:14] LABS: Anion Gap 11 mmol/L (8-16); Blood Urea Nitrogen 18 mg/dL (9-20); Calcium 9.4 mg/dL (8.4-10.2); Carbon Dioxide 25 mmol/L (22-30); Chloride 101 mmol/L (98-107); Estimated CRCL calculation 82 ml/min; Estimated Glomerular Filt Rate > 60; Glucose 124 mg/dL (65-110); Potassium 3.4 mmol/L (3.4-5.0); Sodium 137 mmol/L (137-145)
[2021-04-08 05:34] LABS: Vancomycin Trough < 5.0 ug/mL (10.0-20.0)
--- NOTE | 2021-04-08 06:29 | PC.NURSE ---
Unable to get IV Access, Deer Farmer Denisse notified and had already attempted and was unsuccessful for dayshift No ultrasound available at that time. Notified Night mailroom supervisor Criss pickens obtained Pharmary notified and updated on Vancomycin status.
--- NOTE | 2021-04-08 08:09 | PC.NURSE ---
Vanc started 03/08 at 0602. No IV access since 03/07 1700; Pt is a hard stick. 3 attempts. Track Moving Machine Operator attempted and notified of antibiotic order and need. U/S not available.
[2021-04-08 08:58] LABS: Glucose Point of Care 175 mg/dl (65-105)
[2021-04-08] MEDS: ENOXAPARIN 40 MG/0.4 ML SYRINGE SUB-Q (09:22)
[2021-04-08] MEDS: amLODIPine BESYLATE 5 MG TABLET PO (09:22)
[2021-04-08] MEDS: PANTOPRAZOLE SODIUM IV 40 MG VIAL IV PUSH (09:23)
[2021-04-08] MEDS: ATORVASTATIN 20 MG TABLET PO (09:23)
[2021-04-08 11:55] LABS: Glucose Point of Care 191 mg/dl (65-105)
[2021-04-08 13:17] LABS: Angiotensin Converting Enzyme 34 U/L (9-67)
--- NOTE | 2021-04-08 16:18 | PM.IMPN ---
Progress Note: A&P Assessment and Plan (1) Positive blood culture: Code(s): R78.81 - Bacteremia Status: Acute Assessment and Plan: 2/2 blood cultures with growth of Staphylococcus epidermis, 1 bottle with 2nd organism Staphylococcus hominis. Possibly cutaneous source of infection. He does have a history of drug use, though denies IV drug use. Continue IV vancomycin. Completed 2 doses. Delay in treatment as patient initially refused as he had history of KAYLA prior vancomycin. Will continue monitoring renal function closely Repeat blood cultures collected 04/07/2021. Negative to date, will await final cultures Fever resolved. No leukocytosis. No significant elevation of inflammatory markers. Will obtain echocardiogram (2) Chest pain: Code(s): R07.9 - Chest pain, unspecified Status: Acute Assessment and Plan: Resolved. Presented with left sided chest pain, not felt to be consistent with cardiac etiology Appreciate cardiology consultation Troponins negative x3 EKG reviewed with no ischemic changes CTA negative for PE Of note, he did test positive for cocaine on urine drug screen, though denies drug use. This may have contributed to his chest pain. (3) Nausea and vomiting: Code(s): R11.2 - Nausea with vomiting, unspecified Status: Acute Assessment and Plan: Resolved. May have been related to hyperglycemia vs infectious etiology, possibly viral illness He reports the antiemetics made him nauseous. Symptoms have resolved, therefore no further treatment is necessary (4) Type 2 diabetes mellitus: Code(s): E11.9 - Type 2 diabetes mellitus without complications Status: Acute Assessment and Plan: Last A1c in January 2021 was 11.1. Blood sugar was 330 on presentation. No signs of DKA, no elevated anion gap. Improved today ranging from 124-190. Seems he is poorly compliant with his medication and reports recently missing several doses of his metformin. Continue Accu-Cheks, sliding scale insulin, hypoglycemic protocol Hold metformin Continue Lantus 15 units qHS. He will likely need to be on home insulin given his elevated A1c. May benefit from outpatient Diabetes Education (5) Hypertension: Code(s): I10 - Essential (primary) hypertension Status: Acute Assessment and Plan: Blood pressures had been elevated above target in the 170s systolic. Reports he has been off of his antihypertensives for over 1 year. BP improved with antihypertensive, last BP 139/91. Started on amlodipine 5 mg daily Monitor blood pressure trends. Adjust medication regimen as needed based on results Avoid beta-blockers given cocaine use (6) Tobacco use: Code(s): Z72.0 - Tobacco use Status: Acute Assessment and Plan: He smokes 1/3 pack per day. Reports he has been trying to cut down on cigarette use Declines need for nicotine patch Continue to reinforce smoking cessation (7) COVID-19 ruled out by laboratory testing: Code(s): Z20.822 - Contact with and (suspected) exposure to COVID-19 Status: Acute Assessment and Plan: COVID-19 test negative. He completed vaccination in August 2020. Imaging suggestive bilateral opacities, though he is asymptomatic. No further intervention required. (8) Hypomagnesemia: Code(s): E83.42 - Hypomagnesemia Status: Acute Assessment and Plan: Resolved. Magnesium slightly low secondary to vomiting and was supplemented. (9) Obstructive sleep apnea: Code(s): G47.33 - Obstructive sleep apnea (adult) (pediatric) Status: Acute Assessment and Plan: Continue CPAP Subjective Date/time seen: 04/08/21 16:18 Interval history: Date of service: 04/08/2021 Michael Bai is a 55-year-old male with a history of type 2 diabetes mellitus, osteomyelitis and diabetic foot ulcers s/p amputation of several toes, hyp
[2021-04-08 17:00] LABS: Glucose Point of Care 138 mg/dl (65-105)
--- NOTE | 2021-04-08 18:07 | ECG_ITS ---
Measurements Intervals [place] Rate: 89 P: 60 ME: 174 QRS: -42 QRSD: 118 T: 106 QT: 354 QTc: 432 Interpretive Statements SINUS RHYTHM LEFT AXIS DEVIATION INTRAVENTRICULAR CONDUCTION DELAY VOLTAGE CRITERIA FOR LVH BORDERLINE R WAVE PROGRESSION, ANTERIOR LEADS MINIMAL Q WAVES- HIGH LATERAL LEADS ST-T WAVE ABNORMALITY IN HIGH LATERAL LEADS- CONSIDER ISCHEMIA BASELINE ARTIFACT- I, AVR, AVL ABNORMAL ECG Electronically Signed On 04-08-2021 19:51:44 [employer] by Allan Gale D.O.
[2021-04-08 19:35] LABS: Troponin I < 0.012 ng/mL (0.000-0.034)
[2021-04-08 20:27] LABS: Glucose Point of Care 159 mg/dl (65-105)
[2021-04-08] MEDS: INSULIN GLARGINE (*BKC) 100 UNITS/ML 15 UNITS SUB-Q (20:36)
[2021-04-08] MEDS: diphenhydrAMINE HCl INJ 50 MG/ML VIAL 25 MG IV PUSH (20:36)
--- NOTE | 2021-04-08 23:42 | PCRCNOTE ---
Pt stated the CPAP dries out his mouth due to no humidity available. Pt requested not to wear it this PM
[2021-04-09] VITALS (7 sets, daily range): BP systolic 118–140; BP diastolic 75–88; PULSE 73–93; RESP 18; TEMP 36.5–36.8; O2SAT 97–98; BMI 40.8
--- NOTE | 2021-04-09 | ECHO_ITS ---
Patient Info Name: Michael Bai Age: 55 years : 1965 Gender: Male Ht: 69 in Wt: 277 lbs BSA: 2.53 m2 HR: 88 bpm BP: 140 / 102 mmHg Heart Rhythm: Sinus Rhythm Exam Date: 04/09/2021 10:30 AM Exam Location: [facility] Patient Status: Inpatient Admit Date: 04/07/2021 Staff Ordering Physician: Anna Sommers PA-C Licensed Physical Therapy Assistant: Gregory Sánchez RDCS, RT Attending Provider: Anna Sommers PA-C Referring Physician: Tootie LEYVA; Exam Type: CA echo doppler color flow Study Info Indications I50.9 - Heart failure, unspecified Complete two-dimensional, color flow and Doppler transthoracic echocardiogram is performed. Strain analysis performed. Summary 1. Complete two-dimensional, color flow and Doppler transthoracic echocardiogram is performed. 2. There is mild concentric increased left ventricular wall thickness. 3. Left ventricular systolic function is normal, estimated at 50-55%. 4. Very small amount of mitral regurgitation. 5. No valvular vegetations identified. Left Ventricle Left ventricular chamber dimension is normal. Left ventricular systolic function is normal, estimated at 50-55%. There is mild concentric increased left ventricular wall thickness. The left ventricular diastolic function is grade I diastolic dysfunction. Right Ventricle Right ventricular chamber dimension is normal. Left Atria Left atrial chamber dimension is normal. Right Atria Right atrial chamber dimension is normal. Aortic Valve The aortic valve is normal. Pulmonic Valve The pulmonic valve is normal. Mitral Valve The mitral valve has normal leaflets. There is trace mitral valve regurgitation. Tricuspid Valve The tricuspid valve leaflets are normal. Pericardium/Pleural The pericardium appears normal. Aorta The aortic root size at the sinus of Valsalva is normal. Left Ventricular Outflow Tract Name Value Normal LVOT 2D LVOT Diameter 2.2 cm LVOT Doppler LVOT Peak Gradient 3 mmHg LVOT Mean Gradient 1 mmHg LVOT VTI 15 cm LVOT VTI/AV VTI Ratio 0.7 LVOT Stroke Volume 55 ml LVOT CO 4.7 l/min LVOT CI 1.9 l/min/m2 Mitral Valve Name Value Normal MV Doppler MV Decel Perry 306 cm/s2 MV PHT 48 ms MV Area (PHT) 4.6 cm2 4.0-5.0 MV Diastolic Function MV E Peak Velocity 51 cm/s MV A Peak Velocity 58 cm/s MV E/A 0.9 MV Decel Time 166 m
[2021-04-09 06:22] LABS: Hematocrit 41.7 % (42.0-52.0); Hemoglobin 13.8 g/dL (14.0-18.0); Mean Corpuscular HGB Conc 33.1 g/dl (32-36); Mean Corpuscular Hemoglobin 28.5 pg (26-34); Mean Platelet Volume 10.7 fl (7.4-10.4); Platelet Count Result 232 k/mm3 (150-375); Red Blood Count 4.85 M/mm3 (4.6-6.20); Red Cell Distribution Width 12.5 % (11.5-14.5); White Blood Count 8.8 K/mm3 (4.5-10.0)
[2021-04-09 06:29] LABS: Anion Gap 8 mmol/L (8-16); Blood Urea Nitrogen 18 mg/dL (9-20); Calcium 9.8 mg/dL (8.4-10.2); Carbon Dioxide 29 mmol/L (22-30); Chloride 100 mmol/L (98-107); Estimated CRCL calculation 76 ml/min; Estimated Glomerular Filt Rate > 60; Glucose 159 mg/dL (65-110); Potassium 3.5 mmol/L (3.4-5.0); Sodium 137 mmol/L (137-145)
[2021-04-09 06:53] LABS: Albumin 3.9 g/dL (3.8-4.8); Alpha 1 Globulin 0.3 g/dL (0.2-0.3); Alpha 2 Globulin 0.8 g/dL (0.5-0.9); Beta 1 Globulin 0.5 g/dL (0.4-0.6); Gamma Globulin 1.2 g/dL (0.8-1.7); Protein, Total 7.2 g/dL (6.1-8.1)
[2021-04-09] MEDS: amLODIPine BESYLATE 5 MG TABLET PO (08:13)
[2021-04-09] MEDS: ENOXAPARIN 40 MG/0.4 ML SYRINGE SUB-Q (08:13)
[2021-04-09] MEDS: ATORVASTATIN 20 MG TABLET PO (08:13)
[2021-04-09 08:46] LABS: Glucose Point of Care 170 mg/dl (65-105)
[2021-04-09 08:46] LABS: Glucose Point of Care 393 mg/dl (65-105)
[2021-04-09] MEDS: PANTOPRAZOLE SODIUM IV 40 MG VIAL IV PUSH (10:17)
[2021-04-09 12:12] LABS: Glucose Point of Care 171 mg/dl (65-105)
--- NOTE | 2021-04-09 16:00 | P.PNIM_ITS ---
Progress Note: A&P Assessment and Plan (1) Positive blood culture: Code(s): R78.81 - Bacteremia Status: Acute Assessment and Plan: 2/2 blood cultures with growth of Staphylococcus epidermis, 1 bottle with 2nd o rganism Staphylococcus hominis. * Possibly cutaneous source of infection vs contamination. He does have a history of drug use, though denies IV drug use. He did present with low-grade fever 100.2?, but has been afebrile since 04/05/2021. No leukocytosis. * Repeat blood cultures negative to date after 48 hours. * He received IV vancomycin. Will discontinue at this time as positive blood cultures felt to be more consistent with contamination and no further treatment is required at this time. * Will monitor repeat blood cultures closely * Echocardiogram pending (2) Chest pain: Code(s): R07.9 - Chest pain, unspecified Status: Acute Assessment and Plan: Resolved. Presented with left sided chest pain, not felt to be consistent with cardiac etiology * Appreciate cardiology consultation * Troponins negative x3 * EKG reviewed with no ischemic changes * CTA negative for PE * Of note, he did test positive for cocaine on urine drug screen, though denies drug use. This may have contributed to his chest pain. (3) Nausea and vomiting: Code(s): R11.2 - Nausea with vomiting, unspecified Status: Acute Assessment and Plan: Resolved. May have been related to hyperglycemia vs infectious etiology, possibly viral illness (4) Type 2 diabetes mellitus: Code(s): E11.9 - Type 2 diabetes mellitus without complications Status: Acute Assessment and Plan: Last A1c in January 2021 was 11.1. Blood sugar was 330 on presentation. No signs of DKA, no elevated anion gap. Improved today ranging from 150-170. Seems he is poorly compliant with his medication and reports recently missing several doses of his metformin. * Continue Accu-Cheks, sliding scale insulin, hypoglycemic protocol * Consult to wellness educator per patient request. Input is appreciated * Metformin on hold while on IV vancomycin given his history of KAYLA with vancomycin. Will resume at this time as vanc is being discontinued. * Continue Lantus 15 units qHS during hospitalization. * Considering addition of oral hypoglycemic based on cultures insurance coverage, Ozempic vs Jardiance. Appreciate wellness educator input. (5) Hypertension: Code(s): I10 - Essential (primary) hypertension Status: Acute Assessment and Plan: Blood pressures had been elevated above target in the 170s systolic. Reports he has been off of his antihypertensives for over 1 year. BP improved with addition of antihypertensive, last BP 140/88 * Started on amlodipine 5 mg daily * Monitor blood pressure trends. Adjust medication regimen as needed based on results * Avoid beta-blockers given cocaine use (6) Tobacco use: Code(s): Z72.0 - Tobacco use Status: Acute Assessment and Plan: He smokes 1/3 pack per day. Reports he has been trying to cut down on cigarette use * Declines need for nicotine patch * Continue to reinforce smoking cessation (7) COVID-19 ruled out by laboratory testing: Code(s): Z20.822 - Contact with and (suspected) exposure to COVID-19 Status: Acute Assessment and Plan: COVID-19 test negative. He completed vaccination in August 2020. Imaging suggestive bilateral opacities, though he is asymptomatic. No further intervention required. (8)
--- NOTE | 2021-04-09 16:00 | PM.IMPN ---
Progress Note: A&P Assessment and Plan (1) Positive blood culture: Code(s): R78.81 - Bacteremia Status: Acute Assessment and Plan: 2/2 blood cultures with growth of Staphylococcus epidermis, 1 bottle with 2nd organism Staphylococcus hominis. Possibly cutaneous source of infection vs contamination. He does have a history of drug use, though denies IV drug use. He did present with low-grade fever 100.2?, but has been afebrile since 04/05/2021. No leukocytosis. Repeat blood cultures negative to date after 48 hours. He received IV vancomycin. Will discontinue at this time as positive blood cultures felt to be more consistent with contamination and no further treatment is required at this time. Will monitor repeat blood cultures closely Echocardiogram pending (2) Chest pain: Code(s): R07.9 - Chest pain, unspecified Status: Acute Assessment and Plan: Resolved. Presented with left sided chest pain, not felt to be consistent with cardiac etiology Appreciate cardiology consultation Troponins negative x3 EKG reviewed with no ischemic changes CTA negative for PE Of note, he did test positive for cocaine on urine drug screen, though denies drug use. This may have contributed to his chest pain. (3) Nausea and vomiting: Code(s): R11.2 - Nausea with vomiting, unspecified Status: Acute Assessment and Plan: Resolved. May have been related to hyperglycemia vs infectious etiology, possibly viral illness (4) Type 2 diabetes mellitus: Code(s): E11.9 - Type 2 diabetes mellitus without complications Status: Acute Assessment and Plan: Last A1c in January 2021 was 11.1. Blood sugar was 330 on presentation. No signs of DKA, no elevated anion gap. Improved today ranging from 150-170. Seems he is poorly compliant with his medication and reports recently missing several doses of his metformin. Continue Accu-Cheks, sliding scale insulin, hypoglycemic protocol Consult to health promotion educator per patient request. Input is appreciated Metformin on hold while on IV vancomycin given his history of KAYLA with vancomycin. Will resume at this time as vanc is being discontinued. Continue Lantus 15 units qHS during hospitalization. Considering addition of oral hypoglycemic based on cultures insurance coverage, Ozempic vs Jardiance. Appreciate health promotion educator input. (5) Hypertension: Code(s): I10 - Essential (primary) hypertension Status: Acute Assessment and Plan: Blood pressures had been elevated above target in the 170s systolic. Reports he has been off of his antihypertensives for over 1 year. BP improved with addition of antihypertensive, last BP 140/88 Started on amlodipine 5 mg daily Monitor blood pressure trends. Adjust medication regimen as needed based on results Avoid beta-blockers given cocaine use (6) Tobacco use: Code(s): Z72.0 - Tobacco use Status: Acute Assessment and Plan: He smokes 1/3 pack per day. Reports he has been trying to cut down on cigarette use Declines need for nicotine patch Continue to reinforce smoking cessation (7) COVID-19 ruled out by laboratory testing: Code(s): Z20.822 - Contact with and (suspected) exposure to COVID-19 Status: Acute Assessment and Plan: COVID-19 test negative. He completed vaccination in August 2020. Imaging suggestive bilateral opacities, though he is asymptomatic. No further intervention required. (8) Hypomagnesemia: Code(s): E83.42 - Hypomagnesemia Status: Acute Assessment and Plan: Resolved. Magnesium slightly low secondary to vomiting and was supplemented. (9) Obstructive sleep apnea: Code(s): G47.33 - Obstructive sleep apnea (adult) (pediatric) Status: Acute Assessment and Plan: Continue CPAP Subjective Date/time seen: 04/09/21 16:00 Interval history: Date of ser
[2021-04-09 16:35] LABS: Vitamin D 1,25 (OH)2 Total 38 pg/mL (18-72); Vitamin D2 1,25 (OH)2 <8 pg/mL; Vitamin D3 1,25 (OH)2 38 pg/mL
[2021-04-09 16:36] LABS: Glucose Point of Care 139 mg/dl (65-105)
[2021-04-09 21:15] LABS: Creatinine, Random Urine 63 mg/dL (20-320); Total Protein/Creatinine Ratio 270 mg/g creat (22-128)
--- NOTE | 2021-04-11 08:40 | PM.DS ---
DS: Admitting Diagnosis Discharge Date 04/09/21 Admitting Diagnosis Chest pain DS: Discharge Diagnosis Discharge Diagnosis (1) Positive blood culture: Code(s): R78.81 - Bacteremia Status: Acute Assessment and Plan: 2/2 blood cultures with growth of Staphylococcus epidermis, 1 bottle with 2nd organism Staphylococcus hominis. He was started on IV vancomycin, however based on overall history, seems to be most consistent with contamination. Cutaneous source of infection considered and he does have a history of drug use, though adamantly denies any IV drug use. Echo reviewed with no evidence of vegetations. Repeat blood cultures negative after 48 hours and final cultures will be monitored. IV vancomycin was discontinued following negative blood cultures after 48 hour window. (2) Chest pain: Code(s): R07.9 - Chest pain, unspecified Status: Acute Assessment and Plan: Resolved. Presented with left sided chest pain, not felt to be consistent with cardiac etiology. Troponins negative x3. EKG reviewed with no ischemic changes. CTA negative for PE. He was seen in consultation by Cardiology and no further cardiac workup or intervention felt to be required. Of note, he did test positive for cocaine on urine drug screen though he denied drug use. This may have contributed to his chest pain. (3) Type 2 diabetes mellitus: Code(s): E11.9 - Type 2 diabetes mellitus without complications Status: Acute Assessment and Plan: Last A1c in January 2021 was 11.1. Blood sugar was 330 on presentation. No signs of DKA, no elevated anion gap. Seems he is poorly compliant with his medication and reports recently missing several doses of his metformin. Blood sugars managed with Accu-Cheks, sliding scale insulin, hypoglycemic protocol during hospital stay. Initiated on Lantus 15 units q.h.s. during hospitalization. He was evaluated by nurse educator per his request. Discussed transitioning to oral hypoglycemic agent including Ozempic vs Jardiance based on his insurance coverage vs continuing long-acting insulin. The patient opted to proceed with home insulin and was educated on use. He will continue Levemir 15 units qHS. Instructed to monitor blood sugars with meals and at night and follow-up with PCP in 1 week with a list of blood sugars for review. (4) Hypertension: Code(s): I10 - Essential (primary) hypertension Status: Acute Assessment and Plan: Blood pressures had been elevated above target in the 170s systolic. Reports he had been off of his antihypertensives for over 1 year. BP improved with addition of antihypertensive. Continue amlodipine 5 mg daily. Avoid beta-blockers given cocaine use. (5) Tobacco use: Code(s): Z72.0 - Tobacco use Status: Acute Assessment and Plan: He smokes 1/3 pack per day. Reports he has been trying to cut down on cigarette use. He was educated on smoking cessation. Declined need for nicotine patch during hospitalization. (6) COVID-19 ruled out by laboratory testing: Code(s): Z20.822 - Contact with and (suspected) exposure to COVID-19 Status: Acute Assessment and Plan: COVID-19 test negative. He completed vaccination in August 2020. Imaging suggestive bilateral opacities, though he is asymptomatic. No further intervention required. (7) Hypomagnesemia: Code(s): E83.42 - Hypomagnesemia Status: Acute Assessment and Plan: Resolved. Magnesium slightly low secondary to vomiting and was supplemented. (8) Obstructive sleep apnea: Code(s): G47.33 - Obstructive sleep apnea (adult) (pediatric) Status: Acute Assessment and Plan: Continue CPAP DS: Summary Hospital Course Hospital Course: Date of admission: 04/05/2021 Date of discharge: 04/09/2021 Michael Bai is a 55-year-old male with a history of type 2 diabetes mellitus, osteomye
== END 2021-04-09 18:05 | disposition home or self-care (01) | DRG 420 ==
LOC: ANHED 10:42 → ANHICU 16:03 → ANH3MEDSUR 17:45
PROVIDERS: Internal Medicine; Nurse Practitioner; Physician Assistant; Admitting Provider Internal Medicine; Emergency Provider General Practice; PCP Internal Medicine Gastroenterology; Visit Provider Internal Medicine
DX: E11.65 Type 2 diabetes mellitus with hyperglycemia (principal); R78.81 Bacteremia; B95.7 Other staphylococcus as the cause of diseases classified elsewhere; R11.2 Nausea with vomiting, unspecified; R07.89 Other chest pain; Z20.822 Contact with and (suspected) exposure to COVID-19; E78.5 Hyperlipidemia, unspecified; G47.33 Obstructive sleep apnea (adult) (pediatric); F17.210 Nicotine dependence, cigarettes, uncomplicated; E86.0 Dehydration; E11.42 Type 2 diabetes mellitus with diabetic polyneuropathy; F14.10 Cocaine abuse, uncomplicated; I10 Essential (primary) hypertension; D64.9 Anemia, unspecified; E83.42 Hypomagnesemia; Z79.84 Long term (current) use of oral hypoglycemic drugs; Z89.422 Acquired absence of other left toe(s); Z86.16 Personal history of COVID-19; Z90.49 Acquired absence of other specified parts of digestive tract; Z91.14 Patient's other noncompliance with medication regimen
CPT/HCPCS: 36415; 71045; 71275; 74177; 80048; 80053; 80202; 80307; 81001; 82164; 82306; 82330; 82570; 82652; 82728; 82948; 83605; 83615; 83690; 83735; 83880; 83970; 84100; 84155; 84156; 84165; 84166; 84443; 84484; 85025; 85027; 85380; 85610; 85730; 86140; 87040; 87077; 87186; 93005; 93306; 96361; 96365; 96367; 96372; 96374; 96375; 99285; A9270; C9113; C9803; G0378; G0379; J0131; J0360; J0456; J0696; J1200; J1650; J1815; J2405; J2765; J3370; J3475; J7120; Q9967; U0003; U0005

== ENCOUNTER 2021-07-28 05:38 | Emergency (ER) | payer OTHER, SELFPAY ==
[2021-07-28 05:43] VITALS: BP 163/90; PULSE 99; RESP 18; TEMP 36.8; O2SAT 99
[2021-07-28] MEDS: SODIUM CHLORIDE 0.9% IV 1,000 ML 999 ML IV CONT ×2 (06:15→07:02)
[2021-07-28] MEDS: ONDANSETRON INJ 4 MG/2 ML VIAL IV PUSH (06:17)
[2021-07-28 06:20] LABS: Basophils Percent Auto 0.3 % (0.2-1.2); Eosinophils Absolute Auto 0.1 K/mm3 (0-0.3); Hematocrit 45.4 % (42.0-52.0); Hemoglobin 14.6 g/dL (14.0-18.0); Immature Granulocyte Absolute 0.03 K/mm3 (0.00-0.031); Immature Granulocyte Percent A 0.3 % (0-0.5); Lymphocytes Absolute Auto 1.68 K/mm3 (0.9-3.2); Lymphocytes Percent Auto 17.4 % (18.3-44.2); Mean Corpuscular HGB Conc 32.2 g/dl (32-36); Mean Corpuscular Hemoglobin 28.8 pg (26-34); Mean Corpuscular Volume 89.5 fl (80-100); Mean Platelet Volume 10.5 fl (7.4-10.4); Monocytes Absolute Auto 0.8 K/mm3 (0.1-0.6); Monocytes Percent Auto 7.9 % (2.6-8.5); Neutrophils Absolute Auto 7.1 K/mm3 (1.3-6.7); Neutrophils Percent Auto 73.1 % (45.5-73.1); Platelet Count Result 268 k/mm3 (150-375); Red Blood Count 5.07 M/mm3 (4.6-6.20); Red Cell Distribution Width 12.2 % (11.5-14.5); White Blood Count 9.7 K/mm3 (4.5-10.0)
[2021-07-28 06:30] LABS: Alanine Aminotransferase 29 U/L (4-50); Albumin Level 4.6 g/dL (3.5-5.1); Alkaline Phosphatase 139 U/L (38-126); Anion Gap 8 mmol/L (8-16); Aspartate Amino Transferase 20 U/L (17-59); Bilirubin,Total 0.6 mg/dL (0.2-1.3); Blood Urea Nitrogen 19 mg/dL (9-20); Calcium 9.7 mg/dL (8.4-10.2); Carbon Dioxide 31 mmol/L (22-30); Chloride 97 mmol/L (98-107); Estimated CRCL calculation 74 ml/min; Estimated Glomerular Filt Rate > 60; Glucose 280 mg/dL (65-110); Lipase 64 U/L (23-300); Sodium 136 mmol/L (137-145)
[2021-07-28 06:39] LABS: Beta-Hydroxybutyrate/Acetoacetate 0.28 mmol/L (0.02-0.27)
--- NOTE | 2021-07-28 06:53 | ED.NAVMDI ---
HPI - Nausea/Vomiting/Diarrhea General Chief complaint: Nausea/Vomiting/Diarrhea Stated complaint: Feels Dehydration, Nausea Time Seen by Provider: 07/28/21 05:58 Source: patient History of Present Illness HPI Narrative: Patient presents with concern for dehydration. Reports he had nausea and vomiting over the past few days initially was getting better however today he was feeling more fatigue so he came to the ER for evaluation. Denies any chest pain shortness of breath denying any abdominal pain or diarrhea denying any urinary symptoms or lightheadedness. Related Data Home Medications Medication Instructions Recorded Confirmed metformin 850 mg PO BID 09/23/19 05/26/21 atorvastatin [Lipitor] 20 mg PO DAILY 05/08/20 05/26/21 Allergies Allergy/AdvReac Type Severity Reaction Status Date / Time No Known Allergies Allergy Verified 05/26/21 07:49 Review of Systems Review of Systems: CONSTITUTIONAL: Denies fever, chills, or sweats. EYES: Denies visual changes, redness, or discharge. ENT: Denies rhinorrhea, congestion, sore throat, or otalgia. CARDIOVASCULAR: Denies chest pain, palpitations, or edema. RESPIRATORY: Denies cough or dyspnea. GASTROINTESTINAL: Reports nausea and vomiting GENITOURINARY: Denies dysuria or hematuria. SKIN: Denies rash or itching. MUSCULOSKELETAL: Denies back pain, joint pain, or myalgia. NEUROLOGIC: Denies headache, numbness, dizziness, or weakness. PSYCHIATRIC: Denies anxiety or depression. All systems reviewed & are unremarkable except as noted in HPI and below PMFSH Past Medical History Medical History KAYLA (acute kidney injury) Amputation of one or more toes Anemia COVID-19 virus infection (09/2019) Diabetes Diabetes mellitus with diabetic neuropathy Hemoglobin A1c was 11.1 on 02/11/2021 Diabetic foot infection GI bleed (12/2018) Secondary to gastric erosions. 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 History of foot surgery , Dr. Mejia Status post amputation of toe Family History Family History Father Medical history unknown Mother Healthy adult Diabetes mellitus Borderline DM Sibling Healthy adult Social History Social History Social History: The patient lives in [place]. His mother lives at home with him. Social drinker. Smokes 1/3 pack of cigarettes a day. No illicit substance use. Surrogate decision maker: jayme Benoitece. The patient is currently unemployed and is applying for disability. The patient denied using any drugs but stated he smoked marijuana over last couple days. Patient's drug screen was positive for cocaine. Code status: Full code. Smoking packs per day: 0.33 Smoking cigarettes per day: 6.6 Years smoked: 20 Smoking pack-years: 6.60 Tobacco type: cigarettes Second hand tobacco smoke exposure: No Alcohol intake: unknown Substance use: unknown Substance use type: does not use Spiritual care concerns: No Exam Narrative: GENERAL: Well-appearing, well-nourished, and in no acute distress. HEAD: Normocephalic, atraumatic. EYES: PERRLA and EOMI. ENT: Nares clear, no rhinorrhea or epistaxis. Mucous membranes moist. NECK: Supple. No masses. No JVD CHEST: Clear to auscultation. No respiratory distress. No wheezes rales or rhonchi HEART: Regular rate and rhythm. No murmur heard. Normal peripheral pulses. ABDOMEN: Soft, nontender, nondistended,
[2021-07-28 07:05] VITALS: BP 132/70; PULSE 90; RESP 18; O2SAT 96
[2021-07-28 08:20] VITALS: BP 153/96; PULSE 74; RESP 16; O2SAT 98
[2021-07-28 08:28] LABS: Add Urine Microscopic? YES; Appearance Urine Clear (Clear); Bilirubin Urine Negative (Negative); Blood Urine Negative (Negative); Color Urine Yellow (Yellow); Glucose Urine UA 3+ mg/dL (Negative); Ketones Urine Trace mg/dL (Negative); Leukocyte Esterase Ur Negative LEU/UL (Negative); Mucus Urine Rare /lpf; Nitrate Urine Negative (Negative); Protein Urine 1+ mg/dL (Negative); RBC Urine 0-2 /hpf (0-2); Specific Grav Ur 1.021 (1.001-1.035); WBC Urine 0-3 /hpf
== END 2021-07-28 08:20 | disposition home or self-care (01) ==
PROVIDERS: Emergency Provider Emergency Medicine; PCP Internal Medicine Gastroenterology
DX: R11.2 Nausea with vomiting, unspecified (principal); E86.0 Dehydration; E11.40 Type 2 diabetes mellitus with diabetic neuropathy, unspecified; E78.5 Hyperlipidemia, unspecified; I10 Essential (primary) hypertension; G47.33 Obstructive sleep apnea (adult) (pediatric); Z86.16 Personal history of COVID-19; Z89.411 Acquired absence of right great toe; F17.210 Nicotine dependence, cigarettes, uncomplicated; Z79.84 Long term (current) use of oral hypoglycemic drugs; Z79.4 Long term (current) use of insulin
CPT/HCPCS: 36415; 80053; 81001; 82010; 83690; 85025; 96361; 96374; 99284; J2405; J7030

== ENCOUNTER 2021-09-06 19:27 | Emergency (ER) | payer OTHER, SELFPAY ==
--- NOTE | ~2021-09-06 | XR_ITS ---
EXAM: XR knee RT 3V HISTORY: NO INJURY, PAIN ABOVE BASE OF PATELLA COMPARISON: None available FINDINGS: Normal mineralization. No fracture or dislocation. No lytic or blastic lesion. Mild medial joint space narrowing. Tricompartmental osteophytosis. Moderate volume joint fluid. No erosion or pe riosteal change. Soft tissues within normal limits. IMPRESSION: Moderate right knee joint effusion. Moderate tricompartmental osteoarthritis. Reviewed, dictated and finalized at location K.
[2021-09-06 19:33] VITALS: BP 175/96; PULSE 107; RESP 16; TEMP 36.7; O2SAT 100
--- NOTE | 2021-09-06 20:46 | ED.GENADULT ---
HPI - General Adult General Chief complaint: Extremity Injury, Lower <Amanda Disla PA-C - Last Filed: 09/07/21 01:03> Stated complaint: left knee pain <LIDIA Martines Last Filed: 09/07/21 01:03> Time Seen by Provider: 09/06/21 20:13 <LIDIA Martines Last Filed: 09/07/21 01:03> History of Present Illness HPI narrative: Patient is a 56-year-old male with a history of diabetes, hypertension, non-healing wounds status post multiple toe amputations, presents to the emergency department for evaluation of right knee pain and swelling for 1 week. He states the pain came on without any obvious trigger, but has been severe in nature over the past week. It is worse with bearing weight, and notes particular pain with ambulation and squatting. States the pain caused his knee to lock up , which has caused him to trip several times over the past week. Denies hitting his head or loss of consciousness. The pain has caused him to use a wheelchair, which is new for him. Denies rest pain, claudication, fevers, chills, nausea, vomiting, chest pain, wounds over the knee. <LIDIA Martines Last Filed: 09/07/21 01:03> Related Data Home medications: Home Medications Medication Instructions Recorded Confirmed metformin 850 mg PO BID 09/23/19 05/26/21 atorvastatin [Lipitor] 20 mg PO DAILY 05/08/20 05/26/21 <LIDIA Martines Last Filed: 09/07/21 01:03> Allergies/adverse reactions: Allergies Allergy/AdvReac Type Severity Reaction Status Date / Time No Known Allergies Allergy Verified 05/26/21 07:49 <LIDIA Martines Last Filed: 09/07/21 01:03> Review of Systems Review of Systems: Gen.: Denies fevers or chills Eyes: Denies eye pain or visual change ENT: Denies congestion Respiratory: Denies shortness of breath or cough CV: Denies chest pain or palpitations GI: Denies abdominal pain nausea, emesis or diarrhea denies burning, urgency, frequency or hematuria Musculoskeletal: Reports right knee pain. Denies back pain or muscle pain Neuro: Denies numbness, tingling, weakness or focal weakness Skin: Denies rash Except as documented, all other systems reviewed and negative <Amanda Disla PA-C - Last Filed: 09/07/21 01:03> All systems reviewed & are unremarkable except as noted in HPI and below <Amanda Disla PA-C - Last Filed: 09/07/21 01:03> [facility] Past Medical History Medical History: Medical History KAYLA (acute kidney injury) Amputation of one or more toes Anemia COVID-19 virus infection (09/2019) Diabetes Diabetes mellitus with diabetic neuropathy Hemoglobin A1c was 11.1 on 02/11/2021 Diabetic foot infection GI bleed (12/2018) Secondary to gastric erosions. History of elevated blood pressure while in hospital Hyperlipidemia Hypertension Obstructive sleep apnea Osteomyelitis Osteomyelitis of second toe of left foot Sleep trouble Tobacco use <Amanda Disla PA-C - Last Filed: 09/07/21 01:03> Surgical History Surgical History: Surgical History History of appendectomy History of arthroscopy of left shoulder History of complete ray amputation of first toe of right foot (08/2019) History of esophagogastroduodenoscopy (12/2018) Gastric erosions. History of foot surgery , Dr. Mejia Status post amputation of toe <Amanda Disla PA-C - Last Filed: 09/07/21 01:03> Family History Family History: Family History Father Medical history unknown Mother Healthy adult Diabetes mellitus Borderline DM Sibling Healthy adult <Amanda Disla PA-C - Last Filed: 09/07/21 01:03> Social History Social History: Social History Social History: The patient lives in [facility]
[2021-09-06] MEDS: ACETAMINOPHEN 500 MG TABLET 1000 MG PO (22:18)
[2021-09-06] MEDS: IBUPROFEN 400 MG TABLET 800 MG PO (22:18)
== END 2021-09-06 22:21 | disposition home or self-care (01) ==
PROVIDERS: Emergency Provider Emergency Medicine; PCP Internal Medicine Gastroenterology
DX: M25.461 Effusion, right knee (principal); I10 Essential (primary) hypertension; E11.42 Type 2 diabetes mellitus with diabetic polyneuropathy; E78.5 Hyperlipidemia, unspecified; G47.33 Obstructive sleep apnea (adult) (pediatric); E11.69 Type 2 diabetes mellitus with other specified complication; M86.9 Osteomyelitis, unspecified; Z89.411 Acquired absence of right great toe; Z89.421 Acquired absence of other right toe(s); Z86.16 Personal history of COVID-19; F17.210 Nicotine dependence, cigarettes, uncomplicated; M17.11 Unilateral primary osteoarthritis, right knee
CPT/HCPCS: 73562; 99283; A9270

== ENCOUNTER 2021-09-16 09:30 | Emergency (ER) | payer OTHER, SELFPAY ==
[2021-09-16 09:41] VITALS: BP 136/72; PULSE 110; RESP 18; TEMP 37.3; O2SAT 97
--- NOTE | 2021-09-16 09:47 | ED.URI ---
HPI - URI/Sore Throat General Chief Complaint: Upper Respiratory Infection Stated Complaint: got cortisone shot and feels bad Time Seen by Provider: 09/16/21 09:50 Source: patient Mode of arrival: ambulatory Limitations: no limitations History of Present Illness HPI Narrative: Mr. Bai is a 56-year-old male patient presenting to the clinic today with complaints of headache, nausea, vomiting, congestion, body aches, and overall not feeling well. He denies any known fever. Received a cortisone injection into the knee yesterday. States he took an at home COVID test today and it was negative. MD elicited complaint: nasal congestion Related Data Home Medications Medication Instructions Recorded Confirmed metformin 850 mg PO BID 09/23/19 09/16/21 atorvastatin [Lipitor] 20 mg PO DAILY 05/08/20 09/16/21 ergocalciferol (vitamin D2) 1,250 mcg PO DAILY 09/16/21 09/16/21 gabapentin 100 mg PO DIRECTED 09/16/21 09/16/21 Allergies Allergy/AdvReac Type Severity Reaction Status Date / Time No Known Allergies Allergy Verified 09/16/21 10:46 Review of Systems Review of Systems: Pertinent positives per HPI. Patient denies any fever, chills, rash, visual changes, dizziness, cough, shortness of breath, chest pain, palpitations, diarrhea, constipation, abdominal pain, or any urinary issues. [facility] Past Medical History Medical History KAYLA (acute kidney injury) Amputation of one or more toes Anemia COVID-19 virus infection (09/2019) Degenerative arthritis of right knee Diabetes Diabetes mellitus with diabetic neuropathy Hemoglobin A1c was 11.1 on 02/11/2021 Diabetic foot infection GI bleed (12/2018) Secondary to gastric erosions. 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 History of foot surgery , Dr. Mejia Status post amputation of toe Family History Family History Father Medical history unknown Mother Healthy adult Diabetes mellitus Borderline DM Sibling Healthy adult Social History Social History Social History: The patient lives in [place]. His mother lives at home with him. Social drinker. Smokes 1/3 pack of cigarettes a day. No illicit substance use. Surrogate decision maker: Taylor Cooper, niece. The patient is currently unemployed and is applying for disability. The patient denied using any drugs but stated he smoked marijuana over last couple days. Patient's drug screen was positive for cocaine. Code status: Full code. Smoking packs per day: 0.33 Smoking cigarettes per day: 6.6 Years smoked: 20 Smoking pack-years: 6.60 Tobacco type: cigarettes Second hand tobacco smoke exposure: No Alcohol intake: unknown Substance use: unknown Substance use type: does not use Spiritual care concerns: No Comments At the time of my signature, I reviewed and agree with the nursing past medical, surgical, social, and family history. There is no relevant family history pertinent to the patient complaint. Exam Narrative: General: Well-developed, obese, in no apparent distress Head: Normocephalic, atraumatic Eyes: Pupils equally round and reactive to light bilaterally, EOM intact, sclera and conjunctive clear, no discharge, lids normal Ears: TMs intact and clear, ear canals ceruminous, no drainage, grossly hearing normal. Nose: Nares patent, clear nasal discharge, no inflammation, no sinus tendern
[2021-09-16] MEDS: ONDANSETRON HCL ODT 4 MG TABLET SUBLINGUAL (10:04)
[2021-09-16 10:56] LABS: Glucose Point of Care 141 mg/dl (65-105)
== END 2021-09-16 10:50 | disposition home or self-care (01) ==
PROVIDERS: Emergency Provider Nurse Practitioner Family
DX: B34.9 Viral infection, unspecified (principal); R11.2 Nausea with vomiting, unspecified; F17.210 Nicotine dependence, cigarettes, uncomplicated; E11.42 Type 2 diabetes mellitus with diabetic polyneuropathy; E78.5 Hyperlipidemia, unspecified; I10 Essential (primary) hypertension; G47.33 Obstructive sleep apnea (adult) (pediatric); Z86.16 Personal history of COVID-19; Z89.411 Acquired absence of right great toe; D64.9 Anemia, unspecified; Z79.84 Long term (current) use of oral hypoglycemic drugs
CPT/HCPCS: 82948; 87804; 99213; A9270; G0463

== ENCOUNTER 2021-09-16 19:15 | Emergency (ER) | payer OTHER, SELFPAY ==
--- NOTE | ~2021-09-16 | CT_ITS ---
EXAMINATION: CT brain wo con INDICATION: Headache COMPARISON: 05/08/2020 TECHNIQUE: Standard unenhanced head CT. The dose-length product (DLP) was 605.33 mGy-cm. The mA was a djusted according to patient size. Iterative reconstruction technique was employed. FINDINGS: There is no intracranial hemorrhage, acute infarction, or abnormal mass lesion. The ventric les are normal. There is no abnormal mass effect or midline shift. The ayala-white matter differentiat ion is normal. The basal cisterns are patent. The orbits are normal. There is mild mucosal thickening of the paranasal sinuses. IMPRESSION: 1. No acute intracranial abnormality. Reviewed, dictated and finalized at location F.
[2021-09-16 19:25] VITALS: BP 124/69; PULSE 107; RESP 18; TEMP 37.4; O2SAT 97
[2021-09-16 20:31] VITALS: BP 131/84; PULSE 107; RESP 20; O2SAT 96
--- NOTE | 2021-09-16 20:40 | ED.HA ---
HPI - Headache General Chief Complaint: Headache Stated Complaint: Vomiting Time Seen by Provider: 09/16/21 20:31 Source: patient Mode of arrival: ambulatory Limitations: no limitations History of Present Illness HPI Narrative: Patient is a 56-year-old male complaining of a headache frontal, 7 out of 10, dull, nonradiating accompanied by sinus congestion, nausea and cough since yesterday. Patient denies any neck pain or stiffness. Patient denies any fever or chills. Patient denies any speech or visual disturbance, focal weakness or numbness, or unsteady gait. Related Data Home Medications Medication Instructions Recorded Confirmed metformin 850 mg PO BID 09/23/19 09/16/21 atorvastatin [Lipitor] 20 mg PO DAILY 05/08/20 09/16/21 ergocalciferol (vitamin D2) 1,250 mcg PO DAILY 09/16/21 09/16/21 gabapentin 100 mg PO DIRECTED 09/16/21 09/16/21 Allergies Allergy/AdvReac Type Severity Reaction Status Date / Time No Known Allergies Allergy Verified 09/16/21 10:46 Review of Systems Review of Systems: All systems reviewed & are unremarkable except as noted in HPI and below Constitutional: Constitutional: Denies body ache(s), Denies chills, Denies excessive sweating, Denies fatigue, Denies fever(s), Denies headache(s), Denies lethargy, Denies malaise, Denies weakness and Denies weight loss Eyes: Eyes: Denies blurry vision, Denies change in vision and Denies loss of vision ENT: Denies dizziness, Denies ear discharge, Denies headache(s), Denies lip swelling, Denies epistaxis, Denies neck pain, Denies throat swelling and Denies tongue swelling Cardiovascular: Cardiovascular: Denies chest pain, Denies chest pain at rest, Denies chest pain with activity, Denies diaphoresis, Denies rapid heart rate, Denies edema, Denies irregular heart rhythm, Denies lightheadedness, Denies palpitations, Denies dyspnea and Denies dyspnea on exertion Respiratory: Respiratory: Denies chest congestion, Denies hemoptysis, Denies dyspnea and Denies dyspnea on exertion Gastrointestinal: Gastrointestinal: Denies abdominal pain, Denies melena, Denies hematochezia, Denies diarrhea, Denies nausea, Denies vomiting and Denies hematemesis Musculoskeletal: Musculoskeletal: Denies abnormal gait, Denies deformity, Denies joint swelling, Denies limited range of motion, Denies neck pain and Denies numbness Neurologic: Denies Abnormal speech present, Denies abnormal gait, Denies confusion, Denies dizziness, Denies focal weakness, Denies loss of vision, Denies numbness, Denies Other visual disturbances, Denies Sensory deficit (Neuro) and Denies weakness Psychiatric: Psychiatric: Denies confusion, Denies depression, Denies auditory hallucinations, Denies homicidal ideation and Denies suicidal ideation Endocrine: Endocrine: Denies cold intolerance, Denies excessive sweating, Denies fatigue, Denies heat intolerance and Denies palpitations Hematologic/Lymphatic: Hematologic/Lymphatic: Denies easy bleeding and Denies easy bruising Allergic/Immunologic: Allergic/Immunologic: Denies lip swelling, Denies throat swelling and Denies tongue swelling PMFSH Past Medical History Medical History KAYLA (acute kidney injury) Amputation of one or more toes Anemia COVID-19 virus infection (09/2019) Degenerative arthritis of right knee Diabetes Diabetes mellitus with diabetic neuropathy Hemoglobin A1c was 11.1 on 02/11/2021 Diabetic foot infection GI bleed (12/2018) Secondary to gastric erosions. 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 History
[2021-09-16] MEDS: SODIUM CHLORIDE 0.9% IV 1,000 ML 999 ML IV CONT (22:15)
[2021-09-16] MEDS: diphenhydrAMINE HCl INJ 50 MG/ML VIAL 25 MG IV PUSH (22:20)
[2021-09-16] MEDS: METOCLOPRAMIDE HCL INJ 10 MG/2 ML VIAL IV PUSH (22:20)
[2021-09-16 23:45] VITALS: BP 132/87; PULSE 88; RESP 14; O2SAT 97
== END 2021-09-16 23:45 | disposition home or self-care (01) ==
PROVIDERS: Emergency Provider Emergency Medicine
DX: R51.9 Headache, unspecified (principal); E11.40 Type 2 diabetes mellitus with diabetic neuropathy, unspecified; E78.5 Hyperlipidemia, unspecified; I10 Essential (primary) hypertension; G47.33 Obstructive sleep apnea (adult) (pediatric); Z86.16 Personal history of COVID-19; Z86.2 Personal history of diseases of the blood and blood-forming organs and certain disorders involving the immune mechanism; Z89.411 Acquired absence of right great toe; Z79.84 Long term (current) use of oral hypoglycemic drugs; Z79.4 Long term (current) use of insulin; F17.210 Nicotine dependence, cigarettes, uncomplicated
CPT/HCPCS: 70450; 82948; 87804; 96361; 96374; 96375; 99284; A9270; J1200; J2765; J7030

== ENCOUNTER 2021-09-30 21:21 | Emergency (ER) | payer OTHER, SELFPAY ==
[2021-09-30 21:32] VITALS: BP 139/82; PULSE 97; RESP 18; TEMP 36.4; O2SAT 98
--- NOTE | 2021-09-30 22:58 | ED.LOWEXIN ---
HPI - Extremity Injury (Lower) General Chief Complaint: Extremity Injury, Lower Stated Complaint: knee pain, pain after cortisone shot Time Seen by Provider: 09/30/21 22:48 Source: patient History of Present Illness HPI Narrative: Patient resents with right knee pain. Has had knee pain for a while however has had increasing pain in the past couple days. Is seen Dr. Mejia as an outpatient. And had a cortisone injection last week. He was concerned given his procedure that he had a infection in his knee. He notes increasing swelling since his injection and pain that is achy, constant, worse with moving the knee, no radiation. Denies any fevers chills or nausea or vomiting. Denies any erythema or warmth to the knee. Related Data Home Medications Medication Instructions Recorded Confirmed metformin 850 mg PO BID 09/23/19 09/16/21 atorvastatin [Lipitor] 20 mg PO DAILY 05/08/20 09/16/21 ergocalciferol (vitamin D2) 1,250 mcg PO DAILY 09/16/21 09/16/21 gabapentin 100 mg PO DIRECTED 09/16/21 09/16/21 Allergies Allergy/AdvReac Type Severity Reaction Status Date / Time No Known Allergies Allergy Verified 09/30/21 21:39 Review of Systems Review of Systems: CONSTITUTIONAL: Denies fever, chills, or sweats. EYES: Denies visual changes, redness, or discharge. ENT: Denies rhinorrhea, congestion, sore throat, or otalgia. CARDIOVASCULAR: Denies chest pain, palpitations, or edema. RESPIRATORY: Denies cough or dyspnea. GASTROINTESTINAL: Denies abdominal pain, nausea, vomiting, or diarrhea. GENITOURINARY: Denies dysuria or hematuria. SKIN: Denies rash or itching. MUSCULOSKELETAL: Denies back pain, or myalgia. NEUROLOGIC: Denies headache, numbness, dizziness, or weakness. PSYCHIATRIC: Denies anxiety or depression. All systems reviewed & are unremarkable except as noted in HPI and below PMFSH Past Medical History Medical History KAYLA (acute kidney injury) Amputation of one or more toes Anemia Arthritis COVID-19 virus infection (09/2019) Degenerative arthritis of right knee Depression Diabetes Diabetes mellitus with diabetic neuropathy Hemoglobin A1c was 11.1 on 02/11/2021 Diabetic foot infection GI bleed (12/2018) Secondary to gastric erosions. 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 History of foot surgery , Dr. Mejia Status post amputation of toe Family History Family History Father Medical history unknown Mother Healthy adult Diabetes mellitus Borderline DM Sibling Healthy adult Social History Social History Social History: The patient lives in [place]. His mother lives at home with him. Social drinker. Smokes 1/3 pack of cigarettes a day. No illicit substance use. Surrogate decision maker: ishaan Benoit. The patient is currently unemployed and is applying for disability. The patient denied using any drugs but stated he smoked marijuana over last couple days. Patient's drug screen was positive for cocaine. Code status: Full code. Smoking packs per day: 0.33 Smoking cigarettes per day: 6.6 Years smoked: 20 Smoking pack-years: 6.60 Smoking status: Current every day smoker Tobacco type: cigarettes Second hand tobacco smoke exposure: No Alcohol intake: unknown Substance use: unknown Substance use type: does not use Gender identity (if verbalized by the patient): Male Spiritual care concerns: No
[2021-09-30] MEDS: KETOROLAC 30 MG/ML VIAL (*BKC) IM (23:18)
[2021-10-01 00:07] VITALS: BP 129/80; PULSE 94; RESP 16; O2SAT 98
== END 2021-09-30 23:29 | disposition home or self-care (01) ==
PROVIDERS: Emergency Provider Emergency Medicine; PCP Internal Medicine Gastroenterology
DX: M17.11 Unilateral primary osteoarthritis, right knee (principal); E11.40 Type 2 diabetes mellitus with diabetic neuropathy, unspecified; E78.5 Hyperlipidemia, unspecified; I10 Essential (primary) hypertension; G47.33 Obstructive sleep apnea (adult) (pediatric); Z86.16 Personal history of COVID-19; Z86.2 Personal history of diseases of the blood and blood-forming organs and certain disorders involving the immune mechanism; Z79.84 Long term (current) use of oral hypoglycemic drugs; Z89.411 Acquired absence of right great toe; F17.210 Nicotine dependence, cigarettes, uncomplicated
CPT/HCPCS: 96372; 99283; J1885

== ENCOUNTER 2022-01-12 19:41 | Emergency (ER) | payer OTHER, SELFPAY ==
--- NOTE | ~2022-01-12 | CT_ITS ---
EXAMINATION: CT cervical spine wo con DATE: 01/12/2022 20:31 INDICATION: Left arm numbness. TECHNIQUE: Computed tomography (CT) of the cervical spine was performed without intravenous contrast. Automated exposure control and iterative reconstruction technique were employed. The dose-length pro duct was 607.69 mGy-cm. COMPARISON: None FINDINGS: There is 3 degrees levocurvature of cervical spine. There is kyphosis of cervical spine. Ve rtebral body heights are normal. There is severely decreased disc height at C5-C6 and C6-C7. The foll owing disc levels are specifically discussed: C2-C3: There is no uncovertebral joint osteoarthritis. There is mild right facet joint osteoarthritis . There is no neural foraminal stenosis. There is no central canal stenosis. C3-C4: There is no uncovertebral joint osteoarthritis. There is mild bilateral facet joint osteoarthr itis. There is mild left neural foraminal stenosis. There is no central canal stenosis. C4-C5: There is no uncovertebral joint osteoarthritis. There is no facet joint osteoarthritis. There is no neural foraminal stenosis. There is no central canal stenosis. C5-C6: There is severe bilateral uncovertebral joint osteoarthritis. There is no facet joint osteoart hritis. There is mild bilateral neural foraminal stenosis. There is mild central canal stenosis. C6-C7: There is severe bilateral uncovertebral joint osteoarthritis. There is no facet joint osteoart hritis. There is mild bilateral neural foraminal stenosis. There is mild central canal stenosis. C7-T1: There is no uncovertebral joint osteoarthritis. There is mild bilateral facet joint osteoarthr itis. There is no neural foraminal stenosis. There is no central canal stenosis. IMPRESSION: 1. No fracture. 2. Severe cervical spondylosis. Reviewed, dictated and finalized at location A.
[2022-01-12 19:48] VITALS: BP 153/96; PULSE 94; RESP 18; TEMP 36.5; O2SAT 98
--- NOTE | 2022-01-12 20:22 | ECG_ITS ---
Measurements Intervals [place] Rate: 88 P: 58 IN: 180 QRS: -37 QRSD: 120 T: 107 QT: 357 QTc: 433 Interpretive Statements SINUS RHYTHM LEFT AXIS DEVIATION [QRS AXIS < -30] LEFT VENTRICULAR HYPERTROPHY AND ST-T CHANGE [VOLTAGE CRITERIA PLUS ST/T ABNORMALITY] COMPARED TO ECG 04/08/2021 18:19:45 RULE OUT ANTERIOR INFARCTION LEFT ANTERIOR FASCICULAR BLOCK ABNORMAL ECG Electronically Signed On 01-13-2022 9:37:16 CDT by Nir Nicole M.D.
--- NOTE | 2022-01-12 20:26 | ED.GENADULT ---
HPI - General Adult General Chief complaint: Psychiatric Symptoms Stated complaint: SI thoughts/lt arm numbness Time Seen by Provider: 01/12/22 20:17 Source: RN notes reviewed History of Present Illness HPI narrative: Patient presents emergency department from home for suicidal ideation. Patient states that he has been having thoughts that life would be better without him states that he does not have a specific plan of how he would harm himself but does think about ending his life. He states he has been under increased stress recently and states he has not been taking his regular medications patient also notes that over the past week he has been having some tingling down his left arm he states that begins in his left shoulder and goes down into his left fourth and fifth digits. Patient states that symptoms are intermittent does not recall anything making the pain better or worse he denies any weakness in the left arm he denies any chest pain shortness of breath or any other symptoms Related Data Home Medications Medication Instructions Recorded Confirmed metformin 850 mg tablet 850 mg PO BID 09/23/19 09/16/21 atorvastatin 20 mg tablet (Lipitor) 20 mg PO DAILY 05/08/20 09/16/21 ergocalciferol (vitamin D2) 1,250 1,250 mcg PO DAILY 09/16/21 09/16/21 mcg (50,000 unit) capsule gabapentin 100 mg capsule 100 mg PO DIRECTED 09/16/21 09/16/21 aripiprazole 15 mg tablet mg 01/12/22 escitalopram oxalate 20 mg tablet mg 01/12/22 Allergies Allergy/AdvReac Type Severity Reaction Status Date / Time No Known Allergies Allergy Verified 09/30/21 21:39 Review of Systems Review of Systems: Gen.: Denies fevers or chills Eyes: Denies eye pain or visual change ENT: Denies congestion Respiratory: Denies shortness of breath or cough CV: Denies chest pain or palpitations GI: Denies abdominal pain nausea, emesis Musculoskeletal: Denies back pain or muscle pain Neuro: See HPI Skin: Denies rash Psych: See HPI Except as documented, all other systems reviewed and negative FORMERLY [facility], [facility] Past Medical History Medical History KAYLA (acute kidney injury) Amputation of one or more toes Anemia Arthritis COVID-19 virus infection (09/2019) Degenerative arthritis of right knee Depression Diabetes Diabetes mellitus with diabetic neuropathy Hemoglobin A1c was 11.1 on 02/11/2021 Diabetic foot infection GI bleed (12/2018) Secondary to gastric erosions. 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 History of foot surgery , Dr. Mejia Status post amputation of toe Family History Family History Father Medical history unknown Mother Healthy adult Diabetes mellitus Borderline DM Sibling Healthy adult Social History Social History Social History: The patient lives in [place]. His mother lives at home with him. Social drinker. Smokes 1/3 pack of cigarettes a day. No illicit substance use. Surrogate decision maker: ishaan Benoit. The patient is currently unemployed and is applying for disability. The patient denied using any drugs but stated he smoked marijuana over last couple days. Patient's drug screen was positive for cocaine. Code status: Full code. Smoking packs per day: 0.33 Smoking cigarettes per day: 6.6 Years smoked: 20 Smoking pack-years: 6.60 Smoking status: Current every day smoker Tobacco type: cigarettes Second hand tobacco smoke exposur
[2022-01-12 21:17] LABS: Basophils Percent Auto 0.4 % (0.2-1.2); Eosinophils Absolute Auto 0.4 K/mm3 (0-0.3); Eosinophils Percent Auto 3.3 % (0-4.4); Hematocrit 39.5 % (42.0-52.0); Hemoglobin 12.4 g/dL (14.0-18.0); Immature Granulocyte Absolute 0.06 K/mm3 (0.00-0.031); Immature Granulocyte Percent A 0.6 % (0-0.5); Lymphocytes Absolute Auto 3.19 K/mm3 (0.9-3.2); Lymphocytes Percent Auto 30.2 % (18.3-44.2); Mean Corpuscular HGB Conc 31.4 g/dl (32-36); Mean Corpuscular Hemoglobin 28.1 pg (26-34); Mean Corpuscular Volume 89.6 fl (80-100); Mean Platelet Volume 10.5 fl (7.4-10.4); Monocytes Percent Auto 9.1 % (2.6-8.5); Neutrophils Percent Auto 56.4 % (45.5-73.1); Platelet Count Result 251 k/mm3 (150-375); Red Blood Count 4.41 M/mm3 (4.6-6.20); Red Cell Distribution Width 12.9 % (11.5-14.5); White Blood Count 10.6 K/mm3 (4.5-10.0)
[2022-01-12 21:27] LABS: Alanine Aminotransferase 21 U/L (6-50); Albumin Level 4.2 g/dL (3.5-5.1); Alkaline Phosphatase 108 U/L (38-126); Anion Gap 10 mmol/L (8-16); Aspartate Amino Transferase 22 U/L (17-59); Bilirubin,Total 0.5 mg/dL (0.2-1.3); Blood Urea Nitrogen 20 mg/dL (9-20); Calcium 9.1 mg/dL (8.4-10.2); Carbon Dioxide 26 mmol/L (22-30); Chloride 104 mmol/L (98-107); Estimated CRCL calculation 78 ml/min; Estimated Glomerular Filt Rate > 60; Glucose 147 mg/dL (65-110); Potassium 3.7 mmol/L (3.4-5.0); Sodium 140 mmol/L (137-145)
[2022-01-12 21:28] LABS: Ethanol < 10 mg/dL (<10)
[2022-01-12 21:39] LABS: Troponin I < 0.012 ng/mL (0.000-0.034)
[2022-01-12 21:51] LABS: Appearance Urine Clear (Clear); Bilirubin Urine Negative (Negative); Blood Urine Negative (Negative); Color Urine Yellow (Yellow); Glucose Urine UA 3+ mg/dL (Negative); Ketones Urine Negative (Negative); Leukocyte Esterase Ur Negative LEU/UL (Negative); Nitrate Urine Negative (Negative); Protein Urine Negative (Negative); Specific Grav Ur 1.015 (1.001-1.035); Urobilinogen Urine 0.2 mg/dL (<2.0); pH Urine 5.5 (5.0-9.0)
[2022-01-12 21:54] LABS: Mucus Urine Rare /lpf; RBC Urine 0-2 /hpf (0-2); Squamous Epithelial Cell Urine Rare /hpf (Few); WBC Urine 0-3 /hpf
[2022-01-12 21:56] LABS: Add Urine Microscopic? YES
[2022-01-12 22:05] LABS: Barbiturate Screen Urine Negative (Negative); Benzodiazepines Screen Urine Negative (Negative)
[2022-01-12 22:07] LABS: Amphetamine Screen Urine Negative (Negative); Cannabinoid Screen Urine Negative (Negative); Methadone Screen Urine Negative (Negative); Opiate Screen Urine Negative (Negative); Phencyclidine Screen Urine Negative (Negative)
[2022-01-12 22:13] LABS: Cocaine Screen Urine Negative (Negative)
--- NOTE | 2022-01-12 23:03 | PC.NURSE ---
states pt is medically cleared at this time. Crisis called at this time.
[2022-01-12 23:14] LABS: SARS-CoV-2 RNA PCR Negative
--- NOTE | 2022-01-13 00:30 | PC.NURSE ---
[facility] at bedside at this time for psych evaluation.
--- NOTE | 2022-01-13 02:13 | PC.NURSE ---
Pamela , with [facility], reports that she is working on placement for pt at this time and will update as facilities report back. Pt has no complaints at this time. Sitter at bedside at this time.
--- NOTE | 2022-01-13 03:00 | PC.NURSE ---
BRYANT Olivas from [facility] called and is talking to pt at this time.
[2022-01-13] MEDS: ACETAMINOPHEN 500 MG TABLET 1000 MG PO (04:26)
[2022-01-13] MEDS: GABAPENTIN 300 MG CAPSULE PO (04:26)
--- NOTE | 2022-01-13 05:46 | PC.NURSE ---
called [facility] to request transport. ETA [id number]
[2022-01-13 06:00] VITALS: BP 136/84; PULSE 83; TEMP 36.5; O2SAT 97
--- NOTE | 2022-01-13 06:00 | PC.NURSE ---
Report given at 0551 to BRYANT Sánchez at [phone]. ETA of EMS [id number] and passed on to BRYANT Sánchez. RN requested update when he left facility with EMS.
[2022-01-13 07:06] LABS: Glucose Point of Care 121 mg/dl (65-105)
--- NOTE | 2022-01-13 07:10 | PC.NURSE ---
Report received from BRYANT Meza
--- NOTE | 2022-01-13 07:11 | PC.NURSE ---
Report given to BRYANT Correa.
--- NOTE | 2022-01-13 09:37 | PC.NURSE ---
pt asked this tech for a shower at 0832, this tech told the patient that by the time we found a room for him/gathered the supplies for a shower his ride would already be here due to his rides ETA of 0830. patient asked at 0845 if he could wash up with a rag in the bathroom so this tech asked the charge nurse if he could shower, the charge nurse said no due to his ride arriving soon. again at 0850 the patient was agitated and asked why he couldn't wash up in the bathroom, this tech was in the middle of calling for some body wipes when the ambulance showed up to take him to the facility
== END 2022-01-13 09:04 ==
PROVIDERS: Emergency Provider Emergency Medicine; PCP Internal Medicine Gastroenterology
DX: R45.851 Suicidal ideations (principal); M54.12 Radiculopathy, cervical region; Z20.822 Contact with and (suspected) exposure to COVID-19; E11.40 Type 2 diabetes mellitus with diabetic neuropathy, unspecified; D64.9 Anemia, unspecified; E78.5 Hyperlipidemia, unspecified; I10 Essential (primary) hypertension; G47.33 Obstructive sleep apnea (adult) (pediatric); M17.11 Unilateral primary osteoarthritis, right knee; Z86.16 Personal history of COVID-19; Z89.429 Acquired absence of other toe(s), unspecified side; Z79.84 Long term (current) use of oral hypoglycemic drugs; F17.210 Nicotine dependence, cigarettes, uncomplicated; I51.7 Cardiomegaly; R94.31 Abnormal electrocardiogram [ECG] [EKG]; I44.4 Left anterior fascicular block
CPT/HCPCS: 36415; 72125; 80053; 80307; 81001; 82948; 84443; 84484; 85025; 93005; 99285; A9270; C9803; U0003; U0005

== ENCOUNTER 2022-02-24 17:18 | Emergency (ER) | payer OTHER, SELFPAY ==
[2022-02-24] VITALS (17 sets, daily range): BP systolic 134–179; BP diastolic 56–97; PULSE 82–106; RESP 14–26; TEMP 36.7; O2SAT 95–100
--- NOTE | ~2022-02-24 | XR_ITS ---
EXAMINATION: XR chest 2V DATE: 02/24/2022 19:03 INDICATION: Weakness and dizziness TECHNIQUE: frontal and lateral views of the chest were obtained. COMPARISON: Chest radiograph and CT dated 04/05/2021 FINDINGS: Evaluation on the lateral projection is limited by body habitus and underpenetration. Mildly decrease d lung volumes and mild elevation of left hemidiaphragm. Linear opacities at the bilateral lung bases and favor atelectasis over pneumonia. No pulmonary edema, pleural effusion or pneumothorax. The card iomediastinal silhouette is normal. IMPRESSION: 1. Small lung volumes with mild linear bibasilar opacities with appearance favoring atelectasis over pneumonia. Reviewed, dictated and finalized at location A. IMPRESSION: 1. Small lung volumes with mild linear bibasilar opacities with appearance favo ring atelectasis over pneumonia.
--- NOTE | ~2022-02-24 | CT_ITS ---
EXAMINATION: CT brain wo con DATE: 02/24/2022 19:08 INDICATION: Dizziness and headache TECHNIQUE: Computed tomography (CT) of the head was performed without intravenous contrast. Sagittal and coronal reconstructions were performed. The mA was adjusted according to patient size. Iterative reconstruction technique was employed. The dose-length product was 681.00 mGy-cm. COMPARISON: head CT dated 09/16/2021 FINDINGS: No acute intracranial hemorrhage, acute infarction or abnormal extra axial fluid collection. Ventricl es are normal and symmetric. No mass/mass effect. Mild mucosal thickening in the bilateral maxillary sinuses. The orbits and mastoid air cells are normal. IMPRESSION: 1. No acute intracranial process. Reviewed, dictated and finalized at location A.
--- NOTE | 2022-02-24 17:24 | ECG_ITS ---
Measurements Intervals [place] Rate: 82 P: 61 [place]: 212 QRS: -31 QRSD: 127 T: 116 QT: 381 QTc: 446 Interpretive Statements SINUS RHYTHM WITH FIRST DEGREE AV BLOCK LEFT AXIS DEVIATION INTRAVENTRICULAR CONDUCTION DELAY LEFT VENTRICULAR HYPERTROPHY AND ST-T CHANGE BASELINE ARTIFACT- V6 BORDERLINE ECG COMPARED TO ECG 01/12/2022 20:38:22 FIRST DEGREE AV BLOCK NOW PRESENT Electronically Signed On 02-25-2022 7:05:32 CDT by Allan Gale D.O.
[2022-02-24 17:34] LABS: Glucose Point of Care 173 mg/dl (65-105)
--- NOTE | 2022-02-24 18:39 | PC.NURSE ---
Unable to obtain IV access or get labs after attempts by multiple RN's. ERP aware.
[2022-02-24 18:57] LABS: Basophils Percent Auto 0.3 % (0.2-1.2); Eosinophils Percent Auto 0.1 % (0-4.4); Immature Granulocyte Absolute 0.07 K/mm3 (0.00-0.031); Immature Granulocyte Percent A 0.7 % (0-0.5); Lymphocytes Absolute Auto 0.96 K/mm3 (0.9-3.2); Lymphocytes Percent Auto 9.4 % (18.3-44.2); Mean Corpuscular HGB Conc 32.6 g/dl (32-36); Mean Corpuscular Hemoglobin 28.7 pg (26-34); Mean Corpuscular Volume 88.1 fl (80-100); Mean Platelet Volume 10.3 fl (7.4-10.4); Monocytes Absolute Auto 0.5 K/mm3 (0.1-0.6); Neutrophils Absolute Auto 8.7 K/mm3 (1.3-6.7); Neutrophils Percent Auto 84.5 % (45.5-73.1); Platelet Count Result 265 k/mm3 (150-375); Red Blood Count 4.88 M/mm3 (4.6-6.20); Red Cell Distribution Width 12.5 % (11.5-14.5); White Blood Count 10.3 K/mm3 (4.5-10.0)
[2022-02-24 19:08] LABS: Alanine Aminotransferase 22 U/L (6-50); Albumin Level 4.6 g/dL (3.5-5.1); Alkaline Phosphatase 110 U/L (38-126); Anion Gap 18 mmol/L (8-16); Aspartate Amino Transferase 20 U/L (17-59); Bilirubin,Total 0.5 mg/dL (0.2-1.3); Blood Urea Nitrogen 11 mg/dL (9-20); Calcium 9.8 mg/dL (8.4-10.2); Carbon Dioxide 26 mmol/L (22-30); Chloride 99 mmol/L (98-107); Estimated CRCL calculation 110 ml/min; Estimated Glomerular Filt Rate > 60; Glucose 190 mg/dL (65-110); Lipase 18 U/L (23-300); Potassium 3.5 mmol/L (3.4-5.0); Sodium 143 mmol/L (137-145)
[2022-02-24 19:09] LABS: INR 1.1; Partial Thromboplastin Time 33.6 SECONDS (22.3-36.8); Prothrombin Time 13.3 Seconds (11.1-14.7)
--- NOTE | 2022-02-24 19:14 | ED.GENADULT ---
HPI - General Adult General Chief complaint: Weakness Stated complaint: DIZZINESS HX DM Time Seen by Provider: 02/24/22 17:24 Source: patient, RN notes reviewed and old records reviewed Mode of arrival: ambulatory Limitations: no limitations History of Present Illness HPI narrative: This is a 56 year old male with history of DM, peripheral neuropathy, hypertension, and hyperlipidemia who presents for evaluation of dizziness with nausea and vomiting. He states around 9 am this morning he developed dizziness with nausea and vomiting. He describes his dizziness as room spinning. HE denies history of vertigo. He denies new focal weakness, numbness or tingling. He reports frontal headache. Denies URI symptoms. Denies chest pain, sob, or abdominal pain. Related Data Home Medications Medication Instructions Recorded Confirmed metformin 850 mg tablet 850 mg PO BID 09/23/19 01/21/22 atorvastatin 20 mg tablet (Lipitor) 20 mg PO DAILY 05/08/20 01/21/22 ergocalciferol (vitamin D2) 1,250 1,250 mcg PO DAILY 09/16/21 01/21/22 mcg (50,000 unit) capsule gabapentin 100 mg capsule 100 mg PO DIRECTED 09/16/21 01/21/22 aripiprazole 15 mg tablet mg 01/12/22 01/21/22 escitalopram oxalate 20 mg tablet mg 01/12/22 01/21/22 Allergies Allergy/AdvReac Type Severity Reaction Status Date / Time No Known Allergies Allergy Verified 02/24/22 17:34 Review of Systems Review of Systems: All systems reviewed & are unremarkable except as noted in HPI and below Constitutional: Constitutional: Denies chills, Reports fatigue and Denies fever(s) Eyes: Eyes: Denies photophobia ENT: Reports vertigo, Denies epistaxis and Denies nasal congestion Cardiovascular: Cardiovascular: Denies chest pain and Denies rapid heart rate Respiratory: Respiratory: Denies chest congestion, Denies cough and Denies dyspnea Gastrointestinal: Gastrointestinal: Denies abdominal pain, Denies diarrhea, Reports nausea and Reports vomiting Neurologic: Reports vertigo and Reports headache(s) [facility] Past Medical History Medical History KAYLA (acute kidney injury) Amputation of one or more toes Anemia Arthritis COVID-19 virus infection (09/2019) Degenerative arthritis of right knee Depression Diabetes Diabetes mellitus with diabetic neuropathy Hemoglobin A1c was 11.1 on 02/11/2021 Diabetic foot infection GI bleed (12/2018) Secondary to gastric erosions. 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 History of foot surgery , Dr. Mejia Status post amputation of toe Family History Family History Father Medical history unknown Mother Healthy adult Diabetes mellitus Borderline DM Sibling Healthy adult Social History Social History Social History: The patient lives in [place]. His mother lives at home with him. Social drinker. Smokes 1/3 pack of cigarettes a day. No illicit substance use. Surrogate decision maker: ishaan Benoit. The patient is currently unemployed and is applying for disability. The patient denied using any drugs but stated he smoked marijuana over last couple days. Patient's drug screen was positive for cocaine. Code status: Full code. Smoking packs per day: 0.33 Smoking cigarettes per day: 6.6 Years smoked: 20 Smoking pack-years: 6.60 Smoking status: Current every day smoker Tobacco type: cigarettes Second hand tobacco smoke exposure
[2022-02-24 19:19] LABS: Troponin I < 0.012 ng/mL (0.000-0.034)
[2022-02-24] MEDS: SODIUM CHLORIDE 0.9% IV 1,000 ML 999 ML IV CONT (19:40)
[2022-02-24] MEDS: MECLIZINE HCL 25 MG TABLET PO (19:41)
[2022-02-24] MEDS: ONDANSETRON INJ 4 MG/2 ML VIAL IV PUSH (19:41)
--- NOTE | 2022-02-24 20:39 | PC.NURSE ---
Dr Salvador aware pt refusing to be stuck at this time for second Troponin
[2022-02-24 21:10] LABS: SARS-CoV-2 RNA PCR Negative
--- NOTE | 2022-02-24 21:21 | PC.NURSE ---
Ambulated in hallway with RN with steady gait and no complaints
== END 2022-02-24 21:59 | disposition home or self-care (01) ==
PROVIDERS: Emergency Medicine; Emergency Provider General Practice; PCP Internal Medicine Gastroenterology
DX: R42 Dizziness and giddiness (principal); R11.2 Nausea with vomiting, unspecified; Z20.822 Contact with and (suspected) exposure to COVID-19; E11.42 Type 2 diabetes mellitus with diabetic polyneuropathy; E78.5 Hyperlipidemia, unspecified; I10 Essential (primary) hypertension; M17.11 Unilateral primary osteoarthritis, right knee; F32.A Depression, unspecified; Z86.16 Personal history of COVID-19; Z89.411 Acquired absence of right great toe; Z89.429 Acquired absence of other toe(s), unspecified side; F17.210 Nicotine dependence, cigarettes, uncomplicated; Z79.84 Long term (current) use of oral hypoglycemic drugs; Z79.4 Long term (current) use of insulin
CPT/HCPCS: 36415; 70450; 71046; 80053; 82948; 83690; 84484; 85025; 85610; 85730; 93005; 96361; 96374; 99284; A9270; C9803; J2405; J7030; U0003; U0005

== ENCOUNTER 2022-07-05 15:11 | Emergency (ER) | payer OTHER, SELFPAY ==
--- NOTE | ~2022-07-05 | XR_ITS ---
EXAMINATION: XR chest 2V DATE: 07/05/2022 15:38 INDICATION: Right-sided back pain and vomiting TECHNIQUE: PA and lateral views of the chest are obtained. COMPARISON: 02/24/2022 FINDINGS: There is mild atelectasis of the lung bases. No pleural effusion or pneumothorax. The cardi omediastinal silhouette is normal. There is mild thoracic spondylosis. IMPRESSION: 1. Mild atelectasis of the lung bases. Reviewed, dictated and finalized at location L. TRICAL FOREMAN
[2022-07-05 15:15] VITALS: BP 174/95; PULSE 85; RESP 18; TEMP 36.4; O2SAT 100
--- NOTE | 2022-07-05 15:16 | ECG_ITS ---
Measurements Intervals [place] Rate: 82 P: 63 TN: 181 QRS: -47 QRSD: 123 T: 100 QT: 376 QTc: 440 Interpretive Statements SINUS RHYTHM LEFT ANTERIOR FASCICULAR BLOCK LEFT VENTRICULAR HYPERTROPHY AND ST-T CHANGE POSSIBLE ANTEROSEPTAL MYOCARDIAL INFARCTION, OF INDETERMINATE AGE ABNORMAL ECG COMPARED TO ECG 02/24/2022 17:35:50 LEFT ANTERIOR FASCICULAR BLOCK NOW PRESENT Electronically Signed On 07-06-2022 15:00:57 TELEMARKETING MANAGER by Danilo Wilburn M.D.
--- NOTE | 2022-07-05 17:11 | PC.NURSE ---
multiple attempts at IV access without success.
[2022-07-05 17:39] LABS: Influenza A QL RT-PCR Negative (Negative); Influenza B QL RT-PCR Negative (Negative); RSV RNA, RT-PCR Negative (Negative); SARS-CoV-2 RNA PCR Negative
--- NOTE | 2022-07-05 18:14 | PC.NURSE ---
attempted IV access with ultrasound. pt reports take it out take it out! that is not going to work! pt reports he needs a break.
[2022-07-05] MEDS: ONDANSETRON INJ 4 MG/2 ML VIAL IV PUSH (18:30)
[2022-07-05 18:31] VITALS: BP 152/112; PULSE 86; RESP 16; O2SAT 97
[2022-07-05 18:41] LABS: Basophils Percent Auto 0.2 % (0.2-1.2); Eosinophils Absolute Auto 0.2 K/mm3 (0-0.3); Eosinophils Percent Auto 1.8 % (0-4.4); Hemoglobin 12.8 g/dL (14.0-18.0); Immature Granulocyte Absolute 0.06 K/mm3 (0.00-0.031); Immature Granulocyte Percent A 0.6 % (0-0.5); Lymphocytes Absolute Auto 1.64 K/mm3 (0.9-3.2); Lymphocytes Percent Auto 16.1 % (18.3-44.2); Mean Corpuscular HGB Conc 32.8 g/dl (32-36); Mean Corpuscular Hemoglobin 28.7 pg (26-34); Mean Corpuscular Volume 87.4 fl (80-100); Mean Platelet Volume 10.6 fl (7.4-10.4); Monocytes Absolute Auto 0.7 K/mm3 (0.1-0.6); Monocytes Percent Auto 7.1 % (2.6-8.5); Neutrophils Absolute Auto 7.5 K/mm3 (1.3-6.7); Neutrophils Percent Auto 74.2 % (45.5-73.1); Platelet Count Result 292 k/mm3 (150-375); Red Blood Count 4.46 M/mm3 (4.6-6.20); Red Cell Distribution Width 12.5 % (11.5-14.5); White Blood Count 10.2 K/mm3 (4.5-10.0)
[2022-07-05 18:42] LABS: Prothrombin Time 13.1 Seconds (11.1-14.7)
[2022-07-05 18:43] LABS: Partial Thromboplastin Time 34.2 SECONDS (22.3-36.8)
--- NOTE | 2022-07-05 18:50 | ED.NAVMDI ---
HPI - Nausea/Vomiting/Diarrhea General Chief complaint: Nausea/Vomiting/Diarrhea <Monica Cuellar MD - Last Filed: 07/09/22 15:08> Stated complaint: vomiting <Monica Cuellar MD - Last Filed: 07/09/22 15:08> Time Seen by Provider: 07/05/22 16:45 <Monica Cuellar MD - Last Filed: 07/09/22 15:08> History of Present Illness HPI Narrative: Patient presents here with nausea and vomiting that started prior to presentation here, no abdominal pain, no diarrhea, also endorsing some chills. He has a history of diabetes, and has been having neuropathy pain. <Monica Cuellar MD - Last Filed: 07/09/22 15:08> Related Data Home medications: Home Medications Medication Instructions Recorded Confirmed metformin 850 mg tablet 850 mg PO BID 09/23/19 01/21/22 atorvastatin 20 mg tablet (Lipitor) 20 mg PO DAILY 05/08/20 01/21/22 ergocalciferol (vitamin D2) 1,250 1,250 mcg PO DAILY 09/16/21 01/21/22 mcg (50,000 unit) capsule gabapentin 100 mg capsule 100 mg PO DIRECTED 09/16/21 01/21/22 aripiprazole 15 mg tablet mg 01/12/22 01/21/22 escitalopram oxalate 20 mg tablet mg 01/12/22 01/21/22 <Monica Cuellar MD - Last Filed: 07/09/22 15:08> Allergies/Adverse reactions: Allergies Allergy/AdvReac Type Severity Reaction Status Date / Time No Known Allergies Allergy Verified 02/24/22 17:34 <Monica Cuellar MD - Last Filed: 07/09/22 15:08> Review of Systems Review of Systems: CONST: Feeling hot and cold HEENT: No sore throat C/V: No chest pain RESP: No cough GI: Reports nausea, vomiting : No dysuria. M/S: Burning pain in feet SKIN: No rash. NEURO: Numbness and pain in lower extremities, chronic PSYCH: [No depression] <Monica Cuellar MD - Last Filed: 07/09/22 15:08> PMFSH Past Medical History Medical History: Medical History KAYLA (acute kidney injury) Amputation of one or more toes Anemia Arthritis COVID-19 virus infection (09/2019) Degenerative arthritis of right knee Depression Diabetes Diabetes mellitus with diabetic neuropathy Hemoglobin A1c was 11.1 on 02/11/2021 Diabetic foot infection GI bleed (12/2018) Secondary to gastric erosions. History of elevated blood pressure while in hospital Hyperlipidemia Hypertension Obstructive sleep apnea Osteomyelitis Osteomyelitis of second toe of left foot Sleep trouble Tobacco use <Monica Cuellar MD - Last Filed: 07/09/22 15:08> Surgical History Surgical History: Surgical History History of appendectomy History of arthroscopy of left shoulder History of complete ray amputation of first toe of right foot (08/2019) History of esophagogastroduodenoscopy (12/2018) Gastric erosions. History of foot surgery , Dr. Mejia Status post amputation of toe <Monica Cuellar MD - Last Filed: 07/09/22 15:08> Family History Family History: Family History Father Medical history unknown Mother Healthy adult Diabetes mellitus Borderline DM Sibling Healthy adult <Monica Cuellar MD - Last Filed: 07/09/22 15:08> Social History Social History: Social History Social History: The patient lives in [place]. His mother lives at home with him. Social drinker. Smokes 1/3 pack of cigarettes a day. No illicit substance use. Surrogate decision maker: Taylor Cooper, niece. The patient is currently unemployed and is applying for disability. The patient denied using any drugs but stated he smoked marijuana over last couple days. Patient's drug screen was positive for cocaine. Code status: Full code. Smoking packs per day: 0.33 Smoking cigarettes per day: 6.6 Years smoked: 20 Smoking pack-years: 6.60 Smoking status: Current every day smoker Tobacco type: cigarettes Second hand tobacco smoke exposure: No Alcohol intake: unknown Substance use: unknown Substan
[2022-07-05 18:55] LABS: Troponin I < 0.012 ng/mL (0.000-0.034)
[2022-07-05] MEDS: METOCLOPRAMIDE HCL INJ 10 MG/2 ML VIAL IV PUSH (19:03)
[2022-07-05] MEDS: diphenhydrAMINE HCl INJ 50 MG/ML VIAL 25 MG IV PUSH (19:03)
[2022-07-05 19:08] LABS: Alanine Aminotransferase 22 U/L (6-50); Albumin Level 4.3 g/dL (3.5-5.1); Alkaline Phosphatase 115 U/L (38-126); Anion Gap 5 mmol/L (8-16); Aspartate Amino Transferase 27 U/L (17-59); Bilirubin,Total 0.7 mg/dL (0.2-1.3); Blood Urea Nitrogen 21 mg/dL (9-20); Calcium 9.6 mg/dL (8.4-10.2); Carbon Dioxide 29 mmol/L (22-30); Chloride 97 mmol/L (98-107); Estimated CRCL calculation 126 ml/min; Estimated Glomerular Filt Rate > 60; Glucose 255 mg/dL (65-110); Lipase 44 U/L (23-300); Potassium 4.4 mmol/L (3.4-5.0); Sodium 131 mmol/L (137-145)
[2022-07-05 21:24] VITALS: BP 188/101; PULSE 102; RESP 20; O2SAT 96
--- NOTE | 2022-07-05 22:00 | PC.NURSE ---
Pt tolerated ice chips with nausea or vomiting.
[2022-07-05 22:36] LABS: Troponin I < 0.012 ng/mL (0.000-0.034)
[2022-07-05 22:47] VITALS: BP 170/89; PULSE 78; RESP 20; O2SAT 98
== END 2022-07-05 22:48 | disposition home or self-care (01) ==
PROVIDERS: Emergency Provider Emergency Medicine; PCP Internal Medicine Gastroenterology
DX: R11.2 Nausea with vomiting, unspecified (principal); Z20.822 Contact with and (suspected) exposure to COVID-19; E11.40 Type 2 diabetes mellitus with diabetic neuropathy, unspecified; E78.5 Hyperlipidemia, unspecified; D64.9 Anemia, unspecified; F41.9 Anxiety disorder, unspecified; F32.A Depression, unspecified; G47.33 Obstructive sleep apnea (adult) (pediatric); M19.90 Unspecified osteoarthritis, unspecified site; Z89.411 Acquired absence of right great toe; Z86.16 Personal history of COVID-19; F17.210 Nicotine dependence, cigarettes, uncomplicated; Z79.84 Long term (current) use of oral hypoglycemic drugs; Z79.4 Long term (current) use of insulin; I44.4 Left anterior fascicular block; R94.31 Abnormal electrocardiogram [ECG] [EKG]; I51.7 Cardiomegaly
CPT/HCPCS: 36415; 71046; 80053; 83690; 84484; 85025; 85610; 85730; 87637; 93005; 96374; 96375; 99284; J1200; J2405; J2765

== ENCOUNTER 2022-10-05 10:52 | Emergency (ER) | payer OTHER, SELFPAY ==
[2022-10-05] VITALS (9 sets, daily range): BP systolic 160–175; BP diastolic 86–97; PULSE 84–97; RESP 13–20; TEMP 36.6; O2SAT 94–99
--- NOTE | ~2022-10-05 | XR_ITS ---
XR chest 2V 10/05/2022 12:04 Indication: 2 view chest Procedure: 2 view chest Comparison: Comparison to multiple prior studies sequentially, with oldest reviewed study dated 04/28. Findings: There is chronic lingular atelectasis/scarring. No acute focal pneumonia, edema, pleural ef fusion or pneumothorax. Heart size normal. No acute osseous abnormality. Impression: 1: No acute cardiopulmonary disease. Reviewed, dictated and finalized at location B. Impression: 1: No acute cardiopulmonary disease.
--- NOTE | 2022-10-05 11:02 | ECG_ITS ---
Measurements Intervals [place] Rate: 95 P: 62 ND: 199 QRS: -38 QRSD: 124 T: 101 QT: 357 QTc: 450 Interpretive Statements SINUS RHYTHM LEFT AXIS DEVIATION LEFT VENTRICULAR HYPERTROPHY AND ST-T CHANGE BORDERLINE R WAVE PROGRESSION, ANTERIOR LEADS BORDERLINE ECG COMPARED TO ECG 07/05/2022 15:25:13 NO SIGNIFICANT CHANGES Electronically Signed On 10-05-2022 11:41:56 CDT by Allan Gale D.O.
[2022-10-05 11:05] LABS: Glucose Point of Care 130 mg/dl (65-105)
[2022-10-05 11:50] LABS: Basophils Percent Auto 0.2 % (0.2-1.2); Eosinophils Absolute Auto 0.1 K/mm3 (0-0.3); Hematocrit 42.6 % (42.0-52.0); Hemoglobin 13.7 g/dL (14.0-18.0); Immature Granulocyte Absolute 0.07 K/mm3 (0.00-0.031); Immature Granulocyte Percent A 0.5 % (0-0.5); Lymphocytes Absolute Auto 1.77 K/mm3 (0.9-3.2); Lymphocytes Percent Auto 13.1 % (18.3-44.2); Mean Corpuscular HGB Conc 32.2 g/dl (32-36); Mean Corpuscular Hemoglobin 28.2 pg (26-34); Mean Corpuscular Volume 87.7 fl (80-100); Mean Platelet Volume 10.4 fl (7.4-10.4); Monocytes Absolute Auto 1.1 K/mm3 (0.1-0.6); Monocytes Percent Auto 8.3 % (2.6-8.5); Neutrophils Absolute Auto 10.4 K/mm3 (1.3-6.7); Neutrophils Percent Auto 76.9 % (45.5-73.1); Platelet Count Result 274 k/mm3 (150-375); Red Blood Count 4.86 M/mm3 (4.6-6.20); Red Cell Distribution Width 13.2 % (11.5-14.5); White Blood Count 13.5 K/mm3 (4.5-10.0)
[2022-10-05 12:10] LABS: Appearance Urine Clear (Clear); Bacteria Urine None Seen /hpf; Bilirubin Urine Negative (Negative); Blood Urine Trace (Negative); Color Urine Yellow (Yellow); Glucose Urine UA 3+ mg/dL (Negative); Ketones Urine Trace mg/dL (Negative); Leukocyte Esterase Ur Negative LEU/UL (Negative); Nitrate Urine Negative (Negative); Non Pathogenic Casts 0-2; Protein Urine 3+ mg/dL (Negative); Specific Grav Ur 1.034 (1.001-1.035); Squamous Epithelial Cell Urine None seen /hpf (Few); WBC Urine 0-5 /hpf; pH Urine 5.5 (5.0-9.0)
[2022-10-05 12:13] LABS: Add Urine Microscopic? YES
[2022-10-05 12:14] LABS: Alanine Aminotransferase 23 U/L (6-50); Albumin Level 4.7 g/dL (3.5-5.1); Alkaline Phosphatase 122 U/L (38-126); Anion Gap 10 mmol/L (8-16); Aspartate Amino Transferase 25 U/L (17-59); Bilirubin,Total 0.9 mg/dL (0.2-1.3); Blood Urea Nitrogen 20 mg/dL (9-20); Calcium 9.3 mg/dL (8.4-10.2); Carbon Dioxide 25 mmol/L (22-30); Chloride 106 mmol/L (98-107); Estimated CRCL calculation 97 ml/min; Estimated Glomerular Filt Rate > 60; Glucose 127 mg/dL (65-110); Potassium 3.6 mmol/L (3.4-5.0); Sodium 141 mmol/L (137-145)
[2022-10-05] MEDS: SODIUM CHLORIDE 0.9% IV 1,000 ML 999 ML IV CONT (12:32)
[2022-10-05] MEDS: ONDANSETRON INJ 4 MG/2 ML VIAL IV PUSH (12:34)
[2022-10-05] MEDS: MECLIZINE HCL 25 MG TABLET PO (12:34)
--- NOTE | 2022-10-05 13:42 | ED.GENADULT ---
HPI - General Adult General Chief complaint: Dizziness Stated complaint: dizzy/faint Time Seen by Provider: 10/05/22 11:29 History of Present Illness HPI narrative: Patient is a 57-year-old male who presents ER with multiple complaints. First complaint is dizziness. Spinning. Worse with turning his head left and right looking up and down. Began this morning. Associate with nausea and vomiting. No focal weakness or numbness in arm or leg. No slurred speech. Patient also would like to have an area of his right foot looked at. It is located in the fourth webspace. It started off his athlete's foot and has fissured. No redness or necrosis of the adjacent digits. No fevers or chills or sweats. Patient has history of multiple amputated toes. Lastly he would like his right second digit looked at. He slammed it in a door and avulsed some skin. He has had a Band-Aid on it and there is whitened. There is no purulent drainage. No redness or streaking up the hand. He maintains normal range of motion and sensation. Related Data Home Medications Medication Instructions Recorded Confirmed metformin 850 mg tablet 850 mg PO BID 09/23/19 01/21/22 atorvastatin 20 mg tablet (Lipitor) 20 mg PO DAILY 05/08/20 01/21/22 ergocalciferol (vitamin D2) 1,250 1,250 mcg PO DAILY 09/16/21 01/21/22 mcg (50,000 unit) capsule gabapentin 100 mg capsule 100 mg PO DIRECTED 09/16/21 01/21/22 aripiprazole 15 mg tablet mg 01/12/22 01/21/22 escitalopram oxalate 20 mg tablet mg 01/12/22 01/21/22 Allergies Allergy/AdvReac Type Severity Reaction Status Date / Time No Known Allergies Allergy Verified 10/05/22 11:01 [facility] Past Medical History Medical History KAYLA (acute kidney injury) Amputation of one or more toes Anemia Arthritis COVID-19 virus infection (09/2019) Degenerative arthritis of right knee Depression Diabetes Diabetes mellitus with diabetic neuropathy Hemoglobin A1c was 11.1 on 02/11/2021 Diabetic foot infection GI bleed (12/2018) Secondary to gastric erosions. 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 History of foot surgery , Dr. Mejia Status post amputation of toe Family History Family History Father Medical history unknown Mother Healthy adult Diabetes mellitus Borderline DM Sibling Healthy adult Social History Social History Social History: The patient lives in [place]. His mother lives at home with him. Social drinker. Smokes 1/3 pack of cigarettes a day. No illicit substance use. Surrogate decision maker: Taylor Cooper nichristiano. The patient is currently unemployed and is applying for disability. The patient denied using any drugs but stated he smoked marijuana over last couple days. Patient's drug screen was positive for cocaine. Code status: Full code. Smoking packs per day: 0.33 Smoking cigarettes per day: 6.6 Years smoked: 20 Smoking pack-years: 6.60 Smoking status: Current every day smoker Tobacco type: cigarettes Second hand tobacco smoke exposure: No Alcohol intake: unknown Substance use: unknown Substance use type: unknown Living arrangements: with family Occupation/Education: unemployed Gender identity (if verbalized by the patient): Male Spiritual care concerns: No Exam Narrative: GENERAL: Well-appearing, well-nourished, and in no acute distress. HEAD: Normocephalic, atraumatic. EYES: PERRL and EOM
== END 2022-10-05 14:14 | disposition home or self-care (01) ==
PROVIDERS: Emergency Provider Emergency Medicine; PCP Internal Medicine Gastroenterology
DX: R42 Dizziness and giddiness (principal); B35.3 Tinea pedis; E11.40 Type 2 diabetes mellitus with diabetic neuropathy, unspecified; E78.5 Hyperlipidemia, unspecified; I10 Essential (primary) hypertension; D64.9 Anemia, unspecified; G47.33 Obstructive sleep apnea (adult) (pediatric); M17.11 Unilateral primary osteoarthritis, right knee; F32.A Depression, unspecified; F17.210 Nicotine dependence, cigarettes, uncomplicated; Z86.16 Personal history of COVID-19; Z89.411 Acquired absence of right great toe; Z79.4 Long term (current) use of insulin; Z79.84 Long term (current) use of oral hypoglycemic drugs; I45.9 Conduction disorder, unspecified; I51.7 Cardiomegaly; R94.31 Abnormal electrocardiogram [ECG] [EKG]
CPT/HCPCS: 36415; 71046; 80053; 81001; 82948; 85025; 93005; 96374; 99284; A9270; J2405; J7030

== ENCOUNTER 2023-01-03 12:58 | Emergency (ER) | payer OTHER, SELFPAY ==
[2023-01-03 12:59] VITALS: BP 151/83; PULSE 95; RESP 18; TEMP 36.8; O2SAT 100
--- NOTE | 2023-01-03 14:24 | PC.NURSE ---
Pt lying on stretcher watching videos on cell phone.
--- NOTE | 2023-01-03 14:59 | ED.EYEPROB ---
HPI - Eye Problem General Chief complaint: Eye Problems Stated complaint: left eye problem Time Seen by Provider: 01/03/23 13:55 History of Present Illness HPI Narrative: Patient is a 57-year-old male presenting with left eye discomfort and discharge. Patient states that he woke this morning and felt like his left eye was blurrier than normal. States that it had some white discharge no foreign body sensation. He denies outright pain, states that it is more of a discomfort. He does not wear contacts. States that he wears glasses though he has not worn them for a long time. He denies recent activities that place him at risk for ocular foreign bodies. He denies any trauma. Denies headaches, numbness, weakness. Related Data Home Medications Medication Instructions Recorded Confirmed metformin 850 mg tablet 850 mg PO BID 09/23/19 01/21/22 atorvastatin 20 mg tablet (Lipitor) 20 mg PO DAILY 05/08/20 01/21/22 ergocalciferol (vitamin D2) 1,250 1,250 mcg PO DAILY 09/16/21 01/21/22 mcg (50,000 unit) capsule gabapentin 100 mg capsule 100 mg PO DIRECTED 09/16/21 01/21/22 aripiprazole 15 mg tablet mg 01/12/22 01/21/22 escitalopram oxalate 20 mg tablet mg 01/12/22 01/21/22 Allergies Allergy/AdvReac Type Severity Reaction Status Date / Time No Known Allergies Allergy Verified 01/03/23 13:26 Review of Systems Review of Systems: All systems reviewed & are unremarkable except as noted in HPI and below PMFSH Past Medical History Medical History KAYLA (acute kidney injury) Amputation of one or more toes Anemia Arthritis COVID-19 virus infection (09/2019) Degenerative arthritis of right knee Depression Diabetes Diabetes mellitus with diabetic neuropathy Hemoglobin A1c was 11.1 on 02/11/2021 Diabetic foot infection GI bleed (12/2018) Secondary to gastric erosions. 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 History of foot surgery , Dr. Mejia Status post amputation of toe Family History Family History Father Medical history unknown Mother Healthy adult Diabetes mellitus Borderline DM Sibling Healthy adult Social History Social History Social History: The patient lives in [place]. His mother lives at home with him. Social drinker. Smokes 1/3 pack of cigarettes a day. No illicit substance use. Surrogate decision maker: ishaan Benoit. The patient is currently unemployed and is applying for disability. The patient denied using any drugs but stated he smoked marijuana over last couple days. Patient's drug screen was positive for cocaine. Code status: Full code. Smoking packs per day: 0.33 Smoking cigarettes per day: 6.6 Years smoked: 20 Smoking pack-years: 6.60 Smoking status: Current every day smoker Tobacco type: cigarettes Second hand tobacco smoke exposure: No Alcohol intake: unknown Substance use: unknown Substance use type: unknown Living arrangements: with family Occupation/Education: unemployed Gender identity (if verbalized by the patient): Male Spiritual care concerns: No Exam Narrative: GENERAL: Well-appearing, well-nourished, and in no acute distress. HEAD: Normocephalic, atraumatic. EYES: PERRLA and EOMI. left conjunctiva mildly injected with small amount of white thick discharge and lateral chemosis ENT: Mucous membranes moist. NECK: Supple. CHEST: No respiratory distr
[2023-01-03 16:14] VITALS: BP 169/94; PULSE 98; RESP 18; O2SAT 96
== END 2023-01-03 16:16 | disposition home or self-care (01) ==
PROVIDERS: Emergency Provider Emergency Medicine; PCP Internal Medicine Gastroenterology
DX: S05.02XA Injury of conjunctiva and corneal abrasion without foreign body, left eye, initial encounter (principal); M19.90 Unspecified osteoarthritis, unspecified site; F32.A Depression, unspecified; E11.9 Type 2 diabetes mellitus without complications; I10 Essential (primary) hypertension; E78.5 Hyperlipidemia, unspecified; G47.30 Sleep apnea, unspecified; Z87.891 Personal history of nicotine dependence; X58.XXXA Exposure to other specified factors, initial encounter
CPT/HCPCS: 99283

== ENCOUNTER 2023-05-28 18:45 | Emergency (ER) | payer OTHER, SELFPAY ==
--- NOTE | ~2023-05-28 | XR_ITS ---
EXAMINATION: XR foot RT min 3V DATE: 05/28/2023 22:57 INDICATION: Right foot diabetic ulcer. TECHNIQUE: 3 views of right foot were obtained. COMPARISON: Right foot radiographs 03/02/2021 FINDINGS: There is amputation at first and second metatarsophalangeal joints. There is an old healed fracture of fourth proximal phalanx. There is mild osteoarthritis of some of the interphalangeal join ts. There are enthesophytes at the posterior and plantar aspects of calcaneal tuberosity. There is so ft tissue gas distal to the first metatarsal. IMPRESSION: 1. No specific evidence of osteomyelitis. Reviewed, dictated and finalized at location A. ING SUPERVISOR
[2023-05-28 18:53] LABS: Glucose Point of Care 152 mg/dl (65-105)
[2023-05-28 19:05] VITALS: BP 138/78; PULSE 98; RESP 18; TEMP 36.5; O2SAT 98
--- NOTE | 2023-05-28 22:50 | ED.GENADULT ---
HPI - General Adult General Chief complaint: Nausea/Vomiting/Diarrhea Stated complaint: NV, dizzy, foot sore Time Seen by Provider: 05/28/23 22:32 History of Present Illness HPI narrative: This is a 57-year-old male with history of vertigo and diabetes presenting with 2 complaints. His 1st complaint is dizziness. Patient has been having vertiginous symptoms when he moves his head back and forth. Symptoms completely resolve in between episodes. associated with some vomiting. No other neurologic deficits. He has had this in the past and has responded well to meclizine. Patient's 2nd complaint is a diabetic foot ulcer. Patient has had a chronic ulcer on his foot. He has not followed up but he would like us to take a look at it. No fever chills, No redness or purulent drainage. Related Data Home Medications Medication Instructions Recorded Confirmed metformin 850 mg tablet 850 mg PO BID 09/23/19 01/21/22 atorvastatin 20 mg tablet (Lipitor) 20 mg PO DAILY 05/08/20 01/21/22 ergocalciferol (vitamin D2) 1,250 1,250 mcg PO DAILY 09/16/21 01/21/22 mcg (50,000 unit) capsule gabapentin 100 mg capsule 100 mg PO DIRECTED 09/16/21 01/21/22 aripiprazole 15 mg tablet mg 01/12/22 01/21/22 escitalopram oxalate 20 mg tablet mg 01/12/22 01/21/22 Allergies Allergy/AdvReac Type Severity Reaction Status Date / Time No Known Allergies Allergy Verified 01/03/23 13:26 [facility] Past Medical History Medical History KAYLA (acute kidney injury) Amputation of one or more toes Anemia Arthritis COVID-19 virus infection (09/2019) Degenerative arthritis of right knee Depression Diabetes Diabetes mellitus with diabetic neuropathy Hemoglobin A1c was 11.1 on 02/11/2021 Diabetic foot infection GI bleed (12/2018) Secondary to gastric erosions. 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 History of foot surgery , Dr. Mejia Status post amputation of toe Family History Family History Father Medical history unknown Mother Healthy adult Diabetes mellitus Borderline DM Sibling Healthy adult Social History Social History Social History: The patient lives in [place]. His mother lives at home with him. Social drinker. Smokes 1/3 pack of cigarettes a day. No illicit substance use. Surrogate decision maker: ishaan Benoit. The patient is currently unemployed and is applying for disability. The patient denied using any drugs but stated he smoked marijuana over last couple days. Patient's drug screen was positive for cocaine. Code status: Full code. Smoking packs per day: 0.33 Smoking cigarettes per day: 6.6 Years smoked: 20 Smoking pack-years: 6.60 Smoking status: Current every day smoker Tobacco type: cigarettes Second hand tobacco smoke exposure: No Alcohol intake: unknown Substance use: unknown Substance use type: unknown Living arrangements: with family Occupation/Education: unemployed Gender identity (if verbalized by the patient): Male Spiritual care concerns: No Exam Narrative: APPEARANCE: No apparent distress. Head: atraumatic. EYES: EOMI, NOSE: Atraumatic NECK: Trachea midline RESPIRATORY: No increased rate of breathing soft nontender CARDIOVASCULAR: RRR, no peripheral edema ABDOMINAL: Non-distended soft nontender MUSCULOSKELETAl: No obvious deformities NEURO: Alert. Cranial nerves 2-12 grossly inta
[2023-05-28 23:21] VITALS: BP 149/99; PULSE 85; RESP 16; O2SAT 98
[2023-05-28 23:30] LABS: Basophils Absolute Auto 0.1 K/mm3 (0.0-0.1); Basophils Percent Auto 0.4 % (0.2-1.2); Eosinophils Absolute Auto 0.2 K/mm3 (0-0.3); Eosinophils Percent Auto 1.6 % (0-4.4); Hematocrit 43.7 % (42.0-52.0); Hemoglobin 13.7 g/dL (14.0-18.0); Immature Granulocyte Absolute 0.06 K/mm3 (0.00-0.031); Immature Granulocyte Percent A 0.5 % (0-0.5); Lymphocytes Absolute Auto 2.12 K/mm3 (0.9-3.2); Mean Corpuscular HGB Conc 31.4 g/dl (32-36); Mean Corpuscular Hemoglobin 27.7 pg (26-34); Mean Corpuscular Volume 88.3 fl (80-100); Mean Platelet Volume 10.4 fl (7.4-10.4); Monocytes Absolute Auto 1.1 K/mm3 (0.1-0.6); Monocytes Percent Auto 8.1 % (2.6-8.5); Neutrophils Absolute Auto 9.8 K/mm3 (1.3-6.7); Neutrophils Percent Auto 73.4 % (45.5-73.1); Platelet Count Result 280 k/mm3 (150-375); Red Blood Count 4.95 M/mm3 (4.6-6.20); Red Cell Distribution Width 12.5 % (11.5-14.5); White Blood Count 13.3 K/mm3 (4.5-10.0)
[2023-05-28 23:39] LABS: Lactic Acid Reflex 1.1 mmol/L (0.7-2.0)
[2023-05-28 23:40] LABS: Alanine Aminotransferase 20 U/L (6-50); Albumin Level 4.2 g/dL (3.5-5.1); Alkaline Phosphatase 134 U/L (38-126); Anion Gap 9 mmol/L (8-16); Aspartate Amino Transferase 21 U/L (17-59); Bilirubin,Total 0.7 mg/dL (0.2-1.3); Blood Urea Nitrogen 14 mg/dL (9-20); Calcium 9.4 mg/dL (8.4-10.2); Carbon Dioxide 25 mmol/L (22-30); Chloride 102 mmol/L (98-107); Estimated CRCL calculation 112 ml/min; Estimated Glomerular Filt Rate > 60; Glucose 152 mg/dL (65-110); Potassium 3.8 mmol/L (3.4-5.0); Sodium 136 mmol/L (137-145)
[2023-05-28 23:42] LABS: CRP 1.3 mg/dL (<1.0)
[2023-05-28] MEDS: SODIUM CHLORIDE 0.9% IV 1,000 ML 999 ML IV CONT (23:43)
[2023-05-28 23:47] LABS: Prothrombin Time 13.6 Seconds (11.1-14.7)
[2023-05-28 23:48] LABS: Partial Thromboplastin Time 35.4 SECONDS (22.3-36.8)
[2023-05-28 23:57] LABS: Erythrocyte Sedimentation Rate 17 mm/hr (0-20)
[2023-05-29] VITALS: BP 149/99; PULSE 103; RESP 12; O2SAT 100
--- NOTE | 2023-05-29 | ECG_ITS ---
Measurements Intervals [place] Rate: 91 P: 58 W[place]: 171 QRS: -49 QRSD: 133 T: 97 QT: 355 QTc: 438 Interpretive Statements SINUS RHYTHM INTRAVENTRICULAR CONDUCTION DELAY DELAYED PRECORDIAL R/S TRANSITION LEFT VENTRICULAR HYPERTROPHY AND ST-T CHANGE CANNOT RULE OUT SEPTAL INFARCT, AGE INDETERMINATE BASELINE WANDER- V6 ABNORMAL ECG COMPARED TO ECG 10/05/2022 11:11:29 NO SIGNIFICANT CHANGES Electronically Signed On 05-29-2023 8:20:44 SMT TECHNICIAN by Allan Gale D.O.
[2023-05-29 00:10] LABS: Influenza A QL RT-PCR Negative (Negative); Influenza B QL RT-PCR Negative (Negative); RSV RNA, RT-PCR Negative (Negative); SARS-CoV-2 RNA PCR Negative (Negative)
[2023-05-29] MEDS: MECLIZINE HCL 25 MG TABLET PO (00:27)
[2023-05-29 02:48] VITALS: BP 144/87; PULSE 80; RESP 19; O2SAT 99
== END 2023-05-29 02:48 | disposition home or self-care (01) ==
PROVIDERS: Emergency Provider Emergency Medicine; PCP Internal Medicine Gastroenterology
DX: E11.621 Type 2 diabetes mellitus with foot ulcer (principal); Z79.84 Long term (current) use of oral hypoglycemic drugs; R42 Dizziness and giddiness; Z20.822 Contact with and (suspected) exposure to COVID-19; F17.210 Nicotine dependence, cigarettes, uncomplicated; M19.90 Unspecified osteoarthritis, unspecified site; I10 Essential (primary) hypertension; G47.30 Sleep apnea, unspecified
CPT/HCPCS: 36415; 73630; 80053; 82948; 83605; 85025; 85610; 85652; 85730; 86140; 87040; 87637; 93005; 96360; 99284; A9270; J7030

== ENCOUNTER 2023-10-02 09:49 | Emergency (ER) | payer MEDICARE, SELFPAY ==
[2023-10-02 10:10] VITALS: BP 178/100; PULSE 84; RESP 18; O2SAT 97
--- NOTE | 2023-10-02 10:11 | ECG_ITS ---
SEE SCANNED COPY FOR CONFIRMED REPORT MTDD
--- NOTE | 2023-10-02 11:24 | ED.GENADULT ---
HPI - General Adult General Chief complaint: Shortness of Breath/Dyspnea Stated complaint: shortness of breath, vomiting Time Seen by Provider: 10/02/23 10:00 History of Present Illness HPI narrative: 58-year-old male presenting to the emergency department for evaluation of persistent nausea vomiting and generalized weakness. Patient declined any associated shortness of breath but states he is only having nausea. Patient states symptoms started approximately 2 days ago. Patient states he has had decreased p.o. intake. Patient is diabetic but states he has not been checking his blood sugars. Patient denies any prior history diabetic ketoacidosis. Patient denies any associated abdominal pain. Patient denies any falls or injuries. Related Data Home Medications Medication Instructions Recorded Confirmed metformin 850 mg tablet 850 mg PO BID 09/23/19 01/21/22 atorvastatin 20 mg tablet (Lipitor) 20 mg PO DAILY 05/08/20 01/21/22 ergocalciferol (vitamin D2) 1,250 1,250 mcg PO DAILY 09/16/21 01/21/22 mcg (50,000 unit) capsule gabapentin 100 mg capsule 100 mg PO DIRECTED 09/16/21 01/21/22 aripiprazole 15 mg tablet mg 01/12/22 01/21/22 escitalopram oxalate 20 mg tablet mg 01/12/22 01/21/22 Allergies Allergy/AdvReac Type Severity Reaction Status Date / Time No Known Allergies Allergy Verified 10/02/23 12:13 Review of Systems Review of Systems: All systems reviewed & are unremarkable except as noted in HPI and below PMFSH Past Medical History Medical History KAYLA (acute kidney injury) Amputation of one or more toes Anemia Arthritis COVID-19 virus infection (09/2019) Degenerative arthritis of right knee Depression Diabetes Diabetes mellitus with diabetic neuropathy Hemoglobin A1c was 11.1 on 02/11/2021 Diabetic foot infection GI bleed (12/2018) Secondary to gastric erosions. 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 History of foot surgery , Dr. Mejia Status post amputation of toe Family History Family History Father Medical history unknown Mother Healthy adult Diabetes mellitus Borderline DM Sibling Healthy adult Social History Social History Social History: The patient lives in [place]. His mother lives at home with him. Social drinker. Smokes 1/3 pack of cigarettes a day. No illicit substance use. Surrogate decision maker: ishaan Benoit. The patient is currently unemployed and is applying for disability. The patient denied using any drugs but stated he smoked marijuana over last couple days. Patient's drug screen was positive for cocaine. Code status: Full code. Smoking packs per day: 0.33 Smoking cigarettes per day: 6.6 Years smoked: 20 Smoking pack-years: 6.60 Smoking status: Current every day smoker Tobacco type: cigarettes Second hand tobacco smoke exposure: No Alcohol intake: unknown Substance use: unknown Substance use type: unknown Living arrangements: with family Occupation/Education: unemployed Gender identity (if verbalized by the patient): Male Spiritual care concerns: No Exam Narrative: APPEARANCE: Well appearing, no pain, no distress, well-nourished. HEAD: normocephalic, atraumatic. EYES: PERRLA/EOMI, conjunctivae clear. NOSE: Normal no drainage EARS:TMS clear with good light reflex. THROAT: Pharynx clear, no exudate. NECK: Supple. No adenopathy, no masses. RES
--- NOTE | 2023-10-02 11:48 | PC.NURSE ---
vascular access called for IV placement.
[2023-10-02] MEDS: METOCLOPRAMIDE HCL INJ 10 MG/2 ML VIAL IV PUSH (12:13)
[2023-10-02] MEDS: SODIUM CHLORIDE 0.9% IV 1,000 ML 999 ML IV CONT (12:13)
[2023-10-02 12:17] LABS: Basophils Percent Auto 0.3 % (0.2-1.2); Eosinophils Absolute Auto 0.2 K/mm3 (0-0.3); Eosinophils Percent Auto 1.5 % (0-4.4); Hematocrit 43.3 % (42.0-52.0); Hemoglobin 13.8 g/dL (14.0-18.0); Immature Granulocyte Absolute 0.07 K/mm3 (0.00-0.031); Immature Granulocyte Percent A 0.5 % (0-0.5); Lymphocytes Absolute Auto 1.49 K/mm3 (0.9-3.2); Lymphocytes Percent Auto 10.6 % (18.3-44.2); Mean Corpuscular HGB Conc 31.9 g/dl (32-36); Mean Corpuscular Hemoglobin 28.7 pg (26-34); Mean Platelet Volume 10.3 fl (7.4-10.4); Monocytes Absolute Auto 1.1 K/mm3 (0.1-0.6); Monocytes Percent Auto 7.6 % (2.6-8.5); Neutrophils Absolute Auto 11.2 K/mm3 (1.3-6.7); Neutrophils Percent Auto 79.5 % (45.5-73.1); Platelet Count Result 262 k/mm3 (150-375); Red Blood Count 4.81 M/mm3 (4.6-6.20); Red Cell Distribution Width 12.3 % (11.5-14.5); White Blood Count 14.1 K/mm3 (4.5-10.0)
[2023-10-02 12:28] LABS: Partial Thromboplastin Time 35.2 Seconds (22.3-36.8); Prothrombin Time 13.4 Seconds (11.1-14.7)
[2023-10-02 12:31] LABS: Lactic Acid Reflex 1.1 mmol/L (0.7-2.0)
[2023-10-02 12:35] LABS: Beta-Hydroxybutyrate/Acetoacetate 1.92 mmol/L (0.02-0.27)
[2023-10-02 13:32] VITALS: BP 138/100; PULSE 81; RESP 16; O2SAT 95
[2023-10-02] MEDS: LACTATED RINGERS 1,000 ML 999 ML IV CONT (15:00)
[2023-10-02 15:25] LABS: Alanine Aminotransferase 18 U/L (6-50); Albumin Level 4.1 g/dL (3.5-5.1); Alkaline Phosphatase 105 U/L (38-126); Anion Gap 5 mmol/L (4-12); Aspartate Amino Transferase 19 U/L (17-59); Bilirubin,Total 0.6 mg/dL (0.2-1.3); Blood Urea Nitrogen 17 mg/dL (9-20); Calcium 8.9 mg/dL (8.4-10.2); Carbon Dioxide 26 mmol/L (22-30); Chloride 105 mmol/L (98-107); Estimated CRCL calculation 79 ml/min; Estimated Glomerular Filt Rate > 60; Glucose 126 mg/dL (65-110); Lipase 34 U/L (23-300); Potassium 3.8 mmol/L (3.4-5.0); Sodium 136 mmol/L (137-145)
== END 2023-10-02 16:15 | disposition home or self-care (01) ==
PROVIDERS: Emergency Provider Emergency Medicine; PCP Internal Medicine Gastroenterology
DX: R11.2 Nausea with vomiting, unspecified (principal); D64.9 Anemia, unspecified; M19.90 Unspecified osteoarthritis, unspecified site; F32.A Depression, unspecified; E11.9 Type 2 diabetes mellitus without complications; I10 Essential (primary) hypertension; G47.30 Sleep apnea, unspecified
CPT/HCPCS: 36415; 80053; 82010; 83605; 83690; 85025; 85610; 85730; 93005; 96361; 96374; 99284; J2765; J7030; J7120

== ENCOUNTER 2023-12-05 08:21 | Emergency (ER) | payer MEDICARE, MEDICAID, SELFPAY ==
[2023-12-05] VITALS (11 sets, daily range): BP systolic 131–194; BP diastolic 90–120; PULSE 88–108; RESP 12–20; TEMP 36.6–36.8; O2SAT 95–100
--- NOTE | ~2023-12-05 | CT_ITS ---
Non-contrast Head CT History: Dizziness, hypertension COMPARISON: 02/24/2022 Technique: Axial non-contrast imaging of the brain was performed. Dose reduction technique was used on this scan by utilizing automated exposure control and iterative reconstruction technique. The dose -length product (DLP) was 681.00 mGy-cm. Findings: There is no evidence of intracranial hemorrhage, mass lesion, or acute infarct. Brain par enchyma appears normal. The ventricles and subarachnoid spaces are normal in size. The calvarium ap pears normal. The visualized paranasal sinuses and mastoid air cells are clear. Impression: No significant abnormality seen. Reviewed, dictated and finalized at location . Impression: No significant abnormality seen.
--- NOTE | ~2023-12-05 | XR_ITS ---
XR chest 2V Ordering provider: Nir Barnett APRN History: 58 years Male with . dizziness, r/o pulmonary edema . Comparison: October 05, 2022 FINDINGS: MEDIASTINUM: The cardiac silhouette is not enlarged. LUNGS: No infiltrates, effusions or pneumothorax. Prominent markings in the lower lobes OTHER: No free air under the diaphragm. IMPRESSION: Prominent markings in the lower lobes which may indicate atelectatic changes. Early pneumonia cannot be excluded. Reviewed, dictated and finalized at location A. IMPRESSION: Prominent markings in the lower lobes which may indicate atelectatic changes. E cammy pneumonia cannot be excluded.
--- NOTE | 2023-12-05 08:59 | ECG_ITS ---
Test Date: 2023-12-05 09:08:29 Measurements Intervals [place] Rate: 100 P: 0 [place]: 0 QRS: -79 QRSD: 156 T: 70 QT: 381 QTc: 493 Interpretive Statements SINUS TACHYCARDIA FREQUENT ATRIAL PREMATURE COMPLEXES RIGHT BUNDLE BRANCH BLOCK LEFT ANTERIOR FASCICULAR BLOCK LEFT VENTRICULAR HYPERTROPHY AND ST-T CHANGE CANNOT R/O SEPTAL INFARCT, AGE INDETERMINATE ABNORMAL ECG No previous ECG available for comparison Electronically Signed On 12-05-2023 09:13:02 CDT by Allan Gale D.O.
--- NOTE | 2023-12-05 09:18 | ED.DIZZY ---
HPI - Dizziness General Chief Complaint: Dizziness Stated Complaint: dizzy Time Seen by Provider: 12/05/23 09:18 Related Data Home Medications Medication Instructions Recorded Confirmed metformin 850 mg tablet 850 mg PO BID 09/23/19 01/21/22 atorvastatin 20 mg tablet (Lipitor) 20 mg PO DAILY 05/08/20 01/21/22 ergocalciferol (vitamin D2) 1,250 1,250 mcg PO DAILY 09/16/21 01/21/22 mcg (50,000 unit) capsule gabapentin 100 mg capsule 100 mg PO DIRECTED 09/16/21 01/21/22 aripiprazole 15 mg tablet mg 01/12/22 01/21/22 escitalopram oxalate 20 mg tablet mg 01/12/22 01/21/22 Allergies Allergy/AdvReac Type Severity Reaction Status Date / Time No Known Allergies Allergy Verified 10/02/23 12:13 [facility] Past Medical History Medical History KAYLA (acute kidney injury) Amputation of one or more toes Anemia Arthritis COVID-19 virus infection (09/2019) Degenerative arthritis of right knee Depression Diabetes Diabetes mellitus with diabetic neuropathy Hemoglobin A1c was 11.1 on 02/11/2021 Diabetic foot infection GI bleed (12/2018) Secondary to gastric erosions. 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 History of foot surgery , Dr. Mejia Status post amputation of toe Family History Family History Father Medical history unknown Mother Healthy adult Diabetes mellitus Borderline DM Sibling Healthy adult Social History Social History Social History: The patient lives in [place]. His mother lives at home with him. Social drinker. Smokes 1/3 pack of cigarettes a day. No illicit substance use. Surrogate decision maker: Taylor Cooper, niece. The patient is currently unemployed and is applying for disability. The patient denied using any drugs but stated he smoked marijuana over last couple days. Patient's drug screen was positive for cocaine. Code status: Full code. Smoking packs per day: 0.33 Smoking cigarettes per day: 6.6 Years smoked: 20 Smoking pack-years: 6.60 Smoking status: Current every day smoker Tobacco type: cigarettes Second hand tobacco smoke exposure: No Alcohol intake: unknown Substance use: unknown Substance use type: unknown Living arrangements: with family Occupation/Education: unemployed Gender identity (if verbalized by the patient): Male Spiritual care concerns: No Course Vital Signs Vital signs: Vital Signs Temperature 36.8 C 12/05/23 08:27 Pulse Rate 88 12/05/23 08:27 Respiratory Rate 20 12/05/23 08:27 Blood Pressure 190/112 H 12/05/23 08:27 Pulse Oximetry 99 12/05/23 08:27 Oxygen Delivery Room Air 12/05/23 08:27 Temperature 36.6 C 12/05/23 12:17 Pulse Rate 103 H 12/05/23 12:32 Respiratory Rate 17 12/05/23 12:32 Blood Pressure 159/90 H 12/05/23 12:32 Pulse Oximetry 98 12/05/23 12:32 Oxygen Delivery Room Air 12/05/23 08:27 MDM - Dizziness Lab Data 12/05/23 11:35 12/05/23 11:35 Labs: Lab Results 12/05/23 12/05/23 Range/Units 11:35 12:34 WBC 14.3 H (4.5-10.0) K/mm3 RBC 5.06 (4.6-6.20) M/mm3 Hgb 14.6 (14.0-18.0) g/dL Hct 43.8 (42.0-52.0) % MCV 86.6 (80-100) fl MCH 28.9 (26-34) pg MCHC 33.3 (32-36) g/dl RDW 12.5 (11.5-14.5) % Plt Count 243 (150-375) k/mm3 MPV 11.2 H (7.4-10.4) fl Immature Gran % (Auto) 0.4 (0-0.5) % Neut % (Auto) 77.6 H (4
--- NOTE | 2023-12-05 09:59 | ED.DIZZY ---
HPI - Dizziness General Chief Complaint: Dizziness Stated Complaint: dizzy Time Seen by Provider: 12/05/23 09:18 History of Present Illness HPI Narrative: 58-year-old male history of diabetes, dyslipidemia, vertigo, presents to the emergency room for evaluation of dizziness that has been intermittent for the last 2 days. Denies any injury or trauma. States the dizziness is worse with sudden movements. Associated with nausea. Patient states that he has had 1 episode of emesis. Patient states the dizziness is similar to previous episodes of dizziness. denies any vision or hearing changes. Denies any recent URI symptoms. Denies chest pain, shortness of breath, palpitations, difficulty breathing. Related Data Home Medications Medication Instructions Recorded Confirmed metformin 850 mg tablet 850 mg PO BID 09/23/19 01/21/22 atorvastatin 20 mg tablet (Lipitor) 20 mg PO DAILY 05/08/20 01/21/22 ergocalciferol (vitamin D2) 1,250 1,250 mcg PO DAILY 09/16/21 01/21/22 mcg (50,000 unit) capsule gabapentin 100 mg capsule 100 mg PO DIRECTED 09/16/21 01/21/22 aripiprazole 15 mg tablet mg 01/12/22 01/21/22 escitalopram oxalate 20 mg tablet mg 01/12/22 01/21/22 Allergies Allergy/AdvReac Type Severity Reaction Status Date / Time No Known Allergies Allergy Verified 10/02/23 12:13 Review of Systems Review of Systems: ROS unremarkable except for noted in HPI PMFSH Past Medical History Medical History KAYLA (acute kidney injury) Amputation of one or more toes Anemia Arthritis COVID-19 virus infection (09/2019) Degenerative arthritis of right knee Depression Diabetes Diabetes mellitus with diabetic neuropathy Hemoglobin A1c was 11.1 on 02/11/2021 Diabetic foot infection GI bleed (12/2018) Secondary to gastric erosions. 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 History of foot surgery Dr. Mejia Status post amputation of toe Family History Family History Father Medical history unknown Mother Healthy adult Diabetes mellitus Borderline DM Sibling Healthy adult Social History Social History Social History: The patient lives in [place]. His mother lives at home with him. Social drinker. Smokes 1/3 pack of cigarettes a day. No illicit substance use. Surrogate decision maker: ishaan Benoit. The patient is currently unemployed and is applying for disability. The patient denied using any drugs but stated he smoked marijuana over last couple days. Patient's drug screen was positive for cocaine. Code status: Full code. Smoking packs per day: 0.33 Smoking cigarettes per day: 6.6 Years smoked: 20 Smoking pack-years: 6.60 Smoking status: Current every day smoker Tobacco type: cigarettes Second hand tobacco smoke exposure: No Alcohol intake: unknown Substance use: unknown Substance use type: unknown Living arrangements: with family Occupation/Education: unemployed Gender identity (if verbalized by the patient): Male Spiritual care concerns: No Exam Narrative: GENERAL: Well-appearing, well-nourished, no physical limitations, and in no acute distress. HEAD: Normocephalic, atraumatic. EYES: Conjunctivae normal, PERRLA and EOMI. ENT: External ears normal, bilateral TMs normal bilaterally NECK: Supple. No meningeal signs. CHEST: Clear to auscultation. No respiratory distress. No wheezes
[2023-12-05] MEDS: MECLIZINE HCL 25 MG TABLET PO (11:42)
[2023-12-05] MEDS: hydrALAZINE HCL 20 MG/ML VIAL 10 MG IV PUSH (11:42)
[2023-12-05] MEDS: SODIUM CHLORIDE 0.9% IV 1,000 ML 999 ML IV CONT (11:42)
[2023-12-05] MEDS: ONDANSETRON INJ 4 MG/2 ML VIAL IV PUSH (11:43)
[2023-12-05 11:48] LABS: Basophils Absolute Auto 0.1 K/mm3 (0.0-0.1); Basophils Percent Auto 0.3 % (0.2-1.2); Eosinophils Absolute Auto 0.1 K/mm3 (0-0.3); Eosinophils Percent Auto 0.9 % (0-4.4); Hematocrit 43.8 % (42.0-52.0); Hemoglobin 14.6 g/dL (14.0-18.0); Immature Granulocyte Absolute 0.06 K/mm3 (0.00-0.031); Immature Granulocyte Percent A 0.4 % (0-0.5); Lymphocytes Absolute Auto 1.96 K/mm3 (0.9-3.2); Lymphocytes Percent Auto 13.7 % (18.3-44.2); Mean Corpuscular HGB Conc 33.3 g/dl (32-36); Mean Corpuscular Hemoglobin 28.9 pg (26-34); Mean Corpuscular Volume 86.6 fl (80-100); Mean Platelet Volume 11.2 fl (7.4-10.4); Monocytes Percent Auto 7.1 % (2.6-8.5); Neutrophils Absolute Auto 11.1 K/mm3 (1.3-6.7); Neutrophils Percent Auto 77.6 % (45.5-73.1); Platelet Count Result 243 k/mm3 (150-375); Red Blood Count 5.06 M/mm3 (4.6-6.20); Red Cell Distribution Width 12.5 % (11.5-14.5); White Blood Count 14.3 K/mm3 (4.5-10.0)
[2023-12-05 11:57] LABS: Alanine Aminotransferase 21 U/L (6-50); Albumin Level 4.2 g/dL (3.5-5.1); Alkaline Phosphatase 121 U/L (38-126); Anion Gap 10 mmol/L (4-12); Aspartate Amino Transferase 18 U/L (17-59); Bilirubin,Total 0.9 mg/dL (0.2-1.3); Blood Urea Nitrogen 13 mg/dL (9-20); Calcium 9.4 mg/dL (8.4-10.2); Carbon Dioxide 29 mmol/L (22-30); Chloride 95 mmol/L (98-107); Estimated CRCL calculation 111 ml/min; Estimated Glomerular Filt Rate > 60; Glucose 228 mg/dL (65-110); Potassium 3.9 mmol/L (3.4-5.0); Sodium 134 mmol/L (137-145)
[2023-12-05 12:08] LABS: Troponin I < 0.012 ng/mL (0.000-0.034)
[2023-12-05 12:42] LABS: Appearance Urine Clear (Clear); Bacteria Urine None Seen /hpf; Bilirubin Urine Negative (Negative); Blood Urine Negative (Negative); Color Urine Yellow (Yellow); Glucose Urine UA 3+ mg/dL (Negative); Ketones Urine 1+ mg/dL (Negative); Leukocyte Esterase Ur Negative LEU/UL (Negative); Nitrate Urine Negative (Negative); Non Pathogenic Casts 0-2; Protein Urine 3+ mg/dL (Negative); Specific Grav Ur 1.033 (1.001-1.035); Squamous Epithelial Cell Urine None Seen /hpf (Few); WBC Urine 0-5 /hpf (0-3)
[2023-12-05 12:43] LABS: Add Urine Microscopic? YES
== END 2023-12-05 13:10 | disposition home or self-care (01) ==
PROVIDERS: Emergency Provider Nurse Practitioner Family; PCP Internal Medicine Gastroenterology
DX: J18.9 Pneumonia, unspecified organism (principal); H81.10 Benign paroxysmal vertigo, unspecified ear; I10 Essential (primary) hypertension; E78.5 Hyperlipidemia, unspecified; E11.40 Type 2 diabetes mellitus with diabetic neuropathy, unspecified; G47.33 Obstructive sleep apnea (adult) (pediatric); M19.90 Unspecified osteoarthritis, unspecified site; F17.210 Nicotine dependence, cigarettes, uncomplicated; Z86.16 Personal history of COVID-19; Z86.2 Personal history of diseases of the blood and blood-forming organs and certain disorders involving the immune mechanism; Z89.411 Acquired absence of right great toe; Z79.84 Long term (current) use of oral hypoglycemic drugs; Z79.82 Long term (current) use of aspirin; Z79.4 Long term (current) use of insulin; Z79.899 Other long term (current) drug therapy
CPT/HCPCS: 36415; 70450; 71046; 80053; 81001; 84484; 85025; 93005; 96361; 96374; 96375; 99284; A9270; J0360; J2405; J7030

== ENCOUNTER 2024-06-11 09:07 | Emergency (ER) | payer MEDICARE, SELFPAY ==
--- NOTE | ~2024-06-11 | CT_ITS ---
EXAMINATION: CT abdomen pelvis w con DATE: 06/11/2024 11:23 INDICATION: Abdominal pain and vomiting TECHNIQUE: Computed tomography (CT) of the abdomen and pelvis was performed with 100 mL Omnipaque-350 intravenous contrast. Automated exposure control and iterative reconstruction technique were employe d. The dose-length product was 1723.73 mGy-cm. COMPARISON: 04/05/2021 FINDINGS: Respiratory motion and atelectasis in the bilateral lower lungs including unchanged linear discoid at electasis/scarring in the right middle lobe and lingula. Calcified right hilar lymph nodes consistent with old granulomatous disease. Heart size is normal. No pericardial effusion. Focal hepatic steatos is at the ligamentum teres. A few small hepatic and splenic calcific lesions consistent with old gran ulomatous disease. Gallbladder, pancreas, bilateral adrenal glands and kidneys are normal. There are few scattered clonic diverticula without adjacent comparison to suggest diverticular colitis. No anusha l obstruction. Small fat-containing umbilical hernia. Bladder is normal. No free intraperitoneal gas or fluid. No pathologically enlarged abdominal or pelvic lymphadenopathy. Severe degenerative disc di sease at L5-S1. Otherwise mild lumbar and lower thoracic spondylosis. IMPRESSION: 1. No acute intra-abdominal/pelvic process. 2. Small fat-containing umbilical hernia. Reviewed, dictated and finalized at location B. TENDER
[2024-06-11 09:13] VITALS: BP 172/109; PULSE 92; RESP 18; TEMP 36.3; O2SAT 97
[2024-06-11 09:19] LABS: Glucose Point of Care 114 mg/dl (65-105)
[2024-06-11 10:18] LABS: Basophils Absolute Auto 0.1 K/mm3 (0.0-0.1); Basophils Percent Auto 0.5 % (0.2-1.2); Eosinophils Absolute Auto 0.3 K/mm3 (0-0.3); Eosinophils Percent Auto 3.1 % (0-4.4); Hematocrit 47.4 % (42.0-52.0); Hemoglobin 15.3 g/dL (14.0-18.0); Immature Granulocyte Absolute 0.03 K/mm3 (0.00-0.031); Immature Granulocyte Percent A 0.3 % (0-0.5); Lymphocytes Absolute Auto 2.02 K/mm3 (0.9-3.2); Lymphocytes Percent Auto 18.6 % (18.3-44.2); Mean Corpuscular HGB Conc 32.3 g/dl (32-36); Mean Corpuscular Hemoglobin 28.8 pg (26-34); Mean Corpuscular Volume 89.1 fl (80-100); Mean Platelet Volume 10.3 fl (7.4-10.4); Monocytes Absolute Auto 0.9 K/mm3 (0.1-0.6); Monocytes Percent Auto 8.5 % (2.6-8.5); Neutrophils Absolute Auto 7.5 K/mm3 (1.3-6.7); Platelet Count Result 274 k/mm3 (150-375); Red Blood Count 5.32 M/mm3 (4.6-6.20); Red Cell Distribution Width 13.2 % (11.5-14.5); White Blood Count 10.9 K/mm3 (4.5-10.0)
[2024-06-11 10:22] LABS: Alanine Aminotransferase 23 U/L (6-50); Albumin Level 3.9 g/dL (3.5-5.1); Alkaline Phosphatase 111 U/L (38-126); Anion Gap 8 mmol/L (4-12); Aspartate Amino Transferase 25 U/L (17-59); Bilirubin,Total 0.9 mg/dL (0.2-1.3); Blood Urea Nitrogen 14 mg/dL (9-20); Calcium 9.4 mg/dL (8.4-10.2); Carbon Dioxide 28 mmol/L (22-30); Chloride 102 mmol/L (98-107); Estimated CRCL calculation 106 ml/min; Estimated Glomerular Filt Rate > 60; Glucose 134 mg/dL (65-110); Lipase 51 U/L (23-300); Potassium 4.1 mmol/L (3.4-5.0); Sodium 138 mmol/L (137-145)
--- NOTE | 2024-06-11 10:49 | ED_ITS ---
HPI - Nausea/Vomiting/Diarrhea General Chief complaint: Nausea/Vomiting/Diarrhea Stated complaint: n/v/d Time Seen by Provider: 06/11/24 10:49 Source: patient Mode of arrival: ambulatory Limitations: no limitations History of Present Illness HPI Narrative: 58 YEARS OLD MALE CAME FROM HOME BY PRIVATE CAR COMPLAINING OF NAUSEA, VOMITING AND DIARRHEA IT STARTED IN 5 DAYS AGO, VOMITING STOPPED 2 DAYS AGO DIARRHEA STOPPED 24 HOURS AGO. CURRENTLY PATIENT FEELS DEHYDRATED, TIRED, NASAL AND POSTNASAL CONGESTION, WITH LIGHTHEADEDNESS HISTORY OF DIABETES AND TOBACCO USE Related Data Home Medications ?Medication ?Instructions ?Recorded ?Confirmed ?Last Taken ?Type metformin 850 mg tablet 850 mg PO BID 09/23/19 01/21/22 02/11/21 History atorvastatin 20 mg tablet (Lipitor) 20 mg PO DAILY 05/08/20 01/21/22 02/10/21 History ergocalciferol (vitamin D2) 1,250 1,250 mcg PO DAILY 09/16/21 01/21/22 Unknown History mcg (50,000 unit) capsule gabapentin 100 mg capsule 100 mg PO DIRECTED 09/16/21 01/21/22 Unknown History aripiprazole 15 mg tablet mg 01/12/22 01/21/22 Unknown History escitalopram oxalate 20 mg tablet mg 01/12/22 01/21/22 Unknown History Allergies Allergy/AdvReac Type Severity Reaction Status Date / Time No Known Allergies Allergy Verified 10/02/23 12:13 Review of Systems 2 Review of Systems: All systems reviewed & are unremarkable except as noted in HPI and below PMFSH Past Medical History Medical History Arthritis Depression Degenerative arthritis of right knee Amputation of one or more toes Hyperlipidemia Sleep trouble Obstructive sleep apnea Tobacco use Diabetic foot infection Osteomyelitis of second toe of left foot COVID-19 virus infection (09/2019) KAYLA (acute kidney injury) Diabetes mellitus with diabetic neuropathy Hemoglobin A1c was 11.1 on 02/11/2021 History of elevated blood pressure while in hospital Osteomyelitis Diabetes GI bleed (12/2018) Secondary to gastric erosions. Anemia Hypertension Surgical History Surgical History History of foot surgery , Dr. 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 History of appendectomy History of arthroscopy of left shoulder Family History Family History Father Medical history unknown Mother Healthy adult Diabetes mellitus Borderline DM Sibling Healthy adult Social History Social History Social History: The patient lives in [place]. His mother lives at home with him. Social drinker. Smokes 1/3 pack of cigarettes a day. No illicit substance use. Surrogate decision maker: Taylor Cooper, niece. The patient is currently unemployed and is applying for disability. The patient denied using any drugs but stated he smoked marijuana over last couple days. Patient's drug screen was positive for cocaine. Code status: Full code. Smoking packs per day: 0.33 Smoking cigarettes per day: 6.6 Years smoked: 20 Smoking pack-years: 6.60 Smoking status: Current every day smoker Tobacco type: cigarettes Second hand tobacco smoke exposure: No Alcohol intake: unknown Substance use: unknown Substance use type: unknown Living arrangements: with family Occupation/Education: unemployed Gender identity (if verbalized by the patient): Male Spiritual care concerns: No Exam 2 Narrative: GENERAL APPEARANCE: WELL-DEVELOPED, WELL-NOURISHED SKIN: NORMAL COLOR HEAD: NORMOCEPHALIC, NONTRAUMATIC EYES: CLEAR CONJUNCTIVA ENT: OROPHARYNX NORMAL, EARS NORMAL, NASAL CONGESTION, RASPY VOICE NECK: SUPPLE, NONTENDER CHEST AND RESPIRATORY: AIRWAY PATENT, NO RESPIRATORY DISTRESS, NO ACCESSORY MUSCLE USE HEART: REGULAR RATE/RHYTHM ABDOMEN: SOFT, MILD DIFFUSE ABDOMINAL TENDERNESS, NO ORGANOMEGALY, QUIET BOWEL SOUNDS VASCULAR: NORMAL PERIPHERAL PULSES, NORMAL CAPILLARY REFILL. MUSCULOSKELETAL: NORMAL RANGE OF MOTION, NONTENDER BACK NEUROLOGIC: ALERT AND ORIENTED ?3, VACUUM TECHNICIAN IS NORMAL TESTED, NO GROSS MOTOR DEFICIT Course Vital Signs Vital signs: Vital Signs Temperature 36.3 C L 06/11/24 09:13 Pulse Rate 92 06/11/24 09:13 Respiratory Rate 18 06/11/24 09:13 Blood Pressure 172/109 H 06/11/24 09:13 Pulse Oximetry 97 06/11/24 09:13 Oxygen Delivery Room Air 06/11/24 09:13 Temperature 36.3 C L 06/11/24 09:13 Pulse Rate 87 06/11/24 11:20 Respiratory Rate 19 06/11/24 11:20 Blood Pressure 156/90 H 06/11/24 11:20 Pulse Oximetry 95 06/11/24 11:20 Oxygen Delivery Room Air 06/11/24 09:13 MDM - Nausea/Vomiting/Diarrhea MDM Narrative Medical decision making narrative: PATIENT PRESENT WITH VIRAL INFECTION LIKE SYMPTOMS VITAL SIGNS SHOWING BLOOD PRESSURE 172/109, NOON OTHERWISE INSIGNIFICANT PHYSICAL EXAMINATION SHOWING MILD DIFFUSE ABDOMINAL TENDERNESS, NASAL CONGESTION AND RASPY VOICE DIFFERENTIAL DIAGNOSIS INCLUDE VIRAL SYNDROME, DEHYDRATION, ELECTROLYTE IMBALANCE, COLITIS, DIVERTICULITIS, URINARY TRACT INFECTION BLOOD WORKUP TODAY INCLUDES CBC, CMP, LIPASE SHOWED WBC 10.9, GLUCOSE 134, CT ABDOMEN AND PELVIS WITH IV CONTRAST SHOWED NO ACUTE ABNORMALITIES PATIENT TESTED NEGATIVE FOR COVID, FLU AND RSV Differential Diagnosis Differential diagnosis: Likely other ( ABOVE) Medical Records Attestation: I reviewed the patient's medical records. Lab Data Attestation: I reviewed the patient's lab results. 06/11/24 09:56 06/11/24 09:56 Labs: Lab Results 06/11/24 06/11/24 06/11/24 Range/Units 09:18 09:56 12:04 WBC 10.9 H (4.5-10.0) K/mm3 RBC 5.32 (4.6-6.20) M/mm3 Hgb 15.3 (14.0-18.0) g/dL Hct 47.4 (42.0-52.0) % MCV 89.1 (80-100) fl MCH 28.8 (26-34) pg MCHC 32.3 (32-36) g/dl RDW 13.2 (11.5-14.5) % Plt Count 274 (150-375) k/mm3 MPV 10.3 (7.4-10.4) fl Immature Gran % (Auto) 0.3 (0-0.5) % Neut % (Auto) 69.0 (45.5-73.1) % Lymph % (Auto) 18.6 (18.3-44.2) % Hutchinson % (Auto) 8.5 (2.6-8.5) % Eos % (Auto) 3.1 (0-4.4) % Baso % (Auto) 0.5 (0.2-1.2) % Lymph # (Auto) 2.02 (0.9-3.2) K/mm3 Hutchinson # (Auto) 0.9 H (0.1-0.6) K/mm3 Eos # (Auto) 0.3 (0-0.3) K/mm3 Baso # (Auto) 0.1 (0.0-0.1) K/mm3 Abs Immat Gran (auto) 0.03 (0.00-0.031) K/mm3 Absolute Neuts (auto) 7.5 H (1.3-6.7) K/mm3 Absolute Nucleated RBC 0.000 (0.0-0.012) K/mm3 Nucleated RBC % 0.0 (0.0-0.2) % Sodium 138 (137-145) mmol/L Potassium 4.1 (3.4-5.0) mmol/L Chloride 102 (98-107) mmol/L Carbon Dioxide 28 (22-30) mmol/L Anion Gap 8 (4-12) mmol/L BUN 14 (9-20) mg/dL Creatinine 0.94 (0.7-1.3) mg/dL Estim Creat Clear Calc 106 ml/min Estimated GFR > 60 (59 - ) Glucose 134 H (65-110) mg/dL POC Capillary Glucose 114 H (65-105) mg/dl Calcium 9.4 (8.4-10.2) mg/dL Total Bilirubin 0.9 (0.2-1.3) mg/dL AST 25 (17-59) U/L ALT 23 (6-50) U/L Alkaline Phosphatase 111 (38-126) U/L Total Protein 8.0 (6.3-8.2) g/dL Albumin 3.9 (3.5-5.1) g/dL Lipase 51 (23-300) U/L Influenza A (RT-PCR) Negative (Negative) Influenza B (RT-PCR) Negative (Negative) RSV (RT-PCR) Negative (Negative) SARS-CoV-2 RNA (RT-PCR) Negative (Negative) Imaging Data Radiologist's impression: Impressions Abdomen/Pelvis CT 06/11/24 11:27 IMPRESSION: 1. No acute intra-abdominal/pelvic process. 2. Small fat-containing umbilical hernia. Critical Care Time Critical Care Time Critical Care Time: No Discharge Plan Discharge Clinical Impression: Acute viral syndrome Patient Disposition: Home, Self-Care Condition: Improved Instructions: Viral Syndrome (ED) Additional Instructions: RETURN IF SYMPTOMS ARE WORSENING , CALL YOUR FAMILY PHYSICIAN FOR APPOINTMENT, TAKE TYLENOL, IBUPROFEN NEEDED FOR ACHES AND PAIN, CONTINUE HOME MEDICATIONS. Patient Language: Portuguese Prescriptions: No Action ondansetron HCl 4 mg tablet 4 mg PO Q6H 3 Days Qty: 12 0RF gabapentin 100 mg capsule 100 mg PO DIRECTED ergocalciferol (vitamin D2) 1,250 mcg (50,000 unit) capsule 1,250 mcg PO DAILY ibuprofen 800 mg tablet 800 mg PO TID PRN (Reason: pain) Qty: 14 0RF acetaminophen [Tylenol Extra Strength] 500 mg tablet 500 mg PO Q6H Qty: 14 0RF ciprofloxacin HCl 0.3 % drops 2 drp LEFT EYE Q4H 5 Days Qty: 5 0RF Rx Instructions: administer while awake ondansetron 4 mg tablet,disintegrating 4 mg PO Q8H PRN (Reason: nausea and vomiting) Qty: 14 0RF metformin 850 mg tablet 850 mg PO BID atorvastatin [Lipitor] 20 mg tablet 20 mg PO DAILY amlodipine [Norvasc] 5 mg Tablet 5 mg PO QAM Qty: 30 0RF Levemir U-100 Insulin 100 unit/mL solution 15 unit subcut HS Qty: 10 0RF (DME) pen needle, diabetic [BD Ultra-Fine Jing Pen Needle] 32 gauge x 5/32 Needle Qty: 1 0RF Rx Instructions: May substitute to meet patient needs. Use As Directed (DME) insulin syringe-needle U-100 [BD Veo Insulin Syringe UF] 1/2 mL 31 gauge x 15/64 Syringe Qty: 1 0RF Rx Instructions: 0.5 mL syringe for doses up to 50 units. May substitute to meet patient needs. Use As Directed escitalopram oxalate 20 mg tablet aripiprazole 15 mg tablet meclizine 25 mg tablet 25 mg PO TID PRN (Reason: dizziness) Qty: 14 0RF ondansetron 4 mg tablet,disintegrating 4 mg PO Q6H PRN (Reason: nausea and vomiting) Qty: 10 0RF ondansetron 4 mg tablet,disintegrating 4 mg PO Q8H PRN (Reason: nausea and vomiting) Qty: 20 0RF clotrimazole 1 % cream 1 applic topical BID Qty: 15 0RF meclizine 25 mg tablet 25 mg PO TID Qty: 14 0RF ondansetron 4 mg tablet,disintegrating 4 mg PO Q6H PRN (Reason: nausea and vomiting) Qty: 10 0RF meclizine 25 mg tablet 25 mg PO TID Qty: 30 0RF ondansetron 4 mg tablet,disintegrating 4 mg PO Q8H PRN (Reason: nausea and vomiting) Qty: 14 0RF amlodipine 5 mg tablet 5 mg PO DAILY Qty: 30 0RF meclizine 25 mg tablet 25 mg PO BID PRN (Reason: dizziness) Qty: 30 0RF doxycycline hyclate 100 mg capsule 100 mg PO DAILY Qty: 14 0RF Follow-up/Referrals: Buzz,Collins Mcclellan MD [Primary Care Provider] -
[2024-06-11] MEDS: HYDROmorphone HCL INJ (*CRX) 1 MG/ML SYR 0.5 MG IV PUSH (11:16)
[2024-06-11] MEDS: SODIUM CHLORIDE 0.9% IV 1,000 ML 999 ML IV CONT (11:16)
[2024-06-11] MEDS: ONDANSETRON INJ 4 MG/2 ML VIAL IV PUSH (11:16)
[2024-06-11 11:20] VITALS: BP 156/90; PULSE 87; RESP 19; O2SAT 95
[2024-06-11] MEDS: KETOROLAC 30 MG/ML VIAL (*BKC) IV PUSH (12:27)
[2024-06-11 12:51] LABS: Influenza A QL RT-PCR Negative (Negative); Influenza B QL RT-PCR Negative (Negative); RSV RNA, RT-PCR Negative (Negative); SARS-CoV-2 RNA PCR Negative (Negative)
[2024-06-11 14:14] VITALS: BP 150/87; PULSE 92; RESP 12; O2SAT 97
== END 2024-06-11 14:17 | disposition home or self-care (01) ==
PROVIDERS: Emergency Provider Emergency Medicine; PCP Internal Medicine Gastroenterology
DX: B34.9 Viral infection, unspecified (principal); Z20.822 Contact with and (suspected) exposure to COVID-19; F17.210 Nicotine dependence, cigarettes, uncomplicated; M19.90 Unspecified osteoarthritis, unspecified site; F32.A Depression, unspecified; E78.5 Hyperlipidemia, unspecified; G47.30 Sleep apnea, unspecified; E11.40 Type 2 diabetes mellitus with diabetic neuropathy, unspecified; D64.9 Anemia, unspecified; I10 Essential (primary) hypertension; Z79.84 Long term (current) use of oral hypoglycemic drugs
CPT/HCPCS: 36415; 74177; 80053; 82948; 83690; 85025; 87637; 96361; 96374; 96375; 99284; J1171; J1885; J2405; J7030; Q9967

== ENCOUNTER 2025-01-03 17:13 | Emergency (ER) | payer OTHER, MEDICARE, SELFPAY ==
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
--- NOTE | ~2025-01-03 | XR_ITS ---
CHEST RADIOGRAPH, PA AND LATERAL CLINICAL HISTORY: cardiac history . COMPARISON: 12/05/2023 TECHNIQUE: PA and lateral views of the chest. FINDINGS The cardiomediastinal silhouette is unremarkable. Elevation of the left hemidiaphragm with adjacent compressive atelectasis. The lungs are otherwise clear. IMPRESSION: Elevation of the left hemidiaphragm with adjacent compressive atelectasis. No focal infiltrate or effusion. Reviewed, dictated and finalized at location A.
--- OUTSIDE RECORDS SUMMARY | 2025-01-03 17:15 | XMS_ITS | Clinical Summary ---
Author Organization [facility] Address [address] [place] [address] Phone Care Team Providers Care Contract Processor Name Role Phone Natividad Najera Primary Care Provider [phone] Allergies No known active allergies Medications atorvastatin (LIPITOR) 20 MG tablet atorvastatin 20 mg tablet TAKE 1 TABLET BY MOUTH ONCE DAILY Active Blood Glucose Monitoring Suppl (ACCU-CHEK GUIDE ME) w/Device kit See administration instructions 0 Active DULoxetine (CYMBALTA) [address] capsule Take 30 mg by mouth 2 (two) times a day 0 Active ACCU-CHEK GUIDE test strip USE TO TEST BLOOD SUGAR 4 TIMES DAILY 0 Active losartan (COZAAR) 100 MG tablet Take 1 tablet (100 mg total) by mouth 1 (one) time each day 90 tablet 3 0 Active Active Problems Problem Noted Date Diagnosed Date Chronic kidney disease, stage 3b 10/28/2019 Diabetes mellitus 02/06/2019 Hyperlipidemia 02/06/2019 Hypertensive disorder 02/06/2019 Family History Medical History Relation Comments Kidney disease Neg Hx Social History Tobacco Use Types Packs/Day Years Used Date Smoking Tobacco: Former Smokeless Tobacco: Never Alcohol Use Standard Drinks/Week Comments Yes 0 (1 standard drink = 0.6 oz pur e alcohol) rare Sex and Gender Information Value Date Recorded Sex Assigned at Not on file Legal Sex Male 10:00 AM MDT Gender Identity Not on file Sexual Orientation Not on file Last Filed Vital Signs Vital Sign Reading Time Taken Comments Blood Pressure 158/92 10/28/2019 9:46 AM CDT Pulse 84 10/28/2019 9:46 AM CDT Temperature 36.1 C (97 F) 10/28/2019 9:46 AM CDT Respiratory Rate - - Oxygen Saturation - - Inhaled Oxygen Concentration - - Weight 117 kg (259 lb) 10/28/2019 9:46 AM CDT Height 172.7 cm (5' 8) 10/28/2019 9:46 AM CDT Body Mass Index 39.38 10/28/2019 9:46 AM CDT Plan of Treatment Health Maintenance Due Date Last Done Comments Influenza Vaccine (#1) 2025 Insurance [employer] Care Teams Contract Processor Relationship Specialty Start Date End Date Natividad Najera [facility] [place] [address] PCP - General 10/09/19
--- OUTSIDE RECORDS SUMMARY | 2025-01-03 17:15 | XMS_ITS | Clinical Summary ---
Author Organization [facility] Address [address] [address] Care Team Providers Care Program Research Specialist Name Role Phone Unavailable Primary Care Provider Unavailabl e Social History Tobacco Use Types Packs/Day Years Used Date Smoking Tobacco: Never Assessed Sex and Gender Information Value Date Recorded Sex Assigned at Not on file Legal Sex Male 4:04 PM CDT Gender Identity Not on file Sexual Orientation Not on file Plan of Treatment Health Maintenance Due Date Last Done Comments DTAP/TDAP/TD VACCINES (1 - Tdap) 1985 HEPATITIS B VACCINES (1 of 3 - 19+ 3-dose series) 12/1985 COLORECTAL SCREENING 2011 Colorectal Cancer Screening 2011 FIT-DNA Q 3 years 2011 FIT/FOBT Q 1 year 2011 Flex Sig/CT Colonography Q 5 years 2011 ZOSTER VACCINE (1 of 2) 2016 INFLUENZA VACCINE (#1) 2024
--- OUTSIDE RECORDS SUMMARY | 2025-01-03 17:15 | XMS_ITS | Clinical Summary ---
Author Organization [facility] Address [facility] [place] [address] Care Team Providers Care Dry Chain Puller Name Role Phone Collins Gerber MD Primary Care Provider Unavail able Allergies No known active allergies Medications ARIPiprazole (ABILIFY) 10 MG tablet Take 1 tablet (10 mg total) by mouth daily. Active dapagliflozin (FARXIGA) 10 MG tablet Take 1 tablet (10 mg total) by mouth daily. Currently on hold per pt 4 Active divalproex EC (DEPAKOTE) 250 MG tablet Take 1 tablet (250 mg total) by mouth 2 (two) times daily. Currently on hold, per pt Active escitalopram (LEXAPRO) 20 MG tablet Take 1 tablet (20 mg total) by mouth daily. Currently on hold- per pt 4 Active escitalopram (LEXAPRO) 5 MG tablet Currently on hold- per pt Active Finerenone (KERENDIA) 10 MG Tab Currently on hold- per pt Active Semaglutide 7 MG Tab Take 7 mg by mouth daily. 4 Active meclizine (ANTIVERT) 25 MG tablet Take 1 tablet (25 mg total) by mouth 3 (three) times daily. Currently on hold- per pt Active insulin degludec (TRESIBA) 200 UNIT/ML injection (PEN) Inject 50 Units into the skin daily. Currently on hold (per patient) 4 Active insulin detemir (LEVEMIR) 100 UNIT/ML PEN Inject 50 Units into the skin every morning. Unsure of how many units Active Family History Relation Status Comments Father Mother Alive Social History Tobacco Use Types Packs/Day Years Used Date Smoking Tobacco: Every Day Cigarettes Smokeless Tobacco: Never Alcohol Use Standard Drinks/Week Comments Yes 0 (1 standard drink = 0.6 oz pur e alcohol) 3 on weekend Sex and Gender Information Value Date Recorded Sex Assigned at Not on file Legal Sex Male 11:39 AM CDT Gender Identity Not on file Sexual Orientation Not on file Last Filed Vital Signs Vital Sign Reading Time Taken Comments Blood Pressure 149/93 02/05/2024 12:07 PM CDT Pulse 78 02/05/2024 12:07 PM CDT Temperature 36.2 C (97.1 F) 02/05/2024 12:07 PM CDT Respiratory Rate 18 02/05/2024 12:0 7 PM CDT Oxygen Saturation 99% 02/05/2024 12: 07 PM CDT Inhaled Oxygen Concentration - - Weight 143.7 kg (316 lb 12.8 oz) 02/05/2024 8:45 AM CDT Height 175.3 cm (5' 9) 02/05/2024 8:45 AM CDT Body Mass Index 46.78 02/05/2024 8:45 AM CDT Plan of Treatment Health Maintenance Due Date Last Done Comments Colorectal Cancer Screening Colonoscopy (10 Years) 1966 Annual Physical 1969 Hepatitis C 1984 DTaP, Tdap and Td Vaccines ( 1 - Tdap) 1985 Hepatitis B Vaccines (1 of 3 - 19+ 3-dose series) 1985 Pneumococcal Vaccine: 50+ Ye ars (1 of 2 - PCV) 1985 Zoster Vaccines (1 of 2) 2016 COVID-19 Vaccine (2 - 2023-2 5 season) 2024 08/04/2020 Meningococcal B Vaccine Aged Out No l onger eligible based on patient's age to complete this topic Meningococcal Vaccine Aged Out No parth heidy eligible based on patient's age to complete this topic RSV Immunizations Under 20 Months Aged Out No longer eligible based on patient's age to complete this topic Insurance MEDICAID [facility] Care Teams Dry Chain Puller Relationship Specialty Start Date End Date Collins Gerber MD PCP - General INTERNAL MEDICINE 02/05/24
--- OUTSIDE RECORDS SUMMARY | 2025-01-03 17:15 | XMS_ITS | Clinical Summary ---
Author Organization [facility] Address [address] [place] [address] Care Team Providers Care Assembler For Puller Over Hand Name Role Phone Unavailable Primary Care Provider Unavailabl e Source Comments [facility],non-owned Affiliates and Associated Physician Practices is amultiple site organization consisting of ambulatory clinics and hospital sitesin [place], [place], [place] and [place]. This disclosure is being madepursuant to the Care Everywhere program and may not contain all information available regarding this patient. Last updated 18.[facility] [employer] Social History Tobacco Use Types Packs/Day Years Used Date Smoking Tobacco: Never Assessed Sex and Gender Information Value Date Recorded Sex Assigned at Not on file Legal Sex Male 11:34 AM CDT Gender Identity Not on file Sexual Orientation Not on file Plan of Treatment Health Maintenance Due Date Last Done Comments COLOGUARD (AGES 45-75) - COL ON CA SCREENING 1966 COLON MONITORING 1966 COLONOSCOPY - COLON CA SCREENING 1966 CT COLONOGRAPHY - COLON CA SCREENING 1966 Colorectal Cancer Screening 1966 FIT - COLON CA SCREENING 1966 FLEX SIG - COLON CA SCREENING 1966 LIPID TESTING 1966 HIV SCREENING 1981 HEPATITIS C SCREENING 07/01/1984 DTAP/TDAP/TD VACCINES (1 - Tdap) 1985 HEPATITIS B VACCINE (1 of 3 - 19+ 3-dose series) 1985 PNEUMOCOCCAL VACCINE 50+ (1 of 1 - PCV) 2016 ZOSTER VACCINE (1 of 2) 2016 COVID-19 VACCINE ( - 2023-2 5 season) 2024 DEPRESSION SCREENING 05/29/2024 INFLUENZA VACCINE (#1) 2025 HIB VACCINE Aged Out No longer eligi ble based on patient's age to complete this topic HPV VACCINE Aged Out No longer eligi ble based on patient's age to complete this topic MENINGOCOCCAL (Group B) VACC INE SHARED DECISION-MAKING Aged Out No longer eligibl e based on patient's age to complete this topic MENINGOCOCCAL GROUPS A/C/Y/W VACCINE Aged Out No longer eligible b ased on patient's age to complete this topic Insurance MEDICAID - OUT OF STATE
--- OUTSIDE RECORDS SUMMARY | 2025-01-03 17:15 | XMS_ITS | Clinical Summary ---
Author Organization [facility] Address [address] [place] [address] Care Team Providers Care Jailer Name Role Phone Collins Gerber MD Primary Care Provider Social History Tobacco Use Types Packs/Day Years Used Date Smoking Tobacco: Never Assessed Sex and Gender Information Value Date Recorded Sex Assigned at Not on file Legal Sex Male 3:06 PM MUD JACK NOZZLEMAN Gender Identity Not on file Sexual Orientation Not on file Plan of Treatment Health Maintenance Due Date Last Done Comments Hepatitis C Virus (HCV) Screening 1966 TdaP Immunization 1966 Hepatitis B Immunization (1 of 3 - 19+ 3-dose series) 1985 Cologuard 2011 Colonoscopy 2011 Colorectal Cancer Screening 2011 Immunochemical Fecal Occult Blood 2011 Pneumococcal Immunization (5 0+ years) (1 of 1 - PCV) 2016 Zoster Immunization (1 of 2) 2016 PSA Discussion 2021 SARS-COV-2 Immunization (2 - season) 2024 08/04/2020 Influenza Immunization (#1) 2025 Respiratory Syncytial Virus (RSV) Immunization (Adult) (1 - 1-dose 75+ series) 2041 Human Papillomavirus (HPV) Immunization Aged Out No longer eligible b ased on patient's age to complete this topic Meningococcal Immunization (ACWY) Aged Out No longer eligible based on patient's age to complete this topic Rotavirus Immunization Aged Out No lo nger eligible based on patient's age to complete this topic Insurance MEDICAID [employer] Care Teams Jailer Relationship Specialty Start Date End Date Collins Gerber MD [address] [place] [address] PCP - General Internal Medicine 06/15/21
--- OUTSIDE RECORDS SUMMARY | 2025-01-03 17:15 | XMS_ITS ---
Author Organization [facility] Address [address] [place] [address] Care Team Providers Care Ecological Technical Officer Name Role Phone Collins Gerber MD Primary Care Provider [facility] Status:Enrolled (Active) Start date:06/26/2024 Enrollment date:06/26/2024 Related social drivers of health:Intimate Partner Violence, Social Connections, Alcohol Use, Tobacco Use, Financial Resource Strain,Depression, Stress, Physical Activity, Food Insecurity, Transportation Needs, Housing Stability, Utilities Continued Care and Services Coordination
--- OUTSIDE RECORDS SUMMARY | 2025-01-03 17:15 | XMS_ITS | Clinical Summary ---
Author Organization [facility] Address [address] [place] [address] Phone Care Team Providers Care Cloth Stock Sorter Name Role Phone Collins Gerber MD Primary Care Provider Allergies No known active allergies Medications escitalopram (LEXAPRO) 5 mg tablet Active insulin syringe-needle U-100 1/2 mL 31 gauge x 15/64 syringe insulin syringe U-100 with needle 1/2 mL 31 gauge x 15/64 Active blood glucose diagnostic (OneTouch Ultra Test) strip OneTouch Ultra Test strips USE TO TEST BLOOD SUGAR TWICE DAILY DIRECTED Active atorvastatin (LIPITOR) 20 mg tablet Take 1 tablet (20 mg total) by mouth daily Active divalproex DR (DEPAKOTE) 250 mg EC tablet TAKE 1 TABLET BY MOUTH TWICE DAILY AROUND THE CLOCK Active finerenone (Kerendia) 10 mg tablet Take by oral route for 90 days. Active pen needle, diabetic 31 gauge x 3/16 needle Use to inject insulin up to 5 x day 200 each 11 07/28/19 24 Active meclizine (ANTIVERT) 25 mg tablet Take 1 tablet (25 mg total) by mouth 3 (three) times a day Active pregabalin (LYRICA) 50 mg capsule Take 1 capsule (50 mg total) by mouth 2 (two) times a day 180 capsule 1 10/10/19 24 Active amLODIPine (NORVASC) 5 mg tablet Take 1 tablet (5 mg total) by mouth daily 12/05/19 24 Active escitalopram (LEXAPRO) 20 mg tablet Take 1 tablet (20 mg total) by mouth daily 01/19/20 24 Active insulin degludec (TRESIBA) 200 unit/mL (3 mL) pen for injection Inject 0.25 mL (50 Units total) under the skin nightly 15 mL 11 01/23/20 24 Active risperiDONE (RisperDAL) 2 mg tablet Take 1 tablet (2 mg total) by mouth daily 04/23/20 24 Active semaglutide (Rybelsus) 7 mg tablet Take 1 tablet (7 mg total) by mouth daily 30 tablet 11 04/29/20 24 Active dapagliflozin propanediol (FARXIGA) 10 mg tabletIndicatio ns:Type 2 diabetes mellitus with hyperglycemia, with long-term current use of insulin (HCC) Take 1 tablet by mouth once daily 90 tablet 1 12/26/19 25 Active glimepiride (AMARYL) 2 mg tabletIndicatio ns:Type 2 diabetes mellitus with hyperglycemia, with long-term current use of insulin (HCC) TAKE 1 TABLET BY MOUTH ONCE DAILY BEFORE BREAKFAST 90 tablet 1 01/01/20 25 Active dapagliflozin propanediol (FARXIGA) 10 mg tabletIndicatio ns:Type 2 diabetes mellitus with hyperglycemia, with long-term current use of insulin (HCC) Take 1 tablet by mouth once daily 90 tablet 09/25/19 25 025 Discontinued glimepiride (AMARYL) 2 mg tabletIndicatio ns:Type 2 diabetes mellitus with hyperglycemia, with long-term current use of insulin (HCC) TAKE 1 TABLET BY MOUTH ONCE DAILY BEFORE BREAKFAST 30 tablet 12/03/19 25 025 Discontinued Active Problems Problem Noted Date Diagnosed Date Severe obesity 01/23/2024 Assessment & Plan (01/23/2024 10:50 AM CDT): Start Sharmaine, work on diet. Body mass index (BMI) 45.0-49.9, adult Hyperlipidemia associated with type 2 diabetes m altagracia 09/14/2023 Assessment & Plan (04/29/2024 2:04 PM VENEER LATHE OPERATOR): Chronic, stable. Continue statin therapy with atorvastatin. Update lipid profile Assessment & Plan (01/23/2024 10:50 AM CDT): Chronic problem. On statin therapy, no changes. Assessment & Plan (09/19/2023 11:29 AM CDT): Chronic problem. On statin therapy, no changes. Type 2 diabetes mellitus wit h hyperglycemia, with long-term current use of insulin 07/17/2023 Assessment & Plan (04/29/2024 2:05 PM VENEER LATHE OPERATOR): Chronic, stable A1c not at goal Encouraged the patient to continue working on exercise and diet I advised the patient to be more consistent with taking his Rybelsus Continue Farxiga, glimepiride and Tresiba. Update GFR and microalbumin Assessment & Plan (01/23/2024 10:52 AM CDT): Chronic problem, not at goal. He has not been doing well with diet due to depression, but is working on this now. Per last notes, his insurance requires he try Trulicity, Victoza, and Rybelsus first as step therapy. Trulicity was not effective enough for him. Pharmacy did not fill Rybelsus last time per pt. I sent this in for him, let us know if any issues. If not enough benefit will try Victoza for final step therapy. He understands. Change Levemir to Tresiba, he's almost out and had trouble getting it at the pharmacy. Continue Farxiga and glimepiride. Have eye exam next month copied here. Labs in office today. Assessment & Plan (09/19/2023 12:54 PM CDT): Chronic problem, significantly improving with lifestyle change. He will check on Rybelsus at the pharmacy and let us know if any issues. I gave him a sample of the 3 mg dose to take for 1 month, then fill the 7 mg dose. He can stop glimepiride when he starts Rybelsus. Move Levemir to HS since morning readings are the highest. Let us know if any hypoglycemia. Update routine labs. Assessment & Plan (07/17/2023 2:47 PM VENEER LATHE OPERATOR): Hba1c was Lab Results Component Value Date HGBA1C 9.3 07/17/2023 today, indicating poor DM control Goal Hba1c under 7 and blood glucose level in the 120-160 range was explained Low carb diet and daily aerobic and /or resistant exercise were advised Prevention and treatment of hyypoglcyemia were discussed with the patient Blood glucose monitoring :Start monitoring with CGM Dexcom G7. Prescription for reader and sensors were sent Adjustment to medications: Continue with Levemir 50 units at bedtime Stop Trulicity Start Ozempic 0.25 mg weekly x4 weeks and then continue with 0.5 mg Start glimepiride 2 mg Continue Farxiga 10 mg Follow-up in 8 weeks Pain in both feet 07/05/2022 Numbness and tingling of left hand 07/05/2022 Encounters Date Type Department Care Team Description 12/26/2024 Telephone [facility] [address] [place] [phone] Jessica Chavez NP Med Management (Medication management ) 12/19/2024 Telephone [facility] [address] [place] [phone] Jessica Chavez NP from Last 3 Months Medical History Medical History Date Comments Anxiety Depression Diabetes mellitus (HCC) Social History Tobacco Use Types Packs/Day Years Used Date Smoking Tobacco: Some Days Cigarettes Smokeless Tobacco: Never Tobacco Cessation:Ready to Q uit: Not Asked; Counseling Given: Not Answered Sex and Gender Information Value Date Recorded Sex Assigned at Not on file Legal Sex Male 2:45 PM CDT Gender Identity Not on file Sexual Orientation Not on file Obstetrics History Last Filed Vital Signs Vital Sign Reading Time Taken Comments Blood Pressure 118/70 04/29/2024 10:12 AM VENEER LATHE OPERATOR Pulse 91 04/29/2024 10:12 AM VENEER LATHE OPERATOR Temperature - - Respiratory Rate 18 01/23/2024 9:50 AM CDT Oxygen Saturation 96% 08/12/2022 10: 53 AM CDT Inhaled Oxygen Concentration - - Weight 147.8 kg (325 lb 12.8 oz) 2023 10:12 AM VENEER LATHE OPERATOR Height 175.3 cm (5' 9) 04/29/2024 10:1 2 AM VENEER LATHE OPERATOR Body Mass Index 48.11 04/29/2024 10:12 AM VENEER LATHE OPERATOR Plan of Treatment Health Maintenance Due Date Last Done Comments Albumin Creatinine Ratio, Urine 1966 Colon Cancer Screening-Colonoscopy 1966 Depression Screening 1966 Hepatitis C Screening 1966 Prostate Cancer Screening-PSA 1966 eGFR 1966 Dilated Eye Exam 1966 Lipid Panel 1966 DTaP/Tdap/Td Vaccine (1 - Tdap) 1977 Hepatitis B Screening 1984 Regular Well Visit/Exam 18-64 1984 Pneumococcal vaccine <65 (1 of 2 - PCV) 1985 Zoster Vaccine (1 of 2) 2016 Covid-19 Vaccine (2 - 2023-2 5 season) 2024 08/04/2020 Foot Exam 07/17/2024 07/17/2023 Hemoglobin A1C 10/28/2024 04/29/2024, 12/28, 09/19/2023, Additional history exists Influenza Vaccine (#1) 2025 Procedures Procedure Name Priority Date/Time Associated Diagnosis Comments POCT HEMOGLOBIN A1C Routine 04/29/2024 1 0:14 AM VENEER LATHE OPERATOR Type 2 diabetes mellitus with hyperglycemia, with long-term current use of insulin (HCC) from Last 3 Months or Most Recently Relevant to Health Maintenance Results * POCT hemoglobin A1c (04/29/2024 10:14 AM VENEER LATHE OPERATOR) Hemoglobin A1C, POC 7.4 4.0 - 5.6 % Capillary blood 04/29/2024 1 0:14 AM VENEER LATHE OPERATOR Gabriele Gaitan MD POINT OF CARE TEST ORDERABLES Fi nal Result from Last 3 Months or Most Recently Relevant to Health Maintenance Insurance [facility] MEDICARE ADVANTAGE Care Teams Cloth Stock Sorter Relationship Specialty Start Date End Date Collins Gerber MD [address] [place] [phone] PCP - General Gastroenterology 07/12/22
--- OUTSIDE RECORDS SUMMARY | 2025-01-03 17:15 | XMS_ITS | Encounter Summary ---
Author Organization [facility] Address [address] [place] [address] Care Team Providers Care Roller Mill Operator Name Role Phone Collins Gerber MD Primary Care Provider Unavail able Encounter Details Date Type Department Care Team (Late st Contact Info) Description 02/05/2024 Prep for Procedure [facility] [address] [place], [place] [id number] Jerry Chavez, KARINA [address] [place] [address] Social History Tobacco Use Types Packs/Day Years [...] on file Sexual Orientation Not on file documented as of this encounter Functional Status * Calculated C-SSRS Risk Score (Lifetime/Recent) Answer Date of Assessment Author Status No Risk Indicated 02/05/2024 9:00 AM MICHAELT Rios Mazariegos RN Active * [place] Suicide Severity Rating Scale (Screener/Recent Self-Report) Question Answer Date of Assessment Author Status 1. Wish to be (Past 1 Month) No 02/05/2024 9:00 AM MICHAELT Karley Mazariegos RN Act pierce 2. Non-Specific Active Suicidal Thoughts (Past 1 Month) No 02/05/2024 9:00 AM CDT Karley Mazariegos RN Act pierce 6. Suicidal Behavior (Lifetime) No 02/05/2024 9:00 AM CDT Karley Mazariegos RN Act pierce documented as of this encounter Plan of Treatment Not on file documented as of this encounter Results * (ABNORMAL) BASIC METABOLIC PANEL (02/05/2024 8:21 AM CDT) [facility] GLUCOSE 248(H) 70 - 99 MG/DL 02/05/2024 9:02 AM T [facility] BUN 23(H) 7 - 18 MG/DL 02/05/2024 9:02 AM T [facility] CREATININE S/P/B 1.29 0.7 - 1.3 MG/DL 02/05/2024 9:02 AM T [facility] SODIUM S/P/B 135(L) 136 - 145 MMOL/L 02/05/2024 9:02 AM T [facility] POTASSIUM S/P/B 3.8 3.5 - 5.1 MMOL/L 02/05/2024 9:02 AM T [facility] CHLORIDE S/P/B 103 97 - 115 MMOL/L 02/05/2024 9:02 AM T [facility] CO2 27.4 21 - 32 MMOL/L 02/05/2024 9:02 AM T [facility] CALCIUM S/P/B 9.3 8.5 - 10.1 MG/DL 02/05/2024 9:02 AM T [facility] ANION GAP 4.6 2 - 10 MMOL/L 02/05/2024 9:02 AM T [facility] BUN CREATININE RATIO 17.8 6 - 26 02/05/2024 9:02 AM T [facility] GFR ESTIMATE 65(L) >90 ML/MIN/1.7 3 M2 02/05/2024 9:02 AM CDT [facility] Comment: NOTE: eGFR is not calculated for patients <18 years of age or gender unknown. This is an estimated GFR calculation using the new CKD EPI creatinine equation without race and so does not require a correction factor for race. This estimated GFR should not be used for calculating drug doses. 02/05/2024 8:21 AM CDT Arlene Carrillo [facility] Final R esult [facility] [address] [place] [address], documented in this encounter Visit Diagnoses Diagnosis Preoperative testing- Primary Preoperative examination, unspecified documented in this encounter Care Teams Roller Mill Operator Relationship Specialty Start Date End Date Collins Gerber MD PCP - General INTERNAL MEDICINE 02/05/24 documented as of this encounter
[2025-01-03 17:31] VITALS: BP 135/85; PULSE 104; RESP 20; TEMP 36.6; O2SAT 95
[2025-01-03 17:50] VITALS: BP 119/59; PULSE 95; RESP 18; O2SAT 95
--- NOTE | 2025-01-03 17:59 | ECG_ITS ---
Test Date: 2025-01-03 18:52:13 Measurements Intervals Cameron Rate: 92 P: 62 TX: 196 QRS: -71 QRSD: 145 T: 74 QT: 372 QTc: 461 Interpretive Statements SINUS RHYTHM RIGHT BUNDLE BRANCH BLOCK LEFT ANTERIOR FASCICULAR BLOCK LEFT VENTRICULAR HYPERTROPHY WITH ST-T CHANGE CANNOT R/O SEPTAL INFARCT, AGE INDETERMINATE ABNORMAL ECG Compared to ECG 12/05/2023 09:08:29 NO SIGNIFICANT CHANGE Electronically Signed On 01-04-2025 07:25:54 CDT by Allan Gale D.O.
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
--- OUTSIDE RECORDS SUMMARY | 2025-01-03 19:22 | XMS_ITS | Clinical Summary ---
Author Organization [facility] Address [address] [place] [address] Phone Care Team Providers Care Shipping And Receiving Coordinator Name Role Phone Natividad Najera Primary Care Provider [phone] Allergies No known active allergies Medications atorvastatin [...] (#1) 2025 Insurance [employer] Care Teams Shipping And Receiving Coordinator Relationship Specialty Start Date End Date Natividad Najera [facility] [place] [address] PCP - General 10/09/19
--- OUTSIDE RECORDS SUMMARY | 2025-01-03 19:22 | XMS_ITS | Clinical Summary ---
Author Organization [facility] Address [address] [place] [address] Care Team Providers Care Supervisor Esters And Emulsifiers Name Role Phone Unavailable Primary Care Provider Unavailabl e Source Comments [facility],non-owned Affiliates and Associated Physician Practices is amultiple site organization consisting of ambulatory clinics and hospital sitesin [place], [place], [place] and [place]. This disclosure is being madepursuant to the Care Everywhere program and may not contain all information available regarding this patient. Last updated 18.[facility] [employer] Social History Tobacco Use Types Packs/Day Years [...]
--- OUTSIDE RECORDS SUMMARY | 2025-01-03 19:22 | XMS_ITS | Clinical Summary ---
Author Organization [facility] pollo [facility] Address [address] [place] [address] Care Team Providers Care Airplane Engineer Name Role Phone Unavailable Primary Care Provider [...]
--- OUTSIDE RECORDS SUMMARY | 2025-01-03 19:22 | XMS_ITS | Clinical Summary ---
Author Organization [facility] Address [facility] [place] [address] Care Team Providers Care Asbestos Handler Name Role Phone Collins Gerber MD Primary [...] age to complete this topic Insurance MEDICAID [facility] Care Teams Asbestos Handler Relationship Specialty Start Date End Date Collins Gerber MD PCP - General INTERNAL MEDICINE 02/05/24
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
--- OUTSIDE RECORDS SUMMARY | 2025-01-03 19:22 | XMS_ITS | Clinical Summary ---
Author Organization 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
--- OUTSIDE RECORDS SUMMARY | 2025-01-03 19:22 | XMS_ITS | Clinical Summary ---
Author Organization [facility] Address [address] [place] [address] Phone Care Team Providers Care Treating Plant Pumper Name Role Phone Collins Gerber MD Primary [...] 09/14/2023 Assessment & Plan (04/29/2024 2:04 PM CHANNELER): Chronic, stable. Continue statin therapy with atorvastatin. Update lipid profile Assessment & Plan (01/23/2024 10:50 AM CDT): Chronic problem. On statin therapy, no changes. Assessment & Plan (09/19/2023 11:29 AM CDT): Chronic problem. On statin therapy, no changes. Type 2 diabetes mellitus wit h hyperglycemia, with long-term current use of insulin 07/17/2023 Assessment & Plan (04/29/2024 2:05 PM CHANNELER): Chronic, stable A1c not at goal Encouraged [...] labs. Assessment & Plan (07/17/2023 2:47 PM CHANNELER): Hba1c was Lab Results Component Value Date [...] Type Department Care Team Description 12/26/2024 Telephone [facility] Neurology [address] [place] [phone] Jessica Chavez NP Med Management (Medication management ) 12/19/2024 Telephone [facility] Neurology [address] [place] [phone] Jessica Chavez NP from Last 3 Months [...] Comments Blood Pressure 118/70 04/29/2024 10:12 AM CHANNELER Pulse 91 04/29/2024 10:12 AM CHANNELER Temperature - - Respiratory Rate 18 01/23/2024 9:50 AM CDT Oxygen Saturation 96% 08/12/2022 10: 53 AM CDT Inhaled Oxygen Concentration - - Weight 147.8 kg (325 lb 12.8 oz) 2023 10:12 AM CHANNELER Height 175.3 cm (5' 9) 04/29/2024 10:1 2 AM CHANNELER Body Mass Index 48.11 04/29/2024 10:12 AM CHANNELER Plan of Treatment Health Maintenance Due Date [...] HEMOGLOBIN A1C Routine 04/29/2024 1 0:14 AM CHANNELER Type 2 diabetes mellitus with hyperglycemia, with long-term current use of insulin (HCC) from Last 3 Months or Most Recently Relevant to Health Maintenance Results * POCT hemoglobin A1c (04/29/2024 10:14 AM CHANNELER) Hemoglobin A1C, POC 7.4 4.0 - 5.6 % Capillary blood 04/29/2024 1 0:14 AM CHANNELER Gabriele Gaitan MD POINT OF CARE TEST ORDERABLES Fi nal Result from Last 3 Months or Most Recently Relevant to Health Maintenance Insurance [facility] MEDICARE ADVANTAGE Care Teams Treating Plant Pumper Relationship Specialty Start Date End Date Collins Gerber MD [address] [place] [phone] PCP - General Gastroenterology 07/12/22
--- OUTSIDE RECORDS SUMMARY | 2025-01-03 19:22 | XMS_ITS | Encounter Summary ---
Author Organization [facility] Address [address] [place] [address] Care Team Providers Care Pattern Maker Programer Name Role Phone Collisn Gerber MD Primary Care Provider Unavail able Encounter Details Date Type Department Care Team (Late st Contact Info) Description 02/05/2024 Prep for Procedure [place] Pre-Ad[facility] [address] [facility] [address] [place], [place] [id number] Jerry Chavez, KARINA [address] [place] [address] Social History Tobacco Use Types Packs/Day Years [...] AM MICHAELT Rios Mazariegos RN Active * [place] Suicide Severity Rating Scale (Screener/Recent Self-Report) Question [...] BASIC METABOLIC PANEL (02/05/2024 8:21 AM CDT) [facility] GLUCOSE 248(H) 70 - 99 MG/DL 02/05/2024 9:02 AM T [facility] BUN 23(H) 7 - 18 MG/DL 02/05/2024 9:02 AM T [facility] CREATININE S/P/B 1.29 0.7 - 1.3 MG/DL 02/05/2024 9:02 AM T [facility] SODIUM S/P/B 135(L) 136 - 145 MMOL/L 02/05/2024 9:02 AM T [facility] POTASSIUM S/P/B 3.8 3.5 - 5.1 MMOL/L 02/05/2024 9:02 AM T [facility] CHLORIDE S/P/B 103 97 - 115 MMOL/L 02/05/2024 9:02 AM T [facility] CO2 27.4 21 - 32 MMOL/L 02/05/2024 9:02 AM T [facility] CALCIUM S/P/B 9.3 8.5 - 10.1 MG/DL 02/05/2024 9:02 AM T [facility] ANION GAP 4.6 2 - 10 MMOL/L 02/05/2024 9:02 AM T [facility] BUN CREATININE RATIO 17.8 6 - 26 02/05/2024 9:02 AM T [facility] GFR ESTIMATE 65(L) >90 ML/MIN/1.7 3 M2 02/05/2024 9:02 AM CDT [facility] Comment: NOTE: eGFR is not calculated for patients <18 years of age or gender unknown. This is an estimated GFR calculation using the new CKD EPI creatinine equation without race and so does not require a correction factor for race. This estimated GFR should not be used for calculating drug doses. 02/05/2024 8:21 AM CDT Arlene Carrillo [facility] Final R esult [facility] [address] [place] [address], documented in this encounter Visit Diagnoses Diagnosis Preoperative testing- Primary Preoperative examination, unspecified documented in this encounter Care Teams Pattern Maker Programer Relationship Specialty Start Date End Date Collins Gerber MD PCP - General INTERNAL MEDICINE 02/05/24 documented as of this encounter
[2025-01-03] MEDS: KETOROLAC (*BKC) 60 MG/2 ML VIAL IM (19:28)
--- NOTE | 2025-01-03 20:48 | PC.NURSE ---
Patient keeps repeating that she has to pee-spoke with family about a purwick as patient doesn't want a bedpan-they decided that she was too confused to understand, so this RN elected to place a patient diaper on patient
[2025-01-03] MEDS: ACETAMINOPHEN 500 MG TABLET 1000 MG PO (20:56)
[2025-01-03 21:28] VITALS: BP 140/80; PULSE 82; RESP 18; TEMP 37.1; O2SAT 99
== END 2025-01-03 21:30 | disposition home or self-care (01) ==
PROVIDERS: Emergency Provider Registered Nurse; PCP Internal Medicine Gastroenterology
DX: S39.012A Strain of muscle, fascia and tendon of lower back, initial encounter (principal); S16.1XXA Strain of muscle, fascia and tendon at neck level, initial encounter; S06.0X0A Concussion without loss of consciousness, initial encounter; V89.2XXA Person injured in unspecified motor-vehicle accident, traffic, initial encounter; Z89.411 Acquired absence of right great toe; E78.5 Hyperlipidemia, unspecified; G47.33 Obstructive sleep apnea (adult) (pediatric); E11.40 Type 2 diabetes mellitus with diabetic neuropathy, unspecified; I10 Essential (primary) hypertension
CPT/HCPCS: 70450; 71046; 72125; 72128; 72131; 82948; 93005; 96372; 99284; A9270; J1885

== ENCOUNTER 2025-01-12 20:01 | Emergency (ER) | payer OTHER, MEDICARE, SELFPAY ==
--- OUTSIDE RECORDS SUMMARY | 2025-01-12 20:04 | XMS_ITS | Clinical Summary ---
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
--- OUTSIDE RECORDS SUMMARY | 2025-01-12 20:04 | XMS_ITS | Clinical Summary ---
Author Organization [facility] pollo [facility] Address [address] [place] [address] Care Team Providers Care Inspector Water Pollution Control Name Role Phone Unavailable Primary Care Provider [...]
--- OUTSIDE RECORDS SUMMARY | 2025-01-12 20:04 | XMS_ITS | Clinical Summary ---
Author Organization [facility] Address [address] [place] [address] Phone Care Team Providers Care Technical Program Manager Name Role Phone Natividad Najera Primary Care Provider [phone] Allergies No known active allergies Medications atorvastatin [...] (#1) 2025 Insurance GENERIC COMMERCIAL Care Teams Technical Program Manager Relationship Specialty Start Date End Date Natividad Najera [facility] [place] [address] PCP - General 10/09/19
--- OUTSIDE RECORDS SUMMARY | 2025-01-12 20:04 | XMS_ITS ---
Author Organization [facility] Address [address] [place] [address] Care Team Providers Care Security Professionals Name Role Phone Collins Gerber MD Primary Care Provider [facility] Status:Enrolled (Active) Start date:06/26/2024 Enrollment date:06/26/2024 Related social drivers of health:Intimate Partner Violence, Social Connections, Alcohol Use, Tobacco Use, Financial Resource Strain,Depression, Stress, Physical Activity, Food Insecurity, Transportation Needs, Housing Stability, Utilities Continued Care and Services Coordination
--- OUTSIDE RECORDS SUMMARY | 2025-01-12 20:04 | XMS_ITS | Clinical Summary ---
Author Organization [facility] Address [facility] [place] [address] Care Team Providers Care Project Construction Assistant Manager Name Role Phone Collins Gerber MD [...] age to complete this topic Insurance MEDICAID [facility] Care Teams Project Construction Assistant Manager Relationship Specialty Start Date End Date Collins Gerber MD PCP - General INTERNAL MEDICINE 02/05/24
--- OUTSIDE RECORDS SUMMARY | 2025-01-12 20:04 | XMS_ITS | Clinical Summary ---
Author Organization [facility] Address [address] [place] [address] Care Team Providers Care Program Manager Name Role Phone Unavailable Primary Care Provider Unavailabl e Source Comments [facility],non-owned Affiliates and Associated Physician Practices is amultiple site organization consisting of ambulatory clinics and hospital sitesin [place], [place], [place] and [place]. This disclosure is being madepursuant to the Care Everywhere program and may not contain all information available regarding this patient. Last updated 18.[facility] Dress Code Social History Tobacco Use Types Packs/Day Years [...]
--- OUTSIDE RECORDS SUMMARY | 2025-01-12 20:04 | XMS_ITS | Encounter Summary ---
Author Organization [facility] Address [address] [place] [address] Care Team Providers Care Watch Crystal Edge Grinder Name Role Phone Collins Gerber MD Primary Care Provider Unavail able Encounter Details Date Type Department Care Team (Late st Contact Info) Description 02/05/2024 Prep for Procedure [place] Pre-Ad[facility] Testing [address] [place], [place] [id number] Jerry Chavez, KARINA [address] [place] [address] Social History Tobacco Use Types Packs/Day Years [...] AM MICHAELT Rios Mazariegos RN Active * [place] Suicide Severity Rating Scale (Screener/Recent Self-Report) Question [...] BASIC METABOLIC PANEL (02/05/2024 8:21 AM CDT) [facility] GLUCOSE 248(H) 70 - 99 MG/DL 02/05/2024 9:02 AM T [facility] BUN 23(H) 7 - 18 MG/DL 02/05/2024 9:02 AM T [facility] CREATININE S/P/B 1.29 0.7 - 1.3 MG/DL 02/05/2024 9:02 AM T [facility] SODIUM S/P/B 135(L) 136 - 145 MMOL/L 02/05/2024 9:02 AM T [facility] POTASSIUM S/P/B 3.8 3.5 - 5.1 MMOL/L 02/05/2024 9:02 AM T [facility] CHLORIDE S/P/B 103 97 - 115 MMOL/L 02/05/2024 9:02 AM T [facility] CO2 27.4 21 - 32 MMOL/L 02/05/2024 9:02 AM T [facility] CALCIUM S/P/B 9.3 8.5 - 10.1 MG/DL 02/05/2024 9:02 AM T [facility] ANION GAP 4.6 2 - 10 MMOL/L 02/05/2024 9:02 AM T [facility] BUN CREATININE RATIO 17.8 6 - 26 02/05/2024 9:02 AM T [facility] GFR ESTIMATE 65(L) >90 ML/MIN/1.7 3 M2 02/05/2024 9:02 AM CDT [facility] Comment: NOTE: eGFR is not calculated for patients <18 years of age or gender unknown. This is an estimated GFR calculation using the new CKD EPI creatinine equation without race and so does not require a correction factor for race. This estimated GFR should not be used for calculating drug doses. 02/05/2024 8:21 AM CDT Arlene Carrillo [facility] Final R esult [facility] [address] [place] [address], documented in this encounter Visit Diagnoses Diagnosis Preoperative testing- Primary Preoperative examination, unspecified documented in this encounter Care Teams Watch Crystal Edge Grinder Relationship Specialty Start Date End Date Collins Gerber MD PCP - General INTERNAL MEDICINE 02/05/24 documented as of this encounter
--- OUTSIDE RECORDS SUMMARY | 2025-01-12 20:04 | XMS_ITS | Clinical Summary ---
Author Organization [facility] Address [address] [place] [address] Phone Care Team Providers Care Counter Server Name Role Phone Collins Gerber MD Primary [...] 09/14/2023 Assessment & Plan (04/29/2024 2:04 PM FRONT DESK MONITOR): Chronic, stable. Continue statin therapy with atorvastatin. Update lipid profile Assessment & Plan (01/23/2024 10:50 AM CDT): Chronic problem. On statin therapy, no changes. Assessment & Plan (09/19/2023 11:29 AM CDT): Chronic problem. On statin therapy, no changes. Type 2 diabetes mellitus wit h hyperglycemia, with long-term current use of insulin 07/17/2023 Assessment & Plan (04/29/2024 2:05 PM FRONT DESK MONITOR): Chronic, stable A1c not at goal Encouraged [...] labs. Assessment & Plan (07/17/2023 2:47 PM FRONT DESK MONITOR): Hba1c was Lab Results Component Value Date [...] Care Team Description 12/26/2024 Telephone [facility] [address] [place] [phone] Jessica Chavez NP Med Management (Medication management ) 12/19/2024 Telephone [facility] [address] [place] [phone] Jessica Chavez NP from Last 3 Months [...] Comments Blood Pressure 118/70 04/29/2024 10:12 AM FRONT DESK MONITOR Pulse 91 04/29/2024 10:12 AM FRONT DESK MONITOR Temperature - - Respiratory Rate 18 01/23/2024 9:50 AM CDT Oxygen Saturation 96% 08/12/2022 10: 53 AM CDT Inhaled Oxygen Concentration - - Weight 147.8 kg (325 lb 12.8 oz) 2023 10:12 AM FRONT DESK MONITOR Height 175.3 cm (5' 9) 04/29/2024 10:1 2 AM FRONT DESK MONITOR Body Mass Index 48.11 04/29/2024 10:12 AM FRONT DESK MONITOR Plan of Treatment Health Maintenance Due Date [...] HEMOGLOBIN A1C Routine 04/29/2024 1 0:14 AM FRONT DESK MONITOR Type 2 diabetes mellitus with hyperglycemia, with long-term current use of insulin (HCC) from Last 3 Months or Most Recently Relevant to Health Maintenance Results * POCT hemoglobin A1c (04/29/2024 10:14 AM FRONT DESK MONITOR) Hemoglobin A1C, POC 7.4 4.0 - 5.6 % Capillary blood 04/29/2024 1 0:14 AM FRONT DESK MONITOR Gabriele Gaitan MD POINT OF CARE TEST ORDERABLES Fi nal Result from Last 3 Months or Most Recently Relevant to Health Maintenance Insurance [facility] MEDICARE ADVANTAGE Care Teams Counter Server Relationship Specialty Start Date End Date Collins Gerber MD [address] [place] [id number] PCP - General Gastroenterology 07/12/22
[2025-01-12 20:14] VITALS: BP 145/86; PULSE 101; RESP 22; TEMP 37.2; O2SAT 97
--- NOTE | 2025-01-12 21:10 | ED_ITS ---
HPI - Wound/Laceration General Chief Complaint: Wound/Laceration Stated Complaint: L knee laceration Time Seen by Provider: 01/12/25 21:02 Source: patient Mode of arrival: ambulatory Limitations: no limitations History of Present Illness HPI narrative: This is a 59 year old male that presents to the ER for laceration to the left knee. Sustained earlier tonight. Reports he accidentally cut his knee on a metal shelf. Reports bleeding and pain to the area. He is not up to date on tetanus. Denies decreased ROM, numbness. Related Data Home Medications ?Medication ?Instructions ?Recorded ?Confirmed ?Last Taken ?Type metformin 850 mg tablet 850 mg PO BID 09/23/19 01/21/22 02/11/21 History atorvastatin 20 mg tablet (Lipitor) 20 mg PO DAILY 05/08/20 01/21/22 02/10/21 History ergocalciferol (vitamin D2) 1,250 1,250 mcg PO DAILY 09/16/21 01/21/22 Unknown History mcg (50,000 unit) capsule gabapentin 100 mg capsule 100 mg PO DIRECTED 09/16/21 01/21/22 Unknown History aripiprazole 15 mg tablet mg 01/12/22 01/21/22 Unknown History escitalopram oxalate 20 mg tablet mg 01/12/22 01/21/22 Unknown History Allergies Allergy/AdvReac Type Severity Reaction Status Date / Time No Known Allergies Allergy Verified 01/03/25 17:13 Review of Systems Review of Systems: All systems reviewed & are unremarkable except as noted in HPI and below PMFSH Past Medical History Medical History Arthritis Depression Degenerative arthritis of right knee Amputation of one or more toes Hyperlipidemia Sleep trouble Obstructive sleep apnea Tobacco use Diabetic foot infection Osteomyelitis of second toe of left foot COVID-19 virus infection (09/2019) KAYLA (acute kidney injury) Diabetes mellitus with diabetic neuropathy Hemoglobin A1c was 11.1 on 02/11/2021 History of elevated blood pressure while in hospital Osteomyelitis Diabetes GI bleed (12/2018) Secondary to gastric erosions. Anemia Hypertension Surgical History Surgical History History of foot surgery , Dr. 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 History of appendectomy History of arthroscopy of left shoulder Family History Family History Father Medical history unknown Mother Healthy adult Diabetes mellitus Borderline DM Sibling Healthy adult Social History Social History Social History: The patient lives in [place]. His mother lives at home with him. Social drinker. Smokes 1/3 pack of cigarettes a day. No illicit substance use. Surrogate decision maker: Taylor Cooper, niece. The patient is currently unemployed and is applying for disability. The patient denied using any drugs but stated he smoked marijuana over last couple days. Patient's drug screen was positive for cocaine. Code status: Full code. Smoking packs per day: 0.33 Smoking cigarettes per day: 6.6 Years smoked: 20 Smoking pack-years: 6.60 Smoking status: Current every day smoker Tobacco type: cigarettes Second hand tobacco smoke exposure: No Alcohol intake: unknown Substance use: unknown Substance use type: unknown Living arrangements: with family Occupation/Education: unemployed Gender identity (if verbalized by the patient): Male Spiritual care concerns: No Exam Narrative: GENERAL: Well-appearing, well-nourished, and in no acute distress. HEAD: Normocephalic, atraumatic. EYES: EOMI. EXTREMITIES: Normal range of motion. No edema. 2cm linear laceration into subcutaneous tissue over the left patella SKIN: Warm, dry, no rash. NEURO: No focal deficits. Alert and oriented x3. PSYCH: Normal mood and affect Course Vital Signs Vital signs: Vital Signs Temperature 98.9 F 01/12/25 20:14 Pulse Rate 101 H 01/12/25 20:14 Respiratory Rate 22 H 01/12/25 20:14 Blood Pressure 145/86 H 01/12/25 20:14 Pulse Oximetry 97 01/12/25 20:14 Temperature 98.9 F 01/12/25 20:14 Pulse Rate 101 H 01/12/25 20:14 Respiratory Rate 22 H 01/12/25 20:14 Blood Pressure 145/86 H 01/12/25 20:14 Pulse Oximetry 97 01/12/25 20:14 Procedures Laceration Laceration 1: Date: 01/12/25 Time: 21:58 Site: lower extremity Side (If applicable): left Size (cm): 2 Description: linear Depth: simple, single layer Local Anesthetic: lidocaine 1% and with epi Amount of anesthesia used (mL): 2 Pre-repair: wound explored and irrigated ====== Skin Level ====== Skin layer closed with: nylon Size (cm): 4-0 Number of sutures: 3 Technique: simple, interrupted ====== Subcutaneous Layer ====== ====== Muscle Layer ====== ====== Tendon Layer ====== MDM - Wound/Laceration MDM Narrative Medical decision making narrative: Patient presents the emergency department for laceration to the knee. There was irrigated and closed with sutures. Updated on tetanus vaccination. Educated on further wound care. He is to follow up with primary provider. He was given warnings to return to the ER Differential Diagnosis Differential diagnosis: Likely laceration and abrasion Critical Care Time Critical Care Time Critical Care Time: No Discharge Plan Discharge Clinical Impression: Laceration Patient Disposition: Home Condition: Stable Instructions: Care For Your Stitches (ED), Laceration (ED) Additional Instructions: Return to the emergency department if you experience fever, redness or swelling of your wound, abnormal drainage from your wound, or any other symptoms that are concerning to you. Apply antibiotic ointment daily. Do not soak the wound. Clean with mild soap and water daily Follow-up with your primary care doctor for suture removal in 10-14 days. Patient Language: Lithuanian Prescriptions: No Action ondansetron HCl 4 mg tablet 4 mg PO Q6H 3 Days Qty: 12 0RF gabapentin 100 mg capsule 100 mg PO DIRECTED ergocalciferol (vitamin D2) 1,250 mcg (50,000 unit) capsule 1,250 mcg PO DAILY ibuprofen 800 mg tablet 800 mg PO TID PRN (Reason: pain) Qty: 14 0RF acetaminophen [Tylenol Extra Strength] 500 mg tablet 500 mg PO Q6H Qty: 14 0RF ciprofloxacin HCl 0.3 % drops 2 drp LEFT EYE Q4H 5 Days Qty: 5 0RF Rx Instructions: administer while awake ondansetron 4 mg tablet,disintegrating 4 mg PO Q8H PRN (Reason: nausea and vomiting) Qty: 14 0RF cyclobenzaprine 5 mg tablet 5 mg PO TID PRN (Reason: muscle spasm) Qty: 15 0RF metformin 850 mg tablet 850 mg PO BID atorvastatin [Lipitor] 20 mg tablet 20 mg PO DAILY amlodipine [Norvasc] 5 mg Tablet 5 mg PO QAM Qty: 30 0RF Levemir U-100 Insulin 100 unit/mL solution 15 unit subcut HS Qty: 10 0RF (DME) pen needle, diabetic [BD Ultra-Fine Jing Pen Needle] 32 gauge x 5/32 Needle Qty: 1 0RF Rx Instructions: May substitute to meet patient needs. Use As Directed (DME) insulin syringe-needle U-100 [BD Veo Insulin Syringe UF] 1/2 mL 31 gauge x 15/ Syringe Qty: 1 0RF Rx Instructions: 0.5 mL syringe for doses up to 50 units. May substitute to meet patient needs. Use As Directed escitalopram oxalate 20 mg tablet aripiprazole 15 mg tablet meclizine 25 mg tablet 25 mg PO TID PRN (Reason: dizziness) Qty: 14 0RF ondansetron 4 mg tablet,disintegrating 4 mg PO Q6H PRN (Reason: nausea and vomiting) Qty: 10 0RF ondansetron 4 mg tablet,disintegrating 4 mg PO Q8H PRN (Reason: nausea and vomiting) Qty: 20 0RF clotrimazole 1 % cream 1 applic topical BID Qty: 15 0RF meclizine 25 mg tablet 25 mg PO TID Qty: 14 0RF ondansetron 4 mg tablet,disintegrating 4 mg PO Q6H PRN (Reason: nausea and vomiting) Qty: 10 0RF meclizine 25 mg tablet 25 mg PO TID Qty: 30 0RF ondansetron 4 mg tablet,disintegrating 4 mg PO Q8H PRN (Reason: nausea and vomiting) Qty: 14 0RF amlodipine 5 mg tablet 5 mg PO DAILY Qty: 30 0RF meclizine 25 mg tablet 25 mg PO BID PRN (Reason: dizziness) Qty: 30 0RF doxycycline hyclate 100 mg capsule 100 mg PO DAILY Qty: 14 0RF Follow-up/Referrals: Buzz,Collins Mcclellan MD [Primary Care Provider] -
--- OUTSIDE RECORDS SUMMARY | 2025-01-12 22:09 | XMS_ITS | Clinical Summary ---
Author Organization [facility] Address [address] [place] [address] Phone Care Team Providers Care Architectural Modeler Name Role Phone Collins Gerber MD Primary [...] 09/14/2023 Assessment & Plan (04/29/2024 2:04 PM DIRECTORY CLERK): Chronic, stable. Continue statin therapy with atorvastatin. Update lipid profile Assessment & Plan (01/23/2024 10:50 AM CDT): Chronic problem. On statin therapy, no changes. Assessment & Plan (09/19/2023 11:29 AM CDT): Chronic problem. On statin therapy, no changes. Type 2 diabetes mellitus wit h hyperglycemia, with long-term current use of insulin 07/17/2023 Assessment & Plan (04/29/2024 2:05 PM DIRECTORY CLERK): Chronic, stable A1c not at goal Encouraged [...] labs. Assessment & Plan (07/17/2023 2:47 PM DIRECTORY CLERK): Hba1c was Lab Results Component Value Date [...] Type Department Care Team Description 12/26/2024 Telephone [facility] [address] [place] [phone] Jessica Chavez NP Med Management (Medication management ) 12/19/2024 Telephone [facility] [address] [place] [phone] Jessica Chavez NP from Last 3 Months [...] Comments Blood Pressure 118/70 04/29/2024 10:12 AM DIRECTORY CLERK Pulse 91 04/29/2024 10:12 AM DIRECTORY CLERK Temperature - - Respiratory Rate 18 01/23/2024 9:50 AM CDT Oxygen Saturation 96% 08/12/2022 10: 53 AM CDT Inhaled Oxygen Concentration - - Weight 147.8 kg (325 lb 12.8 oz) 2023 10:12 AM DIRECTORY CLERK Height 175.3 cm (5' 9) 04/29/2024 10:1 2 AM DIRECTORY CLERK Body Mass Index 48.11 04/29/2024 10:12 AM DIRECTORY CLERK Plan of Treatment Health Maintenance Due Date [...] HEMOGLOBIN A1C Routine 04/29/2024 1 0:14 AM DIRECTORY CLERK Type 2 diabetes mellitus with hyperglycemia, with long-term current use of insulin (HCC) from Last 3 Months or Most Recently Relevant to Health Maintenance Results * POCT hemoglobin A1c (04/29/2024 10:14 AM DIRECTORY CLERK) Hemoglobin A1C, POC 7.4 4.0 - 5.6 % Capillary blood 04/29/2024 1 0:14 AM DIRECTORY CLERK Gabriele Gaitan MD POINT OF CARE TEST ORDERABLES Fi nal Result from Last 3 Months or Most Recently Relevant to Health Maintenance Insurance [facility] MEDICARE ADVANTAGE Care Teams Architectural Modeler Relationship Specialty Start Date End Date Collins Gerber MD [address] [place] [address] PCP - General Gastroenterology 07/12/22
--- OUTSIDE RECORDS SUMMARY | 2025-01-12 22:09 | XMS_ITS | Encounter Summary ---
Author Organization [facility] Address [address] [place] [address] Care Team Providers Care Bellstaff Name Role Phone Collins Gerber MD Primary Care Provider Unavail able Encounter Details Date Type Department Care Team (Late st Contact Info) Description 02/05/2024 Prep for Procedure [place] Pre-Admission Testing [address] [place], [place] [id number] Jerry Chavez, KARINA [address] [place] [address] Social History Tobacco Use Types Packs/Day Years [...] AM MICHAELT Rios Mazariegos RN Active * [place] Suicide Severity Rating Scale (Screener/Recent Self-Report) Question [...] BASIC METABOLIC PANEL (02/05/2024 8:21 AM CDT) [facility] GLUCOSE 248(H) 70 - 99 MG/DL 02/05/2024 9:02 AM T [facility] BUN 23(H) 7 - 18 MG/DL 02/05/2024 9:02 AM T [facility] CREATININE S/P/B 1.29 0.7 - 1.3 MG/DL 02/05/2024 9:02 AM T [facility] SODIUM S/P/B 135(L) 136 - 145 MMOL/L 02/05/2024 9:02 AM T [facility] POTASSIUM S/P/B 3.8 3.5 - 5.1 MMOL/L 02/05/2024 9:02 AM T [facility] CHLORIDE S/P/B 103 97 - 115 MMOL/L 02/05/2024 9:02 AM T [facility] CO2 27.4 21 - 32 MMOL/L 02/05/2024 9:02 AM T [facility] CALCIUM S/P/B 9.3 8.5 - 10.1 MG/DL 02/05/2024 9:02 AM T [facility] ANION GAP 4.6 2 - 10 MMOL/L 02/05/2024 9:02 AM T [facility] BUN CREATININE RATIO 17.8 6 - 26 02/05/2024 9:02 AM T [facility] GFR ESTIMATE 65(L) >90 ML/MIN/1.7 3 M2 02/05/2024 9:02 AM CDT [facility] Comment: NOTE: eGFR is not calculated for patients <18 years of age or gender unknown. This is an estimated GFR calculation using the new CKD EPI creatinine equation without race and so does not require a correction factor for race. This estimated GFR should not be used for calculating drug doses. 02/05/2024 8:21 AM CDT Arlene Carrillo [facility] Final R esult [facility] [address] [place] [address], documented in this encounter Visit Diagnoses Diagnosis Preoperative testing- Primary Preoperative examination, unspecified documented in this encounter Care Teams [place] Relationship Specialty Start Date End Date Collins Gerber MD PCP - General INTERNAL MEDICINE 02/05/24 documented as of this encounter
--- OUTSIDE RECORDS SUMMARY | 2025-01-12 22:09 | XMS_ITS ---
Author Organization [facility] Address [address] [place] [address] Care Team Providers Care Acquisitions Assistant Name Role Phone Collins Gerber MD Primary Care Provider [facility] Status:Enrolled (Active) Start date:06/26/2024 Enrollment date:06/26/2024 Related social drivers of health:Intimate Partner Violence, Social Connections, Alcohol Use, Tobacco Use, Financial Resource Strain,Depression, Stress, Physical Activity, Food Insecurity, Transportation Needs, Housing Stability, Utilities Continued Care and Services Coordination
--- OUTSIDE RECORDS SUMMARY | 2025-01-12 22:09 | XMS_ITS | Clinical Summary ---
Author Organization [facility] Address [address] [place] [address] Care Team Providers Care Cottrell Operator Name Role Phone Collins Gerber MD Primary Care Provider Social History Tobacco Use Types Packs/Day Years Used Date Smoking Tobacco: Never Assessed Sex and Gender Information Value Date Recorded Sex Assigned at Not on file Legal Sex Male 3:06 PM CASTING MOLDER Gender Identity Not on file Sexual Orientation [...] Insurance MEDICAID [employer] Care Teams Cottrell Operator Relationship Specialty Start Date End Date Collins Gerber MD [address] [place] [address] PCP - General Internal Medicine 06/15/21
--- OUTSIDE RECORDS SUMMARY | 2025-01-12 22:09 | XMS_ITS | Clinical Summary ---
Author Organization [facility] pollo [facility] Address [address] [place] [address] Care Team Providers Care Criminal Legal Assistant Name Role Phone Unavailable Primary Care Provider [...]
--- OUTSIDE RECORDS SUMMARY | 2025-01-12 22:09 | XMS_ITS | Clinical Summary ---
Author Organization [facility] Address [address] [place] [address] Phone Care Team Providers Care Product Technology Scientist Name Role Phone Natividad Najera Primary Care Provider Allergies No known active allergies Medications atorvastatin [...] (#1) 2025 Insurance GENERIC COMMERCIAL Care Teams Product Technology Scientist Relationship Specialty Start Date End Date Natividad Najera [facility] [place] [address] PCP - General 10/09/19
--- OUTSIDE RECORDS SUMMARY | 2025-01-12 22:09 | XMS_ITS | Clinical Summary ---
Author Organization [facility] Address [facility] [place] [address] Care Team Providers Care Dinkey Locomotive Engineer Name Role Phone Collins Gerber MD Primary [...] age to complete this topic Insurance MEDICAID [facility] Care Teams Dinkey Locomotive Engineer Relationship Specialty Start Date End Date Collins Gerber MD PCP - General INTERNAL MEDICINE 02/05/24
--- OUTSIDE RECORDS SUMMARY | 2025-01-12 22:09 | XMS_ITS | Clinical Summary ---
Author Organization [facility] Address [address] [place] [address] Care Team Providers Care Cutter Wet Machine Name Role Phone Unavailable Primary Care Provider Unavailabl e Source Comments [facility],non-owned Affiliates and Associated Physician Practices is amultiple site organization consisting of ambulatory clinics and hospital sitesin [place], [place], [place] and [place]. This disclosure is being madepursuant to the Care Everywhere program and may not contain all information available regarding this patient. Last updated 18.[facility] [employer] Social History Tobacco Use Types Packs/Day Years [...]
[2025-01-12] MEDS: TETANUS,DIPHTHERIA,AC PERTUSSIS ADULT (0.5 ML) BOOSTRIX IM (23:22)
== END 2025-01-12 23:30 | disposition home or self-care (01) ==
PROVIDERS: Emergency Provider Physician Assistant; PCP Internal Medicine Gastroenterology
DX: S81.012A Laceration without foreign body, left knee, initial encounter (principal); W26.8XXA Contact with other sharp object(s), not elsewhere classified, initial encounter; E78.5 Hyperlipidemia, unspecified; G47.33 Obstructive sleep apnea (adult) (pediatric); E11.40 Type 2 diabetes mellitus with diabetic neuropathy, unspecified; I10 Essential (primary) hypertension; F17.210 Nicotine dependence, cigarettes, uncomplicated; Z23 Encounter for immunization
CPT/HCPCS: 12001; 90471; 90715; 99283

== ENCOUNTER 2025-04-10 09:25 | Outpatient (CLI) | payer MEDICARE, SELFPAY ==
--- OUTSIDE RECORDS SUMMARY | 2025-03-18 10:39 | XMS_ITS | Clinical Summary ---
Author Organization [facility] Address [address] [place] [address] Care Team Providers Care Surveillance Monitor Name Role Phone Collins Gerber MD Primary Care Provider Social History Tobacco Use Types Packs/Day Years Used Date Smoking Tobacco: Never Assessed Sex and Gender Information Value Date Recorded Sex Assigned at Not on file Legal Sex Male 3:06 PM [employer] Gender Identity Not on file Sexual Orientation [...] (1 of 2) 2016 PSA Discussion 2021 Influenza Immunization (#1) 2025 SARS-COV-2 Immunization (2 - season) 2025 08/04/2020 Respiratory Syncytial Virus (RSV) Immunization (Adult) (1 [...] Insurance MEDICAID [employer] Care Teams Surveillance Monitor Relationship Specialty Start Date End Date Collins Gerber MD [address] [place] [address] PCP - General Internal Medicine 06/15/21
--- OUTSIDE RECORDS SUMMARY | 2025-03-18 10:39 | XMS_ITS | Data Portability ---
Author Organization [facility], Main Office Address [address] [place] [address] Care Team Providers Care Business Education Teacher Name Role Phone SIVA SNYDER Primary Care Provider SIVA SNYDER Referring Provider Assessment Encounter Date Assessment Date Assessment LastModified by Organization Details LastModified Time 02/11/2025 02/11/2025 Time spent with patient included: preparing to see patient by reviewing tests, obtaining and reviewing history, medical examination and evaluation, counseling and educating the patient, ordering medications and tests, documenting clinical information in EHR, independently interpreting results and communicating results to the patient for a total of 42 minutes. [email or web address] Not available 02/11/2025 10:33:03 Plan of Treatment Reminders Order Date Submit Date Provider Last Modified By Organization Details Last Modified Time Details Appointments None recorded. Lab vitamin B12 + folate, serum or blood 2022 023 [email or web address] [facility] ([facility]), [address] [place], [address], 3 12:50:37 CMP, serum or plasma 2022 023 [email or web address] [facility] ([facility]), [address] [place], [address], 3 12:58:32 HbA1c (hemoglobi n A1c), blood 2022 023 [email or web address] [facility] ([facility]), [address] [place], [address], 3 12:58:19 microalbum in/creatin ine, mass ratio, urine [address] ([facility]), [address] [place], [address], 3 12:58:19 lipid panel, serum [address] ([facility]), [address] [place], [address], 3 12:58:19 TSH + free T4, serum [address] ([facility]), [address] [place], [address], 3 12:58:19 CMP, serum or plasma [address] ([facility]), [address] [place], [address], 3 12:58:19 Referral neurologis t referral 2022 023 [email or web address] Not available 3 13:05:18 Procedures None recorded. Surgeries None recorded. Imaging polysomnog marcus, split night - Please call patient to schedule. 2024 025 [email or web address] [facility] ([facility]), [address] [place], [address], 5 09:03:20 Medication Orders cyanocobal fleming (vit B-12) 1,000 mcg/mL injection solution 2022 023 [email or web address] [facility], [address] [place], [address], 5 10:21:20 Trulicity 3 mg/0.5 mL subcutaneo us pen injector 2022 023 [email or web address] [facility], [address] [place], [address], 16:22:33 Kerendia 10 mg tablet 2022 023 [facility], [address] [place], [address], 16:21:22 Patient TargetsNo targets recorded. Patient Instructions Encounter Date Encounter Id Patient Instructions Last Modified By Organization Details Last Modified Time 03/14/2024 [id number] frank-hallpike test* SANGITA Not available 05/27/2024 17:47:25 patient unable t o have a VNG completed stating that he has multiple amputated toes causing him to already have an unstable gait. PT referral sent for Frank-Hallpike and Kinga maneuver. Continue use of meclizine as needed for vertigo symptoms. [email or web address] Not available 03/14/2024 16:34:21 Reason for Referral Neurologist Referral for Farnaz betic peripheral neuropathy Referring Physician: Sherry Ramirez, Endocrinology, Encounter Date: 10/11/2022 Results Created Date Observation Date Name Description Value Unit Range Abnormal Flag Note LastModifiedBy Organization Detail LastModifiedTime 10/04/1910/03/2022 COMP MET PANEL /LIVE R sodium 139 mmol/ L 137-14 5 Not Available [facility] (Lab) [address] [place], [address], 10/03/2022 11:58:12 10/04/1910/03/2022 COMP MET PANEL /LIVE R potassium 4.1 mmol/ L 3.5-5. 1 Not Available [facility] (Lab) [address] [place], [address], 10/03/2022 11:58:12 10/04/1910/03/2022 COMP MET PANEL /LIVE R chloride 102 mmol/ L 98-107 Not Available [facility] (Lab) [address] [place], [address], 10/03/2022 11:58:12 10/04/19 23 10/03/2022 COMP MET PANEL /LIVE R carbon dioxide 27 mmol/ L 22-30 Not Available [facility] (Lab) [address] [place], [address], 10/03/2022 11:58:12 10/04/19 23 10/03/2022 COMP MET PANEL /LIVE R anion gap 14.1 mmol/ L 14-22 Not Available [facility] (Lab) [address] [place], [address], 10/03/2022 11:58:12 10/04/19 23 10/03/2022 COMP MET PANEL /LIVE R glucose 100 mg/dL 70-99 high Not Available [facility] (Lab) [address] [place], [address], 10/03/2022 11:58:12 10/04/19 23 10/03/2022 COMP MET PANEL /LIVE R BUN 15 mg/dL 8-19 Not Available [facility] (Lab) [address] [place], [address], 10/03/2022 11:58:12 10/04/19 23 10/03/2022 COMP MET PANEL /LIVE R creatinine 0.93 mg/dL 0.66-1 .25 Not Available [facility] (Lab) [address] [place], [address], 10/03/2022 11:58:12 10/04/19 23 10/03/2022 COMP MET PANEL /LIVE R GFR >60 Refer ence Range : [place] ge GFR Healt hy Adult : >60 mL/mi n/1.7 3 m2 Chron ic Kidne y Disea se: 15-60 mL/mi n/1.7 3 m2 Kidne y Failu re: <15/m L/min /1.73 m2 www.n iddk. nih.g ov The MDRD study equat ion has not been valid ated in child opal <18 years of age; pregn ant women ; the elder ly >85 years of age; or in some racia l or ethni c subgr oups, such as Hispa nics. Outsi de the valid ated jae eters , estim ated GFR is less accur ate, requi ring clini rocío judgm ent on a case- by-ca se basis . Clini rocío inter preta tion for other races and ages must be made by the clini [place]. The MDRD study equat ion has not been valid ated for the evalu ation of serum creat inine relat ed to nutri azeem l statu s or medic ation usage . For perso ns <18 years of age, a pedia tric GFR calcu lator is avail able on the [facility] websi te: https ://mason w.ryne yuen.o deedee/pr ofess ional s/kdo qi/gf r_cal culat or Not Available [facility] (Lab) [address] [place], [address], 10/03/2022 11:58:12 10/04/19 23 10/03/2022 COMP MET PANEL /LIVE R alkaline phosphatase 103 U/L 38-126 Not Available [facility] (Lab) [address] [place], [address], 10/03/2022 11:58:12 10/04/19 23 10/03/2022 COMP MET PANEL /LIVE R alanine aminotransfe rase 22 U/L 0-50 Not Available [facility] (Lab) [address] [place], [address], 10/03/2022 11:58:12 10/04/19 23 10/03/2022 COMP MET PANEL /LIVE R aspartate aminotransfe rase 21 U/L 15-46 Not Available [facility] (Lab) [address] [place], [address], 10/03/2022 11:58:12 10/04/19 23 10/03/2022 COMP MET PANEL /LIVE R bilirubin, total 0.60 mg/dL 0.20-1 .30 Not Available [facility] (Lab) [address] [place], [address], 10/03/2022 11:58:12 10/04/1910/03/2022 COMP MET PANEL /LIVE R bilirubin, conjugated (direct) 0.00 mg/dL 0.00-0 .30 Not Available [facility] (Lab) [address] [place], [address], 10/03/2022 11:58:12 10/04/19 23 10/03/2022 COMP MET PANEL /LIVE R biliurubin,u ncong. (indirect) 0.30 mg/dL 0.00-1 .1 Not Available [facility] (Lab) [address] [place], [address], 10/03/2022 11:58:12 10/04/19 23 10/03/2022 COMP MET PANEL /LIVE R calcium 9.8 mg/dL 8.4-10 .2 Not Available [facility] (Lab) [address] [place], [address], 10/03/2022 11:58:12 10/04/1910/03/2022 COMP MET PANEL /LIVE R total protein 7.2 g/dL 6.3-8. 2 Not Available [facility] (Lab) [address] [place], [address], 10/03/2022 11:58:12 10/04/1910/03/2022 COMP MET PANEL /LIVE R albumin 4.1 g/dL 3.4-5. 0 Not Available [facility] (Lab) [address] [place], [address], 10/03/2022 11:58:12 10/04/1910/03/2022 COMP MET PANEL /LIVE R globulin 3.1 g/dL 2.6-4. 2 Not Available [facility] (Lab) [address] [place], [address], 10/03/2022 11:58:12 10/04/19 23 10/03/2022 COMP MET PANEL /LIVE R A/G ratio 1.3 ratio 1.0-2. 0 Not Available [facility] (Lab) [address] [place] [address], [address], 10/03/2022 11:58:12 10/04/19 23 10/03/2022 LIPID PANEL cholesterol 198 mg/dL 140-19 9 NIH PAMELA NSUS RECOM MENDA TION FOR PHILLY STERO L: ADULT CHILD LOW RISK: <200 <170 BORDE RLINE : <200- 239 ----- HIGH RISK: >240 >200 Not Available [facility] (Lab) [address] [place], [address], 10/03/2022 11:58:16 10/04/19 23 10/03/2022 LIPID PANEL triglyceride s 160 mg/dL 0-150 high NIH PAMELA NSUS REPOR T RECOM MENDA TION FOR TRIGL YCERI GUMARO: ADULT CHILD LOW RISK: <150 ----- BODER LINE: 150-1 99 ----- HIGH RISK: >200 ----- Not Available [facility] (Lab) [address] [place], [address], 10/03/2022 11:58:16 10/04/19 23 10/03/2022 LIPID PANEL HDL cholesterol 35 mg/dL 40- low Not Available [facility] (Lab) [address] [place] [address], [address], 10/03/2022 11:58:16 10/04/19 23 10/03/2022 LIPID PANEL LDL cholesterol, calculated 131 mg/dL 0-130 high NIH PAMELA NSUS REPOR T RECOM MENDA TIONS FOR LDL: ADULT CHILD LOW RISK <130 <110 (OPTI MAL LDL) <100 ----- BORDE RLINE : 130-1 59 ----- HIGH RISK: >160 >130 A TRIGL YCERI DE RESUL T >400 INVAL IDATE S THE CALCU LATIO N FOR LDL FRACT IONAT ION - THE LDL RESUL T WILL NOT BE REPOR NICOLE. Not Available [facility] (Lab) [address] [place], [address], 10/03/2022 11:58:16 10/04/19 23 10/03/2022 MICRO ALBUM IN RANDO M URINE microalbumin , urine 378.6 mg/L 0.0-16 .6 high Not Available [facility] (Lab) [address] [place], [address], 10/03/2022 12:29:03 10/04/19 23 10/03/2022 T4 FREE free T4 0.90 NG/dL 0.78-2 .19 Not Available [facility] (Lab) [address] [place], [address], 10/03/2022 12:29:10 10/04/19 23 10/03/2022 TSH thyroid-stim ulating hormone 4.260 uIU/m L 0.465- 4.680 Not Available [facility] (Lab) [address] [place], [address], 10/03/2022 12:30:35 10/04/19 23 10/03/2022 HEMOG LOBIN A1C HA1C 6.4 % 4.0-6. 0 high Diabe shannen Scree nelli Crite korey: <5.7% Consi stent with absen ce of diabe shannen 5.7-6 .4% Consi stent with incre ased risk for diabe shannen (pred iabet es) >OR=6 .5% Consi stent with diabe shannen REFER ENCE: Diabe shannen Care 2016, 39(Finn ppl.1 ):s13 -s22 Not Available [facility] (Lab) [address] [place], [address], 10/03/2022 14:41:13 10/04/19 23 10/03/2022 MICRO ALBUM N RNDM W/CRE AT RATIO ur creat 136.32 mg/dL REFER ENCE RANGE NOT ESTAB LISHE D FOR RANDO M URINE CREAT ININE Not Available [facility] (Lab) [address] [place], [address], 10/03/2022 17:50:21 10/04/19 23 10/03/2022 MICRO ALBUM N RNDM W/CRE AT RATIO microalbumin , urine 378.6 mg/L 0.0-16 .6 high Not Available [facility] (Lab) [address] [place], [address], 10/03/2022 17:50:21 10/04/19 23 10/03/2022 MICRO ALBUM N RNDM W/CRE AT RATIO microalbumin /creatinine ratio 278 mcg/m g 0-29 high THE AMERI CAN DIABE SHANNEN ASSOC IATIO N DEFIN ES ABNOR MALIT IES IN ALBUM IN EXCRE TION FOLLO WS: CATEG ORY RESUL T (MCG/ MG CREAT ININE ) ANA L <30 MICRO ALBUM INURI A 30-29 9 CLINI ROCÍO ALBUM INURI A > OR = 300 THE ADA RECOM MENDS THAT 2 OF 2 SPECI MENS COLLE CTED WITHI N A 3- TO 6-MON TH PERIO D BE ABNOR MAL BEFOR E CONSI AUGUSTO G A PATIE NT TO HAVE CROSS ED ONE OF THESE DIAGN OSTIC THRES HOLDS . REFER ENCE: DIABE SHANNEN CARE, VOL. 26: S94-S , 2002 Not Available [facility] (Lab) [address] [place], [address], 10/03/2022 17:50:21 05/27/20 24 05/27/2024 kinga frye (PROC ) No observ ation record ed. [email or web address] [facility] [address], [place], [address], 07/01/2024 16:13:03 Result Notes None recorded. Problems Name Problem SNOMED Code Status Onset Date Resolution Date Notes Provider Name and Address Organization Details Recorded Time Hypertensive disorder 83413304 Active 2018 Not Available [facility] 3 21:13:01 Hyperlipidemi a 03761530 Active 2018 Not Available [facility] 3 21:13:01 Diabetes mellitus 07571992 Active 2018 Not Available [facility] 3 21:13:01 Vitamin D deficiency 37130133 Active 2021 Not Available [facility] 3 21:13:01 Dyslipidemia 981011868 Active 2021 Not Available [facility] 3 21:13:01 Diabetic peripheral neuropathy 654591088 Active 2021 Not Available [facility] 3 21:13:01 Uncontrolled type 2 diabetes mellitus 274167162 Active 2021 Not Available [facility] 3 21:13:01 Well controlled type 2 diabetes mellitus 956296284 Active 2022 Sherry Ramirez MD [address], [place], [address] , [employer] [facility] 3 12:52:09 Proteinuria 43117491 Active 2022 Sherry Ramirez MD [address], [address], [place], [address] , [employer] [facility] 3 12:52:15 Vitamin B12 deficiency (non anemic) 65075751 Active 2022 Sherry Ramirez MD [address], [address], [place], [address] , [employer] [facility] 3 12:55:38 Benign paroxysmal positional vertigo 602795915 Active 2023 DIMITRIS Gore [address], [address], [place], [address] , [employer] [facility] [place] [facility] 4 16:33:23 Sleep apnea 99760563 Active 2024 Anh Soliz NP [address], [address], [place], [address] , [employer] [facility] 5 10:24:22 Body mass index 40+ - severely obese 682982731 Active 2024 Anh Soliz, [place] [address], [facility] [address], [place], [address] , [facility] [employer] 5 10:53:45 Problem Notes None recorded. Procedures Surgical History Date Name Laterality Status Provider Name and Address Organization Details Recorded Time amputation of toe completed Not Available [facility] 07/27/2022 21:12:27 Imaging Results None recorded. Procedure Notes None recorded. Medical Equipment None Reported. Allergies No known drug allergies Medications Name Sig Start Date Stop Date Status Note LastModified by Organization Details LastModified Time losartan 50 mg tablet TAKE 1 TABLET BY MOUTH ONCE DAILY 10/31 completed Not Available Not Available Not Available amoxicillin 500 mg capsule TAKE 1 CAPSULE BY MOUTH EVERY 8 HOURS UNTIL GONE 02/11 completed Not Available Not Available Not Available metformin 500 mg tablet 06/11 completed Not Available Not Available Not Available gabapentin 600 mg tablet TAKE 1 TABLET BY MOUTH THREE TIMES DAILY 03/14 completed Not Available Not Available Not Available doxycycline hyclate 100 mg capsule TAKE 1 CAPSULE BY MOUTH ONCE DAILY 02/11 completed Not Available Not Available Not Available atorvastati n 20 mg tablet TAKE 1 TABLET BY MOUTH ONCE DAILY active Not Available Not Available No t Available clindamycin HCl 300 mg capsule TAKE 1 CAPSULE BY MOUTH THREE TIMES DAILY 02/11 completed Not Available Not Available Not Available divalproex 250 mg tablet,kenneth yed release TAKE 1 TABLET BY MOUTH TWICE DAILY active Not Available Not Available No t Available ibuprofen 800 mg tablet TAKE 1 TABLET BY MOUTH EVERY 6 HOURS NEEDED FOR PAIN 03/14 completed Not Available Not Available Not Available hydrocodone 5 mg-acetamin ophen 325 mg tablet TAKE 1 TABLET BY MOUTH EVERY 4 HOURS NEEDED FOR PAIN RATED 4 6 06/11 completed Not Available Not Available Not Available Levaquin 750 mg tablet Take 1 tablet every day by oral route. 10/07 completed Not Available Not Available Not Available olanzapine 5 mg tablet 03/14 completed Not Available Not Available Not Available metformin 850 mg tablet Take 1 tablet by mouth twice daily active Not Available Not Available No t Available metronidazo le 500 mg tablet TK 1 T PO Q 8 H 10/07 completed Not Available Not Available Not Available amlodipine 5 mg tablet TAKE 1 TABLET BY MOUTH ONCE DAILY 03/14 completed Not Available Not Available Not Available glimepiride 2 mg tablet TAKE 1 TABLET BY MOUTH ONCE DAILY BEFORE BREAKFAST active Not Available Not Available No t Available glimepiride 1 mg tablet TAKE 1 TABLET BY MOUTH ONCE DAILY 06/11 completed Not Available Not Available Not Available risperidone 2 mg tablet TAKE 1 TABLET BY MOUTH ONCE DAILY AT BEDTIME FOR 90 DAYS active Not Available Not Available No t Available ziprasidone 20 mg capsule 03/14 completed Not Available Not Available Not Available ciprofloxac in 0.3 % eye drops INSTILL 2 DROPS INTO LEFT EYE EVERY 4 HOURS FOR 5 DAYS. ADMINISTE R WHILE AWAKE. 03/14 completed Not Available Not Available Not Available OneTouch Ultra Test strips USE TO TEST BLOOD SUGAR TWICE DAILY DIRECTED 02/11 completed Not Available Not Available Not Available dexamethaso ne 1 mg tablet take dexa tablet at 10 pm night before 8 am cortisol 10/11 completed Not Available Not Available Not Available meclizine 25 mg tablet TAKE 1 TABLET BY MOUTH TWICE DAILY NEEDED FOR DIZZINESS active Not Available Not Available No t Available hydrocodone 7.5 mg-acetamin ophen 325 mg tablet TAKE 1 TABLET BY MOUTH EVERY 6 HOURS NEEDED FOR PAIN 06/11 completed Not Available Not Available Not Available cephalexin 500 mg capsule TAKE 1 CAPSULE BY MOUTH EVERY 6 HOURS 06/11 completed Not Available Not Available Not Available pantoprazol e 40 mg tablet,kenneth yed release TAKE 1 TABLET BY MOUTH ONCE DAILY 10/31 completed Not Available Not Available Not Available cyanocobala min (vit B-12) 1,000 mcg/mL injection solution INJECT 1 ML ONCE A WEEK IN THE MORNING 02/11 completed Not Available Not Available Not Available divalproex ER 500 mg tablet,exte nded release 24 hr TAKE 1 TABLET BY MOUTH ONCE DAILY IN THE MORNING ALONG WITH 250 MG TABLET. 02/11 completed Not Available Not Available Not Available gabapentin 300 mg capsule TAKE 1 CAPSULE BY MOUTH TWICE DAILY 10/11 completed Not Available Not Available Not Available insulin syringe U-100 with needle 1 mL 31 gauge x 10/11 USE WITH B12 INJECTION S ONCE WEEKLY 02/11 completed Not Available Not Available Not Available gabapentin 100 mg capsule TAKE 1 CAPSULE BY MOUTH THREE TIMES DAILY 07/21 completed Not Available Not Available Not Available ergocalcife rol (vitamin D2) 1,250 mcg (50,000 unit) capsule TAKE 1 CAPSULE BY MOUTH ONCE A WEEK 02/11 completed Not Available Not Available Not Available ibuprofen 600 mg tablet TK 1 T PO Q 6 H PRF PAIN 10/07 completed Not Available Not Available Not Available ondansetron 4 mg disintegrat ing tablet DISSOLVE 1 TABLET IN MOUTH EVERY 8 HOURS NEEDED FOR NAUSEA AND VOMITING 02/11 completed Not Available Not Available Not Available cefdinir 300 mg capsule 06/11 completed Not Available Not Available Not Available losartan 100 mg tablet TAKE 1 TABLET BY MOUTH ONCE DAILY 03/14 completed Not Available Not Available Not Available metformin ER 500 mg tablet,exte nded release 24 hr TAKE 1 TABLET BY MOUTH TWICE DAILY WITH MEALS FOR 30 DAYS 06/11 completed Not Available Not Available Not Available clotrimazol e 1 % topical cream APPLY CREAM TOPICALLY TWICE DAILY 02/11 completed Not Available Not Available Not Available risperidone 1 mg tablet TAKE 1 TABLET BY MOUTH ONCE DAILY AT BEDTIME FOR 30 DAYS 10/11 completed Not Available Not Available Not Available escitalopra m 10 mg tablet 10/11 completed Not Available Not Available Not Available escitalopra m 20 mg tablet TAKE 1 TABLET BY MOUTH ONCE DAILY AT BEDTIME FOR 30 DAYS 02/11 completed Not Available Not Available Not Available aripiprazol e 10 mg tablet 02/11 completed Not Available Not Available Not Available aripiprazol e 15 mg tablet 07/21 completed Not Available Not Available Not Available divalproex ER 250 mg tablet,exte nded release 24 hr TAKE 1 TABLET BY MOUTH ONCE DAILY AT BEDTIME ALONG WITH 500 MG TABLET 02/11 completed Not Available Not Available Not Available cyclobenzap rine 5 mg tablet TAKE 1 TABLET BY MOUTH THREE TIMES DAILY NEEDED FOR MUSCLE SPASM active Not Available Not Available No t Available aripiprazol e 5 mg tablet 07/21 completed Not Available Not Available Not Available bupropion HCl XL 150 mg 24 hr tablet, extended release 03/14 completed Not Available Not Available Not Available escitalopra m 5 mg tablet TAKE 1 TABLET BY MOUTH ONCE DAILY 07/21 completed Not Available Not Available Not Available duloxetine 30 mg capsule,del ayed release TAKE 1 CAPSULE BY MOUTH TWICE DAILY 02/11 completed Not Available Not Available Not Available pregabalin 25 mg capsule 03/14 completed Not Available Not Available Not Available pregabalin 50 mg capsule TAKE 1 CAPSULE BY MOUTH TWICE DAILY active Not Available Not Available No t Available Levemir U-100 Insulin 100 unit/mL subcutaneou s solution 07/21 completed Not Available Not Available Not Available Levemir FlexPen 100 unit/mL (3 mL) solution subcutaneou s insulin pen INJECT 50 UNITS SUBCUTANE OUSLY NIGHTLY active Not Available Not Available No t Available BD Ultra-Fine Short Pen Needle 31 gauge x 5/16 USE WITH INSULIN INJECTION S UP TO TWICE DAILY 02/11 completed Not Available Not Available Not Available Januvia 100 mg tablet Take 1 tablet every day by oral route. 10/07 completed Not Available Not Available Not Available insulin syringe U-100 with needle 1/2 mL 31 gauge x 15/64 02/11 completed Not Available Not Available Not Available Farxiga 10 mg tablet TAKE 1 TABLET BY MOUTH ONCE DAILY active Not Available Not Available No t Available Farxiga 5 mg tablet Takt one tablet daily for 1 week, then increase to 2 tablets daily. active Not Available Not Available No t Available Trulicity 0.75 mg/0.5 mL subcutaneou s pen injector INJECT 0.75 MG SUB-Q ONCE WEEKLY 10/11 completed Not Available Not Available Not Available Tresiba FlexTouch U-200 insulin 200 unit/mL (3 mL) subcutaneou s pen INJECT 50 UNITS SUBCUTANE OUSLY NIGHTLY active Not Available Not Available No t Available TRUEplus Pen Needle 31 gauge x 3/16 USE TO INJECT INSULIN UP TO 5 TIMES DAILY 02/11 completed Not Available Not Available Not Available Ozempic 0.25 mg or 0.5 mg (2 mg/1.5 mL) subcutaneou s pen injector Inject 0.5 mg every week by subcutane ous route with meals for 30 days. 06/11 completed Not Available Not Available Not Available BD Jing 2nd Gen Pen Needle 32 gauge x 5/32 02/11 completed Not Available Not Available Not Available OneTouch Ultra2 Meter USE TO TEST BLOOD SUGAR TWICE DAILY 02/11 completed Not Available Not Available Not Available OneTouch Delica Plus Lancet 33 gauge USE TO CHECK BLOOD SUGAR TWICE DAILY 02/11 completed Not Available Not Available Not Available Rybelsus 7 mg tablet TAKE 1 TABLET BY MOUTH ONCE DAILY active Not Available Not Available No t Available Trulicity 3 mg/0.5 mL subcutaneou s pen injector INJECT 3MG SUBCUTANE OUSLY ONCE WEEKLY 03/14 completed Not Available Not Available Not Available Kerendia 10 mg tablet TAKE 1 TABLET BY MOUTH ONCE DAILY IN THE MORNING FOR 90 DAYS 03/14 completed Not Available Not Available Not Available Mounjaro 2.5 mg/0.5 mL subcutaneou s pen injector INJECT 1/2 (ONE-HALF ) ML SUBCUTANE OUSLY ONCE A WEEK active Not Available Not Available No t Available Vitals Date Recorded Body mass index (BMI) Body height Oxygen saturation Oxygen saturation in Arterial blood by Pulse oximetry Heart rate Respiratory rate Body temperature Body weight Systolic And Diastolic Provider Name and Address Organization Details Last Updated DateTime 3 45.1 kg/m2 175.26 cm 95 % 95 % 88 /min 18 /min 97.8 [degF] 320367. 39 g 118/80 mm[Hg] Not Available [facility] 3 21:12:43 Date Recorded Body mass index (BMI) Body height Oxygen saturation Oxygen saturation in Arterial blood by Pulse oximetry Heart rate Body temperature Body weight Systolic And Diastolic Provider Name and Address Organization Details Last Updated DateTime 2 36.9 kg/m2 175.26 cm 95 % 95 % 95 /min 98 [degF] 823837. 09 g 110/80 mm[Hg] Not Available [facility] 3 21:12:43 Date Recorded Body height Body mass index (BMI) Body weight Body temperature Respiratory rate Heart rate Systolic And Diastolic Provider Name and Address Organization Details Last Updated DateTime 3 175.26 cm 45.3 kg/m2 700992. 42 g 97.3 [degF] 18 /min 86 /min 151/95 mm[Hg] ROSAMARIA Castro [place] [facility] [facility] 3 12:39:04 Date Recorded Body height Body mass index (BMI) Body weight Body temperature Heart rate Oxygen saturation Oxygen saturation in Arterial blood by Pulse oximetry Systolic And Diastolic Provider Name and Address Organization Details Last Updated DateTime 175.26 cm 50.7 kg/m2 748982. 18 g 97.6 [degF] 94 /min 94 % 94 % 130/84 mm[Hg] Susana Spaulding RN [facility] [employer] [facility] 5 10:18:49 Date Recorded Body height Body mass index (BMI) Body weight Body temperature Provider Name and Address Organization Details Last Updated DateTime 03/14/2024 175.26 cm 47.1 kg/m2 692401.97 g 98.3 [degF] Desmond Nieves CMA [facility] 03/14/2024 16:19:13 Social History Question Answer Notes LastModified by Organizat ion Details LastModified Time Tobacco Smoking Status Current Every Day Smoker Not Available [facility] 07/27/2022 21:12:18 What Is Your Level Of Caffeine Consumption? None [email or web address] Information not available 03/14/2024 In The 14 Days Before Symptom Onset, Have You Had Close Contact With A Laboratory-confir med COVID-19 While That Case Was Ill? No [id number] Information not available 07/27/2022 In The 14 Days Before Symptom Onset, Have You Had Close Contact With A Person Who Is Under Investigation For COVID-19 While That Person Was Ill? No [id number] Information not available 07/27/2022 What Type Of Diet Are You Following? REGULAR [id number] Information not available 07/27/2022 What Is The Highest Grade Or Level Of School You Have Completed Or The Highest Degree You Have Received? [id number] [id number] Information not available 07/27/2022 What Is Your Current Pack Years? 10-19packye ars SMOKING FOR 12-13 YEARS [email or web address] Information not available 02/11/2025 What Is Your Relationship Status? Single [id number] Information not available 07/27/2022 How Much Tobacco Do You Smoke? 1 PPW MIGRATION.[id number] Information not available 07/27/2022 Have You Recently Traveled Abroad? No [id number].[id number] Information not available 07/27/2022 Do You Have Any Dietary Restrictions? No MIGRATION.[id number] Information not available 07/27/2022 Sex: Male Functional Status Question Answer Note LastModified by Organizat ion Details LastModified Time Do you use any illicit or recreational drugs? No [id number] Information not available 07/27/2022 What is your level of alcohol consumption? None Information not available 03/14/2024 Mental Status None recorded. Family History Nothing Reported Notes:no ent Medical History Condition Response EYE PROBLEMS ARTHRITIS Y ANEMIA/BLOOD DISORDER Y DIABETES, TYPE DEPRESSION (INCLUDING POST ) Y HAVE YOU BEEN HOSPITALIZED OR SEEN IN [facility] IN THE PAST YEAR ? Y HYPERTENSION Y Past Encounters Encounter ID Performer Location Encounter Start Date Encounter Closed Date Diagnosis/Indication Diagnosis SNOMED-CT Code Diagnosis ICD10 Code Diagnosis IMO Codes Diagnosis Note [id number] Sherry Ramirez MD [facility] [employer] [address] [place] [address] 06/11/2021 00:00:00 06/11/2021 13:39:07 [id number] [facility] [employer] [address] [place] [address] 10/05/2021 00:00:00 10/05/2021 17:25:06 [id number] Sherry Ramirez MD [facility] [employer] [address] [place] [address] 07/21/2022 00:00:00 07/21/2022 22:05:01 [id number] Sherry Ramirez MD [facility] [employer] [address] [place] [address] 10/11/2022 11:08:50 10/11/2022 13:01:16 Well controlled type 2 diabetes mellitus 696069388 E11.9 a1c of 6.4% down from 9.7% range- continue trulicity at 3 mg weekly along with farxiga 10 mg daily and levemir 25 units twice daily with self titration instructio ns. Discussed carb counting and how to read food labels. Recommende d patient to utilize the diabetesfo [employer] from the ADA website to help with food preparatio n as this presents ideal carb content per meal so this will make carb counting much easier for patient. Recommende d he incorporat e natural insulin mainspring former arbor end s such as pears, apples, cinnamon, juaquin and sweet potatoes to help mobilize his endogenous insulin. Recommende d up to 150 minutes of moderate level activity/e xercise weekly. Proteinuria 20983457 R80 .9 trial on kerendia 10 mg daily- no potassium supplement s or spironolac tone per patient- repeat cmp to monitor potassium levels to monitor K levels. Dyslipidemia 264005933 E 78.5 continue statin therapy. Diabetic p eripheral neuropathy 060089893 E11.40 refer to neurology as he is on high dose gabapentin with no relief. Vitamin B1 2 deficiency (non anemic) 13667175 E53.8 trial on b12 injections weekly for neuropathy and energy. Spent up to 25 minutes preparing to see the patient (eg, review of tests), obtaining and/or reviewing separately obtained history, performing a medically appropriat e examinatio n and evaluation , counseling and educating the patient, ordering medication s, tests, along with documentin g clinical informatio n in the electronic health record, independen tly interpreti ng results and communicat ing results to the patient. rtc in 6 months. Patient was provided a handwritte n lab order which contains our fax number. If he chooses to go outside of the [facility] system to obtain labwork he was advised to provide our fax number and my informatio n to the lab he will be obtaining labwork from in order to have his labs properly forwarded over for me to review so there is no loss of follow up due to use of outside network. He was also advised to contact our clinic informing us that he has completed his labwork so we are aware we will need to reach out to the appropriat e laboratory to request his results be forwarded to us so I might have the ability to review and make further medical decision making in his case. He voiced understand ing. [id number] Rafael Mora MD [facility] [address] [place] [address] 03/14/2024 16:09:32 03/14/2024 16:34:51 Benign paroxysmal positional vertigo 545374081 H81.10 [id number] Tariq Rogers MD [facility] [address] [place] [address] 02/11/2025 10:04:28 02/12/2025 09:28:26 Sleep apnea 80225485 G47.30 G47.33 [id number] Sleep study order today-valerio ent has had sleep study with sleep apnea-had CPAP in the past will do split nightESS-4 Discussed sleep hygeineAdv ised good sleep habits and patterns:- Set a goal for at least 7 to 8 hours of sleep time per day-Use the bed mainly for sleep and to go to bed only when tired. If unable to fall asleep after 30 minutes, patient should get out of bed but should not engage in any activity that requires sustained mental alertness. -Maintain a bedtime and wake-up time even on weekends or day off of work.-Avoi d excessive naps during the daytime. If a nap is necessary, limit to no more than 30 minutes.-M inimize enviroment al noise, bright lights, and extremitie s in bedroom temperatur es.-Avoid alcohol, caffeinate d beverages, and nicotine products for at least 6 hours prior to bedtime.-A void strenuous exercise and large meals for at least 4 hours prior to bedtime.-D iscussed reportable signs and symptoms of concernf/u after testing Body mass index 40+ - severely obese 097320204 E66.01 Z68.43 04473163 Encourage healthy diet and exercise to improve weightdisc ussed weight effect on sleep and sleep apnea Health Concerns Section Related Observation LastModified by Organization Detai ls LastModified Time None Recorded Concern Status LastModified by Organization Details LastModified Time None Recorded Advance Directives Directive None Recorded Payers Insurance Date Sequence Insurance Name Policy Number Policy Flores Covered Member ID Flores Member ID Guarantor Name 03/14/2024 1 [employer] [place] ON OR AFTER 04/28/2020 (MEDICAID REPLACEMENT - HMO) Michael Bai [id number] Michael Bai 02/11/2025 1 [facility] (MEDICARE REPLACEMENT/AD VANTAGE - PPO) [id number] Michael Bai [id number] Michael Bai Notes Date Note Type Note Provider Name and Address Organization Details Recorded Time 3 text/html ROS as noted in the HPI 57 yo male comes in for follow up in management of well controlled type 2 DM (A1C of 6.4% down from 9.6%), dyslipidemia last seen in Jun at that time we increased trulicity to 3 mg weekly and had patient continue farxiga 10 mg daily and levemir 25 units twice daily with self titration instructions. we continued statin therapy. sugars running under 120 mg/dL consistently has a few outliers over 150 mg/dLdenies hypoglycemia. patient has gained 50 pounds since 2 years labs from 10/03/22:glucose 100 mg/dLcr normallft [id number]/160/35/131micr oalbumin 378 ug/mga1c 6.4%TSH of 4.260 uIU/mlFT4 of 0.9 ng/dL Sherry Ramirez MD [address], [facility] [address], [place], [address], [employer] 10/11/2022 15:45:07 4 text/html this patient has a past medical history significant for diabetes, dyslipidemia, hypertension, and vitamin-D deficiency who presents with a complaint of vertigo onset approximately 6-8 months ago. he states that he has had 2 episodes of vertigo within the last 6-8 months in which he had presented to the ER, diagnosed with vertigo and prescribed meclizine. He states that the meclizine does help with his symptoms. He reports his initial vertigo symptom was when he was laying down and had rolled over in bed. He denies vertigo symptoms with general movement of his head [id number] or upper down. Denies any hearing loss. DIMITRIS Gore [address], [place], [address], [employer] 03/14/2024 16:34:25 5 text/html Obstructive Sleep ApneaReported by PatientHPIFor associated symptoms, patient reportsmorning dry mouth,postnasal drip,night sweats,daytime sleepiness,suddenly falling asleep during the day,excess napping,loud snoring,witnessed apnea,mouth breathing,poor concentration,amnesia, andirritabilitybut reportsno dysphagia,no awakening short of breath,no impaired work performance,no nasal congestion,no gasping for air,no hyponasal speech, andno hyperactivity. For severity, patient reportsmoderate. For timing, patient reportsdaily. For duration, patient reportscontinuous. For context, patient reportsinconsistent sleep routine,hypertension,obs erved apnea, andsleep hours per night4-5. For aggravating factors, patient reportsnone. For alleviating factors, patient reportsnone.patient has hx of sleep apnea-he did not wear due to dry mouth and issues wearing CPAPROS as noted in the HPI Anh Soliz NP [address], [facility] [address], [place], [address], [facility] [employer] 02/11/2025 10:54:46
--- OUTSIDE RECORDS SUMMARY | 2025-03-18 10:39 | XMS_ITS | Clinical Summary ---
Author Organization [facility] Address [address] [place] [address] Care Team Providers Care Rigger Third Name Role Phone Unavailable Primary Care Provider Unavailabl e Source Comments [facility],non-owned Affiliates and Associated Physician Practices is amultiple site organization consisting of ambulatory clinics and hospital sitesin [place], [place], [place] and [place]. This disclosure is being madepursuant to the Care Everywhere program and may not contain all information available regarding this patient. Last updated 18.[facility] tado Social History Tobacco Use Types Packs/Day Years [...] 2016 ZOSTER VACCINE (1 of 2) 2016 DEPRESSION SCREENING 05/29/2024 COVID-19 VACCINE ( - 2023-2 5 season) 2025 INFLUENZA VACCINE (#1) 2025 HIB VACCINE Aged [...]
--- OUTSIDE RECORDS SUMMARY | 2025-03-18 10:39 | XMS_ITS | Clinical Summary ---
Author Organization [facility] Address [address] [place] [address] Phone Care Team Providers Care Deputy Sheriff/Investigator Name Role Phone Natividad Najera Primary Care Provider [phone] Allergies No known active allergies Medications atorvastatin [...] (#1) 2025 Insurance [employer] Care Teams Deputy Sheriff/Investigator Relationship Specialty Start Date End Date Natividad Najera [facility] [place] [address] PCP - General 10/09/19
--- OUTSIDE RECORDS SUMMARY | 2025-03-18 10:39 | XMS_ITS ---
Author Organization [facility] Address [address] [place] [address] Care Team Providers Care Practice Representative Name Role Phone Collins Gerber MD Primary Care Provider [facility] Status:Enrolled (Active) Start date:06/26/2024 Enrollment date:06/26/2024 Related social drivers of health:Intimate Partner Violence, Social Connections, Alcohol Use, Tobacco Use, Financial Resource Strain,Depression, Stress, Physical Activity, Food Insecurity, Transportation Needs, Housing Stability, Utilities Continued Care and Services Coordination
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
--- OUTSIDE RECORDS SUMMARY | 2025-03-18 10:39 | XMS_ITS | Clinical Summary ---
Author Organization [facility] pollo [facility] Address [address] [place] [address] Care Team Providers Care Neurophysiological Technician Name Role Phone Unavailable Primary Care Provider [...]
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
--- OUTSIDE RECORDS SUMMARY | 2025-04-10 09:59 | XMS_ITS | Clinical Summary ---
Author Organization [facility] Address [address] [place] [address] Care Team Providers Care Clinical Documentation Improvement Specialist Name Role Phone Unavailable Primary Care Provider Unavailabl e Source Comments [facility],non-owned Affiliates and Associated Physician Practices is amultiple site organization consisting of ambulatory clinics and hospital sitesin [place], [place], [place] and [place]. This disclosure is being madepursuant to the Care Everywhere program and may not contain all information available regarding this patient. Last updated 18.[facility] [employer] Social History Tobacco Use Types Packs/Day Years [...]
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
--- OUTSIDE RECORDS SUMMARY | 2025-04-10 09:59 | XMS_ITS | Clinical Summary ---
Author Organization [facility] Address [address] [place] [address] Care Team Providers Care Functional Manager Name Role Phone Unavailable Primary Care [...]
--- OUTSIDE RECORDS SUMMARY | 2025-04-10 09:59 | XMS_ITS | Clinical Summary ---
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
--- OUTSIDE RECORDS SUMMARY | 2025-04-10 09:59 | XMS_ITS | Clinical Summary ---
Author Organization [facility] Address [address] [place] [address] Phone Care Team Providers Care Paste Thinner Name Role Phone Natividad Najera Primary Care Provider [phone] Allergies No known active allergies Medications atorvastatin [...] (#1) 2025 Insurance [employer] Care Teams Paste Thinner Relationship Specialty Start Date End Date Natividad Najera [facility] [place] [place] [address] PCP - General 10/09/19
--- NOTE | 2025-04-16 20:16 | WPDSLEEPSTUD ---
Sleep Study Date of Study: 04/10/25 Ordering Provider: MartínezAnh Interpreting Physician: Do Herzog MD Sleep Study Type: Split Polysomnogram Height: 1.75 m Weight: 147.418 kg Body Mass Index: 47.9 Neck Circumference (inches): 19 Dragoon: 11 Reason for Sleep Study Hypersomnolence; he has a prior diagnosis of obstructive sleep apnea, has used CPAP in the past. He stopped about 2 years ago due to discomfort and a dry mouth. His prior sleep study was not available to review. Sleep History Michael Bai is a 59-year-old man with excessive daytime sleepiness, loud snoring and witnessed apneas. His sleep is fragmented. He has a diagnosis of obstructive sleep apnea, quit CPAP 2 years ago due to discomfort and dry mouth. He never awakens from sleep feeling short of breath. He never wakes at night with heartburn, belching or coughing.??He constantly snores, occasionally snores loudly enough that others complain. He rarely has trouble sleeping when he has a cold. He rarely wakes up gasping for breath during the night. He constantly has breathing problems at night witnessed by others. He occasionally sweats excessively at night. He rarely notices his heart pounding or beating irregularly during the night. He occasionally falls asleep during the day. He rarely falls asleep involuntarily, rarely falls asleep while driving. He frequently experiences loss of muscle tone with strong emotion. He rarely has daytime difficulty at work due to excessive sleepiness. He rarely feels paralyzed on waking or falling asleep. He occasionally experiences vivid dreams upon waking or falling asleep. He rarely feels afraid of going to sleep. He rarely has nightmares. He frequently recalls his dreams. He rarely has thoughts racing through his mind. He occasionally feels sad or depressed. He occasionally feels anxiety. He rarely notices parts of his body jerk. He rarely kicks during the night. He occasionally feels crawling or aching feelings in his legs. He occasionally feels leg pain at night. He never has morning jaw pain, never grinds his teeth at night. He occasionally feels bothered by pain during the day, rarely awakened by pain during the night. He occasionally wakes up feeling stiff in the morning, and he occasionally wakes feeling sore or achy. He frequently awakens with pain in his neck, spine, or joints. He has dizziness and fatigue. Normal bedtime is 2:00 a.m., falling asleep within 30 minutes, waking 3-4 times at night to go to the bathroom. He reports his wake time is 4:00 a.m. however this may be the time he wakes to go to the bathroom. On weekends bedtime is 11:00 p.m. wake time is 6:00 a.m.. He averages 4-5 hours of sleep per night. He takes naps in the day, may feel refreshed after a 10-15 minute nap.. Habits:??Tobacco: 1 ppd Caffeine: none Alcohol: social drinker Recreational substances: none PMFSH Past Medical History Medical History Arthritis Depression Degenerative arthritis of right knee Amputation of one or more toes Hyperlipidemia Sleep trouble Obstructive sleep apnea Tobacco use Diabetic foot infection Osteomyelitis of second toe of left foot COVID-19 virus infection (09/2019) KAYLA (acute kidney injury) Diabetes mellitus with diabetic neuropathy Hemoglobin A1c was 11.1 on 02/11/2021 History of elevated blood pressure while in hospital Osteomyelitis Diabetes GI bleed (12/2018) Secondary to gastric erosions. Anemia Hypertension Surgical History Surgical History History of foot surgery , Dr. 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 History of appendectomy History of arthroscopy of left shoulder Family History Family History Father Medical history unknown Mother Healthy adult Diabetes mellitus Borderline DM Sibling Healthy adult Social History Social History Social History: The patient lives in [place]. His mother lives at home with him. Social drinker. Smokes 1/3 pack of cigarettes a day. No illicit substance use. Surrogate decision maker: Taylor Cooper, niece. The patient is currently unemployed and is applying for disability. The patient denied using any drugs but stated he smoked marijuana over last couple days. Patient's drug screen was positive for cocaine. Code status: Full code. Smoking packs per day: 0.33 Smoking cigarettes per day: 6.6 Years smoked: 20 Smoking pack-years: 6.60 Smoking status: Current every day smoker Tobacco type: cigarettes Second hand tobacco smoke exposure: No Alcohol intake: unknown Substance use: unknown Substance use type: unknown Living arrangements: with family Occupation/Education: unemployed Gender identity (if verbalized by the patient): Male Spiritual care concerns: No Medications Home Medications ?Medication ?Instructions ?Recorded ?Confirmed ?Type metformin 850 mg tablet 850 mg PO BID 09/23/19 01/21/22 History atorvastatin 20 mg tablet (Lipitor) 20 mg PO DAILY 05/08/20 01/21/22 History amlodipine 5 mg tablet (Norvasc) 5 mg PO QAM #30 tabs 04/09/21 01/21/22 Rx insulin detemir U-100 100 unit/mL 15 unit (0.15 mL) subcut HS #10 mL 04/09/21 01/21/22 Rx subcutaneous solution (Levemir U-100 Insulin) insulin syringe-needle U-100 1/2 #1 pkg 04/09/21 01/21/22 Rx mL 31 gauge x 15/64 (BD Veo Insulin Syringe Ultra-Fine) pen needle, diabetic 32 gauge x #1 pkg 04/09/21 01/21/22 Rx 5/32 (BD Ultra-Fine Jing Pen Needle) acetaminophen 500 mg tablet 500 mg PO Q6H #14 tabs 09/06/21 01/21/22 Rx (Tylenol Extra Strength) ibuprofen 800 mg tablet 800 mg PO TID PRN pain #14 tabs 09/06/21 01/21/22 Rx ergocalciferol (vitamin D2) 1,250 1,250 mcg PO DAILY 09/16/21 01/21/22 History mcg (50,000 unit) capsule gabapentin 100 mg capsule 100 mg PO DIRECTED 09/16/21 01/21/22 History ondansetron HCl 4 mg tablet 4 mg PO Q6H 3 days #12 tabs 09/16/21 01/21/22 Rx aripiprazole 15 mg tablet mg 01/12/22 01/21/22 History escitalopram oxalate 20 mg tablet mg 01/12/22 01/21/22 History meclizine 25 mg tablet 25 mg PO TID PRN dizziness #14 tabs 02/24/22 Rx ondansetron 4 mg disintegrating 4 mg PO Q6H PRN nausea and 02/24/22 Rx tablet vomiting #10 tabs ondansetron 4 mg disintegrating 4 mg PO Q8H PRN nausea and 07/05/22 Rx tablet vomiting #20 tabs clotrimazole 1 % topical cream 1 applic topical BID #15 grams 10/05/22 Rx meclizine 25 mg tablet 25 mg PO TID #14 tabs 10/05/22 Rx ondansetron 4 mg disintegrating 4 mg PO Q6H PRN nausea and 10/05/22 Rx tablet vomiting #10 tabs ciprofloxacin HCl 0.3 % eye drops 2 drp LEFT EYE Q4H 5 days #5 mL 01/03/23 Rx meclizine 25 mg tablet 25 mg PO TID #30 tabs 05/29/23 Rx ondansetron 4 mg disintegrating 4 mg PO Q8H PRN nausea and 05/29/23 Rx tablet vomiting #14 tabs ondansetron 4 mg disintegrating 4 mg PO Q8H PRN nausea and 10/02/23 Rx tablet vomiting #14 tabs amlodipine 5 mg tablet 5 mg PO DAILY #30 tabs 12/05/23 Rx doxycycline hyclate 100 mg capsule 100 mg PO DAILY #14 caps 12/05/23 Rx meclizine 25 mg tablet 25 mg PO BID PRN dizziness #30 tabs 12/05/23 Rx cyclobenzaprine 5 mg tablet 5 mg PO TID PRN muscle spasm #15 01/03/25 Rx tabs Sleep Procedure A split night polysomnogram using the [employer] multi-channel system recorded the standard physiologic parameters including EEG, EOG, submentalis EMG, anterior tibialis EMG, EKG, body position, nasal and oral airflow using nasal pressure sensor and thermistor. Respiratory parameters of chest and abdominal movements were recorded with Respiratory Inductance Plethysmography belts. Oxygen saturation was recorded by pulse oximetry. Video monitoring was also performed. Sleep stages, periodic limb movements, and EEG arousals were scored in 30 second epochs according to the criteria of the AASM Scoring Manual. The Apnea-Hypopnea Index was calculated using CMS guidelines for definition of hypopnea while scoring respiratory events. The patient self-administered Tylenol p.m., 2 tablets at the beginning of the study. After the baseline portion the patient met criteria for a titration with an AHI of 94 and desaturation to 65%. He had an elevated central apnea-hypopnea index of 8 on the baseline. He used a large ResMed med AirTouch F 20 fullface mask with heated humidity, initial pressure was CPAP 10 cm as lower pressures did not allow him to fall asleep easily. He was treated on pressures from CPAP 8 to CPAP 16 then transitioned to BiPAP 18/14, 19/15, 19/15 with a backup rate of 8. His apnea-hypopnea index increased on BiPAP. On CPAP 14, his residual apnea-hypopnea index was 3.1 with a mean saturation of 86.7%. He spent 19.5 minutes in non-REM sleep. CPAP 15, the patient spent 63 minutes in bed, 11.5 minutes awake, 38 minutes in non-REM and 13.5 minutes in REM with a sleep efficiency of 81.7%, residual AHI of 33.8 and an average saturation of 88%. He had REM in the left lateral position. He had little sleep in the supine position during the night, and what he had was fragmented with constant shifts between wake, stage I and stage II. Sleep Architecture The total recording time of the diagnostic portion of the study was 187.1 minutes. The total sleep time was 127.0 minutes. During the diagnostic portion of the study, the patient spent 21.7% of total sleep time in Stage N1, 74.8% in Stage N2, 0.4% in Stage N3, and 3.1% in REM. Sleep latency was 1.1 minutes. REM latency was 68.0 minutes. Sleep Efficiency was 67.9%. Wake after Sleep Onset time was 59.0 minutes. At 01:06:36 AM the patient was placed on PAP treatment. The total recording time of the treatment portion of the study was 275.8 minutes. The total sleep time was 210.0 minutes. During the treatment portion of the study, the patient spent 19.8% of total sleep time in Stage N1, 55.5% in Stage N2, no time in Stage N3, and 24.8% in REM. Sleep latency was 0.5 minutes. REM latency was 67.5 minutes. Sleep Efficiency was 76.2%. Wake after Sleep Onset time was 65.0 minutes. Respiratory Analysis During the diagnostic portion of the study, the patient had 88 hypopneas, 68 obstructive apneas, 26 mixed apneas, and 17 central apneas for an overall Apnea Hypopnea Index of 94.0 events per hour. The REM Apnea Hypopnea Index was 60.0. The NREM Apnea Hypopnea Index was 95.1. The patient had a Central Apnea Hypopnea Index of 8.0. There were no Respiratory Effort Related Arousals.. The Respiratory Disturbance Index is 94.0 events per hour. There was no evidence of Kamron-Snow Respirations. During the treatment portion of the study, the patient had 86 hypopneas, 30 obstructive apneas, 25 mixed apneas, and 17 central apneas for an overall Apnea Hypopnea Index of 45.1 events per hour. The REM Apnea Hypopnea Index was 25.4. The NREM Apnea Hypopnea Index was 51.6. The patient had a Central Apnea Hypopnea Index of 4.9. There were no Respiratory Effort Related Arousals. The Respiratory Disturbance Index is 45.7 events per hour. There was no evidence of Kamron-Snow Respirations. Arousals During the diagnostic portion of the study, there were a total of 162 arousals for an arousal index of 76.5. There were 123 respiratory arousals for an index of 58.1. There were no periodic limb movement arousals. There were no isolated limb movement arousals.. There were 39 spontaneous arousals for an index of 18.4. During the treatment portion of the study, there were a total of 128 arousals for an index of 36.6. There were 74 respiratory arousals for an index of 21.1. There were no periodic limb movement arousals or isolated limb movement arousals. There were 54 spontaneous arousals for an index of 15.4. Periodic Limb Movements During the diagnostic portion of the study, the patient had no isolated limb movements or periodic limb movements. During the treatment portion of the study, the patient had no isolated limb movement or periodic limb movements. Oximetry Data During the diagnostic portion of the study, the patient had an average oxygen saturation of 89% in wake with a minimum oxygen saturation of 67% and a maximum oxygen saturation of 96%. The patient had an average oxygen saturation of 88.7% in sleep with a minimum oxygen saturation of 65% and a maximum oxygen saturation of 96%. The patient had 196 oxygen desaturations resulting in an Oxygen Desaturation Index of 93.1. The patient spent 60.4 minutes, 33.8% of total sleep time with an oxygen saturation less than 88%. During the treatment portion of the study, the patient had an average oxygen saturation of 90.2% in wake with a minimum oxygen saturation of 72% and a maximum oxygen saturation of 98%. The patient had an average oxygen saturation of 88.5% in sleep with a minimum oxygen saturation of 72% and a maximum oxygen saturation of 100%. The patient had 158 oxygen desaturations resulting in an Oxygen Desaturation Index of 45.1. The patient spent 120.7 minutes, 44.1% of total sleep time with an oxygen saturation less than 88%. Snoring Profile Snoring was mild to moderate during the baseline, and this was eliminated during the titration. Cardiac Profile During the diagnostic portion of the study, the EKG showed normal sinus rhythm. The average pulse rate was 90 bpm, minimum pulse rate was 74 bpm, and the maximum pulse rate was 106 bpm. No arrhythmias noted. During the treatment portion of the study, the EKG showed normal sinus rhythm. The average pulse rate was 84 bpm, minimum pulse rate was 73 bpm, and the maximum pulse rate was 101 bpm. No arrhythmias noted. EEG Profile Unremarkable, no evidence of seizures. Assessment and Plan Assessment and Plan (1) Obstructive sleep apnea: Code(s): G47.33 - Obstructive sleep apnea (adult) (pediatric) Status: Acute Assessment and Plan: This split night sleep study on 04/10/2025 shows extremely severe obstructive sleep apnea, the apnea-hypopnea index is 94 with a central apnea index of 8, desaturation to 65%, moderate snoring and 60.4 minutes, 33.8% of the study spent below 88% saturation. He had improvement on CPAP 14 and CPAP 15 cm. On CPAP 14 he spent 19.5 minutes in bed all of this time in non-REM, sleep efficiency 100% with a residual apnea-hypopnea index of 3.1 and a mean saturation of 80 7%. On CPAP 15, he spent 63 minutes in bed, 11.5 minutes awake, 38 minutes in non-REM and 13.5 minutes in REM with a sleep efficiency of 81.7% and a residual apnea-hypopnea index of 33.8 which is quite high. He had a mean saturation of 88.6%. He slept in the left lateral position mainly at this pressure. He had a small amount of sleep in the prone position at CPAP 15. At higher pressures, CPAP 16 and all the BiPAP pressures his apnea-hypopnea index was 56 and above. He did not have significant REM on most of the lower pressures. Because his obstructive sleep apnea is so severe, he may not be able to have an ideal pressure which eliminates apneas and allows him to sleep in all body positions. The goal is improvement, not perfection. He started with a baseline of an apnea-hypopnea index 94 with only 4 minutes of REM a sleep efficiency of 67% and desaturation to 65%. I am recommending CPAP 15 cm using a large ResMed AirTouch F20 fullface mask with heated humidity and close clinical follow-up. He had a small amount of REM in the left lateral position at CPAP 15. The patient should be encouraged not to sleep on his back. He did not have any satisfactory sleep on CPAP while he was in the supine position. His supine sleep was fragmented with constant shifts between wake, stage I and stage II. I would recommend using pillows on his abdomen as well as his back to prevent him from rolling onto his back. Check an overnight oximetry using CPAP 15 to assure that his saturation improves and is maintained above 88% while sleeping. Consider evaluation of his pulmonary status to see if he has obstructive lung disease. The patient smokes, has sustained hypoxemia at night and does not appear to be on any inhalers. He may have untreated COPD. Evaluation and treatment may improve his overnight saturation and he may not require supplemental oxygen. BMI is 48. Weight management is advised. Clinical data suggests that weight loss of 10% can reduce the severity of respiratory events and snoring and improve AHI by as much as 25%. Sleep history indicates that he occasionally has uncomfortable feelings in his legs. I would recommend talking to him and ask him he has is 2 or more nights per week, if it improves with movement, if it is worsened by sitting still and if he has tried anything for treatment. He has diabetes, and this can be associated with restless legs syndrome. He did not have any significant leg movements on this study. Data The data obtained during this sleep study is adequate for interpretation. Certification This sleep study has been reviewed by a board certified sleep medicine physician.
[2025-04-16 20:35] VITALS: BMI 47.9
== END 2025-04-11 06:57 | disposition home or self-care (01) ==
PROVIDERS: Visit Provider Nurse Practitioner
DX: G47.33 Obstructive sleep apnea (adult) (pediatric) (principal)
CPT/HCPCS: 95811